=== PATIENT | female | born 1945 | race Caucasian/White ===

== ENCOUNTER 2022-08-12 04:33 | Emergency (ER) | payer MEDICARE, SELFPAY ==
--- NOTE | 2022-08-12 | ECG_ITS ---
Test Reason : CHEST PAIN Blood Pressure : / mmHG Vent. Rate : 080 BPM Atrial Rate : 080 BPM P-R Int : 176 ms QRS Dur : 080 ms QT Int : 364 ms P-R-T Axes : 077 060 058 degrees QTc Int : 419 ms Normal sinus rhythm Normal ECG When compared with ECG of 12-AUG-2022 04:50, previous study had limb lead reversal Referred By: Hernandez Tinsley Electronically Signed By:JONEL MCCARTY MD
--- NOTE | ~2022-08-12 | CT_ITS ---
EXAMINATION: CT ANGIOGRAM OF THE CHEST WITH AND WITHOUT CONTRAST (CT PULMONARY ANGIOGRAM FOR PE) CLINICAL INFORMATION: Reason for Exam cp and elev d-dimer COMPARISON: Chest radiograph 08/12/2022 TECHNIQUE: Prior to contrast administration, noncontrast localization images were obtained. Subsequently, multidetector volumetric imaging was performed from the thoracic inlet to below the diaphragms following the administration of 80 mL Omnipaque 350 intravenous contrast. No contrast reaction reported Sagittal, coronal, and MIP oblique sagittal reformatted images were obtained on the CT workstation, uploaded to PACS, and reviewed. This CT examination was performed using dose optimization techniques as appropriate, variously including the following: *Automated exposure control *Adjustment of mA and/or kV according to patient size (this includes techniques or standardized protocols for targeted exams where dose is matched to indication/reason for exam; i.e. extremities or head) *Use of iterative reconstruction technique Total exam dose-length product 195 mGy-cm FINDINGS: QUALITY OF STUDY/CONTRAST BOLUS: Satisfactory. PULMONARY ARTERIES: No central or segmental pulmonary emboli. THORACIC AORTA: No aneurysm or dissection. LUNG: Lungs do appear to be markedly hyperaerated but are grossly clear. No suspicious nodule or mass. PLEURA: No pleural effusion or pneumothorax. MEDIASTINUM: Normal heart size. No pericardial effusion. No hilar or mediastinal lymphadenopathy. No evidence of septal bowing or right heart strain. CHEST WALL/AXILLA: No axillary or internal mammary lymphadenopathy. OSSEOUS STRUCTURES: Kyphosis and advanced degenerative change throughout the thoracic spine. UPPER ABDOMEN: Hepatic cysts left lobe at 24 mm. Hepatic steatosis. No reflux of contrast into the hepatic veins to suggest elevated right heart pressures. CT/CT angio chest PE protocol IMPRESSION: 1. Hyperaeration. No active disease. No evidence for acute PE VTE: negative
--- NOTE | ~2022-08-12 | XR_ITS ---
EXAMINATION: XR CHEST CLINICAL INFORMATION: Chest pain COMPARISON: None TECHNIQUE: Frontal view of the chest was obtained. FINDINGS: Cardiac leads overlie the chest. The lungs are well expanded. There is no focal consolidation, edema, or effusion. No pneumothorax. The cardiomediastinal silhouette is within normal limits of size with a calcified aorta. No acute osseous abnormality. XR/XR chest 1V IMPRESSION: No acute pulmonary disease.
--- NOTE | 2022-08-12 04:43 | ECG_ITS ---
Test Reason : CHEST PAIN Blood Pressure : / mmHG Vent. Rate : 079 BPM Atrial Rate : 079 BPM P-R Int : 152 ms QRS Dur : 074 ms QT Int : 368 ms P-R-T Axes : 000 142 139 degrees QTc Int : 421 ms Normal sinus rhythm Left posterior fascicular block Abnormal ECG No previous ECGs available Possible limb lead reversal, suggest repeat study Referred By: Hernandez Tinsley Electronically Signed By:JONEL MCCARTY MD
[2022-08-12 04:52] VITALS: BP 160/90; PULSE 80; RESP 16; TEMP 36.9; O2SAT 99; BMI 25.4
--- OUTSIDE RECORDS SUMMARY | 2022-08-12 05:14 | XMS_ITS | Continuity of Care Document ---
:1945 Author Organization [facility] Address [address] [place] [address]- Care Team Providers Name Role Phone Jas Núñez MD Primary Care Physician Encounter [facility] Date(s): 12/27/20 - 01/26/21 [facility] [address] [place] [address]- Allergies, Adverse Reactions, Alerts Substance Reaction Severity Status ibuprofen anxious Active morphine stomach pain severe Active Motrin gi upset Active Latex rash Active Cold and Allergy DM get anxious Active PROzac1 Active 1lack of theraputic effect Medications albuterol CFC free 90 mcg/inh inhalation aerosol 2, puffs, Inhalation, Every 4 hours, PRN, # 8.5 Gm, Refills 0, Tot. Refills 0, Maintenance, 04/29/1916:28:23 EDT, Aerosol, Print Requisition Start Date: 04/29/19 Status: OrderedclonazePAM 0.5 mg oral tablet 1 tablet = 0.5 mg, By Mouth, Daily, PRN anxiety, # 10 tablet, 0 Refills, Maintenance, 11/13/20 15:21:00 EST, Tablet, [id number], 153, cm, 11/13/20 14:46:00 EST, Height, 60.8, kg, 10/03/20 10:13:00 EST, Dry Weight Start Date: 11/13/20 Stop Date: 02/11/21 Status: OrderedclonazePAM 1 mg oral tablet 0 Refills, Maintenance, 11/13/20 14:53:00 EST, Partial fill upon patient request if the prescriptionis for a schedule II opioid drug. Start Date: 11/13/20 Status: Orderedescitalopram 20 mg oral tablet 1 tablet = 20 mg, By Mouth, Daily, # 90 tablet, 2 Refills, Maintenance, 10/18/20 10:22:00 EST, [id number], 153, cm, 10/03/20 10:13:00 EST, Height, 60.8, kg, 10/03/20 10:13:00 EST, Dry Weight Start Date: 10/18/20 Stop Date: 07/15/21 Status: Orderedpravastatin 40 mg oral tablet 0 Refills, Maintenance, 12/09/20 15:14:00 EST, Partial fill upon patient request if the prescriptionis for a schedule II opioid drug. Start Date: 12/09/20 Status: Orderedramelteon 8 mg oral tablet 1 tablet = 8 mg, By Mouth, Daily at bedtime, # 30 tablet, 1 Refills, Maintenance, 12/30/20 13:04:00 EDT, [id number], Partial fill upon patient request if the prescription is for a schedule II opioid drug., 153, cm, 12/09/20 15:08:00 EST, He... Start Date: 12/30/20 Status: OrderedSymbicort 160mcg/4.5mcg Inhaler 2, puffs, Inhalation, 2 times a day, Refills 0, Maintenance, 01/28/20 13:08:00 EDT Start Date: 01/28/20 Status: Ordered Problem List Condition Effective Dates Status Health Status Informant COPD - Chronic obstructive pulmonary Active disease(Confirmed) Diverticulosis(Confirmed) Active Hyperlipidemia(Confirmed) Active Insomnia(Confirmed) Active Major depressive disorder(Confirmed) Active Lung cancer(Confirmed) Active Anxiety and depression(Confirmed) Active Pain In Left Arm(Confirmed) Active PMB (postmenopausal Active bleeding)(Confirmed) Social History Social History Type Response Smoking Status Former smoker, quit more ekaterina n 30 days ago; Other: stopped smoking about 15 years; used to smoke one pack of cigarettes a day; Started at age: 15; entered on: 04/11/20 Sex
--- OUTSIDE RECORDS SUMMARY | 2022-08-12 05:14 | XMS_ITS | Continuity of Care Document ---
:1945 Author Organization [facility] Address [address] [place] [address]- Care Team Providers Name Role Phone Wilton GONZALEZ, Jas Primary Care Physician Encounter [facility] NBR [id number] Date(s): 04/15/21 - 05/15/21 [facility] [address] [place] [address]- Attending Physician: Christiano Schaffer Admitting Physician: Christiano Schaffer Referring Physician: Christiano Schaffer Allergies, Adverse Reactions, Alerts Substance Reaction Severity [...] Aerosol, Print Requisition Start Date: 04/29/19 Status: Orderedbudesonide 3 mg oral delayed release capsule See Instructions, 3 capsules by mouth daily for 6 weeks then 2 capsules by mouth daily for 4 weeks then 1 capsule by mouth daily for 4 weeks, # 210 tablet, 0 Refills, Acute 06/04/21 14:54:00 EDT, 02/19/21 9:17:00 EDT, [id number], Partial... Start Date: 02/19/21 Stop Date: 06/04/21 Status: OrderedclonazePAM 0.5 mg oral tablet 0.5 tablet = 0.25 mg, By Mouth, Daily, PRN anxiety attacks, To use only for Panic Attacks, # 15 tablet, 0 Refills, Maintenance, 05/15/21 12:24:00 EDT, Tablet, [id number], Partial fill upon patient request if the prescription is for a schedu... Start Date: 05/15/21 Stop Date: 06/14/21 Status: Orderedduloxetine 20 mg oral enteric coated capsule 1 capsule = 20 mg, By Mouth, Daily, # 30 capsule, 3 Refills, Maintenance, 04/15/21 13:46:00 EDT, Capsule, [facility], Partial fill upon patient request if the prescription is for a schedule II opioid drug., 153, cm, 04/15/21 13:19:00 EDT, H... Start Date: 04/15/21 Stop Date: 08/13/21 Status: Orderedgabapentin 100 mg oral capsule 200 mg, 2, capsule, By Mouth, Daily at bedtime, # 180 capsule, Refills 1, Tot. Refills 1, Maintenance, 04/15/21 13:47:00 EDT, Route to Pharmacy Electronically, [id number], Partial fill upon patient request if the prescription is for a sched... Start Date: 04/15/21 Stop Date: 10/12/21 Status: Orderedpravastatin 40 mg oral tablet 0 Refills, Maintenance, 12/09/20 15:14:00 EST, Partial fill upon patient request if the prescriptionis for a schedule II opioid drug. Start Date: 12/09/20 Status: Orderedpravastatin 40 mg oral tablet 1 tablet = 40 mg, By Mouth, Every other day, # 45 tablet, 3 Refills, Maintenance, 05/05/21 15:52:00 EDT, Tablet, [facility], 153, cm, 04/15/21 13:19:00 EDT, Height, 60.1, kg, 03/18/21 16:02:00 EDT, Dry Weight Start Date: 05/05/21 Stop Date: 04/30/22 Status: OrderedSymbicort 160mcg/4.5mcg Inhaler 2, puffs, Inhalation, 2 times a day, Refills 0, Maintenance, 01/28/20 13:08:00 EDT Start Date: 01/28/20 Status: Ordered Problem List Condition Effective Dates Status Health Status Informant COPD - Chronic obstructive pulmonary Active disease(Confirmed) Diverticulosis(Confirmed) Active Generalized anxiety Active disorder(Confirmed) Hyperlipidemia(Confirmed) Active Insomnia(Confirmed) Active Major depressive disorder(Confirmed) Active Lung cancer(Confirmed) Active Anxiety and depression(Confirmed) Active Pain In Left Arm(Confirmed) Active Panic attacks(Confirmed) Active PMB (postmenopausal Active bleeding)(Confirmed) Social History Social History Type Response Smoking Status Former smoker, quit more ekaterina n 30 days ago; Started at age: 15; Other: stopped smoking about 15 years; used to smoke one pack of cigarettes a day; entered on: 04/11/20 Sex
--- OUTSIDE RECORDS SUMMARY | 2022-08-12 05:14 | XMS_ITS | Continuity of Care Document ---
:1945 Author Organization [facility] Address [address] [place] [address]- Care Team Providers Name Role Phone Jas Núñez MD Primary Care Physician Encounter [facility] Date(s): 07/25/21 - 08/24/21 [facility] [place] [address] [place], [place] [address] Allergies, Adverse Reactions, Alerts Substance Reaction Severity [...] 04/29/19 Status: OrderedclonazePAM 0.5 mg oral tablet 0.5 tablet = 0.25 mg, By Mouth, Daily, PRN anxiety attacks, To use only for Panic Attacks, # 15 tablet, 0 Refills, Maintenance, 06/23/21 15:36:00 EDT, Tablet, [facility], Partial fill upon patient request if the prescription is for a schedu... Start Date: 06/23/21 Stop Date: 07/23/21 Status: Orderedduloxetine 20 mg oral enteric coated capsule 1 capsule = 20 mg, By Mouth, Daily, # 30 capsule, 3 Refills, Maintenance, 08/19/21 10:09:00 EST, Capsule, [facility], [facility], Partial fill upon patient request if the prescription is for a schedule II opioid drug., 153, cm, 05/19/21 7:40:00 EDT, He... Start Date: 08/19/21 Stop Date: 12/17/21 Status: Orderedgabapentin 300 mg oral capsule 300 mg, 1, capsule, By Mouth, Daily at bedtime, # 90 capsule, Refills 1, Tot. Refills 1, Maintenance, 06/16/21 16:15:00 EDT, Route to Pharmacy Electronically, [id number], Partial fill upon patient request if the prescription is for a schedu... Start Date: 06/16/21 Stop Date: 12/13/21 Status: Orderedpravastatin 40 mg oral tablet 0 Refills, Maintenance, 12/09/20 15:14:00 EST, Partial fill upon patient request if the prescriptionis for a schedule II opioid drug. Start Date: 12/09/20 Status: Orderedpravastatin 40 mg oral tablet 1 tablet = 40 mg, By Mouth, Every other day, # 45 tablet, 3 Refills, Maintenance, 05/05/21 15:52:00 EDT, Tablet, [id number], 153, cm, 04/15/21 13:19:00 EDT, [...] smoker, quit more ekaterina n 30 days ago entered on: 05/19/21 Sex
--- OUTSIDE RECORDS SUMMARY | 2022-08-12 05:14 | XMS_ITS | Continuity of Care Document ---
:1945 Author Organization [facility] Address [address] [place] [address]- Care Team Providers Name Role Phone Jas Núñez MD Primary Care Physician Encounter [facility] NBR [id number] Date(s): 04/11/20 - 04/18/20 [facility] [address] [place] [address]- 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 Major depressive disorder (Discharge Diagnosis) - 04/11/20 Hyperlipidemia (Discharge Diagnosis) - 04/11/20 Lymphocytic colitis (Discharge Diagnosis) - 04/11/20 Lung cancer (Discharge Diagnosis) - 04/11/20 Osteopenia (Discharge Diagnosis) - 04/11/20 Left knee pain (Discharge Diagnosis) - 04/11/20 Attending Physician: Jas Núñez MD Allergies, Adverse Reactions, Alerts Substance Reaction Severity [...] Aerosol, Print Requisition Start Date: 04/29/19 Status: OrderedEscitalopram = 10 mg, By Mouth, Daily, 0 Refills, Maintenance, 06/11/18 13:39:25 EDT Start Date: 06/11/18 Status: OrderedKlonopin 1 mg oral tablet 0.5 tablet = 0.5 mg, By Mouth, Daily at bedtime, 0 Refills, Maintenance, 12/18/12 13:32:02 Start Date: 12/18/12 Status: OrderedPravastatin = 40 mg, By Mouth, Daily, every other day, 0 Refills, Maintenance, 01/22/19 18:11:37 EDT Start Date: 01/22/19 Status: OrderedSymbicort 160mcg/4.5mcg Inhaler 2, puffs, Inhalation, 2 times a day, Refills 0, Maintenance, 01/28/20 13:08:00 EDT Start Date: 01/28/20 Status: Ordered Problem List Condition Effective Dates Status Health Status Informant COPD - Chronic obstructive pulmonary Active disease(Confirmed) Diverticulosis(Confirmed) Active Hyperlipidemia(Confirmed) Active Major depressive disorder(Confirmed) Active Lung cancer(Confirmed) Active Anxiety and depression(Confirmed) Active Pain In Left Arm(Confirmed) Active PMB (postmenopausal Active bleeding)(Confirmed) Diagnosis Diagnosis Type Effective Dates Health Clinical Infor mant Status Service COPD with emphysema Discharge 04/11/20 Diagnosis Major depressive Discharge 04/11/20 disorder Diagnosis Hyperlipidemia Discharge 04/11/20 Diagnosis Lymphocytic colitis Discharge 04/11/20 Diagnosis Lung cancer Discharge 04/11/20 Diagnosis Osteopenia Discharge 04/11/20 Diagnosis Left knee pain Discharge 04/11/20 Diagnosis Vital Signs Most recent to oldest [Reference Range]: 1 Height 153 cm (04/11/20 9:54 AM) Weight 56.9 kg (04/11/20 9:54 AM) Oxygen Saturation [94-100 %] 96 % (04/11/20 9:54 AM) Pulse Rate [55-90 bpm] 77 bpm (04/11/20 9:54 AM) Body Mass Index [18.5-24.99] 24.31 (04/11/20 9:54 AM) Blood Pressure [90-138/55-84 mm Hg] 110/70 mm Hg (04/11/20 9:54 AM) Liters per Minute 0 L/min (04/11/20 9:54 AM) Mode of Delivery (Oxygen) Room air (04/11/20 9:54 AM) Blood pressure sites Arm, right (04/11/20 9:54 AM) Weight Obtained Via Standing scale (04/11/20 9:54 AM) Social History Social History Type Response Smoking Status Former smoker, quit more ekaterina n 30 days ago; Other: stopped smoking about 15 years; used to smoke one pack of cigarettes a day; Started at age: 15; entered on: 04/11/20 Sex
--- OUTSIDE RECORDS SUMMARY | 2022-08-12 05:14 | XMS_ITS | Continuity of Care Document ---
:1945 Author Organization [facility] Address [address] [place] [address]- Care Team Providers Name Role Phone Jas Núñez MD Primary Care Physician Encounter [facility] Date(s): 05/20/21 - 06/19/21 [facility] [address] [place] [address]- [place] Allergies, Adverse Reactions, Alerts Substance Reaction Severity [...] oral delayed release capsule See Instructions, 3 tabletsdaily for 6 weeks then 2 tablets daily for 4 weeks, then 1 tablet daily for 4 weeks, # 210 tablet, 0 Refills, Acute 08/04/21 13:00:00 EDT, 05/21/21 8:17:00 EDT, [facility], Partial fill upon patient request if the... Start Date: 05/21/21 Stop Date: 08/04/21 Status: OrderedclonazePAM 0.5 mg oral tablet 0.5 tablet = 0.25 mg, By Mouth, Daily, PRN anxiety attacks, To use only for Panic Attacks, # 15 tablet, 0 Refills, Maintenance, 05/15/21 12:24:00 EDT, Tablet, [facility], Partial fill upon patient request if the prescription is for a schedu... Start Date: 05/15/21 Stop Date: 06/14/21 Status: Orderedduloxetine 20 mg oral enteric coated capsule 1 capsule = 20 mg, By Mouth, Daily, # 30 capsule, 3 Refills, Maintenance, 04/15/21 13:46:00 EDT, Capsule, [facility], Partial fill upon patient request if the prescription is for a schedule II opioid drug., 153, cm, 04/15/21 13:19:00 EDT, H... Start Date: 04/15/21 Stop Date: 08/13/21 Status: Orderedgabapentin 300 mg oral capsule 300 mg, 1, capsule, By Mouth, Daily at bedtime, # 90 capsule, Refills 1, Tot. Refills 1, Maintenance, 06/16/21 16:15:00 EDT, Route to Pharmacy Electronically, [facility], Partial fill upon patient request [...] 3 Refills, Maintenance, 05/05/21 15:52:00 EDT, Tablet, [facility], 153, cm, 04/15/21 13:19:00 EDT, [...]
--- OUTSIDE RECORDS SUMMARY | 2022-08-12 05:14 | XMS_ITS | Continuity of Care Document ---
:1945 Author Organization [facility] Address [address] [place] [address]- Care Team Providers Name Role Phone Jas Núñez MD Primary Care Physician Encounter [facility] Date(s): 05/06/20 - 06/05/20 [facility] [address] [place] [address]- Allergies, Adverse Reactions, Alerts Substance Reaction Severity [...] Print Requisition Start Date: 04/29/19 Status: OrderedclonazePAM 1 mg oral tablet 1 tablet = 1 mg, By Mouth, Daily, PRN Anxiety, # 30 tablet, 1 Refills, Maintenance, 05/06/20 12:47:00 EDT, Tablet, [facility], 153, cm, 04/25/20 10:42:00 EDT, Height, 58.6, kg, 01/28/20 12:59:00 EDT, Dry Weight Start Date: 05/06/20 Status: OrderedEscitalopram = 10 mg, By Mouth, Daily, 0 Refills, Maintenance, 06/11/18 13:39:25 EDT Start Date: 06/11/18 Status: Orderedescitalopram 20 mg oral tablet 1 tablet = 20 mg, By Mouth, Daily, # 90 tablet, 1 Refills, Maintenance, 05/06/20 12:50:00 EDT, [facility], 153, cm, 04/25/20 10:42:00 EDT, Height, 58.6, kg, 01/28/20 12:59:00 EDT, Dry Weight Start Date: 05/06/20 Stop Date: 11/02/20 Status: OrderedKlonopin 1 mg oral tablet 0.5 [...] ekaterina n 30 days ago entered on: 04/25/20 Sex
--- OUTSIDE RECORDS SUMMARY | 2022-08-12 05:14 | XMS_ITS | Continuity of Care Document ---
:1945 Author Organization [facility] Address [address] [place] [address]- Care Team Providers Name Role Phone Jas Núñez MD Primary Care Physician Encounter [facility] Date(s): 06/24/20 - 07/24/20 [facility] [address] [place] [address]- Allergies, Adverse Reactions, Alerts Substance Reaction Severity [...] 1 Refills, Maintenance, 05/06/20 12:47:00 EDT, Tablet, [facility], 153, cm, 04/25/20 10:42:00 EDT, Height, 58.6, kg, 01/28/20 12:59:00 EDT, Dry Weight Start Date: 05/06/20 Status: OrderedEscitalopram = 10 mg, By Mouth, Daily, 0 Refills, Maintenance, 06/11/18 13:39:25 EDT Start Date: 06/11/18 Status: Orderedescitalopram 20 mg oral tablet 1 tablet = 20 mg, By Mouth, Daily, # 90 tablet, 1 Refills, Maintenance, 05/06/20 12:50:00 EDT, [facility], 153, cm, 04/25/20 10:42:00 EDT, [...] 01/22/19 18:11:37 EDT Start Date: 01/22/19 Status: Orderedpravastatin 40 mg oral tablet 1 tablet = 40 mg, By Mouth, Every other day, # 45 tablet, 2 Refills, Maintenance, 06/24/20 12:41:00 EDT, Tablet, [facility], 153, cm, 04/25/20 10:42:00 EDT, Height, 58.6, kg, 01/28/20 12:59:00 EDT, Dry Weight Start Date: 06/24/20 Stop Date: 03/21/21 Status: OrderedSymbicort 160mcg/4.5mcg Inhaler 2, puffs, Inhalation, [...]
--- OUTSIDE RECORDS SUMMARY | 2022-08-12 05:14 | XMS_ITS | Continuity of Care Document ---
:1945 Author Organization [facility] Address [address] [place] [address]- Care Team Providers Name Role Phone Jas Núñez MD Primary Care Physician Encounter [facility] NBR [id number] Date(s): 09/19/20 - 09/26/20 [facility] [address] [place] [id number]- Encounter Diagnosis Anxiety and depression (Discharge Diagnosis) - 09/19/20 Insomnia (Discharge Diagnosis) - 09/19/20 Attending Physician: Jas Núñez MD Allergies, Adverse [...] mg, By Mouth, Daily, PRN anxiety, # 30 tablet, 0 Refills, Maintenance, 08/08/20 17:49:00 EST, Tablet, [facility], 153, cm, 07/30/20 10:38:00 EDT, Height, 58.6, kg, 01/28/20 12:59:00 EDT, Dry Weight Start Date: 08/08/20 Status: Orderedescitalopram 20 mg oral tablet 1 tablet = 20 mg, By Mouth, Daily, # 90 tablet, 2 Refills, Maintenance, 07/30/20 11:16:00 EDT, [facility], 153, cm, 07/30/20 10:38:00 EDT, Height, 58.6, kg, 01/28/20 12:59:00 EDT, Dry Weight Start Date: 07/30/20 Stop Date: 04/26/21 Status: OrderedKlonopin 1 mg oral tablet 0.5 [...] 2 Refills, Maintenance, 06/24/20 12:41:00 EDT, Tablet, [facility], 153, cm, 04/25/20 10:42:00 EDT, Height, 58.6, kg, 01/28/20 12:59:00 EDT, Dry Weight Start Date: 06/24/20 Stop Date: 03/21/21 Status: OrderedSymbicort 160mcg/4.5mcg Inhaler 2, puffs, Inhalation, 2 times a day, Refills 0, Maintenance, 01/28/20 13:08:00 EDT Start Date: 01/28/20 Status: OrderedtraZODone 50 mg oral tablet 50 mg, 1, tablet, By Mouth, Daily at bedtime, PRN, # 30 tablet, Refills 3, Tot. Refills 3, Maintenance, Sleep, 09/11/20 13:45:00 EST, Route to Pharmacy Electronically, [facility], Partial fill upon patient request if the prescription is for... Start Date: 09/11/20 Stop Date: 01/09/21 Status: Ordered Problem List Condition Effective Dates Status Health Status Informant COPD - Chronic obstructive pulmonary Active disease(Confirmed) Diverticulosis(Confirmed) Active Hyperlipidemia(Confirmed) Active Major depressive disorder(Confirmed) Active Lung cancer(Confirmed) Active Anxiety and depression(Confirmed) Active Pain In Left Arm(Confirmed) Active PMB (postmenopausal Active bleeding)(Confirmed) Diagnosis Diagnosis Type Effective Dates Health Clinical Infor mant Status Service Anxiety and Discharge 09/19/20 depression Diagnosis Insomnia Discharge 09/19/20 Diagnosis Social History Social History Type Response Smoking Status Former smoker, quit more ekaternia n 30 days ago entered on: 04/25/20 Sex
--- OUTSIDE RECORDS SUMMARY | 2022-08-12 05:14 | XMS_ITS | Continuity of Care Document ---
:1945 Author Organization [facility] Address [address] [place] [address]- Care Team Providers Name Role Phone Jas Núñez MD Primary Care Physician Encounter [facility] Date(s): 07/28/21 - 08/27/21 [facility] [place] [address] [place], [place] [address] Allergies, Adverse Reactions, Alerts Substance Reaction [...] 0 Refills, Maintenance, 06/23/21 15:36:00 EDT, Tablet, [facility], Partial fill upon patient request if the prescription is for a schedu... Start Date: 06/23/21 Stop Date: 07/23/21 Status: Orderedduloxetine 20 mg oral enteric coated capsule 1 capsule = 20 mg, By Mouth, Daily, # 30 capsule, 3 Refills, Maintenance, 08/19/21 10:09:00 EST, [facility]apsule, [facility], Partial fill upon patient request if the prescription is for a schedule II opioid drug., 153, cm, 05/19/21 7:40:00 EDT, He... Start Date: 08/19/21 Stop Date: 12/17/21 Status: Orderedgabapentin 300 mg oral capsule 300 mg, 1, capsule, By Mouth, Daily at bedtime, # 90 capsule, Refills 1, Tot. Refills 1, Maintenance, 06/16/21 16:15:00 EDT, Route to Pharmacy Electronically, [facility], Partial fill upon patient [...] 3 Refills, Maintenance, 05/05/21 15:52:00 EDT, Tablet, [facility], 153, cm, 04/15/21 13:19:00 [...] n 30 days ago entered on: 05/19/21 Sex"
--- OUTSIDE RECORDS SUMMARY | 2022-08-12 05:14 | XMS_ITS | Continuity of Care Document ---
:1945 Author Organization [facility] Address [address] [place] [address]- Care Team Providers Name Role Phone Jas Núñez MD Primary Care Physician Encounter [facility] Date(s): 10/01/20 - 10/31/20 [facility] [address] [place] [address]- Allergies, Adverse Reactions, Alerts Substance Reaction Severity [...] Aerosol, Print Requisition Start Date: 04/29/19 Status: Orderedescitalopram 20 mg oral tablet 1 tablet = 20 mg, By Mouth, Daily, # 90 tablet, 2 Refills, Maintenance, 10/18/20 10:22:00 EST, [facility], 153, cm, 10/03/20 10:13:00 EST, Height, 60.8, kg, 10/03/20 10:13:00 EST, Dry Weight Start Date: 10/18/20 Stop Date: 07/15/21 Status: Orderedramelteon 8 mg oral tablet 1 tablet = 8 mg, By Mouth, Daily at bedtime, # 30 tablet, 1 Refills, Maintenance, 10/18/20 9:57:00 EST, [facility], Partial fill upon patient request if the prescription is for a schedule IIopioid drug., 153, cm, 12/31/20 10:13:00 EST, Hei... Start Date: 10/18/20 Status: OrderedSymbicort 160mcg/4.5mcg Inhaler 2, puffs, Inhalation, [...]
--- OUTSIDE RECORDS SUMMARY | 2022-08-12 05:14 | XMS_ITS | Continuity of Care Document ---
:1945 Author Organization [facility] Address [address] [place] [address]- Care Team Providers Name Role Phone Jas Núñez MD Primary Care Physician Encounter [facility] Date(s): 02/18/21 - 03/20/21 [facility] [address], [place] [address] Allergies, Adverse Reactions, Alerts Substance [...] Acute 06/04/21 14:54:00 EDT, 02/19/21 9:17:00 EDT, [facility], Partial... Start Date: 02/19/21 Stop Date: 06/04/21 Status: OrderedclonazePAM 0.5 mg oral tablet 1 tablet = 0.5 mg, By Mouth, Daily, PRN anxiety, # 10 tablet, 0 Refills, Maintenance, 11/13/20 15:21:00 EST, Tablet, [facility], 153, cm, 11/13/20 14:46:00 EST, Height, 60.8, kg, 10/03/20 10:13:00 EST, Dry Weight Start Date: 11/13/20 Stop Date: 02/11/21 Status: OrderedclonazePAM 0.5 mg oral tablet 1 tablet = 0.5 mg, By Mouth, Daily, PRN anxiety attacks, To use only for Panic Attacks, # 10 tablet,0 Refills, Maintenance, 03/11/21 16:18:00 EDT, Tablet, [facility], Partial fill upon patient request if the prescription is for a schedule... Start Date: 03/11/21 Stop Date: 04/01/21 Status: Orderedescitalopram 20 mg oral tablet 1 tablet = 20 mg, By Mouth, Daily, # 90 tablet, 2 Refills, Maintenance, 10/18/20 10:22:00 EST, [facility], 153, cm, 10/03/20 10:13:00 EST, Height, 60.8, kg, 10/03/20 10:13:00 EST, Dry Weight Start Date: 10/18/20 Stop Date: 07/15/21 Status: Orderedgabapentin 100 mg oral capsule 100 mg, 1, capsule, By Mouth, 3 times a day, # 90 capsule, Refills 0, Tot. Refills 0, Maintenance, 03/11/21 7:35:00 EDT, Route to Pharmacy Electronically, [facility], Partial fill upon patient request if the prescription is for a schedule I... Start Date: 03/11/21 Stop Date: 04/10/21 Status: Orderedpravastatin 40 mg oral tablet 0 Refills, Maintenance, 12/09/20 15:14:00 EST, Partial fill upon patient request if the prescriptionis for a schedule II opioid drug. Start Date: 12/09/20 Status: Orderedramelteon 8 mg oral tablet 1 tablet = 8 mg, By Mouth, Daily at bedtime, # 30 tablet, 1 Refills, Maintenance, 12/30/20 13:04:00 EDT, [facility], Partial fill upon patient request [...]
--- OUTSIDE RECORDS SUMMARY | 2022-08-12 05:14 | XMS_ITS | Continuity of Care Document ---
:1945 Author Organization [facility] Address [address] [place] [address]- Care Team Providers Name Role Phone Jas Núñez MD Primary Care Physician Encounter [facility] Date(s): 02/24/21 - 03/03/21 [facility] [address] [place], [place] [address] Attending Physician: Noy Mireles NP Referring Physician: Jas Núñez MD Allergies, Adverse Reactions, [...] Acute 06/04/21 14:54:00 EDT, 02/19/21 9:17:00 EDT, [facility], Partial... Start Date: 02/19/21 Stop Date: 06/04/21 Status: OrderedclonazePAM 0.5 mg oral tablet 1 tablet = 0.5 mg, By Mouth, Daily, PRN anxiety, # 10 tablet, 0 Refills, Maintenance, 11/13/20 15:21:00 EST, Tablet, [facility]386, 153, cm, 11/13/20 14:46:00 EST, Height, 60.8, kg, 10/03/20 10:13:00 EST, Dry Weight Start Date: 11/13/20 Stop Date: 02/11/21 Status: OrderedclonazePAM 0.5 mg oral tablet 1 tablet = 0.5 mg, By Mouth, Daily, # 8 tablet, 0 Refills, Maintenance, 02/24/21 10:14:00 EDT, Tablet, [facility] 2386, Partial fill upon patient request if the prescription is for a schedule II opioid drug., 152, cm, 02/24/21 9:53:00 EDT, [facility]... Start Date: 02/24/21 Stop Date: 03/04/21 Status: Orderedescitalopram 20 mg oral tablet 1 tablet = 20 mg, By Mouth, Daily, # 90 tablet, 2 Refills, Maintenance, 10/18/20 10:22:00 EST, [facility] 2386, 153, cm, 10/03/20 10:13:00 EST, Height, 60.8, kg, 10/03/20 10:13:00 EST, Dry Weight Start Date: 10/18/20 Stop Date: 07/15/21 Status: Orderedgabapentin 100 mg oral capsule See Instructions, 1 capsule By Mouth daily at bedtime x1 week; may then increase to 1 capsule twice daily x1 week; then may increase to 1 capsule by mouth 3 times a day x2 weeks, # 42 capsule, Refills 0, Tot. Refills 0, Maintenance, 02/19/21 17:28:00... Start Date: 02/19/21 Status: Orderedpravastatin 40 mg oral tablet 0 Refills, Maintenance, 12/09/20 15:14:00 EST, Partial fill upon patient request if the prescriptionis for a schedule II opioid drug. Start Date: 12/09/20 Status: Orderedramelteon 8 mg oral tablet 1 tablet = 8 mg, By Mouth, Daily at bedtime, # 30 tablet, 1 Refills, Maintenance, 12/30/20 13:04:00 EDT, [facility], Partial fill upon [...] Panic attacks(Confirmed) Active PMB (postmenopausal Active bleeding)(Confirmed) Vital Signs Most recent to oldest [Reference Range]: 1 Height 152 cm (02/24/21 9:53 AM) Social History Social History Type Response Smoking Status Former smoker, quit more ekaterina n 30 days ago; Started at age: 15; Other: stopped smoking about 15 years; used to smoke one pack of cigarettes a day; entered on: 04/11/20 Sex
--- OUTSIDE RECORDS SUMMARY | 2022-08-12 05:14 | XMS_ITS | Continuity of Care Document ---
:1945 Author Organization [facility] Address [address] [place] [address]- Care Team Providers Name Role Phone Wilton GONZALEZ, Jas Primary Care Phys[id number] Date(s): 03/26/21 - 04/25/21 [facility] [address] [place] [address]- Allergies, Adverse Reactions, Alerts Substance Reaction Severity [...] Acute 06/04/21 14:54:00 EDT, 02/19/21 9:17:00 EDT, [facility], Partial... Start Date: 02/19/21 Stop Date: 06/04/21 Status: OrderedclonazePAM 0.5 mg oral tablet 0.5 tablet = 0.25 mg, By Mouth, Daily, PRN anxiety attacks, To use only for Panic Attacks, # 15 tablet, 0 Refills, Maintenance, 04/15/21 13:52:00 EDT, Tablet, [facility], Partial fill upon patient request if the prescription is for a schedu... Start Date: 04/15/21 Stop Date: 05/15/21 Status: Orderedduloxetine 20 mg oral enteric coated capsule 1 capsule = 20 mg, By Mouth, Daily, # 30 capsule, 3 Refills, Maintenance, 04/15/21 13:46:00 EDT, Capsule, [facility], Partial fill upon patient request if the prescription is for a schedule II opioid drug., 153, cm, 04/15/21 13:19:00 EDT, H... Start Date: 04/15/21 Stop Date: 08/13/21 Status: Orderedgabapentin 100 mg oral capsule 200 mg, 2, capsule, By Mouth, Daily at bedtime, # 180 capsule, Refills 1, Tot. Refills 1, Maintenance, 04/15/21 13:47:00 EDT, Route to Pharmacy Electronically, [facility], Partial fill upon patient request if the prescription is for a sched... Start Date: 04/15/21 Stop Date: 10/12/21 Status: Orderedpravastatin 40 mg oral tablet 0 Refills, Maintenance, 12/09/20 15:14:00 EST, Partial fill upon patient request if the prescriptionis for a schedule II opioid drug. Start Date: 12/09/20 Status: OrderedSymbicort 160mcg/4.5mcg Inhaler 2, puffs, Inhalation, [...]
--- OUTSIDE RECORDS SUMMARY | 2022-08-12 05:15 | XMS_ITS | Continuity of Care Document ---
:1945 Author Organization [facility] Address [address] [place] [address]- Care Team Providers Name Role Phone Wilton GONZALEZ, Jas [id number] Date(s): 08/26/20 - 09/25/20 [facility] [address] [place] [address]- Allergies, Adverse Reactions, Alerts Substance Reaction Severity [...]
--- OUTSIDE RECORDS SUMMARY | 2022-08-12 05:15 | XMS_ITS | Continuity of Care Document ---
:1945 Author Organization [facility] Address [address] [place] [address]- Care Team Providers Name Role Phone Jas Núñez MD Primary Care Physician Encounter [facility] Date(s): 05/15/21 - 06/14/21 [facility] [address] [place] [address]- Allergies, Adverse Reactions, Alerts Substance Reaction Severity [...] Acute 08/04/21 13:00:00 EDT, 05/21/21 8:17:00 EDT, [facility], Partial fill upon patient request if the... Start Date: 05/21/21 Stop Date: 08/04/21 Status: OrderedclonazePAM 0.5 mg oral tablet 0.5 tablet = 0.25 mg, By Mouth, Daily, PRN anxiety attacks, To use only for Panic Attacks, # 15 tablet, 0 Refills, Maintenance, 05/15/21 12:24:00 EDT, Tablet, [facility], Partial fill upon patient request if the prescription is for a schedu... Start Date: 05/15/21 Stop Date: 06/14/21 Status: Orderedduloxetine 20 mg oral enteric coated capsule 1 capsule = 20 mg, By Mouth, Daily, # 30 capsule, 3 Refills, Maintenance, 04/15/21 13:46:00 EDT, Capsule, [facility]386, Partial fill upon patient request if the prescription is for a schedule II opioid drug., 153, cm, 04/15/21 13:19:00 EDT, H... Start Date: 04/15/21 Stop Date: 08/13/21 Status: Orderedgabapentin 100 mg oral capsule 200 mg, 2, capsule, By Mouth, Daily at bedtime, # 180 capsule, Refills 1, Tot. Refills 1, Maintenance, 04/15/21 13:47:00 EDT, Route to Pharmacy Electronically, [facility], Partial fill upon patient [...] 3 Refills, Maintenance, 05/05/21 15:52:00 EDT, Tablet, [facility], 153, cm, 04/15/21 13:19:00 [...]
--- OUTSIDE RECORDS SUMMARY | 2022-08-12 05:15 | XMS_ITS | Continuity of Care Document ---
:1945 Author Organization [facility] Address [address] [place] [address]- Care Team Providers Name Role Phone Wilton GONZALEZ, Jas Primary Care [id number] Date(s): 04/08/21 - 05/08/21 [facility] [address] [place] [address]- Allergies, Adverse Reactions, Alerts Substance Reaction Severity [...] Acute 06/04/21 14:54:00 EDT, 02/19/21 9:17:00 EDT, [facility], Partial... Start Date: 02/19/21 Stop Date: 06/04/21 Status: OrderedclonazePAM 0.5 mg oral tablet 0.5 tablet = 0.25 mg, By Mouth, Daily, PRN anxiety attacks, To use only for Panic Attacks, # 15 tablet, 0 Refills, Maintenance, 04/15/21 13:52:00 EDT, Tablet, [facility], Partial fill upon patient request if the prescription is for a schedu... Start Date: 04/15/21 Stop Date: 05/15/21 Status: Orderedduloxetine 20 mg oral enteric coated capsule 1 capsule = 20 mg, By Mouth, Daily, # 30 capsule, 3 Refills, Maintenance, 04/15/21 13:46:00 EDT, Capsule, [facility], Partial fill upon patient request if the prescription is for a schedule II opioid drug., 153, cm, 04/15/21 13:19:00 EDT, H... Start Date: 04/15/21 Stop Date: 08/13/21 Status: Orderedgabapentin 100 mg oral capsule 200 mg, 2, capsule, By Mouth, Daily at bedtime, # 180 capsule, Refills 1, Tot. Refills 1, Maintenance, 04/15/21 13:47:00 EDT, Route to Pharmacy Electronically, [facility], Partial fill upon [...] 3 Refills, Maintenance, 05/05/21 15:52:00 EDT, Tablet, [facility], 153, cm, 04/15/21 13:19:00 [...]
--- OUTSIDE RECORDS SUMMARY | 2022-08-12 05:15 | XMS_ITS | Continuity of Care Document ---
:1945 Author Organization [facility] Address [address] [place] [address]- Care Team Providers Name Role Phone Jas Núñez MD Primary Care Physician Encounter [facility] Date(s): 12/09/20 - 12/16/20 [facility] [address] [place] [address]- Encounter Diagnosis Lower back pain (Discharge Diagnosis) - 12/09/20 Left knee pain (Discharge Diagnosis) - 12/09/20 Pain of left thumb (Discharge Diagnosis) - 12/09/20 Ganglion cyst (Discharge Diagnosis) - 12/09/20 Attending Physician: Not on Staff, Attending MD Allergies, Adverse Reactions, Alerts Substance Reaction [...] 0 Refills, Maintenance, 11/13/20 15:21:00 EST, Tablet, [facility]386, 153, cm, 11/13/20 14:46:00 [...] tablet, 2 Refills, Maintenance, 10/18/20 10:22:00 EST, [facility], 153, cm, 10/03/20 10:13:00 [...] tablet, 1 Refills, Maintenance, 10/18/20 9:57:00 EST, [facility], Partial fill upon patient request if the prescription is for a schedule IIopioid drug., 153, cm, 10/03/20 10:13:00 EST, Hei... Start Date: 10/18/20 Status: [...] bleeding)(Confirmed) Diagnosis Diagnosis Type Effective Dates Health Status Clinical In formant Service Lower back pain Discharge 12/09/20 Diagnosis Pain of left Discharge 12/09/20 thumb Diagnosis Left knee pain Discharge 12/09/20 Diagnosis Ganglion cyst Discharge 3/8/21 Diagnosis Vital Signs Most recent to oldest [Reference Range]: 1 Height 153 cm (12/09/20 3:08 PM) Weight 61.1 kg (12/09/20 3:08 PM) Oxygen Saturation [94-100 %] 98 % (12/09/20 3:08 PM) Pulse Rate [55-90 bpm] 72 bpm (12/09/20 3:08 PM) Body Mass Index [18.5-24.99] 26.1 *H* (12/09/20 3:08 PM) Blood Pressure [90-138/55-84 mm Hg] 122/66 mm Hg (12/09/20 3:08 PM) Respiratory Rate [16-30 br/min] 17 br/min (12/09/20 3:08 PM) Temperature [96.8-100.4 DegF] 97.8 DegF (12/09/20 3:08 PM) Liters per Minute 0 L/min (12/09/20 3:08 PM) Mode of Delivery (Oxygen) Room air (12/09/20 3:08 PM) Blood pressure sites Arm, left (12/09/20 3:08 PM) Temperature Route Temporal (12/09/20 3:08 PM) Social History Social History Type Response Smoking Status Former smoker, quit more ekaterina n 30 days ago; Started at age: 15; Other: stopped smoking about 15 years; used to smoke one pack of cigarettes a day; entered on: 04/11/20 Sex
--- OUTSIDE RECORDS SUMMARY | 2022-08-12 05:15 | XMS_ITS | Continuity of Care Document ---
:1945 Author Organization [facility] Address [address] [place] [address]- Care Team Providers Name Role Phone Jas Núñez MD Primary Care Physician Encounter [facility] Date(s): 12/26/20 - 01/25/[address] [address]- Attending Physician: Christiano Schaffer Admitting Physician: AdmtrChristiano Referring Physician: Admtr, Ar8 Allergies, Adverse Reactions, Alerts Substance Reaction Severity [...] 0 Refills, Maintenance, 11/13/20 15:21:00 EST, Tablet, [facility], 153, cm, 11/13/20 14:46:00 [...] tablet, 2 Refills, Maintenance, 10/18/20 10:22:00 EST, [facility], 153, cm, 10/03/20 10:13:00 EST, [...] tablet, 1 Refills, Maintenance, 12/30/20 13:04:00 EDT, [facility], Partial fill upon patient [...]
--- OUTSIDE RECORDS SUMMARY | 2022-08-12 05:15 | XMS_ITS | Continuity of Care Document ---
:1945 Author Organization [facility] Address [address] [place] [address]- Care Team Providers Name Role Phone Jas Núñez MD Primary Care Physician Encounter [facility] Date(s): 06/20/21 - 07/20/21 [facility] [address] [place] [address]- [place] Allergies, Adverse Reactions, Alerts Substance Reaction [...] Acute 08/04/21 13:00:00 EDT, 05/21/21 8:17:00 EDT, [facility], Partial fill upon patient request if the... Start Date: 05/21/21 Stop Date: 08/04/21 Status: OrderedclonazePAM 0.5 mg oral tablet 0.5 tablet = 0.25 mg, By Mouth, Daily, PRN anxiety attacks, To use only for Panic Attacks, # 15 tablet, 0 Refills, Maintenance, 06/23/21 15:36:00 EDT, Tablet, [facility], Partial fill upon patient request if the prescription is for a schedu... Start Date: 06/23/21 Stop Date: 07/23/21 Status: Orderedduloxetine 20 mg oral enteric coated capsule 1 capsule = 20 mg, By Mouth, Daily, # 30 capsule, 3 Refills, Maintenance, 04/15/21 13:46:00 EDT, Capsule, [facility]386, Partial fill upon patient request if the prescription is for a schedule II opioid drug., 153, cm, 04/15/21 13:19:00 EDT, H... Start Date: 04/15/21 Stop Date: 08/13/21 Status: Orderedgabapentin 300 mg oral capsule 300 mg, 1, capsule, By Mouth, Daily at bedtime, # 90 capsule, Refills 1, Tot. Refills 1, Maintenance, 06/16/21 16:15:00 EDT, Route to Pharmacy Electronically, [facility], Partial fill upon [...] 3 Refills, Maintenance, 05/05/21 15:52:00 EDT, Tablet, [facility], 153, cm, 04/15/21 [...]
--- OUTSIDE RECORDS SUMMARY | 2022-08-12 05:15 | XMS_ITS | Continuity of Care Document ---
:1945 Author Organization [facility] Address [address] [place] [address]- Care Team Providers Name Role Phone Jas Núñez MD Primary Care Physician Encounter [facility] Date(s): 06/16/21 - 07/16/21 [facility] [address] [place] [address]- [place] Allergies, Adverse Reactions, Alerts Substance Reaction [...] Acute 08/04/21 13:00:00 EDT, 05/21/21 8:17:00 EDT, [facility], Partial fill upon patient request if the... Start Date: 05/21/21 Stop Date: 08/04/21 Status: OrderedclonazePAM 0.5 mg oral tablet 0.5 tablet = 0.25 mg, By Mouth, Daily, PRN anxiety attacks, To use only for Panic Attacks, # 15 tablet, 0 Refills, Maintenance, 06/23/21 15:36:00 EDT, Tablet, [facility], Partial fill upon patient request if the prescription is for a schedu... Start Date: 06/23/21 Stop Date: 07/23/21 Status: Orderedduloxetine 20 mg oral enteric coated capsule 1 capsule = 20 mg, By Mouth, Daily, # 30 capsule, 3 Refills, Maintenance, 04/15/21 13:46:00 EDT, Capsule, [facility], Partial fill upon patient request if the prescription is for a schedule II opioid drug., 153, cm, 04/15/21 13:19:00 EDT, H... Start Date: 04/15/21 Stop Date: 08/13/21 Status: Orderedgabapentin 300 mg oral capsule 300 mg, 1, capsule, By Mouth, Daily at bedtime, # 90 capsule, Refills 1, Tot. Refills 1, Maintenance, 06/16/21 16:15:00 EDT, Route to Pharmacy Electronically, [facility], Partial fill upon [...] 3 Refills, Maintenance, 05/05/21 15:52:00 EDT, Tablet, [facility], 153, cm, 04/15/21 [...]
--- OUTSIDE RECORDS SUMMARY | 2022-08-12 05:15 | XMS_ITS | Continuity of Care Document ---
:1945 Author Organization [facility] Address [address] [place] [address]- Care Team Providers Name Role Phone Jas Núñez MD Primary Care Physician [id number] Date(s): 06/27/21 - 09/28/21 [facility] [place] [address] [place], [place] [address] Attending Physician: Gerber GONZALEZ, Zacarias Referring Physician: Jas Núñez MD Allergies, Adverse Reactions, Alerts Substance Reaction Severity Status ibuprofen anxious Active PROzac1 Active morphine stomach pain severe Active Motrin gi upset Active Latex rash Active Cold and Allergy DM get anxious Active 1lack of theraputic effect Medications albuterol [...] 0 Refills, Maintenance, 06/23/21 15:36:00 EDT, Tablet, [facility] 2386, Partial fill upon patient request if the prescription is for a schedu... Start Date: 06/23/21 Stop Date: 07/23/21 Status: Orderedduloxetine 20 mg oral enteric coated capsule 1 capsule = 20 mg, By Mouth, Daily, # 30 capsule, 3 Refills, Maintenance, 08/19/21 10:09:00 EST, Capsule, [facility]386, Partial fill upon patient request if the prescription is for a schedule II opioid drug., 153, cm, 05/19/21 7:40:00 EDT, He... Start Date: 08/19/21 Stop Date: 12/17/21 Status: Orderedgabapentin 300 mg oral capsule 300 mg, 1, capsule, By Mouth, Daily at bedtime, # 90 capsule, Refills 1, Tot. Refills 1, Maintenance, 06/16/21 16:15:00 EDT, Route to Pharmacy Electronically, [facility]386, Partial fill upon patient [...] 3 Refills, Maintenance, 05/05/21 15:52:00 EDT, Tablet, [facility], 153, cm, 04/15/21 13:19:00 [...]
--- OUTSIDE RECORDS SUMMARY | 2022-08-12 05:15 | XMS_ITS | Continuity of Care Document ---
:1945 Author Organization [facility] Address [address] [place] [address]- Care Team Providers Name Role Phone Jas Núñez MD Primary Care Physician Encounter [facility] Date(s): 10/01/20 - 10/31/20 [facility] [address] [place] [address]- Allergies, Adverse Reactions, Alerts Substance Reaction Severity [...] tablet, 2 Refills, Maintenance, 10/18/20 10:22:00 EST, [facility], 153, cm, 10/03/20 10:13:00 EST, Height, 60.8, kg, 10/03/20 10:13:00 EST, Dry Weight Start Date: 10/18/20 Stop Date: 07/15/21 Status: Orderedramelteon 8 mg oral tablet 1 tablet = 8 mg, By Mouth, Daily at bedtime, # 30 tablet, 1 Refills, Maintenance, 10/18/20 9:57:00 EST, [facility], Partial fill upon patient request [...]
--- OUTSIDE RECORDS SUMMARY | 2022-08-12 05:15 | XMS_ITS | Continuity of Care Document ---
:1945 Author Organization [facility] Address [address] [place] [id number]- Care Team Providers Name Role Phone Jsa Núñez MD Primary Care Physician Encounter [facility] Date(s): 05/16/21 - 06/15/21 [facility] [address] [place] [address]- [place] Allergies, Adverse Reactions, Alerts Substance Reaction [...] Acute 08/04/21 13:00:00 EDT, 05/21/21 8:17:00 EDT, [facility]386, Partial fill upon patient request if the... Start Date: 05/21/21 Stop Date: 08/04/21 Status: OrderedclonazePAM 0.5 mg oral tablet 0.5 tablet = 0.25 mg, By Mouth, Daily, PRN anxiety attacks, To use only for Panic Attacks, # 15 tablet, 0 Refills, Maintenance, 05/15/21 12:24:00 EDT, Tablet, [facility], Partial fill upon patient request if the prescription is for a schedu... Start Date: 05/15/21 Stop Date: 06/14/21 Status: Orderedduloxetine 20 mg oral enteric coated capsule 1 capsule = 20 mg, By Mouth, Daily, # 30 capsule, 3 Refills, Maintenance, 04/15/21 13:46:00 EDT, Capsule, [facility] 2386, Partial fill upon patient request if the prescription is for a schedule II opioid drug., 153, cm, 04/15/21 13:19:00 EDT, H... Start Date: 04/15/21 Stop Date: 08/13/21 Status: Orderedgabapentin 100 mg oral capsule 200 mg, 2, capsule, By Mouth, Daily at bedtime, # 180 capsule, Refills 1, Tot. Refills 1, Maintenance, 04/15/21 13:47:00 EDT, Route to Pharmacy Electronically, [facility]386, Partial fill upon patient [...] 3 Refills, Maintenance, 05/05/21 15:52:00 EDT, Tablet, [facility], 153, cm, 04/15/21 13:19:00 [...]
--- OUTSIDE RECORDS SUMMARY | 2022-08-12 05:15 | XMS_ITS | Continuity of Care Document ---
:1945 Author Organization [facility] [place] [facility] Address [address] [place] [address]- Care Team Providers Name Role Phone Jas Núñez MD Primary Care Physician Encounter [facility] Date(s): 05/02/20 - 06/01/20 [facility] [address] [place] [address]- [facility] Attending Physician: AdmChristiano solares Admitting Physician: AdmtrChristiano Referring Physician: Admtr, Ar8 [...] 1 Refills, Maintenance, 05/06/20 12:47:00 EDT, Tablet, [facility], 153, cm, 04/25/20 10:42:00 EDT, Height, 58.6, kg, 01/28/20 12:59:00 EDT, Dry Weight Start Date: 05/06/20 Status: OrderedEscitalopram = 10 mg, By Mouth, Daily, 0 Refills, Maintenance, 06/11/18 13:39:25 EDT Start Date: 06/11/18 Status: Orderedescitalopram 20 mg oral tablet 1 tablet = 20 mg, By Mouth, Daily, # 90 tablet, 1 Refills, Maintenance, 05/06/20 12:50:00 EDT, [facility], 153, cm, 04/25/20 10:42:00 [...]
--- OUTSIDE RECORDS SUMMARY | 2022-08-12 05:15 | XMS_ITS | Continuity of Care Document ---
:1945 Author Organization [facility] Address [address] [place] [address]- Care Team Providers Name Role Phone Jas Núñez MD Primary Care Physician Encounter [facility] N[facility] [id number] Date(s): 09/11/20 - 09/18/20 [facility] [address] [place] [address]- Encounter Diagnosis Anxiety and depression (Discharge Diagnosis) - 09/11/20 Insomnia (Discharge Diagnosis) - 09/11/20 Attending Physician: Ofelia eSrrano NP Referring Physician: Jas Núñez MD Allergies, [...] 0 Refills, Maintenance, 08/08/20 17:49:00 EST, Tablet, [facility], 153, cm, 07/30/20 10:38:00 EDT, Height, 58.6, kg, 01/28/20 12:59:00 EDT, Dry Weight Start Date: 08/08/20 Status: Orderedescitalopram 20 mg oral tablet 1 tablet = 20 mg, By Mouth, Daily, # 90 tablet, 2 Refills, Maintenance, 07/30/20 11:16:00 EDT, [facility], 153, cm, 07/30/20 10:38:00 [...] 2 Refills, Maintenance, 06/24/20 12:41:00 EDT, Tablet, [facility], 153, cm, 04/25/20 10:42:00 [...] 09/11/20 13:45:00 EST, Route to Pharmacy Electronically, [facility], Partial fill upon patient [...] Infor mant Status Service Anxiety and Discharge 09/11/20 depression Diagnosis Insomnia Discharge 09/11/20 Diagnosis Vital Signs Most recent to oldest [Reference Range]: 1 Height 153 cm (09/11/20 12:59 PM) Weight 58.9 kg (09/11/20 12:59 PM) Oxygen Saturation [94-100 %] 98 % (09/11/20 12:59 PM) Pulse Rate [55-90 bpm] 70 bpm (09/11/20 12:59 PM) Body Mass Index [18.5-24.99] 25.16 *H* (09/11/20 12:59 PM) Blood Pressure [90-138/55-84 mm Hg] 116/70 mm Hg (09/11/20 12:59 PM) Respiratory Rate [16-30 br/min] 16 br/min (09/11/20 12:59 PM) Temperature [96.8-100.4 DegF] 98.5 DegF (09/11/20 12:59 PM) Mode of Delivery (Oxygen) Room air (09/11/20 12:59 PM) Blood pressure sites Arm, left (09/11/20 12:59 PM) Temperature Route Temporal (09/11/20 12:59 PM) Weight Obtained Via Standing scale (09/11/20 12:59 PM) Social History Social History Type Response Smoking Status Former smoker, quit more ekaterina n 30 days ago entered on: 04/25/20 Sex
--- OUTSIDE RECORDS SUMMARY | 2022-08-12 05:15 | XMS_ITS | Continuity of Care Document ---
:1945 Author Organization [facility] Address [address] [place] [address]- Care Team Providers Name Role Phone Jas Núñez MD Primary Care Physician Encounter [facility] Date(s): 04/15/20 - 05/15/[address] [facility] [address] [place] [address]- Allergies, Adverse Reactions, Alerts Substance Reaction Severity [...] 1 Refills, Maintenance, 05/06/20 12:47:00 EDT, Tablet, [facility], 153, cm, 04/25/20 10:42:00 EDT, Height, 58.6, kg, 01/28/20 12:59:00 EDT, Dry Weight Start Date: 05/06/20 Status: OrderedEscitalopram = 10 mg, By Mouth, Daily, 0 Refills, Maintenance, 06/11/18 13:39:25 EDT Start Date: 06/11/18 Status: Orderedescitalopram 20 mg oral tablet 1 tablet = 20 mg, By Mouth, Daily, # 90 tablet, 1 Refills, Maintenance, 05/06/20 12:50:00 EDT, [facility], 153, cm, 04/25/20 [...]
--- OUTSIDE RECORDS SUMMARY | 2022-08-12 05:15 | XMS_ITS | Continuity of Care Document ---
:1945 Author Organization [facility] Address [address] [place] [address]- Care Team Providers Name Role Phone Jas Núñez MD Primary Care Physician Encounter [facility] NBR [id number] Date(s): 04/25/20 - 05/25/20 [facility] [address] [place] [address]- [facility] Attending Physician: Admtr, Christiano Admitting Physician: AdmtrChristiano Referring Physician: Admtr, Ar8 [...] 1 Refills, Maintenance, 05/06/20 12:47:00 EDT, Tablet, [facility], 153, cm, 04/25/20 10:42:00 EDT, Height, 58.6, kg, 01/28/20 12:59:00 EDT, Dry Weight Start Date: 05/06/20 Status: OrderedEscitalopram = 10 mg, By Mouth, Daily, 0 Refills, Maintenance, 06/11/18 13:39:25 EDT Start Date: 06/11/18 Status: Orderedescitalopram 20 mg oral tablet 1 tablet = 20 mg, By Mouth, Daily, # 90 tablet, 1 Refills, Maintenance, 05/06/20 12:50:00 EDT, [facility], 153, cm, 04/25/20 10:42:00 [...]
--- OUTSIDE RECORDS SUMMARY | 2022-08-12 05:15 | XMS_ITS | Continuity of Care Document ---
:1945 Author Organization [facility] Address [address] [place] [address]- Care Team Providers Name Role Phone Jas Núñez MD Primary Care Physician Encounter [facility] Date(s): 01/10/21 - 02/09/21 [facility] [place] [address] [place], [place] [address] Allergies, Adverse Reactions, Alerts Substance [...] 0 Refills, Maintenance, 11/13/20 15:21:00 EST, Tablet, [facility], 153, cm, 11/13/20 14:46:00 EST, Height, 60.8, kg, 10/03/20 10:13:00 EST, Dry Weight Start Date: 11/13/20 Stop Date: 02/11/21 Status: OrderedclonazePAM 1 mg oral tablet 0 Refills, Maintenance, 11/13/20 14:53:00 EST, Partial fill upon patient request if the prescriptionis for a schedule II opioid drug. Start Date: 11/13/20 Status: OrderedclonazePAM 1 mg oral tablet 1 tablet = 1 mg, By Mouth, 3 times a day, # 4 tablet, 0 Refills, Maintenance, 02/09/21 9:34:00 EDT, Tablet, [facility], Partial fill upon patient request if the prescription is for a schedule II opioid drug., 153, cm, 02/09/21 9:09:00 EDT,... Start Date: 02/09/21 Status: Orderedescitalopram 20 mg oral tablet 1 tablet = 20 mg, By Mouth, Daily, # 90 tablet, 2 Refills, Maintenance, 10/18/20 10:22:00 EST, [facility], 153, cm, 10/03/20 [...] tablet, 1 Refills, Maintenance, 12/30/20 13:04:00 EDT, [facility], Partial fill upon [...]
--- OUTSIDE RECORDS SUMMARY | 2022-08-12 05:15 | XMS_ITS | Continuity of Care Document ---
:1945 Author Organization [facility] Address [address] [place] [address]- Care Team Providers Name Role Phone Jas Núñez MD Primary Care Physician Encounter [facility] Date(s): 01/06/21 - 02/05/21 [facility] [address] [place] [address]- Allergies, Adverse Reactions, Alerts Substance Reaction Severity [...] 0 Refills, Maintenance, 11/13/20 15:21:00 EST, Tablet, [facility], 153, cm, 11/13/20 [...] tablet, 2 Refills, Maintenance, 10/18/20 10:22:00 EST, [facility], 153, cm, 10/03/20 [...] tablet, 1 Refills, Maintenance, 12/30/20 13:04:00 EDT, [facility], Partial fill upon [...]
--- OUTSIDE RECORDS SUMMARY | 2022-08-12 05:15 | XMS_ITS | Continuity of Care Document ---
:1945 Author Organization [facility] [employer] [employer] [facility] Address [address] [place] [address]- Care Team Providers Name Role Phone Jas Núñez MD Primary Care Physician Encounter [facility] Date(s): 02/17/21 - 03/19/21 [facility] [address] [place], [place] [address] Allergies, Adverse Reactions, Alerts Substance Reaction Severity [...] Acute 06/04/21 14:54:00 EDT, 02/19/21 9:17:00 EDT, [facility], Partial... Start Date: 02/19/21 Stop Date: 06/04/21 Status: OrderedclonazePAM 0.5 mg oral tablet 1 tablet = 0.5 mg, By Mouth, Daily, PRN anxiety, # 10 tablet, 0 Refills, Maintenance, 11/13/20 15:21:00 EST, Tablet, [facility], 153, cm, 11/13/20 14:46:00 EST, Height, 60.8, kg, 10/03/20 10:13:00 EST, Dry Weight Start Date: 11/13/20 Stop Date: 02/11/21 Status: OrderedclonazePAM 0.5 mg oral tablet 1 tablet = 0.5 mg, By Mouth, Daily, PRN anxiety attacks, To use only for Panic Attacks, # 10 tablet,0 Refills, Maintenance, 03/11/21 16:18:00 EDT, Tablet, [facility], Partial fill upon patient request if the prescription is for a schedule... Start Date: 03/11/21 Stop Date: 04/01/21 Status: Orderedescitalopram 20 mg oral tablet 1 tablet = 20 mg, By Mouth, Daily, # 90 tablet, 2 Refills, Maintenance, 10/18/20 10:22:00 EST, [facility], 153, cm, 10/03/20 10:13:00 EST, Height, 60.8, kg, 10/03/20 10:13:00 EST, Dry Weight Start Date: 10/18/20 Stop Date: 07/15/21 Status: Orderedgabapentin 100 mg oral capsule 100 mg, 1, capsule, By Mouth, 3 times a day, # 90 capsule, Refills 0, Tot. Refills 0, Maintenance, 03/11/21 7:35:00 EDT, Route to Pharmacy Electronically, [facility], Partial fill upon [...] tablet, 1 Refills, Maintenance, 12/30/20 13:04:00 EDT, [facility], Partial fill upon [...]
--- OUTSIDE RECORDS SUMMARY | 2022-08-12 05:15 | XMS_ITS | Continuity of Care Document ---
:1945 Author Organization [facility] Address [address] [place] [address]- Care Team Providers Name Role Phone Wilton GONZALEZ, Jas Primary Care Physician Encounter [facility] Date(s): 12/05/20 - 01/04/21 [facility] [address] [place] [address]- Allergies, Adverse Reactions, Alerts Substance Reaction Severity [...] 0 Refills, Maintenance, 11/13/20 15:21:00 EST, Tablet, [facility], 153, cm, 11/13/20 [...] tablet, 2 Refills, Maintenance, 10/18/20 10:22:00 EST, [facility], 153, cm, 10/03/20 10:13:00 [...] tablet, 1 Refills, Maintenance, 12/30/20 13:04:00 EDT, [facility], Partial fill upon [...]
--- OUTSIDE RECORDS SUMMARY | 2022-08-12 05:15 | XMS_ITS | Continuity of Care Document ---
:1945 Author Organization [facility] Address [address] [place] [address]- Care Team Providers Name Role Phone Jas Núñez MD Primary Care Physician Encounter [facility] Date(s): 01/14/21 - 02/13/21 [facility] [place] [address] [place], [place] [address] Allergies, Adverse Reactions, Alerts Substance [...] 0 Refills, Maintenance, 11/13/20 15:21:00 EST, Tablet, [facility], 153, cm, 11/13/20 14:46:00 [...] 0 Refills, Maintenance, 02/09/21 9:34:00 EDT, Tablet, [facility], Partial fill upon patient request if the prescription is for a schedule II opioid drug., 153, cm, 02/09/21 9:09:00 EDT,... Start Date: 02/09/21 Status: Orderedescitalopram 20 mg oral tablet 1 tablet = 20 mg, By Mouth, Daily, # 90 tablet, 2 Refills, Maintenance, 10/18/20 10:22:00 EST, [facility], 153, cm, 10/03/20 10:13:00 [...] tablet, 1 Refills, Maintenance, 12/30/20 13:04:00 EDT, [facility], Partial fill upon patient [...]
--- OUTSIDE RECORDS SUMMARY | 2022-08-12 05:15 | XMS_ITS | Continuity of Care Document ---
:1945 Author Organization [facility] Address [address] [place] [address]- Care Team Providers Name Role Phone Jas Núñez MD Primary Care Physician [facility] [id number] Date(s): 12/13/20 - 02/19/[address] [address]- Encounter Diagnosis Low back pain (Final) - Discharge Disposition: A-D/C Home Attending Physician: Jas Núñez MD Admitting Physician: Jas Núñez MD Referring Physician: Jas Núñez MD Allergies, Adverse [...] Acute 06/04/21 14:54:00 EDT, 02/19/21 9:17:00 EDT, [facility], Partial... Start Date: 02/19/21 Stop Date: 06/04/21 Status: OrderedclonazePAM 0.5 mg oral tablet 1 tablet = 0.5 mg, By Mouth, Daily, PRN anxiety, # 10 tablet, 0 Refills, Maintenance, 11/13/20 15:21:00 EST, Tablet, [facility], 153, cm, 11/13/20 14:46:00 EST, Height, [...] 0 Refills, Maintenance, 02/09/21 9:34:00 EDT, Tablet, [facility]386, Partial fill upon patient request if the prescription is for a schedule II opioid drug., 153, cm, 02/09/21 9:09:00 EDT,... Start Date: 02/09/21 Status: Orderedescitalopram 20 mg oral tablet 1 tablet = 20 mg, By Mouth, Daily, # 90 tablet, 2 Refills, Maintenance, 10/18/20 10:22:00 EST, [facility]386, 153, cm, 10/03/20 10:13:00 EST, Height, [...] tablet, 1 Refills, Maintenance, 12/30/20 13:04:00 EDT, [facility], Partial fill upon patient request if the prescription is for a schedule II opioid drug., 153, cm, 12/09/20 15:08:00 [place] GOLD. Start Date: 12/30/20 Status: OrderedSymbicort 160mcg/4.5mcg Inhaler [...]
--- OUTSIDE RECORDS SUMMARY | 2022-08-12 05:15 | XMS_ITS | Continuity of Care Document ---
:1945 Author Organization [facility] Address [address] [place] [address]- Care Team Providers Name Role Phone Jas Núñez MD Primary Care Physician Encounter [facility] Date(s): 02/19/21 - 02/26/21 [facility] [address] [place], [place] [address] Encounter Diagnosis Major depressive disorder (Discharge Diagnosis) - 02/19/21 Generalized anxiety disorder (Discharge Diagnosis) - 02/19/21 Panic attacks (Discharge Diagnosis) - 02/19/21 Insomnia (Discharge Diagnosis) - 02/19/21 Attending Physician: Chi FISCHER, Noy Allergies, Adverse Reactions, Alerts Substance Reaction Severity [...] Acute 06/04/21 14:54:00 EDT, 02/19/21 9:17:00 EDT, [facility], Partial... Start Date: 02/19/21 Stop Date: 06/04/21 Status: OrderedclonazePAM 0.5 mg oral tablet 1 tablet = 0.5 mg, By Mouth, Daily, PRN anxiety, # 10 tablet, 0 Refills, Maintenance, 11/13/20 15:21:00 EST, Tablet, [facility], 153, cm, 11/13/20 14:46:00 EST, Height, 60.8, kg, 10/03/20 10:13:00 EST, Dry Weight Start Date: 11/13/20 Stop Date: 02/11/21 Status: OrderedclonazePAM 0.5 mg oral tablet 1 tablet = 0.5 mg, By Mouth, Daily, # 8 tablet, 0 Refills, Maintenance, 02/24/21 10:14:00 EDT, Tablet, [facility], Partial fill upon patient request if the prescription is for a schedule II opioid drug., 152, cm, 02/24/21 9:53:00 EDT, [place]... Start Date: 02/24/21 Stop Date: 03/04/21 Status: Orderedescitalopram 20 mg oral tablet 1 tablet = 20 mg, By Mouth, Daily, # 90 tablet, 2 Refills, Maintenance, 10/18/20 10:22:00 EST, [facility], 153, cm, 10/03/20 10:13:00 [...] tablet, 1 Refills, Maintenance, 12/30/20 13:04:00 EDT, [facility], Partial fill upon patient request if the prescription is for a schedule II opioid drug., 153, cm, 12/09/20 15:08:00 [place] GOLD... Start Date: 12/30/20 Status: OrderedSymbicort 160mcg/4.5mcg Inhaler [...] Panic attacks(Confirmed) Active PMB (postmenopausal Active bleeding)(Confirmed) Diagnosis Diagnosis Type Effective Dates Health Clinical Infor mant Status Service Major depressive Discharge 02/19/21 disorder Diagnosis Generalized Discharge 02/19/21 anxiety disorder Diagnosis Panic attacks Discharge 02/19/21 Diagnosis Insomnia Discharge 02/19/21 Diagnosis Vital Signs Most recent to oldest [Reference Range]: 1 Height 152 cm (02/19/21 10:37 AM) Weight 59.2 kg (02/19/21 10:37 AM) Oxygen Saturation [94-100 %] 98 % (02/19/21 10:37 AM) Pulse Rate [55-90 bpm] 85 bpm (02/19/21 10:37 AM) Body Mass Index [18.5-24.99] 25.62 *H* (02/19/21 10:37 AM) Blood Pressure [90-138/55-84 mm Hg] 124/72 mm Hg (02/19/21 10:37 AM) Respiratory Rate [16-30 br/min] 17 br/min (02/19/21 10:37 AM) Temperature [96.8-100.4 DegF] 97.7 DegF (02/19/21 10:37 AM) Liters per Minute 0 L/min (02/19/21 10:37 AM) Mode of Delivery (Oxygen) Room air (02/19/21 10:37 AM) Blood pressure sites Arm, left (02/19/21 10:37 AM) Temperature Route Temporal (02/19/21 10:37 AM) Weight Obtained Via Standing scale (02/19/21 10:37 AM) Social History Social History Type Response Smoking Status Former smoker, quit more ekaterina n 30 days ago; Other: stopped smoking about 15 years; used to smoke one pack of cigarettes a day; Started at age: 15; entered on: 04/11/20 Sex
--- OUTSIDE RECORDS SUMMARY | 2022-08-12 05:15 | XMS_ITS | Continuity of Care Document ---
:1945 Author Organization [facility] Address [address] [place] [address]- Care Team Providers Name Role Phone Jas Núñez MD Primary Care Physician Encounter [facility] Date(s): 12/10/20 - 01/09/21 [facility] [address] [place] [address]- Allergies, Adverse Reactions, Alerts Substance Reaction Severity [...] 0 Refills, Maintenance, 11/13/20 15:21:00 EST, Tablet, [facility], 153, cm, 11/13/20 14:46:00 [...] tablet, 2 Refills, Maintenance, 10/18/20 10:22:00 EST, [facility], 153, cm, 10/03/20 10:13:00 [...] tablet, 1 Refills, Maintenance, 12/30/20 13:04:00 EDT, [facility], Partial fill upon patient [...]
--- OUTSIDE RECORDS SUMMARY | 2022-08-12 05:15 | XMS_ITS | Continuity of Care Document ---
:[address] [facility] Address [address] [place] [address]- Care Team Providers Name Role Phone Jas Núñez MD Primary Care Physician Encounter [facility] NBR [id number] Date(s): 03/13/21 - 04/16/21 [facility] [address] [place] [address]- Attending Physician: Jas Núñez MD Allergies, Adverse [...] Acute 06/04/21 14:54:00 EDT, 02/19/21 9:17:00 EDT, [facility], Partial... Start Date: 02/19/21 Stop Date: 06/04/21 Status: OrderedclonazePAM 0.5 mg oral tablet 0.5 tablet = 0.25 mg, By Mouth, Daily, PRN anxiety attacks, To use only for Panic Attacks, # 15 tablet, 0 Refills, Maintenance, 04/15/21 13:52:00 EDT, Tablet, [facility], Partial fill upon patient request if the prescription is for a schedu... Start Date: 04/15/21 Stop Date: 05/15/21 Status: Orderedduloxetine 20 mg oral enteric coated capsule 1 capsule = 20 mg, By Mouth, Daily, # 30 capsule, 3 Refills, Maintenance, 04/15/21 13:46:00 EDT, Capsule, [facility], Partial [...] 04/15/21 13:47:00 EDT, Route to Pharmacy Electronically, [facility] [...] oldest [Reference Range]: 1 Height 152 cm (03/17/21 12:55 PM) Social History Social History Type Response Smoking Status Former smoker, quit more ekaterina n 30 days ago; Started at age: 15; Other: stopped smoking about 15 years; used to smoke one pack of cigarettes a day; entered on: 04/11/20 Sex
--- OUTSIDE RECORDS SUMMARY | 2022-08-12 05:15 | XMS_ITS | Continuity of Care Document ---
:1945 Author Organization [email or web address] Address [address] [place] [address]- Care Team Providers Name Role Phone Jas Núñez MD Primary Care Physician Encounter [facility] Date(s): 11/13/20 - 11/20/20 [email or web address] [address] [place] [address]- Encounter Diagnosis Anxiety and depression (Discharge Diagnosis) - 11/13/20 COPD - Chronic obstructive pulmonary disease (Discharge Diagnosis) - 11/13/20 Insomnia (Discharge Diagnosis) - 11/13/20 Lung cancer (Discharge Diagnosis) - 11/13/20 Well adult exam (Discharge Diagnosis) - 11/13/20 Attending Physician: Jas Núñez MD Allergies, Adverse [...] 0 Refills, Maintenance, 11/13/20 15:21:00 EST, Tablet, [facility], 153, cm, 11/13/20 14:46:00 [...] tablet, 2 Refills, Maintenance, 10/18/20 10:22:00 EST, [facility], 153, cm, 10/03/20 10:13:00 EST, Height, 60.8, kg, 10/03/20 10:13:00 EST, Dry Weight Start Date: 10/18/20 Stop Date: 07/15/21 Status: Orderedramelteon 8 mg oral tablet 1 tablet = 8 mg, By Mouth, Daily at bedtime, # 30 tablet, 1 Refills, Maintenance, 10/18/20 9:57:00 EST, [facility], Partial fill upon patient [...] Infor mant Status Service Anxiety and Discharge 11/13/20 depression Diagnosis COPD - Chronic Discharge 11/13/20 obstructive Diagnosis pulmonary disease Insomnia Discharge 11/13/20 Diagnosis Lung cancer Discharge 11/13/20 Diagnosis Well adult exam Discharge 11/13/20 Diagnosis Vital Signs Most recent to oldest [Reference Range]: 1 Height 153 cm (11/13/20 2:46 PM) Weight 60.0 kg (11/13/20 2:46 PM) Oxygen Saturation [94-100 %] 97 % (11/13/20 2:46 PM) Pulse Rate [55-90 bpm] 82 bpm (11/13/20 2:46 PM) Body Mass Index [18.5-24.99] 25.63 *H* (11/13/20 2:46 PM) Blood Pressure [90-138/55-84 mm Hg] 136/78 mm Hg (11/13/20 2:46 PM) Liters per Minute 0 L/min (11/13/20 2:46 PM) Mode of Delivery (Oxygen) Room air (11/13/20 2:46 PM) Blood pressure sites Arm, right (11/13/20 2:46 PM) Weight Obtained Via Standing scale (11/13/20 2:46 PM) Social History Social History Type Response Smoking Status Former smoker, quit more ekaterina n 30 days ago; Other: stopped smoking about 15 years; used to smoke one pack of cigarettes a day; Started at age: 15; entered on: 04/11/20 Sex
--- OUTSIDE RECORDS SUMMARY | 2022-08-12 05:15 | XMS_ITS | Continuity of Care Document ---
:1945 Author Organization [facility] Address [address] [place] [address]- Care Team Providers Name Role Phone Jas Núñez MD Primary Care Physician Encounter [facility] NBR [id number] Date(s): 07/30/20 - 08/06/20 [facility] [address] [place] [address]- Encounter Diagnosis Major depressive disorder (Discharge Diagnosis) - 07/30/20 Anxiety disorder (Discharge Diagnosis) - 07/30/20 Attending Physician: Jas Núñez MD Allergies, Adverse Reactions, Alerts Substance Reaction Severity Status [id number] Active ibuprofen anxious Active morphine stomach pain severe [...] 1 Refills, Maintenance, 05/06/20 12:47:00 EDT, Tablet, [id number], 153, cm, 04/25/20 10:42:00 EDT, Height, 58.6, kg, 01/28/20 12:59:00 EDT, Dry Weight Start Date: 05/06/20 Status: OrderedEscitalopram = 10 mg, By Mouth, Daily, 0 Refills, Maintenance, 06/11/18 13:39:25 EDT Start Date: 06/11/18 Status: Orderedescitalopram 20 mg oral tablet 1 tablet = 20 mg, By Mouth, Daily, # 90 tablet, 2 Refills, Maintenance, 07/30/20 11:16:00 EDT, [facility], 153, cm, 07/30/20 10:38:00 EDT, [...] 2 Refills, Maintenance, 06/24/20 12:41:00 EDT, Tablet, [facility], 153, cm, 04/25/20 10:42:00 EDT, [...] Diagnosis Type Effective Dates Health Clinical Infor [facility] Status Service Major depressive Discharge 07/30/20 disorder Diagnosis Anxiety disorder Discharge 07/30/20 Diagnosis Vital Signs Most recent to oldest [Reference Range]: 1 Height 153 cm (07/30/20 10:38 AM) Weight 57.7 kg (07/30/20 10:38 AM) Oxygen Saturation [94-100 %] 96 % (07/30/20 10:38 AM) Pulse Rate [55-90 bpm] 70 bpm (07/30/20 10:38 AM) Body Mass Index [18.5-24.99] 24.65 (07/30/20 10:38 AM) Blood Pressure [90-138/55-84 mm Hg] 110/70 mm Hg (07/30/20 10:38 AM) Liters per Minute 0 L/min (07/30/20 10:38 AM) Mode of Delivery (Oxygen) Room air (07/30/20 10:38 AM) Blood pressure sites Arm, left (07/30/20 10:38 AM) Weight Obtained Via Standing scale (07/30/20 10:38 AM) Social History Social History Type Response Smoking Status Former smoker, quit more ekaterina n 30 days ago entered on: 04/25/20 Sex
--- OUTSIDE RECORDS SUMMARY | 2022-08-12 05:15 | XMS_ITS | Continuity of Care Document ---
:1945 Author Organization [facility] Address [address] [place] [address]- Care Team Providers Name Role Phone Jas Núñez MD Primary Care Physician Encounter [facility] Date(s): 01/13/21 - 02/12/21 [facility] [address], [place] [address] Allergies, Adverse Reactions, Alerts Substance Reaction [...] 0 Refills, Maintenance, 11/13/20 15:21:00 EST, Tablet, [facility], 153, cm, 11/13/20 14:46:00 EST, [...] 0 Refills, Maintenance, 02/09/21 9:34:00 EDT, Tablet, [facility], Partial fill upon patient request if the prescription is for a schedule II opioid drug., 153, cm, 02/09/21 9:09:00 EDT,... Start Date: 02/09/21 Status: Orderedescitalopram 20 mg oral tablet 1 tablet = 20 mg, By Mouth, Daily, # 90 tablet, 2 Refills, Maintenance, 10/18/20 10:22:00 EST, [facility], 153, cm, 10/03/20 10:13:00 EST, [...] tablet, 1 Refills, Maintenance, 12/30/20 13:04:00 EDT, [facility], Partial fill upon patient request [...]
--- OUTSIDE RECORDS SUMMARY | 2022-08-12 05:15 | XMS_ITS | Continuity of Care Document ---
:1945 Author Organization [facility] Address [address] [place] [address]- Care Team Providers Name Role Phone Jas Núñez MD Primary Care Physician Encounter [facility] Date(s): 04/26/20 - 05/26/20 [facility] [address] [place] [address]- Allergies, Adverse Reactions, Alerts Substance Reaction Severity [...] 1 Refills, Maintenance, 05/06/20 12:47:00 EDT, Tablet, [facility], 153, cm, 04/25/20 10:42:00 EDT, Height, 58.6, kg, 01/28/20 12:59:00 EDT, Dry Weight Start Date: 05/06/20 Status: OrderedEscitalopram = 10 mg, By Mouth, Daily, 0 Refills, Maintenance, 06/11/18 13:39:25 EDT Start Date: 06/11/18 Status: Orderedescitalopram 20 mg oral tablet 1 tablet = 20 mg, By Mouth, Daily, # 90 tablet, 1 Refills, Maintenance, 05/06/20 12:50:00 EDT, [facility], 153, cm, 04/25/20 [...]
--- OUTSIDE RECORDS SUMMARY | 2022-08-12 05:15 | XMS_ITS | Continuity of Care Document ---
:1945 Author Organization [facility] Address [address] [place] [address]- Care Team Providers Name Role Phone Wilton GONZALEZ, Jas Primary Care Physician Encounter [facility] Date(s): 03/11/21 - 04/10/21 [facility] [address] [place] [address]- Allergies, Adverse Reactions, Alerts Substance Reaction Severity [...] Acute 06/04/21 14:54:00 EDT, 02/19/21 9:17:00 EDT, [facility], Partial... Start Date: 02/19/21 Stop Date: 06/04/21 Status: OrderedclonazePAM 0.5 mg oral tablet 1 tablet = 0.5 mg, By Mouth, Daily, PRN anxiety, # 10 tablet, 0 Refills, Maintenance, 11/13/20 15:21:00 EST, Tablet, [facility], 153, cm, 11/13/20 14:46:00 EST, Height, 60.8, kg, 10/03/20 10:13:00 EST, Dry Weight Start Date: 11/13/20 Stop Date: 02/11/21 Status: OrderedclonazePAM 0.5 mg oral tablet 1 tablet = 0.5 mg, By Mouth, Daily, PRN anxiety attacks, To use only for Panic Attacks, # 10 tablet,0 Refills, Maintenance, 03/11/21 16:18:00 EDT, Tablet, [facility], Partial fill upon patient request if the prescription is for a schedule... Start Date: 03/11/21 Stop Date: 04/01/21 Status: Orderedescitalopram 20 mg oral tablet 1 tablet = 20 mg, By Mouth, Daily, # 90 tablet, 2 Refills, Maintenance, 10/18/20 10:22:00 EST, [facility], 153, cm, 10/03/20 10:13:00 EST, Height, 60.8, kg, 10/03/20 10:13:00 EST, Dry Weight Start Date: 10/18/20 Stop Date: 07/15/21 Status: Orderedgabapentin 100 mg oral capsule 100 mg, 1, capsule, By Mouth, 3 times a day, # 90 capsule, Refills 0, Tot. Refills 0, Maintenance, 03/11/21 7:35:00 EDT, Route to Pharmacy Electronically, [facility], Partial fill upon patient [...] tablet, 1 Refills, Maintenance, 12/30/20 13:04:00 EDT, [facility], Partial fill upon patient [...]
--- OUTSIDE RECORDS SUMMARY | 2022-08-12 05:15 | XMS_ITS | Continuity of Care Document ---
:1945 Author Organization [facility] Address [address] [place] [address]- Care Team Providers Name Role Phone Jag Rosas MD Primary Care Physician Encounter [facility] Date(s): 05/05/22 - 06/04/22 [facility] [place] [address] [place], [place] [address] Allergies, Adverse Reactions, Alerts [...] Orderedbudesonide 3 mg oral delayed release capsule 1 capsule = 3 mg, By Mouth, 2 times a day, for 30 days, # 60 capsule, 2 Refills, Acute 07/26/22 11:37:00 EDT, 04/27/22 11:37:00 EDT, [facility], Partial fill upon patient request if the prescription is for a schedule II opioid drug., 152, c... Start Date: 04/27/22 Stop Date: 07/26/22 Status: OrderedclonazePAM 0.5 mg oral tablet 0.5 tablet = 0.25 mg, By Mouth, Daily, PRN anxiety attacks, To use only for Panic Attacks, # 15 tablet, 0 Refills, Maintenance, 06/23/21 15:36:00 EDT, Tablet, [facility], Partial fill upon patient request if the prescription is for a schedu... Start Date: 06/23/21 Stop Date: 07/23/21 Status: Orderedduloxetine 20 mg oral enteric coated capsule 1 capsule = 20 mg, By Mouth, Daily, # 30 capsule, 3 Refills, Maintenance, 08/19/21 10:09:00 EST, Capsule, [facility]386, Partial fill upon patient request if the prescription is for a schedule II opioid drug., 153, cm, 05/19/21 7:40:00 EDT, He... Start Date: 08/19/21 Stop Date: 12/17/21 Status: Orderedgabapentin 300 mg oral capsule 300 mg, 1, capsule, By Mouth, Daily at bedtime, # 90 capsule, Refills 1, Tot. Refills 1, Maintenance, 06/16/21 16:15:00 EDT, Route to Pharmacy Electronically, [facility], Partial fill upon patient [...] 3 Refills, Maintenance, 05/05/21 15:52:00 EDT, Tablet, [facility], 153, cm, 04/15/21 13:19:00 [...] 30 days ago entered on: 05/19/21 Sex Care Team PersonnelName: Ralph GONZALEZ, Jag Antoine Address: [address] [place] [address] [address] [place], [place] [address]
--- OUTSIDE RECORDS SUMMARY | 2022-08-12 05:15 | XMS_ITS | Continuity of Care Document ---
:1945 Author Organization [facility] Address [address] [place] [address]- Care Team Providers Name Role Phone Jas Núñez MD Primary Care Physician Encounter [facility] Date(s): 06/16/21 - 07/16/21 [facility] [address] [place] [address]- [place] Allergies, Adverse Reactions, Alerts Substance Reaction [...] Acute 08/04/21 13:00:00 EDT, 05/21/21 8:17:00 EDT, [facility], Partial fill upon patient request if the... Start Date: 05/21/21 Stop Date: 08/04/21 Status: OrderedclonazePAM 0.5 mg oral tablet 0.5 tablet = 0.25 mg, By Mouth, Daily, PRN anxiety attacks, To use only for Panic Attacks, # 15 tablet, 0 Refills, Maintenance, 06/23/21 15:36:00 EDT, Tablet, [facility]2, Partial fill upon patient request if the prescription is for a schedu... Start Date: 06/23/21 Stop Date: 07/23/21 Status: Orderedduloxetine 20 mg oral enteric coated capsule 1 capsule = 20 mg, By Mouth, Daily, # 30 capsule, 3 Refills, Maintenance, 04/15/21 13:46:00 EDT, Capsule, [facility]386, Partial fill upon patient request if the prescription is for a schedule II opioid drug., 153, cm, 04/15/21 13:19:00 EDT, H... Start Date: 04/15/21 Stop Date: 08/13/21 Status: Orderedgabapentin 300 mg oral capsule 300 mg, 1, capsule, By Mouth, Daily at bedtime, # 90 capsule, Refills 1, Tot. Refills 1, Maintenance, 06/16/21 16:15:00 EDT, Route to Pharmacy Electronically, [facility], Partial fill upon [...] 3 Refills, Maintenance, 05/05/21 15:52:00 EDT, Tablet, [facility], 153, cm, 04/15/21 [...]
--- OUTSIDE RECORDS SUMMARY | 2022-08-12 05:16 | XMS_ITS | Continuity of Care Document ---
:1945 Author Organization [facility] Address [address] [place] [address]- Care Team Providers Name Role Phone Jas Núñez MD Primary Care Physician Encounter [facility] Date(s): 02/18/21 - 03/20/21 [facility] [place] [address] [place], [place] [address] Allergies, Adverse Reactions, Alerts Substance Reaction [...] Acute 06/04/21 14:54:00 EDT, 02/19/21 9:17:00 EDT[facility], Partial... Start Date: 02/19/21 Stop Date: 06/04/21 Status: OrderedclonazePAM 0.5 mg oral tablet 1 tablet = 0.5 mg, By Mouth, Daily, PRN anxiety, # 10 tablet, 0 Refills, Maintenance, 11/13/20 15:21:00 EST, Tablet, [facility], 153, cm, 11/13/20 14:46:00 EST, Height, 60.8, kg, 10/03/20 10:13:00 EST, Dry Weight Start Date: 11/13/20 Stop Date: 02/11/21 Status: OrderedclonazePAM 0.5 mg oral tablet 1 tablet = 0.5 mg, By Mouth, Daily, PRN anxiety attacks, To use only for Panic Attacks, # 10 tablet,0 Refills, Maintenance, 03/11/21 16:18:00 EDT, Tablet, [facility] 2386, Partial fill upon patient request if the prescription is for a schedule... Start Date: 03/11/21 Stop Date: 04/01/21 Status: Orderedescitalopram 20 mg oral tablet 1 tablet = 20 mg, By Mouth, Daily, # 90 tablet, 2 Refills, Maintenance, 10/18/20 10:22:00 EST, [facility], 153, cm, 10/03/20 10:13:00 EST, Height, 60.8, kg, 10/03/20 10:13:00 EST, Dry Weight Start Date: 10/18/20 Stop Date: 07/15/21 Status: Orderedgabapentin 100 mg oral capsule 100 mg, 1, capsule, By Mouth, 3 times a day, # 90 capsule, Refills 0, Tot. Refills 0, Maintenance, 03/11/21 7:35:00 EDT, Route to Pharmacy Electronically, [facility], Partial fill upon patient [...] tablet, 1 Refills, Maintenance, 12/30/20 13:04:00 EDT, [facility], Partial fill upon patient [...]
--- OUTSIDE RECORDS SUMMARY | 2022-08-12 05:16 | XMS_ITS | Continuity of Care Document ---
:1945 Author Organization [facility] Address [address] [place] [address]- Care Team Providers Name Role Phone Jas Núñez MD Primary Care Physician Encounter [facility] Date(s): 06/13/21 - 07/13/21 [facility] [address] [place] [address]- [place] Allergies, Adverse Reactions, Alerts Substance Reaction [...] Acute 08/04/21 13:00:00 EDT, 05/21/21 8:17:00 EDT, [facility], Partial fill upon patient request if the... Start Date: 05/21/21 Stop Date: 08/04/21 Status: OrderedclonazePAM 0.5 mg oral tablet 0.5 tablet = 0.25 mg, By Mouth, Daily, PRN anxiety attacks, To use only for Panic Attacks, # 15 tablet, 0 Refills, Maintenance, 06/23/21 15:36:00 EDT, Tablet, [facility]386, Partial fill upon patient request if the prescription is for a schedu... Start Date: 06/23/21 Stop Date: 07/23/21 Status: Orderedduloxetine 20 mg oral enteric coated capsule 1 capsule = 20 mg, By Mouth, Daily, # 30 capsule, 3 Refills, Maintenance, 04/15/21 13:46:00 EDT, Capsule, [facility]386, Partial fill upon patient request if the prescription is for a schedule II opioid drug., 153, cm, 04/15/21 13:19:00 EDT, H... Start Date: 04/15/21 Stop Date: 08/13/21 Status: Orderedgabapentin 300 mg oral capsule 300 mg, 1, capsule, By Mouth, Daily at bedtime, # 90 capsule, Refills 1, Tot. Refills 1, Maintenance, 06/16/21 16:15:00 EDT, Route to Pharmacy Electronically, [facility]386, Partial fill upon [...] 3 Refills, Maintenance, 05/05/21 15:52:00 EDT, Tablet, [facility], 153, cm, 04/15/21 13:19:00 [...]
--- OUTSIDE RECORDS SUMMARY | 2022-08-12 05:16 | XMS_ITS | Continuity of Care Document ---
:1945 Author Organization [facility] Address [address] [place] [address]- Care Team Providers Name Role Phone Jas Núñez MD Primary Care Physician Encounter [facility] Date(s): 03/24/21 - 04/23/21 [facility] [address] [place] [address]- Allergies, Adverse Reactions, Alerts Substance Reaction Severity [...] Acute 06/04/21 14:54:00 EDT, 02/19/21 9:17:00 EDT, [facility], Partial... Start Date: 02/19/21 Stop Date: 06/04/21 Status: OrderedclonazePAM 0.5 mg oral tablet 0.5 tablet = 0.25 mg, By Mouth, Daily, PRN anxiety attacks, To use only for Panic Attacks, # 15 tablet, 0 Refills, Maintenance, 04/15/21 13:52:00 EDT, Tablet, [facility] 2386, Partial fill upon patient request if the prescription is for a schedu... Start Date: 04/15/21 Stop Date: 05/15/21 Status: Orderedduloxetine 20 mg oral enteric coated capsule 1 capsule = 20 mg, By Mouth, Daily, # 30 capsule, 3 Refills, Maintenance, 04/15/21 13:46:00 EDT, Capsule, [facility]386, Partial [...] 04/15/21 13:47:00 EDT, Route to Pharmacy Electronically, [facility], Partial [...]
--- OUTSIDE RECORDS SUMMARY | 2022-08-12 05:16 | XMS_ITS | Continuity of Care Document ---
:1945 Author Organization [facility] Address [address] [place] [address]- Care Team Providers Name Role Phone Jag Rosas MD Primary Care Physician [id number] Date(s): 01/28/20 - 01/28/[address] [address]- [facility] Discharge Disposition: A-D/C Home Attending Physician: Madhu Crenshaw MD Admitting Physician: Madhu Crenshaw MD Referring Physician: Not on Staff, Referring MD Allergies, Adverse Reactions, Alerts Substance Reaction [...] 12/18/12 13:32:02 Start Date: 12/18/12 Status: OrderedPravastatin By Mouth, Daily, 0 Refills, Maintenance, 01/22/19 18:11:37 EDT Start Date: 4/21/19 Status: OrderedSymbicort 160mcg/4.5mcg Inhaler 2, puffs, Inhalation, 2 times a day, Refills 0, Maintenance, 01/28/20 13:08:00 EDT Start Date: 01/28/20 Status: Ordered Problem List Condition Effective Dates Status Health Status Informant Diverticulosis(Confirmed) Active Hyperlipidemia(Confirmed) Active Lung cancer(Confirmed) Active Anxiety and depression(Confirmed) Active Pain In Left Arm(Confirmed) Active PMB (postmenopausal Active bleeding)(Confirmed) Vital Signs Most recent to oldest [Reference Range]: 1 2 Height 153 cm (01/28/20 12:38 PM) Weight 58.6 kg (01/28/20 12:38 PM) Oxygen Saturation [94-100 %] 100 % 100 % (01/28/20 2:00 PM) (01/28/20 12:38 PM) Pulse Rate [55-90 bpm] 80 bpm 82 bpm (01/28/20 2:00 PM) (01/28/20 12:38 PM) Blood Pressure [90-138/55-84 mm Hg] 126/77 mm Hg 121/ 70 mm Hg (01/28/20 2:00 PM) (01/28/20 12:38 PM) Respiratory Rate [16-30 br/min] 16 br/min 16 br/mi n (01/28/20 2:00 PM) (01/28/20 12:38 PM) Temperature [96.8-100.4 DegF] 97.9 DegF (01/28/20 12:38 PM) Mode of Delivery (Oxygen) Room air Room air (01/28/20 2:00 PM) (01/28/20 12:38 PM) Temperature Route Temporal (01/28/20 12:38 PM) Dry Weight 58.6 kg (01/28/20 12:38 PM) Dry Weight Obtained Via Standing scale (01/28/20 12:38 PM) Social History Social History Type Response Smoking Status Former smoker, quit more ekaterina n 30 days ago entered on: 04/29/19 Sex
--- OUTSIDE RECORDS SUMMARY | 2022-08-12 05:16 | XMS_ITS | Continuity of Care Document ---
:1945 Author Organization [facility] Address [address] [place] [address]- Care Team Providers Name Role Phone Jas Núñez MD Primary Care Physician Encounter [facility] Date(s): 12/31/20 - 01/07/21 [facility] [address] [place] [address]- Encounter Diagnosis Adverse effect of COVID-19 vaccine (Discharge Diagnosis) - 12/31/20 Colitis (Discharge Diagnosis) - 12/31/20 Attending Physician: Jas Núñez MD Allergies, Adverse [...] 0 Refills, Maintenance, 11/13/20 15:21:00 EST, Tablet, [facility]386, 153, cm, 11/13/20 14:46:00 [...] tablet, 2 Refills, Maintenance, 10/18/20 10:22:00 EST, [facility], 153, cm, 10/03/20 10:13:00 [...] tablet, 1 Refills, Maintenance, 12/30/20 13:04:00 EDT, [facility]386, Partial fill upon patient [...] Dates Health Status Clinical In formant Service Adverse effect Discharge 12/31/20 of COVID-19 Diagnosis vaccine Colitis Discharge 12/31/20 Diagnosis Vital Signs Most recent to oldest [Reference Range]: 1 Height 153 cm (12/31/20 10:45 AM) Social History Social History Type Response Smoking Status Former smoker, quit more ekaterina n 30 days ago; Started at age: 15; Other: stopped smoking about 15 years; used to smoke one pack of cigarettes a day; entered on: 04/11/20 Sex
--- OUTSIDE RECORDS SUMMARY | 2022-08-12 05:16 | XMS_ITS | Continuity of Care Document ---
:1945 Author Organization [facility] Address [address] [place] [address]- Care Team Providers Name Role Phone Wilton GONZALEZ, Jas Primary Care Physician Encounter [facility] Date(s): 03/13/21 - 04/12/21 [facility] [address] [place] [address]- Allergies, Adverse Reactions, Alerts Substance Reaction Severity [...] Acute 06/04/21 14:54:00 EDT, 02/19/21 9:17:00 [facility], Partial... Start Date: 02/19/21 Stop Date: 06/04/21 Status: OrderedclonazePAM 0.5 mg oral tablet 1 tablet = 0.5 mg, By Mouth, Daily, PRN anxiety, # 10 tablet, 0 Refills, Maintenance, 11/13/20 15:21:00 EST, Tablet, [facility], 153, cm, 11/13/20 14:46:00 EST, Height, 60.8, kg, 10/03/20 10:13:00 EST, Dry Weight Start Date: 11/13/20 Stop Date: 02/11/21 Status: OrderedclonazePAM 0.5 mg oral tablet 1 tablet = 0.5 mg, By Mouth, Daily, PRN anxiety attacks, To use only for Panic Attacks, # 10 tablet,0 Refills, Maintenance, 03/11/21 16:18:00 EDT, Tablet, [facility] 2386, Partial fill upon patient request if the prescription is for a schedule... Start Date: 03/11/21 Stop Date: 04/01/21 Status: Orderedescitalopram 20 mg oral tablet 1 tablet = 20 mg, By Mouth, Daily, # 90 tablet, 2 Refills, Maintenance, 10/18/20 10:22:00 EST, [facility]386, 153, cm, 10/03/20 10:13:00 EST, Height, 60.8, kg, 10/03/20 10:13:00 EST, Dry Weight Start Date: 10/18/20 Stop Date: 07/15/21 Status: Orderedgabapentin 100 mg oral capsule 100 mg, 1, capsule, By Mouth, 3 times a day, # 90 capsule, Refills 0, Tot. Refills 0, Maintenance, 03/11/21 7:35:00 EDT, Route to Pharmacy Electronically, [facility]386, Partial fill upon patient [...] tablet, 1 Refills, Maintenance, 12/30/20 13:04:00 EDT, [facility]386, Partial fill upon patient [...]
--- OUTSIDE RECORDS SUMMARY | 2022-08-12 05:16 | XMS_ITS | Continuity of Care Document ---
:1945 Author Organization [facility] Address [address] [place] [address]- Care Team Providers Name Role Phone Jas Núñez MD Primary Care Phys[id number] Date(s): 05/15/21 - 06/14/21 [facility] [address] [place] [address]- [place] Allergies, Adverse Reactions, Alerts Substance Reaction [...] Acute 08/04/21 13:00:00 EDT, 05/21/21 8:17:00 EDT, [facility]386, Partial fill upon patient request if the... Start Date: 05/21/21 Stop Date: 08/04/21 Status: OrderedclonazePAM 0.5 mg oral tablet 0.5 tablet = 0.25 mg, By Mouth, Daily, PRN anxiety attacks, To use only for Panic Attacks, # 15 tablet, 0 Refills, Maintenance, 05/15/21 12:24:00 EDT, Tablet, [facility], Partial fill upon patient request if the prescription is for a schedu... Start Date: 05/15/21 Stop Date: 06/14/21 Status: Orderedduloxetine 20 mg oral enteric coated capsule 1 capsule = 20 mg, By Mouth, Daily, # 30 capsule, 3 Refills, Maintenance, 04/15/21 13:46:00 EDT, Capsule, [facility]386, Partial fill upon patient request if the prescription is for a schedule II opioid drug., 153, cm, 04/15/21 13:19:00 EDT, H... Start Date: 04/15/21 Stop Date: 08/13/21 Status: Orderedgabapentin 100 mg oral capsule 200 mg, 2, capsule, By Mouth, Daily at bedtime, # 180 capsule, Refills 1, Tot. Refills 1, Maintenance, 04/15/21 13:47:00 EDT, Route to Pharmacy Electronically, [facility], Partial fill upon patient request [...] 3 Refills, Maintenance, 05/05/21 15:52:00 EDT, Tablet, [facility], 153, cm, 04/15/21 13:19:00 EDT, [...]
--- OUTSIDE RECORDS SUMMARY | 2022-08-12 05:16 | XMS_ITS | Continuity of Care Document ---
:1945 Author Organization [facility] Address [address] [place] [address]- Care Team Providers Name Role Phone Jas Núñez MD Primary Care Physician Encounter [facility] Date(s): 02/17/21 - 03/20/21 [facility] [address], [place] [address] Attending Physician: Jas Núñez MD Allergies, Adverse [...] Acute 06/04/21 14:54:00 EDT, 02/19/21 9:17:00 EDT, [facility], Partial... Start Date: 02/19/21 Stop Date: 06/04/21 Status: OrderedclonazePAM 0.5 mg oral tablet 1 tablet = 0.5 mg, By Mouth, Daily, PRN anxiety, # 10 tablet, 0 Refills, Maintenance, 11/13/20 15:21:00 EST, Tablet, [facility], 153, cm, 11/13/20 14:46:00 EST, Height, 60.8, kg, 10/03/20 10:13:00 EST, Dry Weight Start Date: 11/13/20 Stop Date: 02/11/21 Status: OrderedclonazePAM 0.5 mg oral tablet 1 tablet = 0.5 mg, By Mouth, Daily, PRN anxiety attacks, To use only for Panic Attacks, # 10 tablet,0 Refills, Maintenance, 03/11/21 16:18:00 EDT, Tablet, [facility], Partial fill upon patient request if the prescription is for a schedule... Start Date: 03/11/21 Stop Date: 04/01/21 Status: Orderedescitalopram 20 mg oral tablet 1 tablet = 20 mg, By Mouth, Daily, # 90 tablet, 2 Refills, Maintenance, 10/18/20 10:22:00 EST, [facility], 153, cm, 10/03/20 10:13:00 EST, Height, 60.8, kg, 10/03/20 10:13:00 EST, Dry Weight Start Date: 10/18/20 Stop Date: 07/15/21 Status: Orderedgabapentin 100 mg oral capsule 100 mg, 1, capsule, By Mouth, 3 times a day, # 90 capsule, Refills 0, Tot. Refills 0, Maintenance, 03/11/21 7:35:00 EDT, Route to Pharmacy Electronically, [facility], Partial fill upon [...] tablet, 1 Refills, Maintenance, 12/30/20 13:04:00 EDT, [facility], Partial fill upon [...]
--- OUTSIDE RECORDS SUMMARY | 2022-08-12 05:16 | XMS_ITS | Continuity of Care Document ---
:1945 Author Organization [facility] Address [address] [phone]- Care Team Providers Name Role Phone Jas Núñez MD Primary Care Physician Encounter [facility] Date(s): 05/16/21 - 06/15/21 [facility] [address] [place] [phone]- [place] Allergies, Adverse Reactions, Alerts Substance Reaction [...] Acute 08/04/21 13:00:00 EDT, 05/21/21 8:17:00 EDT, [facility], Partial fill upon patient request if the... Start Date: 05/21/21 Stop Date: 08/04/21 Status: OrderedclonazePAM 0.5 mg oral tablet 0.5 tablet = 0.25 mg, By Mouth, Daily, PRN anxiety attacks, To use only for Panic Attacks, # 15 tablet, 0 Refills, Maintenance, 05/15/21 12:24:00 EDT, Tablet, [facility], Partial fill upon patient request if the prescription is for a schedu... Start Date: 05/15/21 Stop Date: 06/14/21 Status: Orderedduloxetine 20 mg oral enteric coated capsule 1 capsule = 20 mg, By Mouth, Daily, # 30 capsule, 3 Refills, Maintenance, 04/15/21 13:46:00 EDT, Capsule, [facility], Partial fill upon patient request if the prescription is for a schedule II opioid drug., 153, cm, 04/15/21 13:19:00 EDT, H... Start Date: 04/15/21 Stop Date: 08/13/21 Status: Orderedgabapentin 100 mg oral capsule 200 mg, 2, capsule, By Mouth, Daily at bedtime, # 180 capsule, Refills 1, Tot. Refills 1, Maintenance, 04/15/21 13:47:00 EDT, Route to Pharmacy Electronically, [facility], Partial fill upon patient request [...] 3 Refills, Maintenance, 05/05/21 15:52:00 EDT, Tablet, [facility], 153, cm, 04/15/21 13:19:00 EDT, [...]
--- OUTSIDE RECORDS SUMMARY | 2022-08-12 05:16 | XMS_ITS | Continuity of Care Document ---
:1945 Author Organization [facility] Address [address] [place] [address]- Care Team Providers Name Role Phone Jas Núñez MD Primary Care Physician Encounter [facility] Date(s): 02/09/21 - 02/09/[address] [address]- Discharge Disposition: A-D/C Home Attending Physician: Madhu [...] 0 Refills, Maintenance, 11/13/20 15:21:00 EST, Tablet, [facility], 153, cm, 11/13/20 14:46:00 [...] 0 Refills, Maintenance, 02/09/21 9:34:00 EDT, Tablet, [facility], Partial fill upon patient request if the prescription is for a schedule II opioid drug., 153, cm, 02/09/21 9:09:00 EDT,... Start Date: 02/09/21 Status: Orderedescitalopram 20 mg oral tablet 1 tablet = 20 mg, By Mouth, Daily, # 90 tablet, 2 Refills, Maintenance, 10/18/20 10:22:00 EST, [facility], 153, cm, 10/03/20 10:13:00 [...] tablet, 1 Refills, Maintenance, 12/30/20 13:04:00 EDT, [facility], Partial fill upon patient [...] oldest [Reference Range]: 1 Height 153 cm (02/09/21 9:09 AM) Weight 61.5 kg (02/09/21 9:09 AM) Oxygen Saturation [94-100 %] 98 % (02/09/21 9:09 AM) Pulse Rate [55-90 bpm] 91 bpm *H* (02/09/21 9:09 AM) Blood Pressure [90-138/55-84 mm Hg] 153/68 mm Hg *H* (02/09/21 9:09 AM) Respiratory Rate [16-30 br/min] 16 br/min (02/09/21 9:09 AM) Temperature [96.8-100.4 DegF] 96.9 DegF (02/09/21 9:09 AM) Mode of Delivery (Oxygen) Room air (02/09/21 9:09 AM) Dry Weight 61.5 kg (02/09/21 9:09 AM) Weight Obtained Via Standing scale (02/09/21 9:09 AM) Social History Social History Type Response Smoking Status Former smoker, quit more ekaterina n 30 days ago; Other: stopped smoking about 15 years; used to smoke one pack of cigarettes a day; Started at age: 15; entered on: 04/11/20 Sex
--- OUTSIDE RECORDS SUMMARY | 2022-08-12 05:16 | XMS_ITS | Continuity of Care Document ---
:1945 Author Organization [facility] Address [address] [place] [address]- Care Team Providers Name Role Phone Jas Núñez MD Primary Care Physician Encounter [facility] Date(s): 01/09/21 - 01/09/[address] [address]- Discharge Disposition: A-D/C Home Attending Physician: Cody Chisholm DO Admitting Physician: Cody Chisholm DO Referring Physician: Not on Staff, Referring MD [...] 0 Refills, Maintenance, 11/13/20 15:21:00 EST, Tablet, [facility], 153, cm, 11/13/20 14:46:00 [...] tablet, 2 Refills, Maintenance, 10/18/20 10:22:00 EST, [facility], 153, cm, 10/03/20 10:13:00 [...] tablet, 1 Refills, Maintenance, 12/30/20 13:04:00 EDT, [facility], Partial fill upon patient [...] [Reference Range]: 1 2 Height 153 cm (01/09/21 12:41 PM) Weight 61.3 kg (01/09/21 12:41 PM) Oxygen Saturation [94-100 %] 100 % 99 % (01/09/21 4:20 PM) (01/09/21 12:41 PM) Pulse Rate [55-90 bpm] 82 bpm 88 bpm (01/09/21 4:20 PM) (01/09/21 12:41 PM) Blood Pressure [90-138/55-84 mm Hg] 136/62 mm Hg 133/ 64 mm Hg (01/09/21 4:20 PM) (01/09/21 12:41 PM) Respiratory Rate [16-30 br/min] 16 br/min 18 br/mi n (01/09/21 4:20 PM) (01/09/21 12:41 PM) Temperature [96.8-100.4 DegF] 97.8 DegF (01/09/21 12:41 PM) Mode of Delivery (Oxygen) Room air Room air (01/09/21 4:20 PM) (01/09/21 12:41 PM) Blood pressure sites Arm, right Arm, right (01/09/21 4:20 PM) (01/09/21 12:41 PM) Temperature Route Temporal (01/09/21 12:41 PM) Dry Weight 61.3 kg (01/09/21 12:41 PM) Social History Social History Type Response Smoking Status Former smoker, quit more ekaterina n 30 days ago; Other: stopped smoking about 15 years; used to smoke one pack of cigarettes a day; Started at age: 15; entered on: 04/11/20 Sex
--- OUTSIDE RECORDS SUMMARY | 2022-08-12 05:16 | XMS_ITS | Continuity of Care Document ---
:1945 Author Organization [facility] Address [address] [place] [address]- Care Team Providers Name Role Phone Jas Núñez MD Primary Care Physician Encounter [facility] Date(s): 07/28/21 - 08/27/21 [facility] [place] [address] [place], [place] [address] Allergies, Adverse Reactions, Alerts [...] 0 Refills, Maintenance, 06/23/21 15:36:00 EDT, Tablet, [facility], Partial fill upon patient request if the prescription is for a schedu... Start Date: 06/23/21 Stop Date: 07/23/21 Status: Orderedduloxetine 20 mg oral enteric coated capsule 1 capsule = 20 mg, By Mouth, Daily, # 30 capsule, 3 Refills, Maintenance, 08/19/21 10:09:00 EST, [facility]apsule, [facility], Partial fill upon patient request if the prescription is for a schedule II opioid drug., 153, cm, 05/19/21 7:40:00 EDT, He... Start Date: 08/19/21 Stop Date: 12/17/21 Status: Orderedgabapentin 300 mg oral capsule 300 mg, 1, capsule, By Mouth, Daily at bedtime, # 90 capsule, Refills 1, Tot. Refills 1, Maintenance, 06/16/21 16:15:00 EDT, Route to Pharmacy Electronically, [facility], Partial fill upon patient [...] 3 Refills, Maintenance, 05/05/21 15:52:00 EDT, Tablet, [facility], 153, cm, 04/15/21 13:19:00 [...]
--- OUTSIDE RECORDS SUMMARY | 2022-08-12 05:16 | XMS_ITS | Continuity of Care Document ---
:1945 Author Organization [facility] Address [address] [place] [address]- Care Team Providers Name Role Phone Jas Núñez MD Primary Care [id number] Date(s): 04/15/21 - 04/22/21 [facility] [address] [place], [place] [address] Encounter Diagnosis Major depression, recurrent, chronic (Discharge Diagnosis) - 04/15/21 Generalized anxiety disorder (Discharge Diagnosis) - 04/15/21 Hyperlipidemia (Discharge Diagnosis) - 04/15/21 Attending Physician: Jas Núñez MD Allergies, Adverse [...] Acute 06/04/21 14:54:00 EDT, 02/19/21 9:17:00 EDT, [id number], Partial... Start Date: 02/19/21 Stop Date: 06/04/21 Status: OrderedclonazePAM 0.5 mg oral tablet 0.5 tablet = 0.25 mg, By Mouth, Daily, PRN anxiety attacks, To use only for Panic Attacks, # 15 tablet, 0 Refills, Maintenance, 04/15/21 13:52:00 EDT, Tablet, [facility], Partial fill upon patient request if the prescription is for a schedu... Start Date: 04/15/21 Stop Date: 05/15/21 Status: Orderedduloxetine 20 mg oral enteric coated capsule 1 capsule = 20 mg, By Mouth, Daily, # 30 capsule, 3 Refills, Maintenance, 04/15/21 13:46:00 EDT, Capsule, [facility], Partial fill upon patient request if the prescription is for a schedule II opioid drug., 153, cm, 04/15/21 13:19:00 EDT, H... Start Date: 04/15/21 Stop Date: 08/13/21 Status: Orderedgabapentin 100 mg oral capsule 200 mg, 2, capsule, By Mouth, Daily at bedtime, # 180 capsule, Refills 1, Tot. Refills 1, Maintenance, 04/15/21 13:47:00 EDT, Route to Pharmacy Electronically, [facility], Partial fill upon [...] Diagnosis Type Effective Dates Health Clinical [facility] Status Service Major depression, Discharge 04/15/21 recurrent, chronic Diagnosis Generalized anxiety Discharge 04/15/21 disorder Diagnosis Hyperlipidemia Discharge 04/15/21 Diagnosis Vital Signs Most recent to oldest [Reference Range]: 1 Height 153 cm (04/15/21 1:19 PM) Weight 60.7 kg (04/15/21 1:19 PM) Oxygen Saturation [94-100 %] 97 % (04/15/21 1:19 PM) Pulse Rate [55-90 bpm] 86 bpm (04/15/21 1:19 PM) Body Mass Index [18.5-24.99] 25.93 *H* (04/15/21 1:19 PM) Blood Pressure [90-138/55-84 mm Hg] 122/68 mm Hg (04/15/21 1:19 PM) Liters per Minute 0 L/min (04/15/21 1:19 PM) Mode of Delivery (Oxygen) Room air (04/15/21 1:19 PM) Blood pressure sites Arm, left (04/15/21 1:19 PM) Weight Obtained Via Standing scale (04/15/21 1:19 PM) Social History Social History Type Response Smoking Status Former smoker, quit more ekaterina n 30 days ago; Started at age: 15; Other: stopped smoking about 15 years; used to smoke one pack of cigarettes a day; entered on: 04/11/20 Sex
--- OUTSIDE RECORDS SUMMARY | 2022-08-12 05:16 | XMS_ITS | Continuity of Care Document ---
:1945 Author Organization [facility] Address [address] [place] [address]- Care Team Providers Name Role Phone Wilton GONZALEZ, Jas Primary Care Physician [id number] Date(s): 03/17/21 - 04/16/21 [facility] [address] [place], [place] [address] Allergies, Adverse Reactions, Alerts Substance Reaction [...] Acute 06/04/21 14:54:00 EDT, 02/19/21 9:17:00 EDT, [facility], Partial... Start Date: 02/19/21 Stop Date: 06/04/21 Status: OrderedclonazePAM 0.5 mg oral tablet 0.5 tablet = 0.25 mg, By Mouth, Daily, PRN anxiety attacks, To use only for Panic Attacks, # 15 tablet, 0 Refills, Maintenance, 04/15/21 13:52:00 EDT, Tablet, [facility], Partial fill upon patient request if the prescription is for a schedu... Start Date: 04/15/21 Stop Date: 05/15/21 Status: Orderedduloxetine 20 mg oral enteric coated capsule 1 capsule = 20 mg, By Mouth, Daily, # 30 capsule, 3 Refills, Maintenance, 04/15/21 13:46:00 EDT, Capsule, [facility], Partial fill upon patient request if the prescription is for a schedule II opioid drug., 153, cm, 04/15/21 13:19:00 EDT, H... Start Date: 04/15/21 Stop Date: 08/13/21 Status: Orderedgabapentin 100 mg oral capsule 200 mg, 2, capsule, By Mouth, Daily at bedtime, # 180 capsule, Refills 1, Tot. Refills 1, Maintenance, 04/15/21 13:47:00 EDT, Route to Pharmacy Electronically, [facility], Partial fill upon patient [...]
--- OUTSIDE RECORDS SUMMARY | 2022-08-12 05:16 | XMS_ITS | Continuity of Care Document ---
:1945 Author Organization [facility] Address [address] [place] [address]- Care Team Providers Name Role Phone Jas Núñez MD Primary Care Physician Encounter [facility] Date(s): 10/03/20 - 10/03/[address] [address]- Discharge Disposition: A-D/C Home Attending Physician: Trav Graham MD Admitting Physician: Trav Graham MD Referring Physician: Not on Staff, Referring [...] 0 Refills, Maintenance, 08/08/20 17:49:00 EST, Tablet, [facility], 153, cm, 07/30/20 10:38:00 EDT, Height, 58.6, kg, 01/28/20 12:59:00 EDT, Dry Weight Start Date: 08/08/20 Status: Orderedescitalopram 20 mg oral tablet 1 tablet = 20 mg, By Mouth, Daily, # 90 tablet, 2 Refills, Maintenance, 07/30/20 11:16:00 EDT, [facility], 153, cm, 07/30/20 10:38:00 EDT, Height, 58.6, kg, 01/28/20 12:59:00 EDT, Dry Weight Start Date: 07/30/20 Stop Date: 04/26/21 Status: OrderedSymbicort 160mcg/4.5mcg Inhaler 2, puffs, Inhalation, 2 times a day, Refills 0, Maintenance, 01/28/20 13:08:00 EDT Start Date: 01/28/20 Status: OrderedtraZODone 50 mg oral tablet 50 mg, 1, tablet, By Mouth, Daily at bedtime, PRN, # 30 tablet, Refills 3, Tot. Refills 3, Maintenance, Sleep, 09/11/20 13:45:00 EST, Route to Pharmacy Electronically, [facility], Partial fill upon patient [...] oldest [Reference Range]: 1 Height 153 cm (10/03/20 10:13 AM) Weight 60.8 kg (10/03/20 10:13 AM) Oxygen Saturation [94-100 %] 98 % (10/03/20 10:13 AM) Pulse Rate [55-90 bpm] 85 bpm (10/03/20 10:13 AM) Blood Pressure [90-138/55-84 mm Hg] 100/65 mm Hg (10/03/20 10:13 AM) Respiratory Rate [16-30 br/min] 18 br/min (10/03/20 10:13 AM) Temperature [96.8-100.4 DegF] 97.0 DegF (10/03/20 10:13 AM) Mode of Delivery (Oxygen) Room air (10/03/20 10:13 AM) Blood pressure sites Arm, right (10/03/20 10:13 AM) Temperature Route Temporal (10/03/20 10:13 AM) Dry Weight 60.8 kg (10/03/20 10:13 AM) Weight Obtained Via Standing scale (10/03/20 10:13 AM) Social History Social History Type Response Smoking Status Former smoker, quit more ekaterina n 30 days ago entered on: 04/25/20 Sex
--- OUTSIDE RECORDS SUMMARY | 2022-08-12 05:16 | XMS_ITS | Continuity of Care Document ---
:1945 Author Organization [facility] Address [address] [place] [address]- Care Team Providers Name Role Phone Jas Núñez MD Primary Care Physician Encounter [facility] Date(s): 05/01/20 - 05/31/20 [facility] [address] [place] [address]- Allergies, Adverse Reactions, Alerts Substance Reaction Severity [...] 1 Refills, Maintenance, 05/06/20 12:47:00 EDT, Tablet, [facility], 153, cm, 04/25/20 10:42:00 EDT, Height, 58.6, kg, 01/28/20 12:59:00 EDT, Dry Weight Start Date: 05/06/20 Status: OrderedEscitalopram = 10 mg, By Mouth, Daily, 0 Refills, Maintenance, 06/11/18 13:39:25 EDT Start Date: 06/11/18 Status: Orderedescitalopram 20 mg oral tablet 1 tablet = 20 mg, By Mouth, Daily, # 90 tablet, 1 Refills, Maintenance, 05/06/20 12:50:00 EDT, [facility], 153, cm, 04/25/20 10:42:00 [...]
--- OUTSIDE RECORDS SUMMARY | 2022-08-12 05:16 | XMS_ITS | Continuity of Care Document ---
:1945 Author Organization [employer] Address [address] [place] [address]- Care Team Providers Name Role Phone Jas Núñez MD Primary Care Physician Encounter [facility] Date(s): 04/25/20 - 05/02/20 [facility] [address] [place] [address]- [facility] Encounter Diagnosis Anxiety and depression (Discharge Diagnosis) - 04/25/20 Attending Physician: Jas Núñez MD Allergies, Adverse [...] Infor mant Status Service Anxiety and Discharge 04/25/20 depression Diagnosis Vital Signs Most recent to oldest [Reference Range]: 1 Height 153 cm (04/25/20 10:42 AM) Weight 57.2 kg (04/25/20 10:42 AM) Oxygen Saturation [94-100 %] 96 % (04/25/20 10:42 AM) Pulse Rate [55-90 bpm] 79 bpm (04/25/20 10:42 AM) Body Mass Index [18.5-24.99] 24.44 (04/25/20 10:42 AM) Blood Pressure [90-138/55-84 mm Hg] 110/60 mm Hg (04/25/20 10:42 AM) Liters per Minute 0 L/min (04/25/20 10:42 AM) Mode of Delivery (Oxygen) Room air (04/25/20 10:42 AM) Blood pressure sites Arm, right (04/25/20 10:42 AM) Weight Obtained Via Standing scale (04/25/20 10:42 AM) Social History Social History Type Response Smoking Status Former smoker, quit more ekaterina n 30 days ago entered on: 04/25/20 Sex
--- OUTSIDE RECORDS SUMMARY | 2022-08-12 05:16 | XMS_ITS | Continuity of Care Document ---
:1945 Author Organization [facility] Address [address] [place] [address]- Care Team Providers Name Role Phone Jas Núñez MD Primary Care Physician Encounter [facility] Date(s): 07/21/21 - 08/20/21 [facility] [place] [address] [place], [place] [address] Allergies, Adverse Reactions, Alerts [...] 0 Refills, Maintenance, 06/23/21 15:36:00 EDT, Tablet, [facility], Partial fill upon patient request if the prescription is for a schedu... Start Date: 06/23/21 Stop Date: 07/23/21 Status: Orderedduloxetine 20 mg oral enteric coated capsule 1 capsule = 20 mg, By Mouth, Daily, # 30 capsule, 3 Refills, Maintenance, 08/19/21 10:09:00 EST, Capsule, [facility], Partial fill upon patient request if the prescription is for a schedule II opioid drug., 153, cm, 05/19/21 7:40:00 EDT, He... Start Date: 08/19/21 Stop Date: 12/17/21 Status: Orderedgabapentin 300 mg oral capsule 300 mg, 1, capsule, By Mouth, Daily at bedtime, # 90 capsule, Refills 1, Tot. Refills 1, Maintenance, 06/16/21 16:15:00 EDT, Route to Pharmacy Electronically, [facility], Partial fill upon [...] 3 Refills, Maintenance, 05/05/21 15:52:00 EDT, Tablet, [facility], 153, cm, 04/15/21 13:19:00 [...]
--- OUTSIDE RECORDS SUMMARY | 2022-08-12 05:16 | XMS_ITS | Continuity of Care Document ---
:1945 Author Organization [facility] Address [address] [place] [address]- Care Team Providers Name Role Phone Jas Núñez MD Primary Care Physician Encounter [facility] Date(s): 07/25/21 - 08/24/21 [facility] [place] [address] [place], [place] [address] Attending Physician: Sarbjit, Christiano Admitting Physician: Admtr, Christiano Referring Physician: Admtr, Ar8 Allergies, Adverse Reactions, [...] 0 Refills, Maintenance, 06/23/21 15:36:00 EDT, Tablet, [facility], Partial fill upon patient request if the prescription is for a schedu... Start Date: 06/23/21 Stop Date: 07/23/21 Status: Orderedduloxetine 20 mg oral enteric coated capsule 1 capsule = 20 mg, By Mouth, Daily, # 30 capsule, 3 Refills, Maintenance, 08/19/21 10:09:00 EST, Capsule, [facility], Partial fill upon patient request if the prescription is for a schedule II opioid drug., 153, cm, 05/19/21 7:40:00 EDT, He... Start Date: 08/19/21 Stop Date: 12/17/21 Status: Orderedgabapentin 300 mg oral capsule 300 mg, 1, capsule, By Mouth, Daily at bedtime, # 90 capsule, Refills 1, Tot. Refills 1, Maintenance, 06/16/21 16:15:00 EDT, Route to Pharmacy Electronically, [facility], Partial fill upon [...] 3 Refills, Maintenance, 05/05/21 15:52:00 EDT, Tablet, [facility], 153, cm, 04/15/21 [...]
--- OUTSIDE RECORDS SUMMARY | 2022-08-12 05:16 | XMS_ITS | Continuity of Care Document ---
:1945 Author Organization [facility] Address [address] [place] [address]- Care Team Providers Name Role Phone Jas Núñez MD Primary Care Physician Encounter [facility] Date(s): 07/30/20 - 11/07/20 [facility] [address] [place] [address]- Attending Physician: Jas Núñez MD Allergies, Adverse [...] tablet, 2 Refills, Maintenance, 10/18/20 10:22:00 EST, [facility], 153, cm, 10/03/20 10:13:00 EST, Height, 60.8, kg, 10/03/20 10:13:00 EST, Dry Weight Start Date: 10/18/20 Stop Date: 07/15/21 Status: Orderedramelteon 8 mg oral tablet 1 tablet = 8 mg, By Mouth, Daily at bedtime, # 30 tablet, 1 Refills, Maintenance, 10/18/20 9:57:00 EST, [facility], Partial fill upon patient request [...]
--- OUTSIDE RECORDS SUMMARY | 2022-08-12 05:16 | XMS_ITS | Continuity of Care Document ---
:1945 Author Organization [facility] Address [address] [place] [address]- Care Team Providers Name Role Phone Jas Núñez MD Primary Care Physician Encounter [facility] Date(s): 05/19/21 - 05/19/[address] [address]- Discharge Disposition: A-D/C Walkout Attending Physician: Christiano Mckeon MD Admitting Physician: Christiano Mckeon MD Referring Physician: Not on Staff, Referring [...] Acute 06/04/21 14:54:00 EDT, 02/19/21 9:17:00 EDT, [id number], Partial... Start Date: 02/19/21 Stop Date: 06/04/21 Status: OrderedclonazePAM 0.5 mg oral tablet 0.5 tablet = 0.25 mg, By Mouth, Daily, PRN anxiety attacks, To use only for Panic Attacks, # 15 tablet, 0 Refills, Maintenance, 05/15/21 12:24:00 EDT, Tablet, [facility], Partial fill upon patient request if the prescription is for a schedu... Start Date: 05/15/21 Stop Date: 06/14/21 Status: Orderedduloxetine 20 mg oral enteric coated capsule 1 capsule = 20 mg, By Mouth, Daily, # 30 capsule, 3 Refills, Maintenance, 04/15/21 13:46:00 EDT, Capsule, [facility], Partial fill upon patient request if the prescription is for a schedule II opioid drug., 153, cm, 04/15/21 13:19:00 EDT, H... Start Date: 04/15/21 Stop Date: 08/13/21 Status: Orderedgabapentin 100 mg oral capsule 200 mg, 2, capsule, By Mouth, Daily at bedtime, # 180 capsule, Refills 1, Tot. Refills 1, Maintenance, 04/15/21 13:47:00 EDT, Route to Pharmacy Electronically, [facility], Partial fill upon patient [...] 3 Refills, Maintenance, 05/05/21 15:52:00 EDT, Tablet, [facility], 153, cm, 04/15/21 13:19:00 [...]
--- OUTSIDE RECORDS SUMMARY | 2022-08-12 05:16 | XMS_ITS | Continuity of Care Document ---
:1945 Author Organization [facility] Address [address] [place] [address]- Care Team Providers Name Role Phone Jas Núñez MD Primary Care Physician Encounter [facility] Date(s): 03/18/21 - 03/19/[address] [address]- Discharge Disposition: A-D/C Home Attending Physician: William Kapoor MD Admitting Physician: William Kapoor MD Referring Physician: Not on Staff, Referring [...] Acute 06/04/21 14:54:00 EDT, 02/19/21 9:17:00 EDT, [id number], Partial... Start Date: 02/19/21 Stop Date: 06/04/21 Status: OrderedclonazePAM 0.5 mg oral tablet 1 tablet = 0.5 mg, By Mouth, Daily, PRN anxiety, # 10 tablet, 0 Refills, Maintenance, 11/13/20 15:21:00 EST, Tablet, [facility] [id number], 153, cm, 11/13/20 14:46:00 EST, Height, 60.8, kg, 10/03/20 10:13:00 EST, Dry Weight Start Date: 11/13/20 Stop Date: 02/11/21 Status: OrderedclonazePAM 0.5 mg oral tablet 1 tablet = 0.5 mg, By Mouth, Daily, PRN anxiety attacks, To use only for Panic Attacks, # 10 tablet,0 Refills, Maintenance, 03/11/21 16:18:00 EDT, Tablet, [facility] [id number], Partial fill upon patient request if the prescription is for a schedule... Start Date: 03/11/21 Stop Date: 04/01/21 Status: Orderedescitalopram 20 mg oral tablet 1 tablet = 20 mg, By Mouth, Daily, # 90 tablet, 2 Refills, Maintenance, 10/18/20 10:22:00 EST, [id number], 153, cm, 10/03/20 10:13:00 EST, Height, 60.8, kg, 10/03/20 10:13:00 EST, Dry Weight Start Date: 10/18/20 Stop Date: 07/15/21 Status: Orderedgabapentin 100 mg oral capsule 300 mg, Capsule, By Mouth, 03/18/21 21:18:00 EDT Start Date: 03/18/21 Stop Date: 03/18/21 Status: Completedgabapentin 100 mg oral capsule 100 mg, 1, capsule, By Mouth, 3 times a day, # 90 capsule, Refills 0, Tot. Refills 0, Maintenance, 03/11/21 7:35:00 EDT, Route to Pharmacy Electronically, [id number], Partial fill upon patient [...] tablet, 1 Refills, Maintenance, 12/30/20 13:04:00 EDT, [id number], Partial fill upon patient [...] bleeding)(Confirmed) Vital Signs Most recent to oldest 1 2 3 [Reference Range]: Height 153 cm 153 cm (03/18/21 7:43 PM) (03/18/21 4:02 PM) Weight 60.1 kg (03/18/21 4:02 PM) Oxygen Saturation [94-100 %] 18 % 96 % 98 % *L* (03/19/21 5:09 AM) (03/18/21 7:43 PM) (03/19/21 4:00 PM) Pulse Rate [55-90 bpm] 75 bpm 79 bpm 72 bpm (03/19/21 4:00 PM) (03/19/21 5:09 AM) (03/18/21 7:4 3 PM) Blood Pressure [90-138/55-84 131/73 mm Hg 127/68 mm Hg 143 /74 mm Hg mm Hg] (03/19/21 4:00 PM) (03/19/21 5:09 AM) *H* (03/18/21 7:43 PM ) Respiratory Rate [16-30 16 br/min 16 br/min 16 br/mi n br/min] (03/19/21 5:09 AM) (03/18/21 10:32 PM) (03/18/21 9: 32 PM) Temperature [96.8-100.4 DegF] 98.1 DegF 97.6 DegF (03/19/21 5:09 AM) (03/18/21 4:02 PM) Mode of Delivery (Oxygen) Room air Room air Room a ir (03/19/21 4:00 PM) (03/19/21 5:09 AM) (03/18/21 7:4 3 PM) Blood pressure sites Arm, left Arm, right Arm, right (03/19/21 4:00 PM) (03/19/21 5:09 AM) (03/18/21 7:4 3 PM) Temperature Route Temporal Oral (03/19/21 5:09 AM) (03/18/21 4:02 PM) Dry Weight 60.1 kg (03/18/21 4:02 PM) Weight Obtained Via Standing scale (03/18/21 4:02 PM) Social History Social History Type Response Smoking Status Former smoker, quit more ekaterina n 30 days ago; Other: stopped smoking about 15 years; used to smoke one pack of cigarettes a day; Started at age: 15; entered on: 04/11/20 Sex
--- OUTSIDE RECORDS SUMMARY | 2022-08-12 05:16 | XMS_ITS | Continuity of Care Document ---
:1945 Author Organization [facility] Address [address] [id number]- Care Team Providers Name Role Phone Jas Núñez MD Primary Care Physician Encounter [facility] Date(s): 05/15/21 - 06/14/21 [facility] [address] [place] [address]- [place] Allergies, Adverse Reactions, Alerts Substance Reaction [...] Acute 08/04/21 13:00:00 EDT, 05/21/21 8:17:00 EDT, [id number], Partial fill upon patient request if the... Start Date: 05/21/21 Stop Date: 08/04/21 Status: OrderedclonazePAM 0.5 mg oral tablet 0.5 tablet = 0.25 mg, By Mouth, Daily, PRN anxiety attacks, To use only for Panic Attacks, # 15 tablet, 0 Refills, Maintenance, 05/15/21 12:24:00 EDT, Tablet, [facility], Partial fill upon patient request if the prescription is for a schedu... Start Date: 05/15/21 Stop Date: 06/14/21 Status: Orderedduloxetine 20 mg oral enteric coated capsule 1 capsule = 20 mg, By Mouth, Daily, # 30 capsule, 3 Refills, Maintenance, 04/15/21 13:46:00 EDT, Capsule, [facility]386, Partial fill upon patient request if the prescription is for a schedule II opioid drug., 153, cm, 04/15/21 13:19:00 EDT, H... Start Date: 04/15/21 Stop Date: 08/13/21 Status: Orderedgabapentin 100 mg oral capsule 200 mg, 2, capsule, By Mouth, Daily at bedtime, # 180 capsule, Refills 1, Tot. Refills 1, Maintenance, 04/15/21 13:47:00 EDT, Route to Pharmacy Electronically, [facility] [id number], Partial fill upon [...] 3 Refills, Maintenance, 05/05/21 15:52:00 EDT, Tablet, [facility], 153, cm, 04/15/21 [...]
--- OUTSIDE RECORDS SUMMARY | 2022-08-12 05:16 | XMS_ITS | Continuity of Care Document ---
:1945 Author Organization [facility] Address [address] [place] [address]- Care Team Providers Name Role Phone Jag Rosas MD Primary Care Physician Encounter [facility] Date(s): 11/07/19 - 11/17/19 [facility] [place] [address] [place] [address]- [facility] Attending Physician: Christiano Schaffer Admitting Physician: Christiano [...] Print Requisition Start Date: 04/29/19 Status: Orderedbudesonide 9 mg oral tablet, extended release 1 tablet = 9 mg, By Mouth, Daily in AM, # 42 tablet, 0 Refills, Maintenance, 08/29/19 11:06:57 EST Start Date: 08/29/19 Stop Date: 10/10/19 Status: OrderedbusPIRone 5 mg oral tablet 5 mg, 1, tablet, By Mouth, 3 times a day, # 270 tablet, Refills 0, Maintenance, 01/22/19 18:10:05 EDT Start Date: 01/22/19 Status: OrderedEscitalopram = 10 mg, By Mouth, Daily, 0 Refills, Maintenance, 06/11/18 13:39:25 EDT Start Date: 06/11/18 Status: OrderedKlonopin 1 mg oral tablet 0.5 tablet = 0.5 mg, By Mouth, Daily at bedtime, 0 Refills, Maintenance, 12/18/12 13:32:02 Start Date: 12/18/12 Status: OrderedPravastatin By Mouth, Daily, 0 Refills, Maintenance, 01/22/19 18:11:37 EDT Start Date: 01/22/19 Status: Orderedvenlafaxine 37.5 mg oral tablet, extended release 1 tablet = 37.5 mg, By Mouth, Daily, # 30 tablet, 0 Refills, Maintenance, 06/11/18 14:31:09 EDT, ER Tablet Start Date: 06/11/18 Stop Date: 07/11/18 Status: Ordered Problem List Condition Effective Dates Status Health Status Informant Diverticulosis(Confirmed) Active Hyperlipidemia(Confirmed) Active Lung cancer(Confirmed) Active Anxiety and depression(Confirmed) Active Pain In Left Arm(Confirmed) Active PMB (postmenopausal Active bleeding)(Confirmed) Social History Social History Type Response Smoking Status Former smoker, quit more ekaterina n 30 days ago entered on: 04/29/19 Sex
--- OUTSIDE RECORDS SUMMARY | 2022-08-12 05:16 | XMS_ITS | Continuity of Care Document ---
:1945 Author Organization [facility] Address [address] [place] [address]- Care Team Providers Name Role Phone Jas Núñez MD Primary Care Physician Encounter [facility] Date(s): 04/12/20 - 05/12/20 [facility] [address] [place] [address]- Allergies, Adverse Reactions, Alerts Substance Reaction Severity Status ibuprofen anxious Active Latex rash Active Cold and Allergy DM get anxious Active PROzac1 Active morphine stomach pain severe Active Motrin gi upset Active 1lack of theraputic effect Medications albuterol CFC free 90 mcg/inh inhalation aerosol 2, puffs, Inhalation, Every 4 hours, PRN, # 8.5 Gm, Refills 0, Tot. Refills 0, Maintenance, 04/29/1916:28:23 EDT, Aerosol, Print Requisition Start Date: 04/29/19 Status: OrderedclonazePAM 1 mg oral tablet 1 tablet = 1 mg, By Mouth, Daily, PRN Anxiety, # 30 tablet, 1 Refills, Maintenance, 05/06/20 12:47:00 EDT, Tablet, [facility] [id number], 153, cm, 04/25/20 10:42:00 EDT, Height, 58.6, kg, 01/28/20 12:59:00 EDT, Dry Weight Start Date: 05/06/20 Status: OrderedEscitalopram = 10 mg, By Mouth, Daily, 0 Refills, Maintenance, 06/11/18 13:39:25 EDT Start Date: 06/11/18 Status: Orderedescitalopram 20 mg oral tablet 1 tablet = 20 mg, By Mouth, Daily, # 90 tablet, 1 Refills, Maintenance, 05/06/20 12:50:00 EDT, [id number], 153, cm, 04/25/20 [...]
--- OUTSIDE RECORDS SUMMARY | 2022-08-12 05:16 | XMS_ITS | Continuity of Care Document ---
:1945 Author Organization [facility] Address [address] [place] [address]- Care Team Providers Name Role Phone Wilton GONZALEZ, Jas Primary Care Physician En[facility] [id number] Date(s): 03/21/21 - 04/20/21 [facility] [address] [place] [address]- Allergies, Adverse Reactions, Alerts Substance Reaction Severity [...] Acute 06/04/21 14:54:00 EDT, 02/19/21 9:17:00 EDT, [facility], Partial... Start Date: 02/19/21 Stop Date: 06/04/21 Status: OrderedclonazePAM 0.5 mg oral tablet 0.5 tablet = 0.25 mg, By Mouth, Daily, PRN anxiety attacks, To use only for Panic Attacks, # 15 tablet, 0 Refills, Maintenance, 04/15/21 13:52:00 EDT, Tablet, [facility] 2386, Partial fill upon patient request if the prescription is for a schedu... Start Date: 04/15/21 Stop Date: 05/15/21 Status: Orderedduloxetine 20 mg oral enteric coated capsule 1 capsule = 20 mg, By Mouth, Daily, # 30 capsule, 3 Refills, Maintenance, 04/15/21 13:46:00 EDT, Capsule, [facility] 2386, Partial fill upon patient request if the prescription is for a schedule II opioid drug., 153, cm, 04/15/21 13:19:00 EDT, H... Start Date: 04/15/21 Stop Date: 08/13/21 Status: Orderedgabapentin 100 mg oral capsule 200 mg, 2, capsule, By Mouth, Daily at bedtime, # 180 capsule, Refills 1, Tot. Refills 1, Maintenance, 04/15/21 13:47:00 EDT, Route to Pharmacy Electronically, [facility] [id number], Partial fill upon patient [...]
--- OUTSIDE RECORDS SUMMARY | 2022-08-12 05:16 | XMS_ITS | Continuity of Care Document ---
:1945 Author Organization [facility] Address [address] [place] [address]- Care Team Providers Name Role Phone Wilton GONZALEZ, Jas Primary Care Physician Encounter [facility] Date(s): 10/21/20 - 11/20/20 [facility] [address] [place] [address]- Allergies, Adverse Reactions, Alerts Substance Reaction Severity [...] 0 Refills, Maintenance, 11/13/20 15:21:00 EST, Tablet, [facility]386, 153, cm, 11/13/20 14:46:00 EST, [...] tablet, 2 Refills, Maintenance, 10/18/20 10:22:00 EST, [facility], 153, cm, 10/03/20 10:13:00 EST, Height, 60.8, kg, 10/03/20 10:13:00 EST, Dry Weight Start Date: 10/18/20 Stop Date: 07/15/21 Status: Orderedramelteon 8 mg oral tablet 1 tablet = 8 mg, By Mouth, Daily at bedtime, # 30 tablet, 1 Refills, Maintenance, 10/18/20 9:57:00 EST, [facility]386, Partial fill upon patient [...]
--- OUTSIDE RECORDS SUMMARY | 2022-08-12 05:16 | XMS_ITS | Continuity of Care Document ---
:1945 Author Organization [email or web address] Address [address] [place] [address]- Care Team Providers Name Role Phone Jas Núñez MD Primary Care Physician Encounter [facility] Date(s): 10/08/20 - 11/07/20 [email or web address] [address] [place] [address]- Attending Physician: Christiano Schaffer Admitting Physician: AdmChristiano solares Referring Physician: AdmtrChristiano Allergies, Adverse Reactions, Alerts Substance Reaction Severity [...] tablet, 2 Refills, Maintenance, 10/18/20 10:22:00 EST, [facility] 2386, 153, cm, 10/03/20 10:13:00 EST, Height, 60.8, kg, 10/03/20 10:13:00 EST, Dry Weight Start Date: 10/18/20 Stop Date: 07/15/21 Status: Orderedramelteon 8 mg oral tablet 1 tablet = 8 mg, By Mouth, Daily at bedtime, # 30 tablet, 1 Refills, Maintenance, 10/18/20 9:57:00 EST, [id number], Partial fill upon patient request if the prescription is for a schedule IIopioid drug., 153, cm, 10/03/20 10:13:00 Antoinette GOLD. Start Date: 10/18/20 Status: OrderedSymbicort 160mcg/4.5mcg Inhaler [...]
--- OUTSIDE RECORDS SUMMARY | 2022-08-12 05:16 | XMS_ITS | Continuity of Care Document ---
:1945 Author Organization [facility] Address [address] [place] [address]- Care Team Providers Name Role Phone Jas Núñez MD Primary Care Physician Encounter [facility] Date(s): 05/20/21 - 06/28/21 [facility] [place] [address] [place] [address]- Attending Physician: Zacarias Mayes MD Allergies, Adverse Reactions, Alerts Substance Reaction [...] Acute 08/04/21 13:00:00 EDT, 05/21/21 8:17:00 EDT, [id number], Partial fill upon patient request if the... Start Date: 05/21/21 Stop Date: 08/04/21 Status: OrderedclonazePAM 0.5 mg oral tablet 0.5 tablet = 0.25 mg, By Mouth, Daily, PRN anxiety attacks, To use only for Panic Attacks, # 15 tablet, 0 Refills, Maintenance, 06/23/21 15:36:00 EDT, Tablet, [facility], Partial fill upon patient request if the prescription is for a schedu... Start Date: 06/23/21 Stop Date: 07/23/21 Status: Orderedduloxetine 20 mg oral enteric coated capsule 1 capsule = 20 mg, By Mouth, Daily, # 30 capsule, 3 Refills, Maintenance, 04/15/21 13:46:00 EDT, Capsule, [facility] 2386, Partial fill upon patient request if the prescription is for a schedule II opioid drug., 153, cm, 04/15/21 13:19:00 EDT, H... Start Date: 04/15/21 Stop Date: 08/13/21 Status: Orderedgabapentin 300 mg oral capsule 300 mg, 1, capsule, By Mouth, Daily at bedtime, # 90 capsule, Refills 1, Tot. Refills 1, Maintenance, 06/16/21 16:15:00 EDT, Route to Pharmacy Electronically, [facility]386, Partial fill upon [...] 3 Refills, Maintenance, 05/05/21 15:52:00 EDT, Tablet, [facility], 153, cm, 04/15/21 13:19:00 [...]
--- OUTSIDE RECORDS SUMMARY | 2022-08-12 05:16 | XMS_ITS | Continuity of Care Document ---
:1945 Author Organization [facility] Address [address] [place] [address]- Care Team Providers Name Role Phone Jas Núñez MD Primary Care Physician Encounter [facility] NBR [id number] Date(s): 05/19/21 - 05/26/21 [facility] [address] [place] [address]- Encounter Diagnosis Diarrhea (Discharge Diagnosis) - 05/19/21 Attending Physician: Jas Núñez MD Allergies, Adverse [...] Acute 06/04/21 14:54:00 EDT, 02/19/21 9:17:00 EDT, [facility], Partial... Start Date: 02/19/21 Stop Date: 06/04/21 Status: Orderedbudesonide 3 mg oral delayed release capsule See Instructions, 3 tabletsdaily for 6 weeks then 2 tablets daily for 4 weeks, then 1 tablet daily for 4 weeks, # 210 tablet, 0 Refills, Acute 08/04/21 13:00:00 EDT, 05/21/21 8:17:00 EDT, [facility] 2386, Partial fill upon patient request if the... Start Date: 05/21/21 Stop Date: 08/04/21 Status: OrderedclonazePAM 0.5 mg oral tablet 0.5 tablet = 0.25 mg, By Mouth, Daily, PRN anxiety attacks, To use only for Panic Attacks, # 15 tablet, 0 Refills, Maintenance, 05/15/21 12:24:00 EDT, Tablet, [facility]386, Partial fill upon patient request if the prescription is for a schedu... Start Date: 05/15/21 Stop Date: 06/14/21 Status: Orderedduloxetine 20 mg oral enteric coated capsule 1 capsule = 20 mg, By Mouth, Daily, # 30 capsule, 3 Refills, Maintenance, 04/15/21 13:46:00 EDT, Capsule, [facility]386, Partial fill upon patient request if the prescription is for a schedule II opioid drug., 153, cm, 04/15/21 13:19:00 EDT, H... Start Date: 04/15/21 Stop Date: 08/13/21 Status: Orderedgabapentin 100 mg oral capsule 200 mg, 2, capsule, By Mouth, Daily at bedtime, # 180 capsule, Refills 1, Tot. Refills 1, Maintenance, 04/15/21 13:47:00 EDT, Route to Pharmacy Electronically, [facility] [...] Diagnosis Type Effective Dates Health Status Clinical Serv ice Informant Diarrhea Discharge 05/19/21 Diagnosis Vital Signs Most recent to oldest [Reference Range]: 1 Height 153 cm (05/19/21 7:40 AM) Weight 59.9 kg (05/19/21 7:40 AM) Oxygen Saturation [94-100 %] 97 % (05/19/21 7:40 AM) Pulse Rate [55-90 bpm] 71 bpm (05/19/21 7:40 AM) Body Mass Index [18.5-24.99] 25.59 *H* (05/19/21 7:40 AM) Blood Pressure [90-138/55-84 mm Hg] 110/70 mm Hg (05/19/21 7:40 AM) Liters per Minute 0 L/min (05/19/21 7:40 AM) Mode of Delivery (Oxygen) Room air (05/19/21 7:40 AM) Blood pressure sites Arm, right (05/19/21 7:40 AM) Weight Obtained Via Standing scale (05/19/21 7:40 AM) Social History Social History Type Response Smoking Status Former smoker, quit more ekaterina n 30 days ago entered on: 05/19/21 Sex
--- OUTSIDE RECORDS SUMMARY | 2022-08-12 05:16 | XMS_ITS | Continuity of Care Document ---
:1945 Author Organization [facility] Address [address] [place] [address]- Care Team Providers Name Role Phone Jas Núñez MD Primary Care Physician Encounter [facility] NBR [id number] Date(s): 02/17/21 - 04/03/21 [facility] [address] [place] [address]- Attending Physician: Jas Núñez MD Allergies, Adverse [...] Acute 06/04/21 14:54:00 EDT, 02/19/21 9:17:00 [facility]... Start Date: 02/19/21 Stop Date: 06/04/21 Status: OrderedclonazePAM 0.5 mg oral tablet 1 tablet = 0.5 mg, By Mouth, Daily, PRN anxiety, # 10 tablet, 0 Refills, Maintenance, 11/13/20 15:21:00 EST, Tablet, [facility] 2386, 153, cm, 11/13/20 14:46:00 EST, Height, 60.8, kg, 10/03/20 10:13:00 EST, Dry Weight Start Date: 11/13/20 Stop Date: 02/11/21 Status: OrderedclonazePAM 0.5 mg oral tablet 1 tablet = 0.5 mg, By Mouth, Daily, PRN anxiety attacks, To use only for Panic Attacks, # 10 tablet,0 Refills, Maintenance, 03/11/21 16:18:00 EDT, Tablet, [facility] 2386, Partial fill upon patient request if the prescription is for a schedule... Start Date: 03/11/21 Stop Date: 04/01/21 Status: Orderedescitalopram 20 mg oral tablet 1 tablet = 20 mg, By Mouth, Daily, # 90 tablet, 2 Refills, Maintenance, 10/18/20 10:22:00 EST, [facility]386, 153, cm, 10/03/20 10:13:00 EST, Height, 60.8, kg, 10/03/20 10:13:00 EST, Dry Weight Start Date: 10/18/20 Stop Date: 07/15/21 Status: Orderedgabapentin 100 mg oral capsule 100 mg, 1, capsule, By Mouth, 3 times a day, # 90 capsule, Refills 0, Tot. Refills 0, Maintenance, 03/11/21 7:35:00 EDT, Route to Pharmacy Electronically, [facility]386, Partial fill upon patient [...] 1 Refills, Maintenance, 12/30/20 13:04:00 EDT, [facility]386, Partial fill upon patient request if the prescription is for a schedule II opioid drug., 153, cm, 12/09/20 15:08:00 EST, [facility].. Start Date: 12/30/20 Status: OrderedSymbicort 160mcg/4.5mcg Inhaler [...]
--- OUTSIDE RECORDS SUMMARY | 2022-08-12 05:16 | XMS_ITS | Continuity of Care Document ---
:1945 Author Organization [facility] Address [address] [id number]- Care Team Providers Name Role Phone Jas Núñez MD Primary Care Physician Encounter [facility] Date(s): 05/16/21 - 06/15/21 [facility] [address] [place] [address]- [place] Allergies, Adverse Reactions, Alerts Substance Reaction [...] 0 Refills, Maintenance, 05/15/21 12:24:00 EDT, Tablet, [facility], Partial fill upon patient request [...] 04/15/21 13:47:00 EDT, Route to Pharmacy Electronically, [place] [...]
--- OUTSIDE RECORDS SUMMARY | 2022-08-12 05:17 | XMS_ITS | Continuity of Care Document ---
:1945 Author Organization [facility] Address [address] [id number]- Care Team Providers Name Role Phone Jas Núñez MD Primary Care Physician Encounter [facility] NBR [id number] Date(s): 05/19/21 - 06/18/21 [facility] [address] [place] [address]- Attending Physician: Christiano Schaffer Admitting Physician: AdmChristiano [...] Acute 08/04/21 13:00:00 EDT, 05/21/21 8:17:00 EDT, [id number], Partial fill upon patient request if the... Start Date: 05/21/21 Stop Date: 08/04/21 Status: OrderedclonazePAM 0.5 mg oral tablet 0.5 tablet = 0.25 mg, By Mouth, Daily, PRN anxiety attacks, To use only for Panic Attacks, # 15 tablet, 0 Refills, Maintenance, 05/15/21 12:24:00 EDT, Tablet, [facility] 2386, Partial fill upon patient request if the prescription is for a schedu... Start Date: 05/15/21 Stop Date: 06/14/21 Status: Orderedduloxetine 20 mg oral enteric coated capsule 1 capsule = 20 mg, By Mouth, Daily, # 30 capsule, 3 Refills, Maintenance, 04/15/21 13:46:00 EDT, Capsule, [facility]386, Partial fill upon patient request if the prescription is for a schedule II opioid drug., 153, cm, 04/15/21 13:19:00 EDT, H... Start Date: 04/15/21 Stop Date: 08/13/21 Status: Orderedgabapentin 300 mg oral capsule 300 mg, 1, capsule, By Mouth, Daily at bedtime, # 90 capsule, Refills 1, Tot. Refills 1, Maintenance, 06/16/21 16:15:00 EDT, Route to Pharmacy Electronically, [facility]386, Partial fill upon [...] 3 Refills, Maintenance, 05/05/21 15:52:00 EDT, Tablet, [facility], 153, cm, 04/15/21 [...]
--- OUTSIDE RECORDS SUMMARY | 2022-08-12 05:17 | XMS_ITS | Continuity of Care Document ---
:1945 Author Organization [facility] Address [address] [place] [address]- Care Team Providers Name Role Phone Jas Núñez MD Primary Care Physician Encounter [facility] Date(s): 10/08/20 - 10/15/20 [facility] [address] [place], [place] [address] Encounter Diagnosis Anxiety and depression (Discharge Diagnosis) - 10/08/20 Insomnia (Discharge Diagnosis) - 10/08/20 Attending Physician: Jas Núñez MD Allergies, Adverse [...] tablet, 2 Refills, Maintenance, 07/30/20 11:16:00 EDT, [facility], 153, cm, 07/30/20 10:38:00 EDT, Height, 58.6, kg, 01/28/20 12:59:00 EDT, Dry Weight Start Date: 07/30/20 Stop Date: 04/26/21 Status: OrderedSymbicort 160mcg/4.5mcg Inhaler 2, puffs, Inhalation, 2 times a day, Refills 0, Maintenance, 01/28/20 13:08:00 EDT Start Date: 01/28/20 Status: Orderedzolpidem 5 mg oral tablet 1 tablet = 5 mg, By Mouth, Daily at bedtime, PRN as needed for insomnia, for 28 days, # 28 tablet, 0Refills, Acute 11/05/20 9:46:00 EST, 10/08/20 9:46:00 EST, Tablet, [id number], Partial fill upon patient request if the prescription is for... Start Date: 10/08/20 Stop Date: 11/05/20 Status: Ordered Problem List Condition Effective Dates Status Health Status Informant COPD - Chronic obstructive pulmonary Active disease(Confirmed) Diverticulosis(Confirmed) Active Hyperlipidemia(Confirmed) Active Major depressive disorder(Confirmed) Active Lung cancer(Confirmed) Active Anxiety and depression(Confirmed) Active Pain In Left Arm(Confirmed) Active PMB (postmenopausal Active bleeding)(Confirmed) Diagnosis Diagnosis Type Effective Dates Health Clinical Infor mant Status Service Anxiety and Discharge 10/08/20 depression Diagnosis Insomnia Discharge 10/08/20 Diagnosis Social History Social History Type Response Smoking Status Former smoker, quit more ekaterina n 30 days ago entered on: 04/25/20 Sex
--- OUTSIDE RECORDS SUMMARY | 2022-08-12 05:17 | XMS_ITS | Continuity of Care Document ---
:1945 Author Organization [facility] Address [address] [place] [address]- Care Team Providers Name Role Phone Jas Núñez MD Primary Care Physician Encounter [facility] Date(s): 03/24/21 - 04/23/21 [facility] [address] [place] [address]- Allergies, Adverse Reactions, Alerts Substance Reaction Severity [...] Acute 06/04/21 14:54:00 EDT, 02/19/21 9:17:00 EDT, [facility], Partial... Start Date: 02/19/21 Stop Date: 06/04/21 Status: OrderedclonazePAM 0.5 mg oral tablet 0.5 tablet = 0.25 mg, By Mouth, Daily, PRN anxiety attacks, To use only for Panic Attacks, # 15 tablet, 0 Refills, Maintenance, 04/15/21 13:52:00 EDT, Tablet, [facility], Partial fill upon patient request if the prescription is for a schedu... Start Date: 04/15/21 Stop Date: 05/15/21 Status: Orderedduloxetine 20 mg oral enteric coated capsule 1 capsule = 20 mg, By Mouth, Daily, # 30 capsule, 3 Refills, Maintenance, 04/15/21 13:46:00 EDT, Capsule, [facility], Partial fill upon patient request if the prescription is for a schedule II opioid drug., 153, cm, 04/15/21 13:19:00 EDT, H... Start Date: 04/15/21 Stop Date: 08/13/21 Status: Orderedgabapentin 100 mg oral capsule 200 mg, 2, capsule, By Mouth, Daily at bedtime, # 180 capsule, Refills 1, Tot. Refills 1, Maintenance, 04/15/21 13:47:00 EDT, Route to Pharmacy Electronically, [facility], Partial fill upon [...]
--- OUTSIDE RECORDS SUMMARY | 2022-08-12 05:17 | XMS_ITS | Continuity of Care Document ---
:1945 Author Organization [facility] Address [address] [place] [address]- Care Team Providers Name Role Phone Jas Núñez MD Primary Care Physician Encounter [facility] Date(s): 06/10/21 - 07/10/21 [facility] [address] [place] [address]- [place] Allergies, Adverse Reactions, Alerts Substance Reaction [...] Acute 08/04/21 13:00:00 EDT, 05/21/21 8:17:00 EDT, [facility], Partial fill upon patient request if the... Start Date: 05/21/21 Stop Date: 08/04/21 Status: OrderedclonazePAM 0.5 mg oral tablet 0.5 tablet = 0.25 mg, By Mouth, Daily, PRN anxiety attacks, To use only for Panic Attacks, # 15 tablet, 0 Refills, Maintenance, 06/23/21 15:36:00 EDT, Tablet, [facility], Partial fill upon patient request if the prescription is for a schedu... Start Date: 06/23/21 Stop Date: 07/23/21 Status: Orderedduloxetine 20 mg oral enteric coated capsule 1 capsule = 20 mg, By Mouth, Daily, # 30 capsule, 3 Refills, Maintenance, 04/15/21 13:46:00 EDT, Capsule, [facility], Partial fill upon patient request if the prescription is for a schedule II opioid drug., 153, cm, 04/15/21 13:19:00 EDT, H... Start Date: 04/15/21 Stop Date: 08/13/21 Status: Orderedgabapentin 300 mg oral capsule 300 mg, 1, capsule, By Mouth, Daily at bedtime, # 90 capsule, Refills 1, Tot. Refills 1, Maintenance, 06/16/21 16:15:00 EDT, Route to Pharmacy Electronically, [facility], Partial fill upon patient [...] 3 Refills, Maintenance, 05/05/21 15:52:00 EDT, Tablet, [facility], 153, cm, 04/15/21 13:19:00 [...]
--- OUTSIDE RECORDS SUMMARY | 2022-08-12 05:17 | XMS_ITS | Continuity of Care Document ---
:1945 Author Organization [facility] Address [address] [place] [id number]- Care Team Providers Name Role Phone Jas Núñez MD Primary Care Physician Encounter [facility] Date(s): 05/05/21 - 06/04/21 [facility] [address] [place] [address]- [place] Allergies, Adverse Reactions, Alerts Substance Reaction [...] 08/04/21 13:00:00 EDT, 05/21/21 8:17:00 EDT, [facility], Partial fill upon patient request if the... Start Date: 05/21/21 Stop Date: 08/04/21 Status: OrderedclonazePAM 0.5 mg oral tablet 0.5 tablet = 0.25 mg, By Mouth, Daily, PRN anxiety attacks, To use only for Panic Attacks, # 15 tablet, 0 Refills, Maintenance, 05/15/21 12:24:00 EDT, Tablet, [facility], Partial fill upon patient request if the prescription is for a schedu... Start Date: 05/15/21 Stop Date: 06/14/21 Status: Orderedduloxetine 20 mg oral enteric coated capsule 1 capsule = 20 mg, By Mouth, Daily, # 30 capsule, 3 Refills, Maintenance, 04/15/21 13:46:00 EDT, Capsule, [facility], Partial fill upon patient request if the prescription is for a schedule II opioid drug., 153, cm, 04/15/21 13:19:00 EDT, H... Start Date: 04/15/21 Stop Date: 08/13/21 Status: Orderedgabapentin 100 mg oral capsule 200 mg, 2, capsule, By Mouth, Daily at bedtime, # 180 capsule, Refills 1, Tot. Refills 1, Maintenance, 04/15/21 13:47:00 EDT, Route to Pharmacy Electronically, [facility], Partial fill upon patient [...] Refills, Maintenance, 05/05/21 15:52:00 EDT, Tablet, [facility], 153, cm, 04/15/21 13:19:00 [...]
--- OUTSIDE RECORDS SUMMARY | 2022-08-12 05:17 | XMS_ITS | Continuity of Care Document ---
:1945 Author Organization [facility] Address [address] [place] [address]- Care Team Providers Name Role Phone Jas Núñez MD Primary Care Physician Encounter [facility] Date(s): 12/10/20 - 01/09/21 [facility] [address] [place] [address]- Allergies, Adverse Reactions, Alerts Substance Reaction Severity [...] 0 Refills, Maintenance, 11/13/20 15:21:00 EST, Tablet, [facility]386, 153, cm, 11/13/20 14:46:00 [...] tablet, 2 Refills, Maintenance, 10/18/20 10:22:00 EST, [facility], 153, cm, 10/03/20 10:13:00 [...] tablet, 1 Refills, Maintenance, 12/30/20 13:04:00 EDT, [facility]386, Partial fill upon patient [...]
--- OUTSIDE RECORDS SUMMARY | 2022-08-12 05:17 | XMS_ITS | Continuity of Care Document ---
:1945 Author Organization [facility] Address [address] [place] [address]- Care Team Providers Name Role Phone Jag Rosas MD Primary Care Physician Encounter [facility] Date(s): 10/20/19 - 10/27/[address] [address]- [facility] Attending Physician: Jag Rosas MD Allergies, Adverse Reactions, Alerts Substance Reaction [...]
--- OUTSIDE RECORDS SUMMARY | 2022-08-12 05:17 | XMS_ITS | Continuity of Care Document ---
:1945 Author Organization [facility] Address [address] [place] [address]- Care Team Providers Name Role Phone Jas Núñez MD Primary Care Physician Encounter [facility] Date(s): 01/06/21 - 02/05/21 [facility] [address] [place] [address]- Allergies, Adverse Reactions, Alerts Substance Reaction Severity [...] 0 Refills, Maintenance, 11/13/20 15:21:00 EST, Tablet, [facility]386, 153, cm, 11/13/20 14:46:00 EST, [...] tablet, 2 Refills, Maintenance, 10/18/20 10:22:00 EST, [facility], 153, cm, 10/03/20 10:13:00 EST, [...] tablet, 1 Refills, Maintenance, 12/30/20 13:04:00 EDT, [facility], Partial [...]
--- OUTSIDE RECORDS SUMMARY | 2022-08-12 05:17 | XMS_ITS | Continuity of Care Document ---
:1945 Author Organization [facility] Address [address] [place] [address]- Care Team Providers Name Role Phone Wilton GONZALEZ, Jas Primary Care Physician [id number] Date(s): 03/10/21 - 04/09/21 [facility] [address] [place] [address]- Allergies, Adverse Reactions, Alerts Substance Reaction Severity [...] Acute 06/04/21 14:54:00 EDT, 02/19/21 9:17:00 EDT, [facility], Partial... Start Date: 02/19/21 Stop Date: 06/04/21 Status: OrderedclonazePAM 0.5 mg oral tablet 1 tablet = 0.5 mg, By Mouth, Daily, PRN anxiety, # 10 tablet, 0 Refills, Maintenance, 11/13/20 15:21:00 EST, Tablet, [facility], 153, cm, 11/13/20 14:46:00 EST, Height, 60.8, kg, 10/03/20 10:13:00 EST, Dry Weight Start Date: 11/13/20 Stop Date: 02/11/21 Status: OrderedclonazePAM 0.5 mg oral tablet 1 tablet = 0.5 mg, By Mouth, Daily, PRN anxiety attacks, To use only for Panic Attacks, # 10 tablet,0 Refills, Maintenance, 03/11/21 16:18:00 EDT, Tablet, [facility] 2386, Partial fill upon patient request if the prescription is for a schedule... Start Date: 03/11/21 Stop Date: 04/01/21 Status: Orderedescitalopram 20 mg oral tablet 1 tablet = 20 mg, By Mouth, Daily, # 90 tablet, 2 Refills, Maintenance, 10/18/20 10:22:00 EST, [facility], 153, cm, 10/03/20 10:13:00 EST, Height, 60.8, kg, 10/03/20 10:13:00 EST, Dry Weight Start Date: 10/18/20 Stop Date: 07/15/21 Status: Orderedgabapentin 100 mg oral capsule 100 mg, 1, capsule, By Mouth, 3 times a day, # 90 capsule, Refills 0, Tot. Refills 0, Maintenance, 03/11/21 7:35:00 EDT, Route to Pharmacy Electronically, [facility]386, Partial fill upon [...] tablet, 1 Refills, Maintenance, 12/30/20 13:04:00 EDT, [facility]386, Partial fill upon [...]
--- OUTSIDE RECORDS SUMMARY | 2022-08-12 05:17 | XMS_ITS | Continuity of Care Document ---
:1945 Author Organization [facility] Address [address] [place] [address]- Care Team Providers Name Role Phone Jas Núñez MD Primary Care Physician Encounter [facility] Date(s): 01/07/21 - 02/06/21 [facility] [address] [place] [address]- Allergies, Adverse Reactions, Alerts Substance Reaction Severity [...] 0 Refills, Maintenance, 11/13/20 15:21:00 EST, Tablet, [facility]386, 153, cm, 11/13/20 14:46:00 [...] tablet, 2 Refills, Maintenance, 10/18/20 10:22:00 EST, [facility], 153, cm, 10/03/20 10:13:00 [...] tablet, 1 Refills, Maintenance, 12/30/20 13:04:00 EDT, [facility], Partial fill upon patient [...]
--- OUTSIDE RECORDS SUMMARY | 2022-08-12 05:17 | XMS_ITS | Continuity of Care Document ---
:1945 Author Organization [facility] Address [address] [place] [address]- Care Team Providers Name Role Phone Jag Rosas MD Primary Care Physician Encounter [facility] Date(s): 12/29/21 - 12/29/[address] [address]- Discharge Disposition: A-D/C Home Attending Physician: Julian Ibarra MD Admitting Physician: Julian Ibarra MD Referring Physician: Not on Staff, Referring [...] 0 Refills, Maintenance, 06/23/21 15:36:00 EDT, Tablet, [facility], Partial fill upon patient request if the prescription is for a schedu... Start Date: 06/23/21 Stop Date: 07/23/21 Status: Orderedduloxetine 20 mg oral enteric coated capsule 1 capsule = 20 mg, By Mouth, Daily, # 30 capsule, 3 Refills, Maintenance, 08/19/21 10:09:00 EST, Capsule, [facility]386, [...] 06/16/21 16:15:00 EDT, [facility] to Pharmacy Electronically, [facility] [...] 3 Refills, Maintenance, 05/05/21 15:52:00 EDT, Tablet, [facility], 153, cm, 04/15/21 [...] Panic attacks(Confirmed) Active PMB (postmenopausal Active bleeding)(Confirmed) Results Radiology Reports Exam Date Time Procedure Performing Provider Status 12/29/21 2:00 PM Chest 2 Views Frontal and Lat Forand , Jag; Auth (Verified) Notes:(Chest 2 Views Frontal and Lat) Reason For Exam: Shortness of Breath, Fever;Other:RESULT: Chest 2 Views Frontal and Lat Chest 2 Views Frontal and Lat Hx of Present Illness: pt states I need a nebulizer treatment . SOB starting wednesday, saw PCP was told everything is fine . SOB worsening today.; Reason: Other:; Shortness of Breath, Fever; Clinical Question(s): Pneumonia COMPARISON: 04/29/2019. FINDINGS: LINES AND TUBES: None. LUNGS AND PLEURA: Clear lungs. Normal pulmonary vascularity. No pleural effusion. No pneumothorax. HEART, MEDIASTINUM AND HANS: Heart is normal in size. The aortic arch is partially calcified. BONES AND SOFT TISSUES: No acute abnormality. IMPRESSION: No acute abnormality. WSN: [id number] Ordering Physician: Julian Ibarra Dictated By: Harry Martinez MD Dictated Date/Time: 12/29/21 2:05 pm Reviewed By: Harry Martinez MD Signed By: Harry Martinez MD Signed Date/Time: 12/29/21 2:05 pm Transcribed By: VICTORIA Transcribed Date/Time: 12/29/21 2:03 pm Vital Signs Most recent to oldest [Reference Range]: 1 2 Height 152 cm (12/29/21 11:51 AM) Weight 60.2 kg (12/29/21 11:51 AM) Oxygen Saturation [94-100 %] 99 % 98 % (12/29/21 2:30 PM) (12/29/21 11:51 AM) Pulse Rate [55-90 bpm] 72 bpm 73 bpm (12/29/21 2:30 PM) (12/29/21 11:51 AM) Blood Pressure [90-138/55-84 mm Hg] 140/73 mm Hg *H* (12/29/21 2:30 PM) Systolic Blood Pressure [90-138 mm Hg] 131 mm Hg (12/29/21 11:51 AM) Respiratory Rate [16-30 br/min] 18 br/min 20 br/mi n (12/29/21 2:30 PM) (12/29/21 11:51 AM) Temperature [96.8-100.4 DegF] 98.2 DegF 97.2 DegF (12/29/21 2:30 PM) (12/29/21 11:51 AM) Mode of Delivery (Oxygen) Room air Room air (12/29/21 2:30 PM) (12/29/21 11:51 AM) Temperature Route Oral Temporal (12/29/21 2:30 PM) (12/29/21 11:51 AM) Dry Weight 60.2 kg (12/29/21 11:51 AM) Social History Social History Type Response Smoking Status Former smoker, quit more ekaterina n 30 days ago entered on: 05/19/21 Sex
--- OUTSIDE RECORDS SUMMARY | 2022-08-12 05:17 | XMS_ITS | Continuity of Care Document ---
:1945 Author Organization [facility] Address [address] [place] [address]- Care Team Providers Name Role Phone Jas Núñez MD Primary Care Physician Encounter [facility] Date(s): 01/07/21 - 01/14/21 [facility] [address] [place] [address]- Encounter Diagnosis Lymphocytic colitis (Discharge Diagnosis) - 01/07/21 Attending Physician: Jas Núñez MD Allergies, Adverse [...] 0 Refills, Maintenance, 11/13/20 15:21:00 EST, Tablet, [facility], 153, cm, 11/13/20 14:46:00 [...] tablet, 2 Refills, Maintenance, 10/18/20 10:22:00 EST, [facility]386, 153, cm, 10/03/20 10:13:00 [...] tablet, 1 Refills, Maintenance, 12/30/20 13:04:00 EDT, [facility]386, Partial fill upon patient [...] Dates Health Clinical Infor mant Status Service Lymphocytic Discharge 01/07/21 colitis Diagnosis Vital Signs Most recent to oldest [Reference Range]: 1 Height 153 cm (01/07/21 10:54 AM) Weight 59.2 kg (01/07/21 10:54 AM) Oxygen Saturation [94-100 %] 97 % (01/07/21 10:54 AM) Pulse Rate [55-90 bpm] 85 bpm (01/07/21 10:54 AM) Body Mass Index [18.5-24.99] 25.29 *H* (01/07/21 10:54 AM) Blood Pressure [90-138/55-84 mm Hg] 120/66 mm Hg (01/07/21 10:54 AM) Blood pressure sites Arm, left (01/07/21 10:54 AM) Weight Obtained Via Standing scale (01/07/21 10:54 AM) Social History Social History Type Response Smoking Status Former smoker, quit more ekaterina n 30 days ago; Started at age: 15; Other: stopped smoking about 15 years; used to smoke one pack of cigarettes a day; entered on: 04/11/20 Sex
--- OUTSIDE RECORDS SUMMARY | 2022-08-12 05:17 | XMS_ITS | Continuity of Care Document ---
:1945 Author Organization [facility] Address [address] [place] [address]- Care Team Providers Name Role Phone Jas Núñez MD Primary Care Physician Encounter [facility] Date(s): 02/24/21 - 03/26/21 [facility] [address] [place], [place] [address] Allergies, Adverse Reactions, Alerts Substance Reaction Severity [...] Acute 06/04/21 14:54:00 EDT, 02/19/21 9:17:00 [facility]... Start Date: 02/19/21 Stop Date: 06/04/21 Status: OrderedclonazePAM 0.5 mg oral tablet 1 tablet = 0.5 mg, By Mouth, Daily, PRN anxiety, # 10 tablet, 0 Refills, Maintenance, 11/13/20 15:21:00 EST, Tablet, [facility], 153, cm, 11/13/20 14:46:00 EST, Height, 60.8, kg, 10/03/20 10:13:00 EST, Dry Weight Start Date: 11/13/20 Stop Date: 02/11/21 Status: OrderedclonazePAM 0.5 mg oral tablet 1 tablet = 0.5 mg, By Mouth, Daily, PRN anxiety attacks, To use only for Panic Attacks, # 10 tablet,0 Refills, Maintenance, 03/11/21 16:18:00 EDT, Tablet, [facility] 2386, Partial fill upon patient request if the prescription is for a schedule... Start Date: 03/11/21 Stop Date: 04/01/21 Status: Orderedescitalopram 20 mg oral tablet 1 tablet = 20 mg, By Mouth, Daily, # 90 tablet, 2 Refills, Maintenance, 10/18/20 10:22:00 EST, [facility], 153, cm, 10/03/20 10:13:00 EST, Height, 60.8, kg, 10/03/20 10:13:00 EST, Dry Weight Start Date: 10/18/20 Stop Date: 07/15/21 Status: Orderedgabapentin 100 mg oral capsule 100 mg, 1, capsule, By Mouth, 3 times a day, # 90 capsule, Refills 0, Tot. Refills 0, Maintenance, 03/11/21 7:35:00 EDT, Route to Pharmacy Electronically, [facility]386, Partial fill upon patient [...] tablet, 1 Refills, Maintenance, 12/30/20 13:04:00 EDT, [facility], Partial fill upon patient [...]
--- OUTSIDE RECORDS SUMMARY | 2022-08-12 05:17 | XMS_ITS | Continuity of Care Document ---
:1945 Author Organization [facility] Address [address] [place] [address]- Care Team Providers Name Role Phone aJs Núñez MD Primary Care Physician [id number] Date(s): 05/15/21 - 06/14/21 [facility] [address] [place] [address]- [place] Allergies, Adverse Reactions, Alerts Substance Reaction [...] Acute 08/04/21 13:00:00 EDT, 05/21/21 8:17:00 EDT, [facility]386, Partial fill upon patient request if the... Start Date: 05/21/21 Stop Date: 08/04/21 Status: OrderedclonazePAM 0.5 mg oral tablet 0.5 tablet = 0.25 mg, By Mouth, Daily, PRN anxiety attacks, To use only for Panic Attacks, # 15 tablet, 0 Refills, Maintenance, 05/15/21 12:24:00 EDT, Tablet, [facility], Partial fill upon patient request if the prescription is for a schedu... Start Date: 05/15/21 Stop Date: 06/14/21 Status: Orderedduloxetine 20 mg oral enteric coated capsule 1 capsule = 20 mg, By Mouth, Daily, # 30 capsule, 3 Refills, Maintenance, 04/15/21 13:46:00 EDT, Capsule, [facility] 2386, Partial fill upon patient request if the prescription is for a schedule II opioid drug., 153, cm, 04/15/21 13:19:00 EDT, H... Start Date: 04/15/21 Stop Date: 08/13/21 Status: Orderedgabapentin 100 mg oral capsule 200 mg, 2, capsule, By Mouth, Daily at bedtime, # 180 capsule, Refills 1, Tot. Refills 1, Maintenance, 04/15/21 13:47:00 EDT, Route to Pharmacy Electronically, [facility]386, Partial fill upon [...] 3 Refills, Maintenance, 05/05/21 15:52:00 EDT, Tablet, [facility], 153, cm, 04/15/21 [...]
--- OUTSIDE RECORDS SUMMARY | 2022-08-12 05:17 | XMS_ITS | Continuity of Care Document ---
:1945 Author Organization [facility] Address [address] [place] [address]- Care Team Providers Name Role Phone Jas Núñez MD Primary Care Physician [id number] Date(s): 04/15/20 - 06/01/20 [facility] [address] [place] [address]- [facility] Attending Physician: Lucila GONZALEZ, John Silver Referring Physician: Jas Núñez MD Allergies, Adverse [...] 1 Refills, Maintenance, 05/06/20 12:47:00 EDT, Tablet, [facility], 153, cm, 04/25/20 10:42:00 EDT, Height, 58.6, kg, 01/28/20 12:59:00 EDT, Dry Weight Start Date: 05/06/20 Status: OrderedEscitalopram = 10 mg, By Mouth, Daily, 0 Refills, Maintenance, 06/11/18 13:39:25 EDT Start Date: 06/11/18 Status: Orderedescitalopram 20 mg oral tablet 1 tablet = 20 mg, By Mouth, Daily, # 90 tablet, 1 Refills, Maintenance, 05/06/20 12:50:00 EDT, [facility], 153, cm, 04/25/20 10:42:00 [...]
--- OUTSIDE RECORDS SUMMARY | 2022-08-12 05:17 | XMS_ITS | Continuity of Care Document ---
:[address] [facility] [employer] [facility] Address [address] [place] [address]- Care Team Providers Name Role Phone Wilton GONZALEZ, Jas Primary Care [id number] Date(s): 03/04/21 - 04/03/21 [facility] [employer] Adult [facility] [address] [place] [address]- Allergies, Adverse Reactions, Alerts Substance Reaction Severity [...] Acute 06/04/21 14:54:00 EDT, 02/19/21 9:17:00 EDT, [facility]... Start Date: 02/19/21 Stop Date: 06/04/21 Status: OrderedclonazePAM 0.5 mg oral tablet 1 tablet = 0.5 mg, By Mouth, Daily, PRN anxiety, # 10 tablet, 0 Refills, Maintenance, 11/13/20 15:21:00 EST, [facility]t, [facility], 153, cm, 11/13/20 14:46:00 EST, Height, 60.8, kg, 10/03/20 10:13:00 EST, Dry Weight Start Date: 11/13/20 Stop Date: 02/11/21 Status: OrderedclonazePAM 0.5 mg oral tablet 1 tablet = 0.5 mg, By Mouth, Daily, PRN anxiety attacks, To use only for Panic Attacks, # 10 tablet,0 Refills, Maintenance, 03/11/21 16:18:00 EDT, Tablet, [facility], Partial fill upon patient request if the prescription is for a schedule... Start Date: 03/11/21 Stop Date: 04/01/21 Status: Orderedescitalopram 20 mg oral tablet 1 tablet = 20 mg, By Mouth, Daily, # 90 tablet, 2 Refills, Maintenance, 10/18/20 10:22:00 EST, [facility], 153, cm, 10/03/20 10:13:00 EST, Height, 60.8, kg, 10/03/20 10:13:00 EST, Dry Weight Start Date: 10/18/20 Stop Date: 07/15/21 Status: Orderedgabapentin 100 mg oral capsule 100 mg, 1, capsule, By Mouth, 3 times a day, # 90 capsule, Refills 0, Tot. Refills 0, Maintenance, 03/11/21 7:35:00 EDT, Route to Pharmacy Electronically, [facility], Partial fill [...]
--- OUTSIDE RECORDS SUMMARY | 2022-08-12 05:17 | XMS_ITS | Continuity of Care Document ---
:1945 Author Organization [facility] [employer] Adult [facility] Address [address] [place] [id number]- Care Team Providers Name Role Phone Jas Núñez MD Primary Care Physician Encounter [facility] Date(s): 04/25/21 - 05/25/21 [facility] [employer] Adult [facility] [address] [place] [address]- [place] Allergies, Adverse Reactions, Alerts Substance Reaction [...] Acute 06/04/21 14:54:00 EDT, 02/19/21 9:17:00 [facility]... Start Date: 02/19/21 Stop Date: 06/04/21 Status: Orderedbudesonide 3 mg oral delayed release capsule See Instructions, 3 tabletsdaily for 6 weeks then 2 tablets daily for 4 weeks, then 1 tablet daily for 4 weeks, # 210 tablet, 0 Refills, Acute 08/04/21 13:00:00 EDT, 05/21/21 8:17:00 EDT, [facility], Partial fill upon patient request if the... Start Date: 05/21/21 Stop Date: 08/04/21 Status: OrderedclonazePAM 0.5 mg oral tablet 0.5 tablet = 0.25 mg, By Mouth, Daily, PRN anxiety attacks, To use only for Panic Attacks, # 15 tablet, 0 Refills, Maintenance, 05/15/21 12:24:00 EDT, Tablet, [facility], Partial fill upon patient request if the prescription is for a schedu... Start Date: 05/15/21 Stop Date: 06/14/21 Status: Orderedduloxetine 20 mg oral enteric coated capsule 1 capsule = 20 mg, By Mouth, Daily, # 30 capsule, 3 Refills, Maintenance, 04/15/21 13:46:00 EDT, Capsule, [facility], Partial fill upon patient request if the prescription is for a schedule II opioid drug., 153, cm, 04/15/21 13:19:00 EDT, H... Start Date: 04/15/21 Stop Date: 08/13/21 Status: Orderedgabapentin 100 mg oral capsule 200 mg, 2, capsule, By Mouth, Daily at bedtime, # 180 capsule, Refills 1, Tot. Refills 1, Maintenance, 04/15/21 13:47:00 EDT, Route to Pharmacy Electronically, [facility], Partial fill upon [...] 3 Refills, Maintenance, 05/05/21 15:52:00 EDT, Tablet, [facility], 153, cm, 04/15/21 [...]
--- OUTSIDE RECORDS SUMMARY | 2022-08-12 05:17 | XMS_ITS | Continuity of Care Document ---
:1945 Author Organization [facility] [employer] [facility] Address [address] [place] [address]- Care Team Providers Name Role Phone Jas Núñez MD Primary Care Physician Encounter [facility] Date(s): 10/01/20 - 10/31/20 [facility] [address] [place] [address]- Allergies, Adverse Reactions, Alerts Substance Reaction Severity [...] tablet, 2 Refills, Maintenance, 10/18/20 10:22:00 EST, [facility], 153, cm, 10/03/20 10:13:00 EST, Height, 60.8, kg, 10/03/20 10:13:00 EST, Dry Weight Start Date: 10/18/20 Stop Date: 07/15/21 Status: Orderedramelteon 8 mg oral tablet 1 tablet = 8 mg, By Mouth, Daily at bedtime, # 30 tablet, 1 Refills, Maintenance, 10/18/20 9:57:00 EST, [facility], Partial fill upon patient request [...]
--- OUTSIDE RECORDS SUMMARY | 2022-08-12 05:17 | XMS_ITS | Continuity of Care Document ---
:[address] [facility] [employer] Adult [facility] Address [address] [place] [address]- Care Team Providers Name Role Phone Jas Núñez MD Primary Care Physician Encounter [facility] Date(s): 12/12/20 - 01/11/21 [facility] [employer] [facility] [address] [place] [address]- Allergies, Adverse Reactions, Alerts Substance Reaction Severity Status ibuprofen anxious Active Motrin gi upset Active Latex rash Active Cold and Allergy DM get anxious Active PROzac1 Active morphine stomach pain severe Active 1lack of theraputic effect Medications albuterol CFC free 90 mcg/inh inhalation aerosol 2, puffs, Inhalation, Every 4 hours, PRN, # 8.5 Gm, Refills 0, Tot. Refills 0, Maintenance, 04/29/1916:28:23 EDT, Aerosol, [employer] Start Date: 04/29/19 Status: OrderedclonazePAM 0.5 mg oral tablet 1 tablet = 0.5 mg, By Mouth, Daily, PRN anxiety, # 10 tablet, 0 Refills, Maintenance, 11/13/20 15:21:00 EST, Tablet, [facility], 153, cm, 11/13/20 [...] tablet, 2 Refills, Maintenance, 10/18/20 10:22:00 EST, [facility], 153, cm, 10/03/20 [...] tablet, 1 Refills, Maintenance, 12/30/20 13:04:00 EDT, [facility], Partial fill [...]
--- OUTSIDE RECORDS SUMMARY | 2022-08-12 05:17 | XMS_ITS | Continuity of Care Document ---
:1945 Author Organization [facility] Address [address] [place] [address]- Care Team Providers Name Role Phone Jas Núñez MD Primary Care Physician Encounter [facility] Date(s): 02/10/21 - 02/10/[address] [address] Discharge Disposition: A-D/C Home Attending Physician: Zacarias Mayes MD Admitting Physician: Zacarias Mayes MD Referring Physician: Zacarias Mayes MD Allergies, Adverse Reactions, Alerts Substance Reaction Severity Status ibuprofen anxious Active Latex rash Active PROzac1 Active morphine stomach pain severe Active Motrin gi upset Active Cold and Allergy DM get anxious [...] 0 Refills, Maintenance, 11/13/20 15:21:00 EST, Tablet, [facility]386, 153, cm, 11/13/20 14:46:00 [...] 0 Refills, Maintenance, 02/09/21 9:34:00 EDT, Tablet, [facility], Partial fill upon patient request if the prescription is for a schedule II opioid drug., 153, cm, 02/09/21 9:09:00 EDT,... Start Date: 02/09/21 Status: Orderedescitalopram 20 mg oral tablet 1 tablet = 20 mg, By Mouth, Daily, # 90 tablet, 2 Refills, Maintenance, 10/18/20 10:22:00 EST, [facility], 153, cm, 10/03/20 10:13:00 [...] tablet, 1 Refills, Maintenance, 12/30/20 13:04:00 EDT, [facility]386, Partial fill upon patient [...] oldest 1 2 3 [Reference Range]: Height 152 cm (02/10/21 2:37 PM) Oxygen Saturation [94-100 %] 97 % 96 % 97 % (02/10/21 3:35 PM) (02/10/21 3:30 PM) (02/10/21 3:2 5 PM) Pulse Rate [55-90 bpm] 70 bpm 72 bpm (02/10/21 3:00 PM) (02/10/21 2:37 PM) Blood Pressure [90-138/55-84 mm 127/58 mm Hg 119/74 mm Hg 121/64 mm Hg Hg] (02/10/21 3:35 PM) (02/10/21 3:30 PM) (02/10/21 3:2 6 PM) Respiratory Rate [16-30 br/min] 16 br/min 15 br/min 15 br/min (02/10/21 3:35 PM) *L* *L* (02/10/21 3:30 PM) (02/10/21 3:25 PM) Temperature [96.8-100.4 DegF] 98.6 DegF (02/10/21 2:37 PM) Mode of Delivery (Oxygen) Room air Room air (02/10/21 3:00 PM) (02/10/21 2:37 PM) Blood pressure sites Arm, right Arm, right (02/10/21 3:00 PM) (02/10/21 2:37 PM) Temperature Route Temporal (02/10/21 2:37 PM) Dry Weight 60 kg (02/10/21 2:37 PM) Social History Social History Type Response Smoking Status Former smoker, quit more ekaterina n 30 days ago; Started at age: 15; Other: stopped smoking about 15 years; used to smoke one pack of cigarettes a day; entered on: 04/11/20 Sex
--- OUTSIDE RECORDS SUMMARY | 2022-08-12 05:17 | XMS_ITS | Continuity of Care Document ---
:1945 Author Organization [facility] [employer] Adult [facility] Address [address] [place] [address]- Care Team Providers Name Role Phone Wilton GONZALEZ, Jas Primary Care Phys[id number] Date(s): 03/11/21 - 04/10/21 [facility] [employer] [facility] [address] [place] [address]- Allergies, Adverse Reactions, Alerts Substance Reaction Severity [...] Acute 06/04/21 14:54:00 EDT, 02/19/21 9:17:00 EDT, [facility], [facility]... Start Date: 02/19/21 Stop Date: 06/04/21 Status: OrderedclonazePAM 0.5 mg oral tablet 1 tablet = 0.5 mg, By Mouth, Daily, PRN anxiety, # 10 tablet, 0 Refills, Maintenance, 11/13/20 15:21:00 EST, Tablet, [facility], 153, cm, 11/13/20 14:46:00 EST, Height, 60.8, kg, 10/03/20 10:13:00 EST, Dry Weight Start Date: 11/13/20 Stop Date: 02/11/21 Status: OrderedclonazePAM 0.5 mg oral tablet 1 tablet = 0.5 mg, By Mouth, Daily, PRN anxiety attacks, To use only for Panic Attacks, # 10 tablet,0 Refills, Maintenance, 03/11/21 16:18:00 EDT, Tablet, [facility] 2386, Partial fill upon patient request if the prescription is for a schedule... Start Date: 03/11/21 Stop Date: 04/01/21 Status: Orderedescitalopram 20 mg oral tablet 1 tablet = 20 mg, By Mouth, Daily, # 90 tablet, 2 Refills, Maintenance, 10/18/20 10:22:00 EST, [facility] 2386, 153, cm, 10/03/20 10:13:00 EST, Height, 60.8, kg, 10/03/20 10:13:00 EST, Dry Weight Start Date: 10/18/20 Stop Date: 07/15/21 Status: Orderedgabapentin 100 mg oral capsule 100 mg, 1, capsule, By Mouth, 3 times a day, # 90 capsule, Refills 0, Tot. Refills 0, Maintenance, 03/11/21 7:35:00 EDT, Route to Pharmacy Electronically, [facility]386, Partial fill upon [...] tablet, 1 Refills, Maintenance, 12/30/20 13:04:00 EDT, [facility]386, Partial fill upon [...]
--- OUTSIDE RECORDS SUMMARY | 2022-08-12 05:17 | XMS_ITS | Continuity of Care Document ---
:1945 Author Organization [facility] [employer] Adult [facility] Address [address] [place] [address]- Care Team Providers Name Role Phone Jas Núñez MD Primary Care Physician Encounter [facility] Date(s): 01/07/21 - 02/06/21 [facility] [employer] [facility] [address] [place] [address]- Allergies, Adverse Reactions, Alerts Substance Reaction Severity [...] 0 Refills, Maintenance, 11/13/20 15:21:00 EST, Tablet, [facility]386, 153, cm, 11/13/20 14:46:00 [...] tablet, 2 Refills, Maintenance, 10/18/20 10:22:00 EST, [facility], 153, cm, 10/03/20 10:13:00 [...] tablet, 1 Refills, Maintenance, 12/30/20 13:04:00 EDT, [facility]386, Partial fill upon patient [...]
--- OUTSIDE RECORDS SUMMARY | 2022-08-12 05:17 | XMS_ITS | Continuity of Care Document ---
:1945 Author Organization [facility] [employer] [facility] Address [address] [place] [address]- Care Team Providers Name Role Phone Wilton GONZALEZ, Jas Primary Care Physician Encounter [facility] Date(s): 12/11/20 - 01/10/21 [facility] [employer] [facility] [address] [place] [address]- Allergies, Adverse Reactions, Alerts Substance Reaction Severity [...] 0 Refills, Maintenance, 11/13/20 15:21:00 EST, Tablet, [facility]386, 153, cm, 11/13/20 [...] tablet, 2 Refills, Maintenance, 10/18/20 10:22:00 EST, [facility], 153, cm, 10/03/20 [...] tablet, 1 Refills, Maintenance, 12/30/20 13:04:00 EDT, [facility]386, Partial fill upon [...]
--- OUTSIDE RECORDS SUMMARY | 2022-08-12 05:17 | XMS_ITS | Continuity of Care Document ---
:1945 Author Organization [facility] [facility] Address [address] [place] [address]- Care Team Providers Name Role Phone Jas Núñez MD Primary Care Physician Encounter [facility] Date(s): 06/10/21 - 07/10/21 [facility] [address] [place] [address]- [place] Allergies, Adverse Reactions, Alerts Substance Reaction [...] 08/04/21 13:00:00 EDT, 05/21/21 8:17:00 EDT, [facility], Partial fill upon patient request if the... Start Date: 05/21/21 Stop Date: 08/04/21 Status: OrderedclonazePAM 0.5 mg oral tablet 0.5 tablet = 0.25 mg, By Mouth, Daily, PRN anxiety attacks, To use only for Panic Attacks, # 15 tablet, 0 Refills, Maintenance, 06/23/21 15:36:00 EDT, Tablet, [facility] 238[facility], Partial fill upon patient request if the prescription is for a schedu... Start Date: 06/23/21 Stop Date: 07/23/21 Status: Orderedduloxetine 20 mg oral enteric coated capsule 1 capsule = 20 mg, By Mouth, Daily, # 30 capsule, 3 Refills, Maintenance, 04/15/21 13:46:00 EDT, Capsule, [facility] 2386, Partial fill upon patient request if the prescription is for a schedule II opioid drug., 153, cm, 04/15/21 13:19:00 EDT, H... Start Date: 04/15/21 Stop Date: 08/13/21 Status: Orderedgabapentin 300 mg oral capsule 300 mg, 1, capsule, By Mouth, Daily at bedtime, # 90 capsule, Refills 1, Tot. Refills 1, Maintenance, 06/16/21 16:15:00 EDT, Route to Pharmacy Electronically, [facility], Partial fill upon patient [...] Refills, Maintenance, 05/05/21 15:52:00 EDT, Tablet, [facility]386, 153, cm, 04/15/21 13:19:00 [...]
--- OUTSIDE RECORDS SUMMARY | 2022-08-12 05:17 | XMS_ITS | Continuity of Care Document ---
:1945 Author Organization [facility] [employer] [facility] Address [address] [place] [address]- Care Team Providers Name Role Phone Wilton GONZALEZ, Jas Primary Care Physician Encounter [facility] Date(s): 12/02/20 - 01/01/21 [facility] [facility] [address] [place] [address]- Allergies, Adverse Reactions, Alerts Substance Reaction Severity [...] 0 Refills, Maintenance, 11/13/20 15:21:00 EST, Tablet, [facility] 2386, 153, cm, 11/13/20 [...] tablet, 2 Refills, Maintenance, 10/18/20 10:22:00 EST, [facility] 2386, 153, cm, 10/03/20 [...] tablet, 1 Refills, Maintenance, 12/30/20 13:04:00 EDT, [facility] 2386, Partial fill upon [...]
[2022-08-12 05:19] LABS: MANUAL DIFF FLAG NO
[2022-08-12 05:20] LABS: Basophils Absolute Auto 0.1 X10*3/uL (0.0-0.2); Basophils Percent Auto 0.9 % (0-2); Eosinophils Absolute Auto 0.1 X10*3/uL (0.0-0.4); Eosinophils Percent Auto 1.6 % (0-4); Hematocrit 42.6 % (37.0-47.0); Hemoglobin 14.1 g/dl (12.0-16.0); Imm Gran Abs Auto 0.03 X10*3/uL (0.00-0.03); Imm Gran Pct Auto 0.4 % (0.0-0.4); Lymphocytes Percent Auto 28.4 % (20-40); Mean Corpuscular HGB Conc 33.1 g/dl (31.0-35.0); Mean Corpuscular Hemoglobin 31.3 pg (27.0-33.0); Mean Corpuscular Volume 94.5 fL (80.0-98.0); Mean Platelet Volume 9.7 fL (9.4-12.3); Monocytes Absolute Auto 0.8 X10*3/uL (0.1-1.2); Monocytes Percent Auto 10.7 % (2-11); Neutrophils Absolute Auto 4.1 x10*3/uL (2.0-8.3); Platelet Count 228 X10*3/uL (160-400); Red Blood Count 4.51 X10*6/uL (4.20-5.50); Red Cell Distribution Width 12.6 % (11.0-16.0)
[2022-08-12 05:31] VITALS: BP 160/72; PULSE 80; RESP 12; TEMP 36.6
[2022-08-12 05:32] LABS: COVID-19 Test Negative (Negative)
--- NOTE | 2022-08-12 05:39 | ED_ITS ---
HPI - Chest Pain General Chief Complaint: Chest Pain Stated Complaint: CP Time Seen by Provider: 08/12/22 04:41 Source: patient and EMS Mode of arrival: EMS Limitations: no limitations History of Present Illness HPI narrative: 77-year-old female came in by ambulance for evaluation of chest pain. Patient was sleeping woke up from sleep with chest pain patient is unable to describe the pain, pain was in the anterior chest area with no radiation, no other associated symptoms, pain was resolved shortly after start by the time patient presented to the emergency department pain was completely resolved, patient has been having chills in the ED feels cold last time patient had this symptoms when she had diverticulitis, patient decline abdominal pain, nausea or vomiting. No fever chills, patient been eating with normal good appetite ( ate pizza last night ). Patient is not from this area she is here visiting a friend. Related Data Allergies Allergy/AdvReac Type Severity Reaction Status Date / Time Unable to Assess Allergy Verified 08/12/22 04:42 Review of Systems Review of Systems: All other systems are reviewed and are negative Constitutional: Reports as per HPI and Reports no additional constitutional complaints Eyes: Reports as per HPI and Reports no additional eye complaints Reports system reviewed and no additional complaints, except as documented Cardiovascular: Reports as per HPI and Reports no additional cardiovascular complaints Respiratory: Reports as per HPI and Reports no additional respiratory complaints Gastrointestinal: Reports as per HPI and Reports no additional gastrointestinal complaints Genitourinary: Reports no additional female genitourinary complaints Musculoskeletal: Reports no additional musculoskeletal complaints Skin/Breast: Reports system reviewed and no additional complaints, except as docu Psychiatric: Reports no additional psychiatric complaints Endocrine: Reports no additional endocrine complaints Hematologic/Lymphatic: Reports no additional hematologic/lymphatic complaints Allergic/Immunologic: Reports no additional allergic/immunologic complaints Reports system reviewed and no additional complaints, except as documented and Reports Abnormal speech present [facility] Social History Social History Advance Directives: No Advance Directives Information Provided: No Physical Exam Vital Signs: Vital Signs: Last Vital Signs Temp 97.8 F 08/12/22 05:31 Pulse 80 08/12/22 05:31 Resp 12 08/12/22 05:31 BP 160/72 H 08/12/22 05:31 Pulse Ox 99 08/12/22 04:52 O2 Del Method 08/12/22 05:31 BMI result Body Mass Index 25.4 vital signs have been reviewed as appeared to be correct. Blood pressure normal. Heart rate normal. Respiration rate normal. Temperature normal. Oxygen saturation normal. Appearance: Alert. Oriented X3. No acute distress. Head: Normal external exam. Normocephalic. Atraumatic. No Allen signs noted. No raccoon eyes noted Eyes: PERRLA. EOMI. Conjunctiva and sclera normal. Eyelids normal. ENT: TM's Normal. Pharynx normal. Uvula midline. Moist mucous membranes. No trismus noted. No drooling noted. No muffled voice noted. Neck: Normal inspection. Neck supple. FROM. No adenopathy. Thyroid Normal. No meningeal signs. No neck mass noted. CVS: Normal heart rate and rhythm. Heart sound normal. No murmurs noted. Pulses normal throughout. Respiratory: No respiratory distress. Painless inspiration. Breath sounds normal. No wheezes/rales/rhonchi noted. Chest nontender. No accessory muscle usage noted or decreased air movement noted. Abdomen: Soft and nontender. Bowel sounds normal in all 4 quadrants. No distention noted. No organomegaly noted. No visible injury noted. Back: No CVA tenderness. Full range of motion noted. Skin: Skin warm and dry. Normal skin color. Normal skin turgor. No rashes/lesions/lacerations noted. Extremities: No lower extremity edema. Extremities exhibit normal range of motion. Extremities nontender. Neuro: Oriented X 3. Cranial nerve exam: II-XII are grossly intact No motor deficit. No sensory deficit. Reflexes normal. Course Course Course Narrative: 77-year-old female came in with chest pain, patient has atypical presentation for ACS specially pain was resolved shortly after she woke up, unremarkable EKG 1st troponin is negative will repeat troponin in 3 hours and will check D-dimer since patient had a recent travel, patient had chills in the emergency department last time she had similar chills she had diverticulitis patient today complained of no abdominal pain or nausea or vomiting, found to have no fever, but patient was transported by ambulance with no sufficient clothes temperature is 40 degree outside, patient has no wbc's, no fever, stable vital signs, will check UA. Case was signed out to Dr. Calabrese. MDM - Chest Pain Medical Records Data Attestation: I reviewed the patient's medical records. Lab Data Attestation: I reviewed the patient's lab results. Result diagrams: 08/12/22 05:15 08/12/22 05:15 Labs: Lab Results 08/12/22 08/12/22 08/12/22 Range/Units 05:04 05:04 05:15 WBC 7.0 (4.8-10.8) X10*3/uL RBC 4.51 (4.20-5.50) X10*6/uL Hgb 14.1 (12.0-16.0) g/dl Hct 42.6 (37.0-47.0) % MCV 94.5 (80.0-98.0) fL MCH 31.3 (27.0-33.0) pg MCHC 33.1 (31.0-35.0) g/dl RDW 12.6 (11.0-16.0) % Plt Count 228 (160-400) X10*3/uL MPV 9.7 (9.4-12.3) fL Immature Gran % (Auto) 0.4 (0.0-0.4) % Neut % (Auto) 58.0 (45-73) % Lymph % (Auto) 28.4 (20-40) % [place] % (Auto) 10.7 (2-11) % Eos % (Auto) 1.6 (0-4) % Baso % (Auto) 0.9 (0-2) % Lymph # (Auto) 2.0 (1.2-4.9) X10*3/uL [place] # (Auto) 0.8 (0.1-1.2) X10*3/uL Eos # (Auto) 0.1 (0.0-0.4) X10*3/uL Baso # (Auto) 0.1 (0.0-0.2) X10*3/uL Abs Immat Gran (auto) 0.03 (0.00-0.03) X10*3/uL Absolute Neuts (auto) 4.1 (2.0-8.3) x10*3/uL Absolute Nucleated RBC 0.000 (0.0-0.012) X10*3/uL Nucleated RBC % (auto) 0.0 (0.0-0.2) /100WBC Sodium (135-145) mmol/L Potassium (3.3-5.1) mmol/L Chloride (96-108) mmol/L Carbon Dioxide (22-29) mmol/L Anion Gap (12-20) BUN (9-16) mg/dL Creatinine (0.5-1.4) mg/dL Estim Creat Clear Calc Estimated GFR Random Glucose (60-115) mg/dL Calcium (8.4-10.2) mg/dL Total Bilirubin (0.0-1.0) mg/dL Direct Bilirubin (0.0-0.5) mg/dL AST (5-31) U/L ALT (0-31) U/L Alkaline Phosphatase (39-117) U/L Troponin I High Sens < 3.5 (<3.5-17.0) ng/L Total Protein (6.5-8.0) g/dL Albumin (3.5-5.0) g/dL Lipase (8-78) U/L COVID-19 ([facility]ELIMA) Negative (Negative) COVID-19 Clin Com See Note 08/12/22 Range/Units 05:15 WBC (4.8-10.8) X10*3/uL RBC (4.20-5.50) X10*6/uL Hgb (12.0-16.0) g/dl Hct (37.0-47.0) % MCV (80.0-98.0) fL MCH (27.0-33.0) pg MCHC (31.0-35.0) g/dl RDW (11.0-16.0) % Plt Count (160-400) X10*3/uL MPV (9.4-12.3) fL Immature Gran % (Auto) (0.0-0.4) % Neut % (Auto) (45-73) % Lymph % (Auto) (20-40) % [place] % (Auto) (2-11) % Eos % (Auto) (0-4) % Baso % (Auto) (0-2) % Lymph # (Auto) (1.2-4.9) X10*3/uL [place] # (Auto) (0.1-1.2) X10*3/uL Eos # (Auto) (0.0-0.4) X10*3/uL Baso # (Auto) (0.0-0.2) X10*3/uL Abs Immat Gran (auto) (0.00-0.03) X10*3/uL Absolute Neuts (auto) (2.0-8.3) x10*3/uL Absolute Nucleated RBC (0.0-0.012) X10*3/uL Nucleated RBC % (auto) (0.0-0.2) /100WBC Sodium 141 (135-145) mmol/L Potassium 5.0 (3.3-5.1) mmol/L Chloride 102 (96-108) mmol/L Carbon Dioxide 28 (22-29) mmol/L Anion Gap 16 (12-20) BUN 21 H (9-16) mg/dL Creatinine 0.85 (0.5-1.4) mg/dL Estim Creat Clear Calc 45.7 Estimated GFR > 60 Random Glucose 98 (60-115) mg/dL Calcium 9.8 (8.4-10.2) mg/dL Total Bilirubin 0.6 (0.0-1.0) mg/dL Direct Bilirubin 0.2 (0.0-0.5) mg/dL AST 25 (5-31) U/L ALT 28 (0-31) U/L Alkaline Phosphatase 63 (39-117) U/L Troponin I High Sens (<3.5-17.0) ng/L Total Protein 6.6 (6.5-8.0) g/dL Albumin 4.2 (3.5-5.0) g/dL Lipase 13 (8-78) U/L COVID-19 ([facility]ELIMA) (Negative) COVID-19 Clin Com Imaging Data Chest x-ray: Attestation: I personally reviewed and interpreted this imaging study as f ollows: Radiologist's impression: no acute pulmonary disease ECG Data ECG #1: Attestation: I personally reviewed and interpreted this ECG as follows: Interpretation: normal sinus rhythm at 80 beats per minutes, normal intervals, normal axis deviation, no ST -T change Discharge Plan Discharge Clinical Impression: Atypical chest pain Patient Disposition: Still a Patient
[2022-08-12 05:43] LABS: Troponin-I High Sensitivity < 3.5 ng/L (<3.5-17.0)
[2022-08-12 05:46] LABS: Lipase 13 U/L (8-78)
[2022-08-12 05:47] LABS: Alanine Aminotransferase 28 U/L (0-31); Albumin Level 4.2 g/dL (3.5-5.0); Alkaline Phosphatase 63 U/L (39-117); Anion Gap 16 (12-20); Aspartate Amino Transferase 25 U/L (5-31); Bilirubin Direct 0.2 mg/dL (0.0-0.5); Bilirubin Total 0.6 mg/dL (0.0-1.0); Blood Urea Nitrogen 21 mg/dL (9-16); Calcium 9.8 mg/dL (8.4-10.2); Carbon Dioxide 28 mmol/L (22-29); Chloride 102 mmol/L (96-108); Creatinine Clr Calc Pharmacy 45.7; Estimated Glomerular Filt Rate > 60; Glucose Random 98 mg/dL (60-115); Sodium 141 mmol/L (135-145); Total Protein 6.6 g/dL (6.5-8.0)
--- NOTE | 2022-08-12 06:31 | PC.NURSE ---
Patient's friend Neno arrived to the ED and elaborated that patient was at his house having a dinner democrat and they ate spicy pizza. She does have a history of REFLUX. He told us that a week ago one of their friends from a [place]. Patient has some anxiety in her history.
[2022-08-12 07:32] VITALS: BP 128/66; PULSE 97; RESP 17; TEMP 37.1
[2022-08-12 08:44] LABS: Appearance Urine Clear; Color Urine Yellow; Glucose Urine UA Negative (Negative); Leukocyte Esterase Urine Negative (Negative); Nitrite Urine Negative (Negative); PH 6.5 (5.0-9.0); Specific Gravity - Urine 1.015 (1.005-1.025); Urine Blood Negative (Negative); Urine Ketones Trace mg/dL (Negative); Urine Protein Negative (Neg-Trace)
[2022-08-12 08:46] LABS: D Dimer High Sensitivity 336 NG/ML
--- NOTE | 2022-08-12 08:54 | ED_ITS ---
HPI - Chest Pain General Chief Complaint: Chest Pain Stated Complaint: CP Time Seen by Provider: 08/12/22 04:41 Source: patient and EMS Mode of arrival: EMS Limitations: no limitations Related Data Allergies Allergy/AdvReac Type Severity Reaction Status Date / Time Unable to Assess Allergy Verified 08/12/22 04:42 [facility] Social History Social History Advance Directives: No Advance Directives Information Provided: No Physical Exam Vital Signs: Vital Signs: Last Vital Signs Temp 98.7 F 08/12/22 09:46 Pulse 84 08/12/22 09:46 Resp 14 08/12/22 09:46 BP 119/68 08/12/22 09:46 Pulse Ox 97 08/12/22 09:46 O2 Del Method 08/12/22 09:46 BMI result Body Mass Index 25.4 Course Course Course Narrative: 08:54. Taken on sign-out pending results of D-dimer, 2nd troponin, urinalysis. Urinalysis is normal. Second troponin is pending D-dimer is mildly elevated in the 300s. Creatinine is normal, will do CT angiography of the chest to rule out pulmonary embolism as cause of patient's discomfort. Re-evaluation shows patient is comfortable without symptoms at this time. I explained results so far and she understands and agrees to the CT scan. 11:06. Workup is reassuring in that she has had [address] Her CT scan of the chest shows no evidence of thromboembolic disease or other acute pathology Medications Administered Discontinued Medications Generic Name Dose Route Start Last Admin Trade Name Freq PRN Reason Stop Dose Admin Iohexol 100 ml 08/12/22 09:53 08/12/22 09:53 Iohexol 350 Mg/Ml 100 Ml Infus..Btl IV 08/12/22 09:54 65 ml ONCE ONE Administration MDM - Chest Pain Lab Data Result diagrams: 08/12/22 05:15 08/12/22 05:15 Labs: Lab Results 08/12/22 08/12/22 08/12/22 Range/Units 05:04 05:04 05:15 WBC 7.0 (4.8-10.8) X10*3/uL RBC 4.51 (4.20-5.50) X10*6/uL Hgb 14.1 (12.0-16.0) g/dl Hct 42.6 (37.0-47.0) % MCV 94.5 (80.0-98.0) fL MCH 31.3 (27.0-33.0) pg MCHC 33.1 (31.0-35.0) g/dl RDW 12.6 (11.0-16.0) % Plt Count 228 (160-400) X10*3/uL MPV 9.7 (9.4-12.3) fL Immature Gran % (Auto) 0.4 (0.0-0.4) % Neut % (Auto) 58.0 (45-73) % Lymph % (Auto) 28.4 (20-40) % [place] % (Auto) 10.7 (2-11) % Eos % (Auto) 1.6 (0-4) % Baso % (Auto) 0.9 (0-2) % Lymph # (Auto) 2.0 (1.2-4.9) X10*3/uL [place] # (Auto) 0.8 (0.1-1.2) X10*3/uL Eos # (Auto) 0.1 (0.0-0.4) X10*3/uL Baso # (Auto) 0.1 (0.0-0.2) X10*3/uL Abs Immat Gran (auto) 0.03 (0.00-0.03) X10*3/uL Absolute Neuts (auto) 4.1 (2.0-8.3) x10*3/uL Absolute Nucleated RBC 0.000 (0.0-0.012) X10*3/uL Nucleated RBC % (auto) 0.0 (0.0-0.2) /100WBC D-Dimer High Sensitivty NG/ML Sodium (135-145) mmol/L Potassium (3.3-5.1) mmol/L Chloride (96-108) mmol/L Carbon Dioxide (22-29) mmol/L Anion Gap (12-20) BUN (9-16) mg/dL Creatinine (0.5-1.4) mg/dL Estim Creat Clear Calc Estimated GFR Random Glucose (60-115) mg/dL Calcium (8.4-10.2) mg/dL Total Bilirubin (0.0-1.0) mg/dL Direct Bilirubin (0.0-0.5) mg/dL AST (5-31) U/L ALT (0-31) U/L Alkaline Phosphatase (39-117) U/L Troponin I High Sens < 3.5 (<3.5-17.0) ng/L Total Protein (6.5-8.0) g/dL Albumin (3.5-5.0) g/dL Lipase (8-78) U/L Urine Color Urine Appearance Urine pH (5.0-9.0) Ur Specific [address] (1.005-1.025) Urine Protein (Neg-Trace) mg/dL Urine Glucose (UA) (Negative) mg/dL Urine Ketones (Negative) mg/dL Urine Blood (Negative) Urine Nitrite (Negative) Ur Leukocyte Esterase (Negative) COVID-19 (NEELIMA) Negative (Negative) COVID-19 Clin Com See Note 08/12/22 08/12/22 08/12/22 Range/Units 05:15 08:27 08:27 WBC (4.8-10.8) X10*3/uL RBC (4.20-5.50) X10*6/uL Hgb (12.0-16.0) g/dl Hct (37.0-47.0) % MCV (80.0-98.0) fL MCH (27.0-33.0) pg MCHC (31.0-35.0) g/dl RDW (11.0-16.0) % Plt Count (160-400) X10*3/uL MPV (9.4-12.3) fL Immature Gran % (Auto) (0.0-0.4) % Neut % (Auto) (45-73) % Lymph % (Auto) (20-40) % [place] % (Auto) (2-11) % Eos % (Auto) (0-4) % Baso % (Auto) (0-2) % Lymph # (Auto) (1.2-4.9) X10*3/uL [place] # (Auto) (0.1-1.2) X10*3/uL Eos # (Auto) (0.0-0.4) X10*3/uL Baso # (Auto) (0.0-0.2) X10*3/uL Abs Immat Gran (auto) (0.00-0.03) X10*3/uL Absolute Neuts (auto) (2.0-8.3) x10*3/uL Absolute Nucleated RBC (0.0-0.012) X10*3/uL Nucleated RBC % (auto) (0.0-0.2) /100WBC D-Dimer High Sensitivty 336 NG/ML Sodium 141 (135-145) mmol/L Potassium 5.0 (3.3-5.1) mmol/L Chloride 102 (96-108) mmol/L Carbon Dioxide 28 (22-29) mmol/L Anion Gap 16 (12-20) BUN 21 H (9-16) mg/dL Creatinine 0.85 (0.5-1.4) mg/dL Estim Creat Clear Calc 45.7 Estimated GFR > 60 Random Glucose 98 (60-115) mg/dL Calcium 9.8 (8.4-10.2) mg/dL Total Bilirubin 0.6 (0.0-1.0) mg/dL Direct Bilirubin 0.2 (0.0-0.5) mg/dL AST 25 (5-31) U/L ALT 28 (0-31) U/L Alkaline Phosphatase 63 (39-117) U/L Troponin I High Sens < 3.5 (<3.5-17.0) ng/L Total Protein 6.6 (6.5-8.0) g/dL Albumin 4.2 (3.5-5.0) g/dL Lipase 13 (8-78) U/L Urine Color Urine Appearance Urine pH (5.0-9.0) Ur Specific [address] (1.005-1.025) Urine Protein (Neg-Trace) mg/dL Urine Glucose (UA) (Negative) mg/dL Urine Ketones (Negative) mg/dL Urine Blood (Negative) Urine Nitrite (Negative) Ur Leukocyte Esterase (Negative) COVID-19 (NEELIMA) (Negative) COVID-19 Clin Com 08/12/22 Range/Units 08:36 WBC (4.8-10.8) X10*3/uL RBC (4.20-5.50) X10*6/uL Hgb (12.0-16.0) g/dl Hct (37.0-47.0) % MCV (80.0-98.0) fL MCH (27.0-33.0) pg MCHC (31.0-35.0) g/dl RDW (11.0-16.0) % Plt Count (160-400) X10*3/uL MPV (9.4-12.3) fL Immature Gran % (Auto) (0.0-0.4) % Neut % (Auto) (45-73) % Lymph % (Auto) (20-40) % [place] % (Auto) (2-11) % Eos % (Auto) (0-4) % Baso % (Auto) (0-2) % Lymph # (Auto) (1.2-4.9) X10*3/uL [place] # (Auto) (0.1-1.2) X10*3/uL Eos # (Auto) (0.0-0.4) X10*3/uL Baso # (Auto) (0.0-0.2) X10*3/uL Abs Immat Gran (auto) (0.00-0.03) X10*3/uL Absolute Neuts (auto) (2.0-8.3) x10*3/uL Absolute Nucleated RBC (0.0-0.012) X10*3/uL Nucleated RBC % (auto) (0.0-0.2) /100WBC D-Dimer High Sensitivty NG/ML Sodium (135-145) mmol/L Potassium (3.3-5.1) mmol/L Chloride (96-108) mmol/L Carbon Dioxide (22-29) mmol/L Anion Gap (12-20) BUN (9-16) mg/dL Creatinine (0.5-1.4) mg/dL Estim Creat Clear Calc Estimated GFR Random Glucose (60-115) mg/dL Calcium (8.4-10.2) mg/dL Total Bilirubin (0.0-1.0) mg/dL Direct Bilirubin (0.0-0.5) mg/dL AST (5-31) U/L ALT (0-31) U/L Alkaline Phosphatase (39-117) U/L Troponin I High Sens (<3.5-17.0) ng/L Total Protein (6.5-8.0) g/dL Albumin (3.5-5.0) g/dL Lipase (8-78) U/L Urine Color Yellow Urine Appearance Clear Urine pH 6.5 (5.0-9.0) Ur Specific [address] 1.015 (1.005-1.025) Urine Protein Negative (Neg-Trace) mg/dL Urine Glucose (UA) Negative (Negative) mg/dL Urine Ketones Trace (Negative) mg/dL Urine Blood Negative (Negative) Urine Nitrite Negative (Negative) Ur Leukocyte Esterase Negative (Negative) COVID-19 (NEELIMA) (Negative) COVID-19 Clin Com Discharge Plan Discharge Clinical Impression: Atypical chest pain Patient Disposition: Home, Self-Care Instructions: Chest Pain (ED) Additional Instructions: Your workup. The emergency department included EKG and blood work with cardiac enzymes. It also included CT scan of your chest. All results were normal. Please return if worse in any way
[2022-08-12 08:59] LABS: Troponin-I High Sensitivity < 3.5 ng/L (<3.5-17.0)
[2022-08-12 09:46] VITALS: BP 119/68; PULSE 84; RESP 14; TEMP 37.1; O2SAT 97
[2022-08-12] MEDS: iohexoL 350 MG/ML 100 ML INFUS..BTL IV (09:53)
[2022-08-12 11:35] VITALS: BP 133/68; PULSE 76; RESP 17; O2SAT 98
--- NOTE | 2022-08-12 11:35 | PC.NURSE ---
pt has been sr on monityor, no pain and nad all day, skin wpd, alert, speech clear,
== END 2022-08-12 11:36 | disposition home or self-care (01) ==
PROVIDERS: Emergency Medicine; Emergency Provider Emergency Medicine
DX: R07.89 Other chest pain (principal); Z20.822 Contact with and (suspected) exposure to COVID-19; Z79.899 Other long term (current) drug therapy
CPT/HCPCS: 36415; 71045; 71275; 80048; 80076; 81003; 83690; 84484; 85025; 85379; 87635; 93005; 99284; Q9967

== ENCOUNTER 2022-11-06 05:40 | Outpatient (REF) | payer MEDICARE, SELFPAY ==
--- NOTE | ~2022-11-06 | XR_ITS ---
EXAMINATION: XR SHOULDER, LEFT CLINICAL INFORMATION: Pain left shoulder. COMPARISON: None TECHNIQUE: Three views of the left shoulder. FINDINGS: The glenohumeral and AC joint space is maintained normal. No visible acute fracture or dislocation seen. There is mild hypertrophic changes at the AC joint. The soft tissues are normal. XR/XR shoulder LT min 2V IMPRESSION: Mild hypertrophic changes left AC joint. No visible acute fracture, dislocation or subluxation seen.
== END 2022-11-06 05:41 | disposition home or self-care (01) ==
LOC: HO.HOSX 05:40
PROVIDERS: Visit Provider Physician Assistant
DX: M25.512 Pain in left shoulder (principal); M25.511 Pain in right shoulder; M75.82 Other shoulder lesions, left shoulder; M75.81 Other shoulder lesions, right shoulder
CPT/HCPCS: 73030; 99202

== ENCOUNTER 2023-01-21 11:04 | Outpatient (REF) | payer MEDICARE, SELFPAY ==
--- NOTE | ~2023-01-21 | MR_ITS ---
EXAMINATION: MR SHOULDER WITHOUT CONTRAST, LEFT CLINICAL INFORMATION: Bilateral shoulder pain, decreased range of motion. COMPARISON: X-ray of the left shoulder November 2022 TECHNIQUE: MRI of the left shoulder was performed on a high-field 1.5 Haily MRI scanner. FINDINGS: ROTATOR CUFF: Supraspinatus and Infraspinatus: There is a large insertional tear involving the entire supraspinatus and most if not all of the infraspinatus tendon. There may be some posterior fibers still intact. Torn tendons are retracted back to level of the glenoid resulting in a tendon gap measuring up to 4.1 cm transverse and 3.5 cm AP. There is additional fluid present within the retracted infraspinatus tendon indicative of additional intrasubstance partial tearing. There is moderate atrophy and grade 2-3 fatty infiltration of both muscles. Teres Minor: Intact. Subscapularis: Mild heterogeneity compatible with tendinosis. No definite tear. Muscle normal. BICEPS TENDON: The tendon is absent proximally indicative of a complete tear. I suspect the distally retracted tendon is identified distal to the bicipital groove at approximately the level of the pectoralis major humeral insertion. CORACOACROMIAL ARCH: There is moderate hypertrophic osteoarthritis of the acromioclavicular joint. The joint is slightly widened with a joint effusion. I suspect at least partial capsular tearing resulting in some joint laxity. BURSA: Subacromial Subdeltoid Bursa: increased fluid communicating with the glenohumeral joint through the rotator cuff defect. LABRUM/CAPSULE: Normal. GLENOHUMERAL JOINT: There is focal cartilage heterogeneity and subchondral cystic change along the posterior rim of the glenoid. There is nonuniform up to high-grade cartilage loss noted along the posterosuperior medial aspect of the humeral head over an area measuring approximately 20 x 10 mm. Overall [id number] glenohumeral arthrosis. Small marginal osteophytes. There is a mild joint effusion and synovitis. MR/MR shoulder LT wo con IMPRESSION: 1. Large full-thickness insertional tear involving the entire supraspinatus and most if not all of the infraspinatus tendon. Additional intrasubstance partial tearing of the retracted infraspinatus tendon. Moderate atrophy and fatty infiltration of both muscles. 2. Tendinosis of the subscapularis. 3. Complete tear of the proximal biceps tendon with distal retraction. 4. 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 5. [id number] glenohumeral arthrosis.
== END 2023-01-21 11:05 | disposition home or self-care (01) ==
LOC: HO.MRI 11:04
PROVIDERS: PCP Internal Medicine; Visit Provider Physician Assistant
DX: S46.002D Unspecified injury of muscle(s) and tendon(s) of the rotator cuff of left shoulder, subsequent encounter (principal)
CPT/HCPCS: 73221

== ENCOUNTER → 2023-02-05 12:00 | Outpatient (BNVA) | payer MEDICARE, SELFPAY | PROVIDERS: PCP Internal Medicine; Visit Provider Orthopaedic Surgery | DX: M75.122 Complete rotator cuff tear or rupture of left shoulder, not specified as traumatic (principal); M12.812 Other specific arthropathies, not elsewhere classified, left shoulder; M62.462 Contracture of muscle, left lower leg; M62.461 Contracture of muscle, right lower leg | CPT/HCPCS: 99212 ==

== ENCOUNTER 2023-05-06 12:05 | Outpatient (AMB) | payer MEDICARE, SELFPAY ==
--- NOTE | 2023-05-06 12:08 | MHC.OFFVIS ---
Intake Vital Signs 05/06/23 12:11 Height 5 ft Weight 129 lb BMI 25.2 Intake Visit Reasons: OV- Sharp pain in the gluteal region Intake Note: Roxane is a 78 year old female who presents today for a follow up of her bilateral gluteal pain. Patient reports that her symptoms have not improved, she finds that her pain is worse in the morning and manages with heat application. Pain improves with movement. Allergies aspirin Allergy (Verified 05/06/23 12:11) palpations codeine Allergy (Verified 05/06/23 12:11) Palpitations ibuprofen Allergy (Verified 05/06/23 12:11) jitters morphine Allergy (Verified 05/06/23 12:11) Stomach Upset cold medications Allergy (Uncoded 05/06/23 12:11) Palpitations HPI OV- Sharp pain in the gluteal region HPI Details Roxane is a 77 year old woman who presents for a follow-up of her bilateral gluteal & LB pain She continues to have pain in her lower back & buttocks mostly in the morning when she stands after prolonged laying or with prolonged sitting. She says this also wakes her up at night. She has to use an ice pack in the mornings to relieve her pain, and has recently been using heat as well, both with limited relief. She says her pain improves when she is walking but returns when she sits at rest. She describes this pain as sharp and says it is limiting her ability to walk or engage in daily activities. She says she has been performing gentle stretches at home but this has not helped her. She says it is difficult to attend PT due to the distance, but she does have access to a chiropractor. She complains of new numbness in her left leg, which began only recently. [facility] Medical History Colitis Diverticulosis Social History Patient Tobacco Use Status: Never used Tobacco Current occupational status: unemployed Current occupation: ambidextrous Review of Systems Const All systems reviewed & are unremarkable except as noted in HPI and below Physical Exam Vital Signs: BMI result Body Mass Index 25.2 Const General: no acute distress and alert Orientation/consciousness: patient oriented x3 Neuro General: patient oriented x3 Extrem Other: nl gait no hip pain with ROM nl exam Psych Appearance: grossly normal Affect: normal affect Attitude: cooperative Assessment & Plan Assessment & Plan (1) Gluteal pain: Code(s): M79.18 - Myalgia, other site Plan: This is a 78 year old woman with lumbar spine & biateral gluteal pain. She continues to have sharp pain in the gluteal region only after prolonged sitting or laying, which she manages with ice & heat. She denies any pain with ambulation or other activities. This has not improved with gentle at-home stretching exercises. I suspect this may be spinal stenosis. I recommend formal PT and a referral to Pain Management. She finds it difficult to travel for PT, and would prefer to see a chiropractor. She will speak with her chiropractor and continue with exercises as tolerated. She can follow up prn, if her symptoms persist or worsen we can consider a referral to our colleagues in Pain Management for assessment. (2) Lumbosacral stenosis: Code(s): M48.07 - Spinal stenosis, lumbosacral region Plan Scribed for Alex Russ MD by David Figueredo, medical illustrator, on 05/06/23 at 12:45 PM, EST. Coding Level of Care Code Est Pt Level 3 (21617) Diagnoses Gluteal pain M79.18 Lumbosacral stenosis M48.07
[2023-05-06 12:11] VITALS: BMI 25.2
== END 2023-05-06 12:58 | disposition home or self-care (01) ==
PROVIDERS: PCP Internal Medicine; Visit Provider Orthopaedic Surgery
DX: M79.18 Myalgia, other site (principal); M48.07 Spinal stenosis, lumbosacral region
CPT/HCPCS: 99213

== ENCOUNTER → 2023-05-06 12:05 | Outpatient (BNVA) | payer MEDICARE, SELFPAY | PROVIDERS: PCP Internal Medicine; Visit Provider Orthopaedic Surgery | DX: M79.18 Myalgia, other site (principal); M48.07 Spinal stenosis, lumbosacral region | CPT/HCPCS: 99212 ==

== ENCOUNTER 2025-06-29 09:08 | Outpatient (AMB) | payer MEDICARE, SELFPAY ==
--- OUTSIDE RECORDS SUMMARY | 2025-04-04 06:39 | XMS_ITS ---
Author Organization Ralph Meehan Address [address] [place] [address] Care Team Providers Care Consulting Senior Practice Director Name Role Phone Jag Rosas Primary Care Provider [phone] REASON FOR VISIT referral Encounters Encounter Location Date Provider Diagnosis Ralph Meehan [address] [address] 04/04/20 Jag Rosas PLAN OF TREATMENT Next Appt Details Provider Name:Jag pollock, 08/23/2025 11:15:00 AM, [address] [place], [address],
--- OUTSIDE RECORDS SUMMARY | 2025-05-04 09:15 | XMS_ITS ---
Author Organization BIANCA Baum Address [address] [place] [address] Care Team Providers Care Importer Or Exporter Name Role Phone Jag Rosas Primary Care Provider REASON FOR VISIT (IN OFFICE) , Follow Up (MRI results) Encounters Encounter Location Date Provider Diagnosis Ralph Meehan [address] [place] [address] 05/04/20 Jag Rosas PLAN OF TREATMENT Next Appt Details Provider Name:Jag pollock, 08/23/2025 11:15:00 AM, [address] [place], [address],
--- OUTSIDE RECORDS SUMMARY | 2025-05-22 07:00 | XMS_ITS ---
Author Organization Ralph Meehan Address [address] [place] [address] Care Team Providers Care Planner Name Role Phone Jag Rosas Primary Care Provider [phone] ALLERGIES Allergen (clinical drug ingredient) Drug/Non Drug [...] Encounter Location Date Provider Diagnosis [facility] Meehan, [address] [address] 05/22/2025 Jag Rosas Recurrent major depressive disorder, [...] system. There are likely to be multiple ui ux developer inaccuracies despite chart review. PLAN OF TREATMENT [...] system. There are likely to be multiple ui ux developer inaccuracies despite chart review. Pending Test Test Name Order Date Urinalysis, Complete-[id number] 05/22/2025 Vitamin D, 51-[id number] 05/22/2025 LP+Non-HDL Cholesterol-[id number] 05/22/2025 TSH+Free [id number] 05/22/2025 Hepatic Function Panel [id number] 2024 Comp. Metabolic Panel [id number] 2024 CBC with Diff, Platelet, [id number] 05/04 Next Appt Details Follow Up: 3 Months, Reason: Medicare AWV Provider Name:Jag pollock, 08/23/2025 11:15:00 AM, [address] [place] [address], [phone], Progress Notes * Examination Category Sub-Category Detail Notes Category Not es General Examination GENERAL APPEARANCE: in no ac [place] distress, well developed, well nourished HEAD: normocephalic, [...]
--- OUTSIDE RECORDS SUMMARY | 2025-06-08 08:45 | XMS_ITS ---
Author Organization [facility] Address [address] [place] [address] Care Team Providers Care Desulphurizer Operator Name Role Phone Jag Rosas Primary Care Provider ALLERGIES Allergen (clinical drug ingredient) Drug/Non Drug Allergy documented on EMR Reaction Allergy Type Onset Date Status fluoxetine Fluoxetine Unknown Drug Allergy Activ e morphine Morphine Sulfate Unknown Drug Allergy Active Motrin Unknown Drug Allergy Active REASON FOR REFERRAL Reason Please read the serge ent to neurosurgery at [facility] and forward the MRI results Notes faxed, [...] AM EDT > all paperwork sent to [facility] , Azul Washington 06/14/2025 11:49:57 AM EDT > all paperwork resent to their office for scheduling , Azul Washington 06/20/2025 10:42:00 AM EDT > Stephanie @ [facility] patient schedule for 06/29 @ 9am Dr. Powell Clinical Notes Dr. Beltran, [phone], , [address] [place] [address], [address], [place] Referral Priority Routine Referral Appointment Date 06/29/2025 [...] stenosis at L4-L5 level (M48.061) Active confirmed [id number] Problem Sciatica, right side (M54.31) Active confirmed [id number] VITAL SIGNS Blood pressure systolic 106 mm Hg 06/08/20 25 Blood pressure diastolic 64 mm Hg 025 Heart Rate 80 /min 06/08/2025 Height 60 in 06/08/2025 Weight 130.4 lbs 06/08/2025 BMI 25.46 kg/m2 06/08/2025 Encounters Encounter Location Date Provider Diagnosis [facility] [address] [place] [address] 06/08/2025 Jag Rosas Spinal stenosis at L4-L5 level M48.061 and Sciatica, right side M54.31 ASSESSMENTS Encounter Date Diagnosis Assessment Notes Treatment Notes Treatment Clinical Notes Section Notes 06/08/2025 Spinal stenosis at L4-L5 level (ICD-10 - M48.061) 06/08/2025 Sciatica, right side (ICD-10 - M54.31) 06/08/2025 Other This chart has been transcribed by a computerized dictation system. There are likely to be multiple respiratory care assistant inaccuracies despite chart review. PLAN OF TREATMENT Medication Medication Name Sig Start Date Stop Date Notes Lidoderm 5 % 2patch remove after 12 hours Externally Once a day for 30 days 06/08/2025 Treatment Notes Assessment Notes Other This chart has been transcribed by a computerized dictation system. There are likely to be multiple respiratory care assistant inaccuracies despite chart review. Referrals Referral Date Details 06/29/2025 06/29/2025, Please r ead the patient to neurosurgery at [facility] and forward the MRI results Notes faxed, patient aware she will need to obtain CD images as well Next Appt Details Follow Up: as scheduled, Monica son: Provider Name:Jag pollock, 08/23/2025 11:15:00 AM, [address] [place] [address], [phone], Progress Notes * Examination Category Sub-Category Detail [...] trying surgery. She wants to go to [facility]. Our office will arrange an appointment for her to be evaluated by neurosurgery at [facility]. She needs a refill on Lidoderm patch [...] read t he patient to neurosurgery at [facility] and forward the MRI results Notes faxed, patient aware she will need to obtain CD images as well
--- OUTSIDE RECORDS SUMMARY | 2025-06-08 10:21 | XMS_ITS ---
Author Organization [facility] Address [address] [place] [address] Care Team Providers Care Health Care Law Specialist Name Role Phone Jag Rosas Primary Care Provider REASON FOR VISIT Message Encounters Encounter Location Date Provider Diagnosis [facility] [address] [address] 06/08/20 Jag Rosas PLAN OF TREATMENT Next Appt Details Provider Name:Jag pollock, 08/23/2025 11:15:00 AM, [address] [place], [address],
--- NOTE | 2025-06-29 09:12 | A.SPINEOV_ITS ---
Vital Signs 06/29/25 09:15 Height 5 ft Weight 128 lb BMI 25.0 Intake Visit Reasons: spinal stenosis Intake Note: Ms. Ruiz is here today c/o low back pain. MRI done at [place]. Electrical Timing Device Calibrator Required: No Allergies aspirin Allergy (Verified 06/29/25 09:17) palpations codeine Allergy (Verified 06/29/25 09:17) Palpitations ibuprofen Allergy (Verified 06/29/25 09:17) jitters morphine Allergy (Verified 06/29/25 09:17) Stomach Upset cold medications Allergy (Uncoded 05/06/23 12:11) Palpitations Assessment & Plan Assessment & Plan (1) Lumbar stenosis with neurogenic claudication: Code(s): M48.062 - Spinal stenosis, lumbar region with neurogenic claudication Category: Medical Plan Dear colleague Thank you for referring Roxane Ruiz to the office today with a chief complaint of back pain. HPI: This 80-year-old female who is complaining of bilateral buttock pain with sitting and standing. The pain also wakes her up at night if she does not take her arthritic medication or lidocaine patch. The pain can radiate down the left leg to the lateral part of the thigh and outside of the lower leg. She is not sure when the symptoms started but they are progressive and interfering with the daily activities. She tried physical therapy and chiropractic therapy without success. PMH: Colitis, hypercholesterolemia, COPD, anxiety, lung cancer in 2016 with partial lung resection, early stage Alzheimer Medications: Loperamide, pravastatin, gabapentin duloxetine Allergies: Aspirin, codeine, ibuprofen, morphine Social history: Lives alone. Nonsmoker Physical Exam: Pleasant female. She is awake alert and oriented. Cranial nerves are intact. Straight leg raise is negative bilaterally. Motor and sensory exam are intact. No pathological reflexes. Radiological Studies: MRI done at [place] on 04/22/2025 surgery grade 1 L4-5 spondylolisthesis with severe central stenosis at this level. A dynamic standing x-ray of the lumbar spine obtained today shows the grade 1 L4-5 spondylolisthesis without instability. Impression/Plan: This patient is suffering from neurogenic claudication due to severe L4-5 spinal stenosis. I reviewed the imaging in detail with the patient and I offered her an L4-5 decompression. She is scheduled for 08/09/2025. Thank you for allowing me to participate in your patients care. total time spent was 50 minutes in counseling ,coordination of plan, personal review of imaging, surgical decision making and subsequent plan Aldo Powell MD, PhD Spine Fellowship Trained Neurosurgeon Director, [facility] Orders: Orders XR lumbar spine 4V min Today M48.062 - Spinal stenosis, lumbar region with neurogenic claudication Coding Level of Care Code New Pt Level 4 (06624) Diagnoses Lumbar stenosis with neurogenic claudication M48.062
[2025-06-29 09:15] VITALS: BMI 25.0
--- OUTSIDE RECORDS SUMMARY | 2025-06-29 09:51 | XMS_ITS | Encounter Summary ---
Author Organization [facility] Address [address] [place] [address] Care Team Providers Care Sound Recording Technician Name Role Phone Unavailable Primary Care Provider Unavailabl e Encounter Details Date Type Department Care Team ([facility] st Contact Info) Description 08/21/2020 Telephone CALL CENTER [facility] [address] [place] [phone] Dominga Deal MD Social History Tobacco Use Types Packs/Day Years Used Date Smoking Tobacco: Never Assessed Comments Unknown Sex and Gender Information Value Date Recorded Sex Assigned at Not on file Legal Sex Female 1:51 PM EDT Gender Identity Not on file Sexual Orientation Not on file documented as of this encounter Plan of Treatment Not on file documented as of this encounter Visit Diagnoses Not on filedocumented in this encounter
--- OUTSIDE RECORDS SUMMARY | 2025-06-29 09:51 | XMS_ITS | Clinical Summary ---
Author Organization [facility] Address [address] [place] [address] Care Team Providers Care Spreader Operator Name Role Phone Jag Rosas Primary Care Provider [phone] Allergies Active Allergy Reactions Criticality Noted Date Comments Aspirin Hyperactivity 04/17/2024 Brompheniramine-Phen ylprop-Dm Anxiety 04/17/2024 Fluoxetine Unknown 04/17/2024 lack of theraputic effect Ibuprofen Anxiety,Indigestion, Unk nown 04/17/2024 Morphine Gastritis 04/17/2024 Medications clonazePAM (KlonoPIN) 0.5 mg tablet SMARTSI Tablet(s) By Mouth Daily 03/26/[address] (FRANCINEKA) 40 mg capsule,delayed release(DR/EC) capsule 07/19/2023 Active gabapentin (NEURONTIN) 300 mg capsule SMARTSI Capsule(s) By Mouth Daily 03/25/2024 Active pravastatin (PRAVACHOL) 40 mg tablet SMARTSI Tablet(s) By Mouth Daily 02/15/2024 Active budesonide-formo teroL (Symbicort) 160-4.5 mcg inhaler every 12 (twelve) hours. Active Active Problems Problem Noted Date Diagnosed Date Chronic obstructive pulmonary disease 04/17/2024 Diverticulosis 04/17/2024 Hyperlipidemia 04/17/2024 Insomnia 04/17/2024 Lung cancer 04/17/2024 Major depressive disorder 04/17/2024 Pain in left arm 04/17/2024 Panic attacks 04/17/2024 Vaginal discharge 04/17/2024 Assessment & Plan (04/17/2024 2:32 PM EDT): 79-year-old female with recurrent vaginal discharge. We discussed possible etiologies. Previous records unavailable. Cervical vaginal specimens were obtained. Patient will be treated based upon these results. We discussed possible need for further evaluation including Pap smear as well as ultrasound to evaluate her endometrial stripe. 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 Resolved Problems Problem Noted Date Diagnosed Date Resolved Date PMB (postmenopausal bleeding) 04/17/2024 04/17/2024 Disease due to severe acute respiratory syndrome coronavirus 2 (SARS-CoV-2) 09/27/202304/03 Overview (04/17/2024): Problem added by Discern Expert Family History Medical History Relation Name Comments Other Father Family History of diabetes mellitus Other Mother Family History of Alzheimer's disease Breast cancer Neg Hx Cervical cancer Neg Hx Colon cancer Neg Hx Osteoporosis Neg Hx Ovarian cancer Neg Hx Uterine cancer Neg Hx Relation Name Status Comments Father Mother Social History Tobacco Use Types Packs/Day Years Used Date Smoking Tobacco: Former Cigarettes Passive Smoke Exposure: Past Smokeless Tobacco: Never Tobacco Cessation:Counseling Given: Not Answered Comments:: Alcohol Use Standard Drinks/Week Comments Not Currently 0 (1 standard drink = 0.6 oz pur e alcohol) socially Comments Unknown Sex and Gender Information Value Date Recorded Sex Assigned at Female 04/17/2024 1:41 PM EDT Legal Sex Female 12:12 AM EDT Gender Identity Not on file Sexual Orientation Not on file Last Filed Vital Signs Vital Sign Reading Time Taken Comments Blood Pressure 102/64 04/17/2024 2:02 PM EDT Pulse 70 04/17/2024 2:02 PM EDT Temperature - - Respiratory Rate 16 04/17/2024 2:02 PM EDT Oxygen Saturation - - Inhaled Oxygen Concentration - - Weight 57.5 kg (126 lb 12.8 oz) 04/17/2024 2:02 PM EDT Height 160 cm (5' 3 ) 04/17/2024 2:02 PM EDT Body Mass Index 22.46 04/17/2024 2:02 PM EDT Plan of Treatment Health Maintenance Due Date Last Done Comments COVID-19 Vaccine (#1) 1950 Pneumococcal Vaccine: 50+ Ye ars (1 of 2 - PCV) 1963 Zoster Vaccines (1 of 2) 1963 DTaP,Tdap,and Td Vaccines (1 - Tdap) 1966 Osteoporosis Screening 1994 RSV Vaccine (60+ years old a nd patients) (1 - 1-dose 75+ series) 2019 Alcohol/Substance Use Screening 10/04/2024 Depression Screening and Follow-Up 10/04/2024 Health Care Proxy Review 10/04/2024 Social Drivers of Health Ketty ual Screening 10/04/2024 Influenza Vaccine (#1) 2025 Hepatitis B Vaccines Aged Out No long er eligible based on patient's age to complete this topic Insurance [facility] Advance Directives Documents on File Type Date Recorded Patient Cold Patcher Expl anation Advance Directive 12/24/2014 12:00 AM miles wetzel Dec Making (Adv.Dir) Advance Directive 12/21/2014 12:00 AM Adva nce Care Directives Care Teams Spreader Operator Relationship Specialty Start Date End Date Jag Rosas PCP - General Internal Medicine 04/04/24
--- OUTSIDE RECORDS SUMMARY | 2025-06-29 09:51 | XMS_ITS | Continuity of Care Document ---
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; Pseudophakia of both eyes 09/02/2020 Office Visit OPTOMETRY UNSPECIFIED Provider, Unknown 08/21/2020 Telephone CALL CENTER [facility] [address] [place] [phone] Dominga Deal MD Medications No known medications Active Problems No known active problems Social History Smoking Status as of 06/29/2025 Tobacco Use Types Packs/Day Years Used Date Smoking Tobacco: Never Assessed Intimate Partner Violence Answer Date R ecorded Fear of Current or Ex-Partner Not on file Emotionally Abused Not on file 05/27/2023 Physically Abused Not on file 05/27/2023 Sexually Abused Not on file 05/27/2023 Feel Safe at Home Not on file 05/27/2023 Sex and Gender Information Value Date Recorded Sex Assigned at Not on file Legal Sex Female 1:51 PM EDT Gender Identity Not on file Sexual Orientation Not on file Plan of Treatment Not on file Visit Diagnoses Diagnosis Start Date Acquired involutional ptosis of eyelid, bilateral 09/12/2020 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
--- OUTSIDE RECORDS SUMMARY | 2025-06-29 09:51 | XMS_ITS | Patient Health Record ---
Author Organization Ralph Meehan Address [address] [place] [address] Care Team Providers Care Facility Maintenance Worker Name Role Phone Jag Rosas Primary Care Provider [phone] ALLERGIES Allergen (clinical drug ingredient) Drug/Non Drug Allergy documented on EMR Reaction Allergy Type Onset Date Status fluoxetine Fluoxetine Unknown Drug Allergy Activ e morphine Morphine Sulfate Unknown Drug Allergy Active Motrin Unknown Drug Allergy Active RESULTS Component Value Reference Range Notes Hepatic Function Panel ([id number] Reviewed date:01/17/2025 08:41:40 AM Interpretation: Performing Lab:[facility], [address] [facility], Phone - [phone], Director - Nat Notes/Report: Albumin 4.2 3.8-4.8 g/dL Bilirubin, Total 0.5 0.0-1.2 mg/dL Bilirubin, Direct 0.19 0.00-0.40 mg/dL Alkaline Phosphatase 68 44-121 IU/L AST (SGOT) 25 0-40 IU/L ALT (SGPT) 14 0-32 IU/L Lipid Panel-[id number] Reviewed date:01/17/2025 08:41:40 AM Interpretation: Performing Lab:[facility], [address] [place], [place], Phone - [phone], Director - Nat Notes/Report: Cholesterol, Total 210 100-199 mg/dL Triglycerides 76 0-149 mg/dL HDL Cholesterol 95 >39 mg/dL VLDL Cholesterol Ke 13 5-40 mg/dL LDL Chol Calc ([facility]) 102 0-99 mg/dL LDL Calc Comment: SURGICAL PATHOLOGY Reviewed date:10/19/2024 07:50:23 PM Interpretation: Performing Lab:Testing performed or reported by [facility], a Service of [facility], [address] [place] [address] Nathan Ferris MD, Certified Shorthand Reporter CLIA# [id number] Notes/Report: Patient Name: NABOR CORTÉS Lab Patient : [id number] (Age: 79) Collection Date: 10/13/2024 Accession Date: 10/13/2024 Sign Out Date: 10/19/2024 Tissue Source: 1:SCALP Final Diagnosis: Skin, scalp, excision: - Irritated and inflamed seborrheic keratosis overlying lentigo. Note: Multiple additional tissue levels were examined. Primary Pathologist:Benjamin Chow M.D. electronically signed out by: Benjamin Chow M.D. / JED Clinical History: Lesion Increasing in size, bleeding Gross Description: Labeled scalp . Received in formalin is a 1.5 x 0.6 x 0.3 cm soft bingham skin ellipse. The skin surface displays a centrally located 0.5 x 0.4 x 0.1 cm blanched raised undulating lesion. The specimen is inked, serially sectioned and entirely submitted. 1-2 pieces tips 2 and 3-2 pieces central. (EG)* As of December 11, 2023, the specimen processing and staining is performed at [facility], [address] [place] [address] (CLIA#[id number]). Its performance characteristics [facility]. Joe Rizvi M.D. Certified Shorthand Reporter of Surgical Pathology, Ronaldo Valderrama M.D. Certified Shorthand Reporter Cytopathology Phone #: [phone], On-Call Pathologist: [id number] REASON FOR REFERRAL Reason 30 minute procedure appointment for excision biopsy of skin lesion forehead Diagnosis 1 Skin lesion (L98.9) Referral Organization Jag Rosas Md Referring Provider First Name Jag Referring Provider Last Name Ralph Referring Provider Speciality Internal M edicine Referred Provider Specialty Other Medica l Care General Notes Azul Washington 12/2023 11:32:01 AM EST > LMAM for patient regarding potential fiancial responsibility and if she wanted to schedule. , Azul [place] 09/05/2024 01:01:51 PM EST > pt aware and appt scheduled. Referral Priority Routine Reason PT treatments at [facility] Diagnosis 1 Bilateral sacroiliit is (M46.1) Referral Organization Jag Rosas Md Referring Provider First Name Jag Referring Provider Last Name Ralph Referring Provider Speciality Internal edicine Referred Provider Specialty Physical The rapist General Notes MatthiasbrayanShantanu 08/2025 12:54:30 PM EDT > Faxed to [place] Referral Priority Routine Reason Consultation - APPT REQUEST & SUPPORTING DOCS PLEASE PROVIDE PROVIDER NPI SO WE MAY SUBMIT FOR THE INSURANCE REFERRAL Diagnosis 1 Diarrhea, unspecifie d type (R19.7) Referral Organization Jag Rosas [facility] Referring Provider First Name Jag Referring Provider Last Name Ralph Referring Provider Speciality Internal edicine Referred Provider Specialty Gastroentero logy General Notes Azul [place] 03/2025 03:19:29 PM EDT > pt scheduled for 04/09 @ 11:[address] Salguero, need NPI for OON referral , Azul [place] 04/10/2025 03:40:29 PM EDT > can you please process the insurance referral for the 04/09 date of service. Thanks! , Bhavna Rodriguez 04/19/2025 09:10:51 AM EDT > Whats the NPI number for Salguero?, Azul Washington 04/19/2025 09:12:50 AM EDT > Theres a paper in your folder with all the information. , Bhavna Rodriguez 04/19/2025 01:38:23 PM EDT > Done Clinical Notes [facility], , Referral Priority Urgent Referral Appointment Date 04/09/2025 Reason Please read the serge ent to neurosurgery at [facility] and forward the MRI results Notes faxed, patient aware she will need to obtain CD images as well Diagnosis 1 Spinal stenosis at L 4-L5 level (M48.061) Referral Organization Jag Rosas Md Referring Provider First Name Jag Referring Provider Last Name Ralph Referring Provider Speciality Internal edicine Referred Provider Specialty Neurosurgery General Notes Azul Washington 06/2025 10:04:01 AM EDT > all paperwork sent to [facility] , Azul Washington 06/14/2025 11:49:57 AM EDT > all paperwork resent to their office for scheduling , Azul Washington 06/20/2025 10:42:00 AM EDT > Stephanie @ [facility] patient schedule for 06/29 @ 9am Dr. Powell Clinical Notes Dr. Beltran, , , [address] [place] [address], [address], [place] Referral Priority Routine Referral Appointment Date 06/29/2025 MEDICATIONS Medication SIG (Take, Route, Frequency, Duration) Notes Start Date End Date Status Gabapentin 300 MG 1 capsule Orally Onc e a day for 90 Days Active Budesonide 3 MG 1 capsule Orally Twi ce a day Active Lidoderm 5 % 2patch remove after 12 hours Externally Once a day for 30 days 06/08/2025 Active Pravastatin Sodium 40 MG 1 tablet Orally Once a day Active clonazePAM 0.5 MG Take 1 tablet by gene th once daily for 30 05/25/2025 Active DULoxetine HCl 60 MG 1 capsule Orally On ce a day for 30 days Active DULoxetine HCl 30 MG 1 capsule Orally On ce a day 01/16/2025 Active ProAir HFA 108 (90 Base) MCG/ACT 2 puffs as needed Inhalation every 4 hrs Active Pantoprazole Sodium 40 MG 1 tablet Orall y Once a day Active Symbicort 160-4.5 MCG/ACT 2 puffs Inhala tion Twice a day Active PROBLEMS Problem Type ICD Code Onset Dates Problem Status W/U Status Risk SNOMED Code Notes Problem Anxiety (F41.9) Active confirmed 188030 02 Problem COPD exacerbation (J44.1) Active confirmed 766834783 Problem Neck pain (M54.2) Active confirmed 8168 0005 Problem Alzheimer's disease with late onset (G30.1) Active confirmed 98648948 Problem Generalized anxiety disorder (F41.1) Active confirmed 62205679 Problem Sciatica, right side (M54.31) Active confirmed 56565886046009142 Problem Mixed hyperlipidemia (E78.2) Active confirmed 806025763 Problem Gastroesophageal reflux disease without esophagitis (K21.9) Active confirmed 506978521 Problem Chronic obstructive pulmonary disease, unspecified COPD type (J44.9) Active confirmed 08857430 Problem History of lung cancer (Z85.118) Active confirmed 197482489 Problem Bilateral sacroiliitis (M46.1) Active confirmed 2085544328 Problem Depression, unspecified depression type (F32.9) Active confirmed 94112788 Problem Spinal stenosis at L4-L5 level (M48.061) Active confirmed 79527707 Problem Recurrent major depressive disorder, in full remission (F33.42) Active confirmed 85519795 Problem Left sciatic nerve pain (M54.32) Active confirmed 45756554 VITAL SIGNS Heart Rate 80 /min 06/08/2025 Blood pressure diastolic 64 mm Hg 06/08/2025 Height 60 in 06/08/2025 Blood pressure systolic 106 mm Hg 06/08/2025 Weight 130.4 lbs 06/08/2025 BMI 25.46 kg/m2 06/08/2025 Encounters Encounter Location Date Provider Diagnosis [address] [address] 08/29/2024 Jag Rosas Recurrent major depressive disorder, in full remission F33.42 ; Chronic obstructive pulmonary disease, unspecified COPD type J44.9 ; Mixed hyperlipidemia E78.2 ; Gastroesophageal reflux disease without esophagitis K21.9 ; Generalized anxiety disorder F41.1 ; History of lung cancer Z85.118 ; Alzheimer's disease with late onset G30.1 and Skin lesion L98.[address] [address] 09/21/2024 Jag Rosas Recurrent major depressive disorder, in full remission F33.42 ; Chronic obstructive pulmonary disease, unspecified COPD type J44.9 ; Mixed hyperlipidemia E78.2 ; Gastroesophageal reflux disease without esophagitis K21.9 ; Generalized anxiety disorder F41.1 ; History of lung cancer Z85.118 and Alzheimer's disease with late onset G30.[address] [address] 10/13/2024 Jag Rosas Inflamed seborrheic keratosis L82.[address] [address] 10/13/2024 Jag Rosas Recurrent major depressive disorder, in full remission F33.[address] [address] 10/18/2024 Jag Rosas Recurrent major depressive disorder, in full remission F33.[address] [address] 12/28/2024 Jag Suhbrianna Bilateral sacroiliit is M46.1 and Muscle spasm M62.[address] [address] 01/12/2025 Jag Vikashbrianna Bilateral sacroiliit is M46.[address] [address] 01/16/2025 Jag Rosas Recurrent major depressive disorder, in full remission F33.[address] [address] 01/16/2025 Jag Vikashbrianna [facility], [address] [address] 02/15/2025 Jag Rosas Recurrent major depressive disorder, in full remission F33.42 ; Chronic obstructive pulmonary disease, unspecified COPD type J44.9 ; Mixed hyperlipidemia E78.2 ; Gastroesophageal reflux disease without esophagitis K21.9 ; Generalized anxiety disorder F41.1 ; History of lung cancer Z85.118 and Alzheimer's disease with late onset G30.1 [facility], [address] [address] 02/28/2025 Jag Rosas Chronic obstructive pulmonary disease, unspecified COPD type J44.[address] [address] 03/27/2025 Jag Rosas Left sciatic nerve p ain M54.32 and Neck pain M54.[address] [address] 04/04/2025 [facility] [address] [address] 05/04/2025 Jag Vikashbrianna [address] [address] 05/22/2025 Jag Rosas Recurrent major depressive disorder, in full remission F33.42 ; Chronic obstructive pulmonary disease, unspecified COPD type J44.9 ; Mixed hyperlipidemia E78.2 ; Gastroesophageal reflux disease without esophagitis K21.9 ; Generalized anxiety disorder F41.1 ; History of lung cancer Z85.118 ; Alzheimer's disease with late onset G30.1 and Laboratory tests ordered as part of a complete physical exam (CPE) Z00.[address] [place] [address] 06/08/2025 Jag Rosas Spinal stenosis at L 4-L5 level M48.061 and Sciatica, right side M54.[address] [address] 06/08/2025 Jag Rosas ASSESSMENTS Encounter Date Diagnosis Assessment Notes Treatment Notes Treatment Clinical Notes Section Notes 10/13/2024 Inflamed seborrheic keratosis (ICD-10 - L82.0) 06/08/2025 Spinal stenosis at L4-L5 level (ICD-10 - M48.061) 06/08/2025 Sciatica, right side (ICD-10 - M54.31) 05/22/2025 Recurrent major depressive disorder, in full remission (ICD-10 - F33.42) 05/22/2025 Chronic obstructive pulmonary disease, unspecified COPD type (ICD-10 - J44.9) 03/27/2025 Left sciatic nerve pain (ICD-10 - M54.32) Advised patient to continue with home exercises from PT. Use of warm compresses and OTC Tylenol. Explained to patient that we will order an MRI. 03/27/2025 Neck pain (ICD-10 - M54.2) Advised patient to use passive range of motion, warm compresses and OTC tylenol. 02/28/2025 Chronic obstructive pulmonary disease, unspecified COPD type (ICD-10 - J44.9) 02/15/2025 Recurrent major depressive disorder, in full remission (ICD-10 - F33.42) 02/15/2025 Chronic obstructive pulmonary disease, unspecified COPD type (ICD-10 - J44.9) 01/16/2025 Recurrent major depressive disorder, in full remission (ICD-10 - F33.42) 01/12/2025 Bilateral sacroiliitis (ICD-10 - M46.1) 12/28/2024 Bilateral sacroiliitis (ICD-10 - M46.1) 12/28/2024 Muscle spasm (ICD-10 - M62.838) 10/18/2024 Recurrent major depressive disorder, in full remission (ICD-10 - F33.42) 10/13/2024 Recurrent major depressive disorder, in full remission (ICD-10 - F33.42) 09/21/2024 Recurrent major depressive disorder, in full remission (ICD-10 - F33.42) 09/21/2024 Chronic obstructive pulmonary disease, unspecified COPD type (ICD-10 - J44.9) 08/29/2024 Recurrent major depressive disorder, in full remission (ICD-10 - F33.42) 08/29/2024 Chronic obstructive pulmonary disease, unspecified COPD type (ICD-10 - J44.9) 05/22/2025 Mixed hyperlipidemia (ICD-10 - E78.2) 02/15/2025 Mixed hyperlipidemia (ICD-10 - E78.2) 09/21/2024 Mixed hyperlipidemia (ICD-10 - E78.2) 08/29/2024 Mixed hyperlipidemia (ICD-10 - E78.2) 05/22/2025 Gastroesophageal reflux disease without esophagitis (ICD-10 - K21.9) 08/29/2024 Gastroesophageal reflux disease without esophagitis (ICD-10 - K21.9) 02/15/2025 Gastroesophageal reflux disease without esophagitis (ICD-10 - K21.9) 09/21/2024 Gastroesophageal reflux disease without esophagitis (ICD-10 - K21.9) 02/15/2025 Generalized anxiety disorder (ICD-10 - F41.1) 05/22/2025 Generalized anxiety disorder (ICD-10 - F41.1) 08/29/2024 Generalized anxiety disorder (ICD-10 - F41.1) 09/21/2024 Generalized anxiety disorder (ICD-10 - F41.1) 05/22/2025 History of lung cancer (ICD-10 - Z85.118) 02/15/2025 History of lung cancer (ICD-10 - Z85.118) 09/21/2024 History of lung cancer (ICD-10 - Z85.118) 08/29/2024 History of lung cancer (ICD-10 - Z85.118) 09/21/2024 Alzheimer's disease with late onset (ICD-10 - G30.1) 08/29/2024 Alzheimer's disease with late onset (ICD-10 - G30.1) 02/15/2025 Alzheimer's disease with late onset (ICD-10 - G30.1) 05/22/2025 Alzheimer's disease with late onset (ICD-10 - G30.1) 08/29/2024 Skin lesion (ICD-10 - L98.9) 05/22/2025 Laboratory tests ordered as part of a complete physical exam (CPE) (ICD-10 - Z00.00) 08/29/2024 Other This chart has been transcribed by a computerized dictation system. There are likely to be multiple oracle software engineer inaccuracies despite chart review. 02/15/2025 Other This chart has been transcribed by a computerized dictation system. There are likely to be multiple oracle software engineer inaccuracies despite chart review. 05/22/2025 Other This chart has been transcribed by a computerized dictation system. There are likely to be multiple oracle software engineer inaccuracies despite chart review. 03/27/2025 Other This chart has been transcribed by a computerized dictation system. There are likely to be multiple oracle software engineer inaccuracies despite chart review. 09/21/2024 Other This chart has been transcribed by a computerized dictation system. There are likely to be multiple oracle software engineer inaccuracies despite chart review. This chart has been transcribed by a computerized dictation system. There are likely to be multiple oracle software engineer inaccuracies despite chart review. 12/28/2024 Other This chart has been transcribed by a computerized dictation system. There are likely to be multiple oracle software engineer inaccuracies despite chart review. 06/08/2025 Other This chart has been transcribed by a computerized dictation system. There are likely to be multiple oracle software engineer inaccuracies despite chart review. PLAN OF TREATMENT Pending Test Test Name Order Date MRI : Lumbosacral Spines 03/27/2025 X ray : Shoulder, left 07/17/2022 Echocardiogram 02/15/2019 X ray : Rib series, right 02/05/2022 Chest X-ray PA and lateral 02/05/2022 Chest X-ray PA and lateral 07/26/2012 Ultrasound : Abdomen, upper 02/05/2022 Bone Density 05/16/2018 X ray : Humerus, left 07/17/2022 *EKG 10/26/2012 *EKG 10/20/2019 *SPIROMETRY 07/26/2012 *SPIROMETRY 02/15/2019 Polysomnogram 02/15/2019 LIPID PANEL 02/19/2020 HEPATIC FUNCTION PANEL 02/19/2020 THYROID PANEL 05/11/2018 LYME AB 02/15/2019 LYME AB 10/20/2019 COMPLETE URINALYSIS 05/11/2018 CT Chest W/ Contrast 05/01/2019 HEPATIC FUNCTION PANEL 08/30/2023 HEPATIC FUNCTION PANEL 07/21/2021 HEPATIC FUNCTION PANEL 02/03/2023 HEPATIC FUNCTION PANEL 07/28/2023 HEPATIC FUNCTION PANEL 02/05/2022 LIPID PANEL 02/05/2022 LIPID PANEL 07/28/2023 LIPID PANEL 02/03/2023 LIPID PANEL 07/21/2021 LIPID PANEL 08/30/2023 Urinalysis, Complete-[id number] 05/22/2025 Vitamin D, 90-Nzwbeem-223166 05/22/2025 LP+Non-HDL Cholesterol-928015 05/22/2025 TSH+Free [id number] 05/22/2025 Hepatic Function Panel [id number] 2024 Comp. Metabolic Panel [id number] 2024 CBC with Diff, Platelet, [id number] 05/04 Next Appt Details Provider Name:Jag Antoine Bonifacio pollock, 08/23/2025 11:15:00 AM, [address] [place] [address], [phone], Insurance Providers Payer Name Payer Address Payer Phone Subscriber Number Group Number Insured Name Patient Relationship to Insured Coverage Start Date Coverage End Date [facility] [address] [place] [address] [id number] Nabor Cortés Self - patient is the insured [facility] [address] [place] [address] [id number] Nabor Cortés Self - patient is the insured MEDICAL (GENERAL) HISTORY Medical History History ICD Code Anxiety F41.9 Depression, unspecified depression type F32.9 Chronic obstructive pulmonary disease, u nspecified COPD type J44.9 Mixed hyperlipidemia E78.2 History of lung cancer Z85.118 Gastroesophageal reflux disease without esophagitis K21.9 COPD exacerbation J44.1 Generalized anxiety disorder F41.1 Recurrent major depressive disorder, in full remission F33.42 Alzheimer's disease with late onset G30. 1 Bilateral sacroiliitis M46.1 Surgical History Surgery Date(Month/Year) Ca lung resection bilateral cataract surgery Hospitalization History Reason Date(Month/Year) For above procedure
== END 2025-06-29 10:17 | disposition home or self-care (01) ==
LOC: HO.HNS 09:08
PROVIDERS: PCP Internal Medicine; Referring Provider Internal Medicine; Visit Provider Neurological Surgery
DX: M48.062 Spinal stenosis, lumbar region with neurogenic claudication (principal)
CPT/HCPCS: 99204

== ENCOUNTER 2025-06-29 09:08 | Outpatient (REF) | payer MEDICARE, SELFPAY ==
--- NOTE | ~2025-06-29 | XR_ITS ---
CLINICAL HISTORY: M48.062 - Spinal stenosis, lumbar region with neurogenic claudication --- Additional Notes or Special Instructions: AP lateral flexion extension Exam: AP, lateral, flexion lateral, and extension lateral views of the lumbar spine. Comparison: None provided. Findings: AP view demonstrates mild convex right thoracolumbar curvature with [id number] convex left mid lumbar curvature. Neutral lateral view demonstrates 7 mm of anterolisthesis of L4 on L5. 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 On extension, this reduces on extension by 2 mm. The alignment is unchanged on flexion. Moderate to severe multilevel degenerative disc disease and degenerative facet disease throughout the visualized lumbar spine with disc space narrowing, osteophyte formation, and discogenic sclerosis. No acute fracture. Impression: 1. Overall bony alignment as above. Mild motion at L4-5 with extension. Potential bilateral L5 spondylolysis. MRI could further evaluate if not previously performed. 2. No acute fracture. This document has been electronically signed by: Jonny Martins MD on 06/30/2025 11:44:13
== END 2025-06-29 09:09 | disposition home or self-care (01) ==
LOC: HO.HOSX 09:08
PROVIDERS: PCP Internal Medicine; Referring Provider Internal Medicine; Visit Provider Neurological Surgery
DX: M48.062 Spinal stenosis, lumbar region with neurogenic claudication (principal)
CPT/HCPCS: 72110; 99202

== ENCOUNTER → 2025-06-29 09:27 | Outpatient (BNV) | payer MEDICARE, SELFPAY | PROVIDERS: PCP Internal Medicine; Referring Provider Internal Medicine; Visit Provider Radiology Diagnostic Radiology | DX: M48.062 Spinal stenosis, lumbar region with neurogenic claudication (principal) | CPT/HCPCS: 72110 ==

== ENCOUNTER 2025-07-25 14:49 | Outpatient (AMB) | payer MEDICARE, SELFPAY ==
--- OUTSIDE RECORDS SUMMARY | 2025-01-16 09:59 | XMS_ITS ---
Author Organization [facility] Address [address] [place] [address] Care Team Providers Care Roust[employer] Pusher Name Role Phone Jag Rosas Primary Care Provider [phone] REASON FOR VISIT Message MEDICATIONS Medication SIG (Take, Route, Fr equency, Duration) Notes Start Date End Date Status DULoxetine HCl 30 MG 1 capsule Orally On ce a day for 90 Days 01/16/2025 Active Encounters Encounter Location Date Provider Diagnosis [facility] [address] [address] 01/17/20 Jag Rosas PLAN OF TREATMENT Medication Medication Name Sig Start Date Stop Date Notes DULoxetine HCl 30 MG 1 capsule Orally On ce a day for 90 Days 01/16/2025 Next Appt Details Provider Name:Scarlett Moses i, 08/23/2025 11:15:00 AM, [address] [place] [address], [phone],
--- OUTSIDE RECORDS SUMMARY | 2025-02-15 07:00 | XMS_ITS ---
Author Organization [facility] Address [address] [place] [address] Care Team Providers Care Commercial Real Estate Underwriter Name Role Phone Jag Rosas Primary Care Provider ALLERGIES Allergen (clinical drug ingredient) Drug/Non Drug Allergy documented on EMR Reaction Allergy Type Onset Date Status fluoxetine Fluoxetine Unknown Drug Allergy Activ e Morphine Sulfate Unknown Drug Allergy Active Motrin Unknown Drug Allergy Active REASON FOR VISIT (IN OFFICE), Follow Up MEDICATIONS Medication SIG (Take, Route, Frequency, Duration) Notes Start Date End Date Status DULoxetine HCl 30 MG 1 capsule Orally On ce a day for 90 Days 01/16/2025 Active DULoxetine HCl 60 MG 1 capsule Orally On ce a day for 30 days Active Pravastatin Sodium 40 MG Take 1 tablet b y mouth once daily for 90 Active Gabapentin 300 MG 1 capsule Orally Onc e a day for 90 Days Active clonazePAM 0.5 MG 1 tablet Orally Once a day for 90 Days Active Pantoprazole Sodium 40 MG 1 tablet Orall y Once a day Active ProAir HFA 108 (90 Base) MCG/ACT 2 puffs as needed Inhalation every 4 hrs Active Pravastatin Sodium 40 MG 1 tablet Orally Once a day Active clonazePAM 0.5 MG Take 1 tablet by gene th once daily for 30 days for 30 01/02/2025 Active Gabapentin 300 MG Take 1 capsule by mo [facility] once daily for 90 Active Symbicort 160-4.5 MCG/ACT 2 puffs Inhala tion Twice a day Active Budesonide 3 MG 1 capsule Orally Twi ce a day Active VITAL SIGNS Blood pressure systolic 102 mm Hg 02/16/20 25 Blood pressure diastolic 60 mm Hg 025 Heart Rate 64 /min 02/15/2025 Height 60 in 02/15/2025 Weight 130 lbs 02/15/2025 BMI 25.39 kg/m2 02/15/2025 Encounters Encounter Location Date Provider Diagnosis [facility] [address] [place] [address] 02/15/2025 Jag Rosas Recurrent major depressive disorder, in full remission F33.42 ; Chronic obstructive pulmonary disease, unspecified COPD type J44.9 ; Mixed hyperlipidemia E78.2 ; Gastroesophageal reflux disease without esophagitis K21.9 ; Generalized anxiety disorder F41.1 ; History of lung cancer Z85.118 and Alzheimer's disease with late onset G30.1 ASSESSMENTS Encounter Date Diagnosis Assessment Notes Treatment Notes Treatment Clinical Notes Section Notes 02/15/2025 Recurrent major depressive disorder, in full remission (ICD-10 - F33.42) 02/15/2025 Chronic obstructive pulmonary disease, unspecified COPD type (ICD-10 - J44.9) 02/15/2025 Mixed hyperlipidemia (ICD-10 - E78.2) 02/15/2025 Gastroesophageal reflux disease without esophagitis (ICD-10 - K21.9) 02/15/2025 Generalized anxiety disorder (ICD-10 - F41.1) 02/15/2025 History of lung cancer (ICD-10 - Z85.118) 02/15/2025 Alzheimer's disease with late onset (ICD-10 - G30.1) 02/15/2025 Other This chart has been transcribed by a computerized dictation system. There are likely to be multiple entry level machine operator inaccuracies despite chart review. PLAN OF TREATMENT Medication Medication Name Sig Start Date Stop Date Notes DULoxetine HCl 60 MG 1 capsule Orally On ce a day for 30 days Gabapentin 300 MG 1 capsule Orally Onc e a day for 90 Days clonazePAM 0.5 MG 1 tablet Orally Once a day for 90 Days Pantoprazole Sodium 40 MG 1 tablet Orally Once a day ProAir HFA 108 (90 Base) MCG/ACT 2 puffs as needed Inhalation every 4 hrs Pravastatin Sodium 40 MG 1 tablet Orally Once a day Symbicort 160-4.5 MCG/ACT 2 puffs Inhala tion Twice a day Treatment Notes Assessment Notes Other This chart has been transcribed by a computerized dictation system. There are likely to be multiple entry level machine operator inaccuracies despite chart review. Next Appt Details Follow Up: 3 Months, Reason: Follow-up Provider Name:Scarlett Moses i, 08/23/2025 11:15:00 AM, [address] [place] [address], [phone], Progress Notes * Examination Category Sub-Category Detail Notes Category Not es General Examination GENERAL APPEARANCE: in no ac [place] distress, well developed, well nourished HEAD: normocephalic, atrau matic EYES: pupils equal, round, reactive to light and accommodation EARS: Impacted cerumen rig ht ear THROAT: clear, no erythema, uvula midline, no exudate NECK/THYROID: neck supple, no thyr omegaly, trachea midline, no carotid bruit HEART: no murmurs, regular rate and rhythm, S1, S2 normal LUNGS: clear to auscultatio n bilaterally ABDOMEN: soft, nontender, non distended, no organomegaly , bowel sounds present NEUROLOGIC: alert and oriented x 3, nonfocal SKIN: two 0.75 x 0.75 cm a reas of ecchymosis over left tempal EXTREMITIES: no clubbing, cyanosi s, or edema PERIPHERAL PULSES: normal, 2+ throughou t MUSCULOSKELETAL: normal, full range o f motion LYMPH NODES: no cervical, axillar y, supraclavicular or inguinal adenopathy PSYCH: cognitive function i ntact, mood/affect full range ORAL CAVITY: mucosa moist, no les ions, palate normal, tongue in midline, well papillated History and Physical Notes * HPI (History of Present Illness) Category Sub-Category Detail Notes Category Not es Symptom(s) 79-year-old fem paolo patient with history of anxiety, depression, hyperlipidemia, COPD, and history of lung cancer, is here for a follow-up. Patient has attended physical therapy and her back pain has improved. She continues to take gabapentin for the pain with good effect. I reviewed her labs with her which are within acceptable range. She tells me that she gets short of breath on occasional and does not take Symbicort daily. I talked to her about how Symbicort is a maintenance inhaler that will help prevent this. Patient tells me that her voice is deep and she has mucus in her throat. I let her know this was allergies and offered to prescribe something but she declined. Patient has two 0.75 x 0.75 cm areas of ecchymosis over left tempal after being bit by flies and is concerned about a head bleed with the experimental infusion she is receiving for dementia. I reassured her that these will go away with time. She denies chest pain or palpitations.
--- OUTSIDE RECORDS SUMMARY | 2025-02-28 09:04 | XMS_ITS ---
Author Organization Bonifaciomaris Meehan Address [address] [place] [address] Care Team Providers Care Wet Roller Name Role Phone BonifacioJag pollock Primary Care Provider [phone] REASON FOR VISIT Refills MEDICATIONS Medication SIG (Take, Route, Frequency, Duration) Notes Start Date End Date Status Symbicort 160-4.5 MCG/ACT 2 puffs Inhala tion Twice a day for 90 Days Active Encounters Encounter Location Date Provider Diagnosis Ralph Meehan [address] [address] 02/28/2025 Jag Rosas Chronic obstructive pulmonary disease, unspecified COPD type J44.9 ASSESSMENTS Encounter Date Diagnosis Assessment Notes Treatment Notes Treatment Clinical Notes Section Notes 02/28/2025 Chronic obstructive pulmonary disease, unspecified COPD type (ICD-10 - J44.9) PLAN OF TREATMENT Medication Medication Name Sig Start Date Stop Date Notes Symbicort 160-4.5 MCG/ACT 2 puffs Inhala tion Twice a day for 90 Days Next Appt Details Provider Name:Scarlett Moses i, 08/23/2025 11:15:00 AM, [address] [place] [address], [phone],
--- OUTSIDE RECORDS SUMMARY | 2025-03-27 10:15 | XMS_ITS ---
Author Organization Ralph Meehan Address [address] [place] [address] Care Team Providers Care Mainframe Analyst Name Role Phone Jag Rosas Primary Care Provider ALLERGIES Allergen (clinical drug ingredient) Drug/Non Drug Allergy documented on EMR Reaction Allergy Type Onset Date Status fluoxetine Fluoxetine Unknown Drug Allergy Activ e Morphine Sulfate Unknown Drug Allergy Active Motrin Unknown Drug Allergy Active REASON FOR VISIT (IN OFFICE), Sick Visit continued low back and buttocks pain MEDICATIONS Medication SIG (Take, Route, Frequency, Duration) Notes Start Date End Date Status Budesonide 3 MG 1 capsule Orally Twi ce a day Active DULoxetine HCl 30 MG 1 capsule Orally On ce a day for 90 Days 01/16/2025 Active Gabapentin 300 MG Take 1 capsule by mo [facility] once daily for 90 Active Symbicort 160-4.5 MCG/ACT 2 puffs Inhala tion Twice a day for 90 Days Active clonazePAM 0.5 MG Take 1 tablet by gene once daily for 30 02/15/2025 Active DULoxetine HCl 60 MG 1 capsule Orally On ce a day for 30 days Active ProAir HFA 108 (90 Base) MCG/ACT 2 puffs as needed Inhalation every 4 hrs Active Pravastatin Sodium 40 MG 1 tablet Orally Once a day Active Pantoprazole Sodium 40 MG 1 tablet Orall y Once a day Active PROBLEMS Problem Type ICD Code Onset Dates Problem Status W/U Status Risk SNOMED Code Notes Problem Left sciatic nerve pain (M54.32) Active confirmed 29094290 Problem Neck pain (M54.2) Active confirmed 25898398 VITAL SIGNS Blood pressure systolic 102 mm Hg 03/27/20 25 Blood pressure diastolic 50 mm Hg 025 Heart Rate 70 /min 03/27/2025 Height 60 in 03/27/2025 Weight 128.8 lbs 03/27/2025 BMI 25.15 kg/m2 03/27/2025 Encounters Encounter Location Date Provider Diagnosis [facility] [address] [place] [address] 03/27/2025 Jag Rosas Left sciatic nerve pain M54.32 and Neck pain M54.2 ASSESSMENTS Encounter Date Diagnosis Assessment Notes Treatment Notes Treatment Clinical Notes Section Notes 03/27/2025 Left sciatic nerve pain (ICD-10 - M54.32) Advised patient to continue with home exercises from PT. Use of warm compresses and OTC Tylenol. Explained to patient that we will order an MRI. 03/27/2025 Neck pain (ICD-10 - M54.2) Advised patient to use passive range of motion, warm compresses and OTC tylenol. 03/27/2025 Other This chart has been transcribed by a computerized dictation system. There are likely to be multiple clerical manager inaccuracies despite chart review. PLAN OF TREATMENT Treatment Notes Assessment Notes Left sciatic nerve pain Advised patient to continue with home exercises from PT. Use of warm compresses and OTC Tylenol. Explained to patient that we will order an MRI. Neck pain Advised patient to u se passive range of motion, warm compresses and OTC tylenol. Other This chart has been transcribed by a computerized dictation system. There are likely to be multiple clerical manager inaccuracies despite chart review. Pending Test Test Name Order Date MRI : Lumbosacral Spines 03/27/2025 Next Appt Details Follow Up: as scheduled, Monica son: Provider Name:Scarlett Moses i, 08/23/2025 11:15:00 AM, [address] [place] [address], [phone], Progress Notes * Examination Category Sub-Category Detail Notes Category Not es General Examination GENERAL APPEARANCE: in no ac mal distress, well developed, well nourished HEAD: normocephalic, atrau matic EYES: pupils equal, round, reactive to light and accommodation THROAT: clear, no erythema, uvula midline, no exudate NECK/THYROID: neck supple, no thyr omegaly, trachea midline, no carotid bruit HEART: no murmurs, regular rate and rhythm, S1, S2 normal LUNGS: clear to auscultatio n bilaterally ABDOMEN: soft, nontender, non distended, no organomegaly , bowel sounds present NEUROLOGIC: Lower extremity DTRs 2+ bilateral, SLR negative bilateral, gait normal SKIN: no suspicious lesion s, warm and dry EXTREMITIES: no clubbing, cyanosi s, or edema PERIPHERAL PULSES: normal, 2+ throughou t MUSCULOSKELETAL: Palpation of the lum bosacral spine no point tenderness, paravertebral spasm not present. Cervical spine normal, full range of motion. LYMPH NODES: no cervical, axillar y, supraclavicular or inguinal adenopathy PSYCH: cognitive function i ntact, mood/affect full range ORAL CAVITY: mucosa moist, no les ions, palate normal, tongue in midline, well papillated History and Physical Notes * HPI (History of Present Illness) Category Sub-Category Detail Notes Category Not es Symptom(s) 80-year-old fem paolo patient with history of anxiety, depression, hyperlipidemia, COPD, and history of lung cancer is here with complaints of continued lower back and buttocks pain that occasionally radiates down her left leg. She has attended 6 sessions of PT without improvement. Her PT advised her to come see her MD to see what other options there are. She tells me that she is taking her Gabapentin and using Biofreeze with some improvement. She also tells me that the pain seems to get better once she is up and moving around for the day but not always. I suggested the use of muscle relaxers which she is not interested in trying. I also suggested the use of NSAIDs and she tells me she can not take them. I explained to her that she should continue doing her exercises from PT and we will order an MRI. She is agreeable to this plan. She also tells me that she is having neck pain on the right side of her neck from a bump . On exam there is no lump/mass palpated and she has full ROM of her neck. I suggested the use of warm compresses and OTC Tylenol. She denies chest pain, palpitations and shortness of breath.
--- OUTSIDE RECORDS SUMMARY | 2025-04-04 06:39 | XMS_ITS ---
Author Organization Ralph Meehan Address [address] [place] [address] Care Team Providers Care Veterans' Counselor Name Role Phone Jag Rosas Primary Care Provider REASON FOR VISIT referral Encounters Encounter Location Date Provider Diagnosis Ralph Meehan [address] [address] 04/04/20 Jag Rosas PLAN OF TREATMENT Next Appt Details Provider Name:Scarlett Moses i, 08/23/2025 11:15:00 AM, [address] [place], [address],
--- OUTSIDE RECORDS SUMMARY | 2025-05-04 09:15 | XMS_ITS ---
Author Organization Ralph Meehan Address [address] [facility] [place] [address] Care Team Providers Care Learning And Development Officer Name Role Phone Jag Rosas Primary Care Provider REASON FOR VISIT (IN OFFICE) , Follow Up (MRI results) Encounters Encounter Location Date Provider Diagnosis Ralph Meehan [address] [facility] [place] [address] 05/04/20 Jag Rosas PLAN OF TREATMENT Next Appt Details Provider Name:Scarlett Moses i, 08/23/2025 11:15:00 AM, [address] [place], [address],
--- OUTSIDE RECORDS SUMMARY | 2025-05-22 07:00 | XMS_ITS ---
Author Organization Ralph Meehan Address [address] [place] [address] Care Team Providers Care Director Of Billing Name Role Phone Jag Rosas Primary Care [...] 05/22/2025 Encounters Encounter Location Date Provider Diagnosis Ralph Meehan[address] [address] 05/22/2025 Jag Rosas Recurrent major depressive disorder, [...] system. There are likely to be multiple pharmacy clerk inaccuracies despite chart review. PLAN OF TREATMENT [...] system. There are likely to be multiple pharmacy clerk inaccuracies despite chart review. Pending Test Test Name Order Date Urinalysis, Complete-[id number] 05/22/2025 Vitamin D, 48-[id number] 05/22/2025 LP+Non-HDL Cholesterol-[id number] 05/22/2025 TSH+Free [id number] 05/22/2025 Hepatic Function Panel [id number] 2024 Comp. Metabolic Panel [id number] 2024 CBC with Diff, Platelet, [id number] 05/04 Next Appt Details Follow Up: 3 Months, Reason: Medicare AWV Provider Name:Scarlett Moses i, 08/23/2025 11:15:00 AM, [address] [place] [address], [phone], Progress Notes * Examination Category Sub-Category Detail [...]
--- OUTSIDE RECORDS SUMMARY | 2025-06-08 08:45 | XMS_ITS ---
Author Organization Ralph Meehan Address [address] [place] [address] Care Team Providers Care Chucking Lathe Operator Name Role Phone Jag Rosas Primary Care Provider ALLERGIES Allergen (clinical drug ingredient) Drug/Non Drug Allergy documented on EMR Reaction Allergy Type Onset Date Status fluoxetine Fluoxetine Unknown Drug Allergy Activ e Morphine Sulfate Unknown Drug Allergy Active Motrin Unknown Drug Allergy Active REASON FOR REFERRAL Reason Please read the serge ent to neurosurgery at [facility] and forward the MRI results Notes faxed, patient aware she will need to obtain CD images as well Diagnosis 1 Spinal stenosis at L 4-L5 level (M48.061) Referral Organization Jag Rosas Md Referring Provider First Name Jag Referring Provider Last Name Ralph Referring Provider Speciality Internal M edicine Referred Provider Specialty Neurosurgery General Notes Azul Washington 06/2025 10:04:01 AM EDT > all paperwork sent to [facility] , Azul Washington 06/14/2025 11:49:57 AM EDT > all paperwork resent to their office for scheduling , Azul Washington 06/20/2025 10:42:00 AM EDT > Stephanie @ [facility] patient schedule for 06/29 @ 9am Dr. Powell Clinical Notes Dr. Beltran, , , [address] [place] [address], [address], [place] Referral Priority Routine Referral Appointment Date 06/29/2025 REASON FOR VISIT (IN OFFICE), Sick Visit MEDICATIONS Medication SIG (Take, Route, Frequency, Duration) Notes Start Date End Date Status Lidoderm 5 % 2patch remove after 12 hours Externally Once a day for 30 days 06/08/2025 Active clonazePAM 0.5 MG Take 1 tablet by gene th once daily for 30 05/25/2025 Active DULoxetine HCl 60 MG 1 capsule Orally On ce a day for 30 days Active DULoxetine HCl 30 MG 1 capsule Orally On ce a day 01/16/2025 Active Symbicort 160-4.5 MCG/ACT 2 puffs Inhala tion Twice a day Active Gabapentin 300 MG 1 capsule Orally Onc e a day for 90 Days Active Budesonide 3 MG 1 capsule Orally Twi ce a day Active Pravastatin Sodium 40 MG 1 tablet Orally Once a day Active ProAir HFA 108 (90 Base) MCG/ACT 2 puffs as needed Inhalation every 4 hrs Active Pantoprazole Sodium 40 MG 1 tablet Orall y Once a day Active PROBLEMS Problem Type ICD Code Onset Dates Problem Status W/U Status Risk SNOMED Code Notes Problem Spinal stenosis at L4-L5 level (M48.061) Active confirmed 94879171 Problem Sciatica, right side (M54.31) Active confirmed [id number] VITAL SIGNS Blood pressure systolic 106 mm Hg 06/08/20 25 Blood pressure diastolic 64 mm Hg 025 Heart Rate 80 /min 06/08/2025 Height 60 in 06/08/2025 Weight 130.4 lbs 06/08/2025 BMI 25.46 kg/m2 06/08/2025 Encounters Encounter Location Date Provider Diagnosis [facility] [address] [place] [address] 06/08/2025 Jag Rosas Spinal stenosis at L4-L5 level M48.061 and Sciatica, right side M54.31 ASSESSMENTS Encounter Date Diagnosis Assessment Notes Treatment Notes Treatment Clinical Notes Section Notes 06/08/2025 Spinal stenosis at L4-L5 level (ICD-10 - M48.061) 06/08/2025 Sciatica, right side (ICD-10 - M54.31) 06/08/2025 Other This chart has been transcribed by a computerized dictation system. There are likely to be multiple transaction manager inaccuracies despite chart review. PLAN OF TREATMENT Medication Medication Name Sig Start Date Stop Date Notes Lidoderm 5 % 2patch remove after 12 hours Externally Once a day for 30 days 06/08/2025 Treatment Notes Assessment Notes Other This chart has been transcribed by a computerized dictation system. There are likely to be multiple transaction manager inaccuracies despite chart review. Referrals Referral Date Details 06/29/2025 06/29/2025, Please r ead the patient to neurosurgery at [facility] and forward the MRI results Notes faxed, patient aware she will need to obtain CD images as well Next Appt Details Follow Up: as scheduled, Monica son: Provider Name:Scarlett Mosse i, 08/23/2025 11:15:00 AM, [address] [place] [address], [phone], Progress Notes * Examination Category Sub-Category Detail [...] bosacral spine no point tenderness, paravertebral spasm present LYMPH NODES: no cervical, axillar y, supraclavicular [...] lung cancer is here for follow up. Today she complains of return of the low back pain radiating to bilateral lower extremities. I reviewed her MRI results with her that showed degenerative changes and severe spinal stenosis of L4-L5. I discussed available treatment options. Patient is interested in trying surgery. She wants to go to [facility]. Our office will arrange an appointment for her to be evaluated by neurosurgery at [facility]. She needs a refill on Lidoderm patch which she finds it to be very effective. She tells me that she has to apply one patch on either side of the spine. Her other chronic conditions are under reasonable control on current medications. Consultation Request Notes Referral Date Referring Provider Referred Provider Not es 06/08/2025 Jag Rosas , Please read t he patient to neurosurgery at [facility] and forward the MRI results Notes faxed, patient aware she will need to obtain CD images as well
--- OUTSIDE RECORDS SUMMARY | 2025-06-08 10:21 | XMS_ITS ---
Author Organization [facility] Address [address] [place] [address] Care Team Providers Care Clarifying Plant Operator Name Role Phone Jag Rosas Primary Care Provider [phone] REASON FOR VISIT Message Encounters Encounter Location Date Provider Diagnosis [facility] [address] [place] [address] 06/08/20 Jag Rosas PLAN OF TREATMENT Next Appt Details Provider Name:Scarlett Moses i, 08/23/2025 11:15:00 AM, [address] [place], [address],
--- OUTSIDE RECORDS SUMMARY | 2025-07-09 10:52 | XMS_ITS ---
Author Organization [facility] Address [address] [place] [address] Care Team Providers Care Displayer Merchandise Name Role Phone Jag Rosas Primary Care Provider REASON FOR VISIT Wants call back Encounters Encounter Location Date Provider Diagnosis [facility] [address] [place] [address] 07/09/20 Jag Rosas PLAN OF TREATMENT Next Appt Details Provider Name:Scarlett Moses i, 08/23/2025 11:15:00 AM, [address] [place], [address],
--- NOTE | 2025-07-25 14:52 | A.SPINEOV_ITS ---
Intake Visit Reasons: F/u from visit 06/29, discuss sx Intake Note: Ms. Ruiz is here today to Discuss Surgery. Instructor Dramatic Arts Required: No Allergies aspirin Allergy (Verified 06/29/25 09:17) palpations codeine Allergy (Verified 06/29/25 09:17) Palpitations fluoxetine Allergy (Verified 07/25/25 11:41) Unknown ibuprofen Allergy (Verified 06/29/25 09:17) jitters morphine Allergy (Verified 06/29/25 09:17) Stomach Upset cold medications Allergy (Uncoded 05/06/23 12:11) Palpitations Assessment & Plan Assessment & Plan (1) Lumbar stenosis with neurogenic claudication: Code(s): M48.062 - Spinal stenosis, lumbar region with neurogenic claudication Category: Medical Plan 07/25/2025, I saw for preoperative visit Roxane Ruiz. She is accompanied by her daughter, who has a additional questions about the scheduled L4-5 decompression in August. I reviewed the images with the daughter and showed the significance of the stenosis. This is a mechanical issue and physical therapy or injections will not be beneficial to treat this patient's symptoms. We also discussed the indication for surgery. This patient is 80-year-old and explained to the daughter that this is actually not an abnormal age for this lumbar stenosis patients. The indication for surgery is to improve her bilateral buttocks/ leg pain and only the patient can tell us if her symptoms are severe enough to undergo a procedure. I quoted 75-80% success rate. We briefly discussed possible complications including but not limited to a CSF leak or neurological injury. Both complications are rare. I also described my surgical expertise. I have been doing this for more than 20 years and perform appro ximately 5 to 7 of these type of procedures a week. Finally, we discussed the expected postoperative recovery. The end result was that the patient wants to proceed.I spent 15 minutes in his consult. Aldo Powell MD, PhD Spine Fellowship Trained Neurosurgeon Director, [facility] Coding Level of Care Code Est Pt Level 2 (72319) Diagnoses Lumbar stenosis with neurogenic claudication M48.062
--- OUTSIDE RECORDS SUMMARY | 2025-07-25 21:02 | XMS_ITS | Continuity of Care Document ---
Author Organization [facility] Address [address] [place] [address] Care Team Providers Care Switch House Operator Name Role Phone Unavailable Primary Care Provider Unavailabl e Encounters Date Type Department Care Team Description 09/12/2020 Travel 09/12/2020 3:45 PM EST Consult (Initial) [facility] Ophthalmology [address] [place] [phone] Dominga Deal MD Acquired involutional ptosis of eyelid, bilateral; Peripheral visual field defect of both eyes; Pseudophakia of both eyes 09/02/2020 Office Visit OPTOMETRY UNSPECIFIED Provider, Unknown 08/21/2020 Telephone CALL CENTER [facility] [address] [place] [phone] Dominga Deal MD Medications No known medications Active Problems No known active problems Social History Smoking Status as of 07/25/2025 Tobacco Use Types Packs/Day Years Used Date [...]
--- OUTSIDE RECORDS SUMMARY | 2025-07-25 21:03 | XMS_ITS | Patient Health Record ---
Author Organization [facility] Address [address] [place] [address] Care Team Providers Care Machine Sneller Name Role Phone Jag Rosas Primary Care Provider ALLERGIES Allergen (clinical drug ingredient) Drug/Non Drug Allergy documented on EMR Reaction Allergy Type Onset Date Status fluoxetine Fluoxetine Unknown Drug Allergy Activ e Morphine Sulfate Unknown Drug Allergy Active Motrin Unknown Drug Allergy Active RESULTS Component Value Reference Range Notes Hepatic Function Panel ([id number] Reviewed date:01/17/2025 08:41:40 AM Interpretation: Performing Lab:[facility], [address] [facility], Phone - [phone], Director - Nat Notes/Report: Albumin 4.2 3.8-4.8 g/dL Bilirubin, Total 0.5 0.0-1.2 mg/dL Bilirubin, Direct 0.19 0.00-0.40 mg/dL Alkaline Phosphatase 68 44-121 IU/L AST (SGOT) 25 0-40 IU/L ALT (SGPT) 14 0-32 IU/L Lipid Panel-[id number] Reviewed date:01/17/2025 08:41:40 AM Interpretation: Performing Lab:[facility], [address] [facility], [place], Phone - [phone], Director - Nat Notes/Report: Cholesterol, Total 210 100-199 mg/dL Triglycerides 76 0-149 mg/dL HDL Cholesterol 95 >39 mg/dL VLDL Cholesterol Ke 13 5-40 mg/dL LDL Chol Calc ([facility]) 102 0-99 mg/dL LDL Calc Comment: SURGICAL PATHOLOGY Reviewed date:10/19/2024 07:50:23 PM Interpretation: Performing Lab:Testing performed or reported by [facility], a Service of [facility], [address] [place] [address] Nathan Ferris MD, [employer] CLIA# [id number] Notes/Report: Patient Name: NABOR CORTÉS Lab Patient [...] specimen processing and staining is performed at [facility], [address] [place] [address] (CLIA#[id number]). Its performance characteristics determined by [facility]. oJe Rizvi M.D. [employer] of Surgical Pathology, Ronaldo Valderrama M.D. [employer] Cytopathology Phone #: [phone], On-Call Pathologist: [id number] REASON FOR REFERRAL Reason 30 minute procedure [...] Referral Priority Routine Reason PT treatments at [facility] Diagnosis 1 Bilateral sacroiliit is (M46.1) Referral Organization aJg Rosas [facility] Referring Provider First Name Jag Referring Provider Last Name Ralph Referring Provider Speciality Internal edicine Referred Provider Specialty Physical The rapist General Notes MatthiasJj schmidtmaranda 08/2025 12:54:30 PM EDT > Faxed to [place] Referral Priority Routine Reason Consultation - APPT [...] 01:38:23 PM EDT > Done Clinical Notes [facility], , Referral Priority Urgent Referral Appointment Date 04/09/2025 Reason Please read the serge ent to neurosurgery at [facility] and forward the MRI results Notes faxed, [...] AM EDT > all paperwork sent to [facility] , Azul Washington 06/14/2025 11:49:57 AM EDT > all paperwork resent to their office for scheduling , Azul Washington 06/20/2025 10:42:00 AM EDT > Stephanie @ [facility] patient schedule for 06/29 @ 9am Dr. Powell Clinical Notes Dr. Beltran, , , [address] [place] [address], [facility], [place] Referral Priority Routine Referral Appointment Date 06/29/2025 MEDICATIONS Medication SIG (Take, Route, Frequency, Duration) Notes Start Date End Date Status DULoxetine HCl 30 MG Take 1 capsule by m outh once daily for 90 Active Gabapentin 300 [...] Code Notes Problem Anxiety (F41.9) Active confirmed 788039 02 Problem COPD exacerbation (J44.1) Active confirmed 563035450 Problem Neck pain (M54.2) Active confirmed 8168 0005 Problem Alzheimer's disease with late onset (G30.1) Active confirmed 34961408 Problem Generalized anxiety disorder (F41.1) Active confirmed 52625980 Problem Sciatica, right side (M54.31) Active confirmed [id number] Problem Mixed hyperlipidemia (E78.2) Active confirmed 764381933 Problem Gastroesophageal reflux disease without esophagitis (K21.9) Active confirmed 866746532 Problem Chronic obstructive pulmonary disease, unspecified COPD type (J44.9) Active confirmed 55570134 Problem History of lung cancer (Z85.118) Active confirmed 681141369 Problem Bilateral sacroiliitis (M46.1) Active confirmed 6953219023 Problem Depression, unspecified depression type (F32.9) Active confirmed 78318850 Problem Spinal stenosis at L4-L5 level (M48.061) Active confirmed 95340489 Problem Recurrent major depressive disorder, in full remission (F33.42) Active confirmed 24349465 Problem Left sciatic nerve pain (M54.32) Active confirmed 86516101 VITAL SIGNS Heart Rate 80 /min 06/08/2025 Blood pressure diastolic 64 mm Hg 06/08/2025 Height 60 in 06/08/2025 Blood pressure systolic 106 mm Hg 06/08/2025 Weight 130.4 lbs 06/08/2025 BMI 25.46 kg/m2 06/08/2025 Encounters Encounter Location Date Provider Diagnosis [address] [address] 08/29/2024 Jag Rosas Recurrent major depressive disorder, in full remission F33.42 ; Chronic obstructive pulmonary disease, unspecified COPD type J44.9 ; Mixed hyperlipidemia E78.2 ; Gastroesophageal reflux disease without esophagitis K21.9 ; Generalized anxiety disorder F41.1 ; History of lung cancer Z85.118 ; Alzheimer's disease with late onset G30.1 and Skin lesion L98.[address] [address] 09/21/2024 Jag Rosas Recurrent major depressive disorder, in full remission F33.42 ; Chronic obstructive pulmonary disease, unspecified COPD type J44.9 ; Mixed hyperlipidemia E78.2 ; Gastroesophageal reflux disease without esophagitis K21.9 ; Generalized anxiety disorder F41.1 ; History of lung cancer Z85.118 and Alzheimer's disease with late onset G30.[address] [address] 10/13/2024 Jag Rosas Inflamed seborrheic keratosis L82.[address] [address] 10/13/2024 Jag Rosas Recurrent major depressive disorder, in full remission F33.[address] [address] 10/18/2024 Jag Rosas Recurrent major depressive disorder, in full remission F33.[address] [address] 12/28/2024 Jag Rosas Bilateral sacroiliit is M46.1 and Muscle spasm M62.[address] [address] 01/12/2025 Jag Ralph Bilateral sacroiliit is M46.[address] [address] 01/16/2025 Jag Vikashbrianna Recurrent major depressive disorder, in full remission F33.[address] [address] 01/16/2025 Jag Vikashbrianna [address] [address] 02/15/2025 Jag Vikashbrianna Recurrent major depressive disorder, in full remission F33.42 ; Chronic obstructive pulmonary disease, unspecified COPD type J44.9 ; Mixed hyperlipidemia E78.2 ; Gastroesophageal reflux disease without esophagitis K21.9 ; Generalized anxiety disorder F41.1 ; History of lung cancer Z85.118 and Alzheimer's disease with late onset G30.[address] [address] 02/28/2025 Jag Vikashbrianna Chronic obstructive pulmonary disease, unspecified COPD type J44.[address] [address] 03/27/2025 Jag Vikashbrianna Left sciatic nerve p ain M54.32 and Neck pain M54.[address] [address] 04/04/[address] [address] 05/04/2025 Jag Vik[address]brianna [address] [address] 05/22/2025 Jag Vikashbrianna Recurrent major depressive disorder, in full remission F33.42 ; Chronic obstructive pulmonary disease, unspecified COPD type J44.9 ; Mixed hyperlipidemia E78.2 ; Gastroesophageal reflux disease without esophagitis K21.9 ; Generalized anxiety disorder F41.1 ; History of lung cancer Z85.118 ; Alzheimer's disease with late onset G30.1 and Laboratory tests ordered as part of a complete physical exam (CPE) Z00.[address] [address] 06/08/2025 Jag Vikashbrianna Spinal stenosis at L 4-L5 level M48.061 and Sciatica, right side M54.31 [facility], [address] [address] 06/08/2025 Jag Rosas [address] [address] 07/09/2025 Jag Rosas ASSESSMENTS Encounter Date Diagnosis Assessment Notes Treatment Notes Treatment Clinical Notes Section Notes 10/13/2024 Inflamed seborrheic keratosis (ICD-10 - L82.0) 09/21/2024 Chronic obstructive pulmonary disease, unspecified COPD type (ICD-10 - J44.9) 09/21/2024 Recurrent major depressive disorder, in full remission (ICD-10 - F33.42) 02/28/2025 Chronic obstructive pulmonary disease, unspecified COPD type (ICD-10 - J44.9) 03/27/2025 Neck pain (ICD-10 - M54.2) Advised patient to use passive range of motion, warm compresses and OTC tylenol. 03/27/2025 Left sciatic nerve pain (ICD-10 - M54.32) Advised patient to continue with home exercises from PT. Use of warm compresses and OTC Tylenol. Explained to patient that we will order an MRI. 06/08/2025 Sciatica, right side (ICD-10 - M54.31) 06/08/2025 Spinal stenosis at L4-L5 level (ICD-10 - M48.061) 08/29/2024 Recurrent major depressive disorder, in full remission (ICD-10 - F33.42) 08/29/2024 Chronic obstructive pulmonary disease, unspecified COPD type (ICD-10 - J44.9) 10/13/2024 Recurrent major depressive disorder, in full remission (ICD-10 - F33.42) 10/18/2024 Recurrent major depressive disorder, in full remission (ICD-10 - F33.42) 02/15/2025 Recurrent major depressive disorder, in full remission (ICD-10 - F33.42) 02/15/2025 Chronic obstructive pulmonary disease, unspecified COPD type (ICD-10 - J44.9) 12/28/2024 Bilateral sacroiliitis (ICD-10 - M46.1) 12/28/2024 Muscle spasm (ICD-10 - M62.838) 01/16/2025 Recurrent major depressive disorder, in full remission (ICD-10 - F33.42) 01/12/2025 Bilateral sacroiliitis (ICD-10 - M46.1) 05/22/2025 Recurrent major depressive disorder, in full remission (ICD-10 - F33.42) 05/22/2025 Chronic obstructive pulmonary disease, unspecified COPD type (ICD-10 - J44.9) 08/29/2024 Mixed hyperlipidemia (ICD-10 - E78.2) 05/22/2025 Mixed hyperlipidemia (ICD-10 - E78.2) 02/15/2025 Mixed hyperlipidemia (ICD-10 - E78.2) 09/21/2024 Mixed hyperlipidemia (ICD-10 - E78.2) 05/22/2025 Gastroesophageal [...] system. There are likely to be multiple adjustment examiner inaccuracies despite chart review. 02/15/2025 Other This chart has been transcribed by a computerized dictation system. There are likely to be multiple adjustment examiner inaccuracies despite chart review. 05/22/2025 Other This chart has been transcribed by a computerized dictation system. There are likely to be multiple adjustment examiner inaccuracies despite chart review. 03/27/2025 Other This chart has been transcribed by a computerized dictation system. There are likely to be multiple adjustment examiner inaccuracies despite chart review. 09/21/2024 Other This chart has been transcribed by a computerized dictation system. There are likely to be multiple adjustment examiner inaccuracies despite chart review. This chart has been transcribed by a computerized dictation system. There are likely to be multiple adjustment examiner inaccuracies despite chart review. 12/28/2024 Other This chart has been transcribed by a computerized dictation system. There are likely to be multiple adjustment examiner inaccuracies despite chart review. 06/08/2025 Other This chart has been transcribed by a computerized dictation system. There are likely to be multiple adjustment examiner inaccuracies despite chart review. PLAN OF TREATMENT [...] left 07/17/2022 *EKG 10/26/2012 *EKG 10/20/2019 *SPIROMETRY 02/15/2019 *SPIROMETRY 07/26/2012 Polysomnogram 02/15/2019 LIPID PANEL 02/19/2020 HEPATIC FUNCTION PANEL 02/19/2020 THYROID PANEL 05/11/2018 LYME AB 02/15/2019 LYME AB 10/20/2019 COMPLETE URINALYSIS 05/11/2018 CT Chest W/ Contrast 05/01/2019 HEPATIC FUNCTION PANEL 07/21/2021 HEPATIC FUNCTION PANEL 08/30/2023 HEPATIC FUNCTION PANEL 02/05/2022 HEPATIC FUNCTION PANEL 07/28/2023 HEPATIC FUNCTION PANEL 02/03/2023 LIPID PANEL 02/03/2023 LIPID PANEL 07/28/2023 LIPID PANEL 02/05/2022 LIPID PANEL 08/30/2023 LIPID PANEL 07/21/2021 Urinalysis, Complete-[id number] 05/22/2025 Vitamin D, 73-Pfficqr-[id number] 05/22/2025 LP+Non-HDL Cholesterol-504850 05/22/2025 TSH+Free [id number] 05/22/2025 Hepatic Function Panel [id number] 2024 Comp. Metabolic Panel [id number] 2024 CBC with Diff, Platelet, [id number] 05/04 Next Appt Details Provider Name:Scarlett Perezrafat sargent, 08/23/2025 11:15:00 AM, [address] [place], [address], Insurance Providers Payer Name Payer Address Payer Phone Subscriber Number Group Number Insured Name Patient Relationship to Insured Coverage Start Date Coverage End Date [facility] [id number] [place] [phone] [id number] Nabor Cortés Self - patient is the insured [facility] [address] [place] [address] [phone] [id number] Nabor Cortés Self - patient is the [...]
--- OUTSIDE RECORDS SUMMARY | 2025-07-25 21:03 | XMS_ITS | Encounter Summary ---
Author Organization [facility] Address [address] [place] [address] Care Team Providers Care Kiln Puller Name Role Phone Unavailable Primary Care Provider Unavailabl e Encounter Details Date Type Department Care Team ([facility] st Contact Info) Description 08/21/2020 Telephone CALL CENTER [facility] [address] [place] [phone] Dominga Deal MD Social History Tobacco Use [...]
--- OUTSIDE RECORDS SUMMARY | 2025-07-25 21:04 | XMS_ITS | Clinical Summary ---
Author Organization [facility] Address [address] [place] [address] Care Team Providers Care Wax Pattern Repairer Name Role Phone Jag Rosas Primary Care Provider [phone] Allergies Active Allergy Reactions Criticality Noted Date [...] patient's age to complete this topic Insurance [facility] Advance Directives Documents on File Type Date Recorded Patient Park Keeper Expl anation Advance Directive 12/24/2014 12:00 AM miles wetzel Dec Making (Adv.Dir) Advance Directive 12/21/2014 12:00 AM Adva nce Care Directives Care Teams Wax Pattern Repairer Relationship Specialty Start Date End Date Jag Rosas PCP - General Internal Medicine 04/04/24
--- OUTSIDE RECORDS SUMMARY | 2025-07-25 21:05 | XMS_ITS | Data Portability ---
Author Organization [facility], Conergy Address [address] [place] [address] [place] [address] Care Team Providers Care Construction Manager Name Role Phone BEATRIZ RESENDIZ Referring Provider Unavailable BEATRIZ RESENDIZ Referring Provider BEATRIZ RESENDIZ Primary Care Provider Assessment Encounter [...] brain MRI April 05, 2018, per dictation [facility] neuroradiology, Dr. Mague Crawford: Minimal scattered [...] 4 genetic testing and talked with the [facility] patient's assistance program garry Not available 04/12/2024 [...] brain MRI April 05, 2018, per dictation [facility] neuroradiology, Dr. Mague Crawford: Minimal scattered [...] 2024 We discussed the data, first from [employer], which I am going to discount, given [...] the technologists at the infusion center at [facility] was inadequate. She has since switched to [place] for infusions #3-4 and she is satisfied [...] 2024 We discussed the data, first from [employer], which I am going to discount, given [...] trip to and from infusion center in [place]. >>>>>>>>>>>>Februa ry 2024 We discussed the finding [...] the technologists at the infusion center at [facility] was inadequate. She has since switched to [place] for infusions #3-4 and she is satisfied [...] 2024 We discussed the data, first from [employer], which I am going to discount, given [...] to and from the infusion center in [place]. Follow-up after 13 th infusion, Or sooner [...] trip to and from infusion center in [place]. >>>>>>>>>>>>Februa ry 2024 We discussed the finding [...] the technologists at the infusion center at [facility] was inadequate. She has since switched to [place] for infusions #3-4 and she is satisfied [...] 2024 We discussed the data, first from [employer], which I am going to discount, given [...] to and from the infusion center in [place]. May 08, 2026: daughter not present for encounter. Follow-up With daughter at her earliest convenience for daughter, who lives in [place] as well as earliest convenience of patient [...] By Organization Details Last Modified Time 04/12/2024 [id number] chronic illness posing threat to bodily function including driving, drug therapy requiring intensive monitoring for toxicity mrossen Not available 04/12/2024 09:38:45 08/28/2024 35665 chronic illness posing threat to bodily function including driving, drug therapy requiring intensive monitoring for toxicity mrossen Not available 08/28/2024 12:14:56 11/28/2024 29524 chronic illness posing threat to bodily function including driving, drug therapy requiring intensive monitoring for toxicity mrossen Not available 11/28/2024 17:09:51 01/23/2025 27504 chronic illness posing threat to bodily function including driving, drug therapy requiring intensive monitoring for toxicity mrossen Not available 01/23/2025 10:39:47 05/08/2025 74279 chronic illness posing threat to bodily function [...] PET/CT Imagin g Access ion Number : [id number] Paulina mendez Name: Roxane Ruiz Record Number : [id number] Date of : 1944 Date of Exam: 2023 Referr ing Physic jeff: Tony Schneider [facility] [address] [facility] [address] [place] [address] Exam: PT Neurac eq Brain Imagin g CPT 51690 Room Descri ption: Pettis Siem[employer] o Pt4 EXAMIN ATION: PET Neurac [...] Electr onical ly Signed By: Ulysses sierra [facility] ([facility]) [address], [place], [address], 04/19/2024 14:32:27 03/31/20 24 03/30/2024 PET-C T, limit ed No observ ation record ed. [email or web address] Pet [facility] [address], [place], [address], 04/03/2024 10:31:03 11/03/19 25 11/03/2024 MRI, brain + brain stem, w/wo contr ast [facility] Access ion Number : [id number] Patien t Name: Roxane Ruiz Record Number : [id number] Date of : 1944 Date of Exam: 2024 Referr ing Physic jeff: Tony Schneider [facility] Neurol [facility]gy [address] [facility] [address] [place] [address] Exam: MR Brain (C-/C+ ) CPT 18657 Room Descri ption: [facility] Verio 3.0T MR Brain (C-/C+ ) CPT 23068 INDICA TION / CLINIC AL QUESTI ON: [...] Padilla V, Braashlyn hatt P, Chou A, Kishore oates P, John hidalgo N, Bathwendy G. 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 Radiog raphic s. 2022;43 (9):e2 31507. https: //doi. org/10 .1148/ rg.230 009 Electr onical ly Signed By: Barbara Keenan MD [email or web address] [facility] [address] [facility] [address], [place], [address], 11/06/2024 15:47:51 11/03/19 25 11/03/2024 MRI, brain , w/o contr ast No observ ation record ed. [email or web address] [facility] [address] [facility] [address], [place], [address], 11/06/2024 15:50:39 11/28/19 25 11/25/2024 MRI, brain + brain stem, w/wo contr ast [facility] Access ion Number : [id number] Paulina mendez Name: Roxane Ruiz Record Number : [id number] Date of : 1944 Date of Exam: 2024 Referr ing Physic jeff: Tony Schneider [facility] Neurol [facility]gy [address] [facility] [address] [place] [address] Exam: MR Brain (C-/C+ ) CPT 92406 Room Descri ption: [facility] Verio 3.0T HISTOR Y: Alzhei laura's diseas [...] . The flow voids throug h the [place] are mainta ined, and there [...] Electr onical ly Signed By: Jigar sierra [facility] [address] [place], [address], 11/29/2024 14:39:13 11/28/19 25 11/25/2024 MRI, brain , w/o contr ast No observ ation record ed. [email or web address] [facility] [address] [place], [address], 11/28/2024 15:07:14 12/29/19 25 12/27/2024 MRI, brain + brain stem, w/wo contr ast [facility] Access ion Number : [id number] Patien t Name: Roxane Ruiz Record Number : [id number] Date of : 1944 Date of Exam: 2024 Referr ing Physic jeff: Tony Schneider [facility] Neurol ogy [address] [facility] [address] [place] [address] Exam: MR Brain (C-/C+ ) CPT 12528 Room Descri ption: [facility] 3.0T MRI of the brain withou t [...] Electr onical ly Signed By: Mor sierra [facility] ([facility] [address] [place], [address], 12/28/2024 11:22:14 12/29/19 25 12/27/2024 MRI, brain , w/o contr ast No observ ation record ed. mariela [facility] [address] [place], [address], 12/28/2024 11:22:27 01/23/20 25 01/18/2025 MR: addit ional view (C+) [facility] Access ion Number : [id number] Patien t Name: Roxane Ruiz Record Number : [id number] Date of : 1944 Date of Exam: 2024 Referr ing Physic jeff: Tony Schneider [facility] [address] [facility] [address] [place] [address] Exam: MR Additi onal View (C+) Room Descri ption: [facility] Ver 3.0T MR Additi onal View (C+) [...] 27, 2024 brain MRI. Please remove all spray machine operator al artifa cts. Please call neuror adiolo [...] 27, 2024 brain MRI. Please remove all spray machine operator al artifa cts. Please call neuror adiolo [...] IR hyperi ntensi ty in the mid ben ARIA-H : Two puncta te foci of [...] onical ly Signed By: Mague post MD [facility] ([facility] [address], [place], [address], 01/24/2025 07:47:10 01/23/20 25 01/18/2025 MRI, brain + brain stem, w/wo contr ast No observ ation record ed. [facility] ([facility]) [address] [place], [address], 01/22/2025 15:44:29 04/30/20 25 04/25/2025 MRI, brain + brain stem, w/wo contr ast [facility] Access ion Number : [id number] Paulina mendez Name: Roxane Ruiz Record Number : [id number] Date of : 1944 Date of Exam: 2024 Referr ing Physic jeff: Tony Schneider [facility] roman Neurol ogy [address] [facility] [address] [place] [address] Exam: MR Brain (C-/C+ ) CPT 68672 Room Descri ption: [facility] 3.0T MR Brain (C-/C+ ) CPT 21997 INDICA TION / CLINIC AL QUESTI ON: [...] Therap y. Radiog raphic s. 2022;43 (9):e2 78152. https: //doi. org/10 .1148/ rg.230 009 Electr onical ly Signed By: Mague sierra [facility] ([facility]) [address] [place], [address], 05/02/2025 11:01:02 Result Notes Documentation Provider Name and Address Organization Details Recorded Time Mri, Brain + Brain Stem, W/wo Contrast : [facility] [place] Accession Number: [id number] Patient Name: Roxane Ruiz Date of : 1945 Date of Exam: 11-03-2024 Referring Physician: Beatriz Schneider [facility] [address] [place] [address] - [address] [place] [address] Exam: MR Brain (C-/C+) CPT 64627 Room Description: [facility] 3.0T MR Brain (C-/C+) CPT 06187 INDICATION / CLINICAL QUESTION: G30.1 - Alzheimer's [...] Disease Treated with Anti-Amyloid-? Therapy. Radiographics. 2022 Sep;43(9):p050015. https://doi.org/[email or web address]/rg. 451022 Electronically Signed By: Leila Guzman [facility] 11/06/2024 15:47:51 Mri, Brain + Brain Stem, W/wo Contrast : [facility] Accession Number: [id number] Patient Name: Roxane Ruiz Date of : 1945 Date of Exam: 11-25-2024 Referring Physician: Beatriz Schneider [facility] [address] [place] [address] - [address] [place] [address] Exam: MR Brain (C-/C+) CPT 65300 Room Description: [facility] 3.0T HISTORY: Alzheimer's disease. Lecanemab. TECHNIQUE: Multiplanar [...] is unremarkable. The flow voids through the [place] are maintained, and there is [...] ischemic change. Electronically Signed By: Jigar Estes [facility] 11/29/2024 14:39:13 Mri, Brain + Brain Stem, W/wo Contrast : [facility] Accession Number: [id number] Patient Name: Roxane Ruiz Date of : 1945 Date of Exam: 12-27-2024 Referring Physician: Beatriz Schneider [facility] [address] [place] [address] - [address] [place] [address] Exam: MR Brain (C-/C+) CPT 91820 Room Description: [facility] 3.0T MRI of the brain without and [...] above, stable. Electronically Signed By: Mor Estes [facility] 12/28/2024 11:22:14 Mri, Brain + Brain Stem, W/wo Contrast : [facility] Accession Number: [id number] Patient Name: Roxane Ruiz Date of : 1945 Date of Exam: 04-25-2025 Referring Physician: Beatriz Schneider [facility] [address] [place] [address] - [address] [place] [address] Exam: MR Brain (C-/C+) CPT 68524 Room Description: [facility] 3.0T MR Brain (C-/C+) CPT 61588 INDICATION / CLINICAL QUESTION: - Alzheimer's disease [...] Alzheimer Disease Treated with Anti-Amyloid-? Therapy. Radiographics. 2022;43(9):l289160. [email or web address]://[email or web address]. 048666 Electronically Signed By: Mague berrios [facility] [employer] [facility] 05/02/2025 11:01:02 Procedures Surgical History Date Name Laterality Status Provider Name and Address Organization Details Recorded Time 05/08/2025 DATA REVIEW completed Beatriz Schneider MD [address] [place] [address] [place], [address], [facility] [employer] [facility] 05/08/2025 16:14:18 01/23/2025 DATA REVIEW completed Beatriz Schneider MD [address] [place] [address] [place], [address], [facility] Neurology [facility] 01/23/2025 11:05:38 11/28/2024 DATA REVIEW completed Beatriz Schneider MD [address] [place] [address], [phone], [facility] Neurology [facility] 11/28/2024 19:04:59 Imaging Results None recorded. Procedure Notes None recorded. Medical Equipment None Reported. Allergies Allergen ID Allergen Name Allergen Category Reaction Reaction Severity Criticality Documentation Date Start Date Code Code System Note Provider Name and Address Organization Details Recorded Time 3896 morphine medicatio n Not available Not available Not available 01/10/2024 7052 RxNorm [facility] 15:06:35 Medications Name Sig Start [...] Time Tobacco Smoking Status [facility] 01/10/2024 15:10:03 What Is Your Level Of Caffeine Consumption? Moderate Information not available 01/10/2024 What Is The Highest Grade Or Level Of School You Have Completed Or The Highest Degree You Have Received? [id number] Information not available 01/10/2024 Which Of Your [...] available 2023 15:08:56 Medical History Condition Response Head Trauma/Injury N Lung Disease N Depression Y COPD or emphysema N Spine Problems N Obstructive Sleep Apnea N Alcoholism N Autoimmune disease N Arthritis N Developmental Problems N Cancer N Stroke N Heartburn, acid reflux, GERD N Vitamin D Deficiency N Liver Disease N Headaches N Fibromyalgia N Kidney Disease N Claustrophobia N Hospitalizations N High Blood Pressure or Hypertension N Thyroid Problems N Brain Tumors N Encephalitis N Vitamin B12 deficiency N PTSD N Heart Attack (SD) N Diabetes N Bleeding Disorder N Tuberculosis N Cerebral Palsy N Neck Problems N Back Problems N Asthma N Epilepsy/Seizures N Bipolar Disorder N Sleep Disorder N Hepatitis N Aneurysm N Heart Disease N Osteoporosis N High Cholesterol or Hyperlipidemia N Gynecological HistoryNo gynecological history recorded. 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 806143343 D51.0 Abnormal t hyroid hormone 928338419 R94.6 Vitamin D deficiency 347 63656 E55.9 Syphilis 35542200 A53.9 [id number] BRIANNA OLIVERA PA-C [facility] [address] [place] [address] [place] [address] 01/25/2024 13:43:54 01/27/2024 08:07:49 Alzheimer's disease 81150604 G30.1 Mild neuro cognitive disorder 936923513 G31.84 [id number] Beatriz Schneider MD [facility] [address] [place] [address] [place] [address] 03/06/2024 10:28:24 03/06/2024 12:21:14 Alzheimer's disease 31608215 G30.1 Mild neuro cognitive disorder 418986304 G31.84 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 215325358 D51.0 Abnormal t hyroid hormone 466631774 R94.6 Vitamin D deficiency 347 27963 E55.9 Syphilis 17548293 A53.9 [id number] Beatriz Schneider MD [facility] [address] [place] [address] [place] [address] 04/12/2024 08:46:39 04/12/2024 09:46:02 Alzheimer's disease 85315193 G30.1 Mild neuro cognitive disorder 394911480 G31.84 [id number] Beatriz Schneider MD [facility] [address] [place] [address] [place] [address] 08/28/2024 11:41:02 08/28/2024 16:40:55 Alzheimer's disease 64828578 G30.1 Mild neuro cognitive disorder 987003637 G31.84 [id number] Beatriz Schneider MD [facility] [address] [place] [address] [place] [address] 11/28/2024 16:30:47 11/29/2024 08:32:17 Alzheimer's disease 67244645 G30.1 Mild neuro cognitive disorder 343961960 G31.84 [id number] Beatriz Schneider MD [facility] [address] [place] [address] [place] [address] 01/23/2025 10:25:36 01/23/2025 12:22:53 Alzheimer's disease 69686236 G30.1 Mild neuro cognitive disorder 172686239 G31.84 [id number] Beatriz Schneider MD [facility] [address] [place] [address] [place] [address] 05/08/2025 15:07:09 05/09/2025 17:34:22 Alzheimer's disease 14922843 G30.1 Mild neuro cognitive disorder 034016773 G31.84 Health Concerns Section Related Observation LastModified by Organization Detai ls LastModified Time None Recorded Concern Status LastModified by Organization Details LastModified Time None Recorded Advance Directives Directive None Recorded Payers Insurance Date Sequence Insurance Name Policy Number Policy Dalton Covered Member ID Dalton Member ID Guarantor Name 01/23/2025 1 [employer] Roxane Ruiz [id number] Roxane Ruiz 05/05/2025 1 [employer] - SENIOR PLAN (MEDICARE REPLACEMENT PPO) Roxane Ruiz [id number] Roxane Ruiz Notes Date Note Type Note [...] that it is worsening. Beatriz Schneider MD [address] [place] [address] [place], [address], [facility] Neurology [facility] 04/12/2024 09:38:58 08/28/2024 text/html Neurology follow-up of [...] that it is worsening. Beatriz Schneider MD [address] [place] [address], [phone], [facility] Neu[facility] 08/28/2024 12:41:08 11/28/2024 text/html Neurology follow-up of problems with memory with concerns about Alzheimer's disease.Past history includes hypercholesterolemi a. Family history includes her mother and 12 siblings all dying with Alzheimer's disease.She is accompanied by her daughter, Aleena Altamirano, and by Bonilla Clallam, a friend. >>>>>>>>>>>>Februar 2024Since August 28, 2024 [...] that it is worsening. Beatriz Schneider MD [address] [place] [address] [place], [address], [facility] Neurology [facility] 11/28/2024 19:06:05 01/23/2025 text/html Neurology follow-up of [...] notes that she has to drive to [place] as she can no longer go to the [place] location. This is inconvenient for her. Still, [...] that it is worsening. Beatriz Schneider MD [address] [place] [address], [phone], [facility] Neurology [facility] 01/23/2025 11:09:59 05/08/2025 text/html Neurology follow-up of problems with memory with concerns about Alzheimer's disease.Past history includes hypercholesterolemi a. Family history includes her mother and 12 siblings all dying with Alzheimer's disease.She is accompanied by her daughter, Aleena Altamirano via telemedicine; not present: Bonilla Nixon, a friend. >>>>>>>>>>>>May 08, 2025Since Roaxne Ruiz, January 23, 2025 Neurology follow-up encounter, she has continued with low lecanemab infusions. She knows of no complications. Her insurance has arranged for her to have a regional owner operator truck driver to the infusions but sometimes she [...] her daughter was going to come from [place] where she lives to stay overnight but [...] notes that she has to drive to [place] as she can no longer go to the [place] location. This is inconvenient for her. Still, [...] that it is worsening. Beatriz Schneider MD [address] [place] [address] [place], [address], [facility] Neurology [facility] 05/08/2025 16:36:40 OBGyn Episode No OBEpisode recorded.
== END 2025-07-25 15:24 | disposition home or self-care (01) ==
LOC: HO.HNS 14:50
PROVIDERS: PCP Internal Medicine; Visit Provider Neurological Surgery
DX: M48.062 Spinal stenosis, lumbar region with neurogenic claudication (principal)
CPT/HCPCS: 99212

== ENCOUNTER → 2025-07-25 14:49 | Outpatient (BNVA) | payer MEDICARE, SELFPAY | PROVIDERS: PCP Internal Medicine; Visit Provider Neurological Surgery | DX: M48.062 Spinal stenosis, lumbar region with neurogenic claudication (principal) | CPT/HCPCS: 99212 ==

== ENCOUNTER → 2025-07-26 13:22 | Outpatient (BNV) | payer OTHER, SELFPAY | PROVIDERS: PCP Internal Medicine; Visit Provider Internal Medicine Cardiovascular Disease | DX: Z01.810 Encounter for preprocedural cardiovascular examination (principal) | CPT/HCPCS: 93010 ==

== ENCOUNTER 2025-08-09 09:04 | Day surgery (SDC) | payer OTHER, SELFPAY ==
--- OUTSIDE RECORDS SUMMARY | 2025-04-04 06:39 | XMS_ITS ---
Author Organization Ralph Meehan Address [address] [place] [address] Care Team Providers Care Guest Services Attendant Name Role Phone Jag Rosas Primary Care Provider [phone] REASON FOR VISIT referral Encounters Encounter Location Date Provider Diagnosis Ralph Meehan [address] [address] 04/04/20 Jag Rosas PLAN OF TREATMENT Next Appt Details Provider Name:Jag pollock, 08/23/2025 11:15:00 AM, [address] [place], [address],
--- OUTSIDE RECORDS SUMMARY | 2025-05-04 09:15 | XMS_ITS ---
Author Organization BIANCA Baum Address [address] [facility] [place] [address] Care Team Providers Care Chip Unloader Name Role Phone Jag Rosas Primary Care Provider REASON FOR VISIT (IN OFFICE) , Follow Up (MRI results) Encounters Encounter Location Date Provider Diagnosis Ralph Meehan [address] [place] [address] 05/04/20 Jag Rosas PLAN OF TREATMENT Next Appt Details Provider Name:Jag pollock, 08/23/2025 11:15:00 AM, [address] [place], [address],
--- OUTSIDE RECORDS SUMMARY | 2025-05-22 07:00 | XMS_ITS ---
Author Organization Ralph Meehan Address [address] [place] [address] Care Team Providers Care Sales Support Technician Name Role Phone Jag Rosas Primary Care Provider ALLERGIES Allergen (clinical drug ingredient) Drug/Non Drug Allergy documented on EMR Reaction Allergy Type Onset Date Status fluoxetine Fluoxetine Unknown Drug Allergy Activ e morphine Morphine Sulfate Unknown Drug Allergy Active Motrin Unknown Drug Allergy Active REASON FOR VISIT (IN OFFICE), Follow Up MEDICATIONS Medication SIG (Take, Route, Frequency, Duration) Notes Start Date End Date Status Pravastatin Sodium 40 MG Take 1 tablet b y mouth once daily for 90 Active DULoxetine HCl 30 MG 1 capsule Orally On ce a day 01/16/2025 Active DULoxetine HCl 60 MG 1 capsule Orally On ce a day for 30 days Active clonazePAM 0.5 MG Take 1 tablet by gene th once daily for 30 04/13/2025 Active Gabapentin 300 MG 1 capsule Orally Onc e a day for 90 Days Active ProAir HFA 108 (90 Base) MCG/ACT 2 puffs as needed Inhalation every 4 hrs Active Pantoprazole Sodium 40 MG 1 tablet Orall y Once a day Active Pravastatin Sodium 40 MG 1 tablet Orally Once a day Active clonazePAM 0.5 MG 1 tablet Orally Once a day for 90 Days Active Gabapentin 300 MG Take 1 capsule by mo uth once daily for 90 Active Symbicort 160-4.5 MCG/ACT 2 puffs Inhala tion Twice a day Active Budesonide 3 MG 1 capsule Orally Twi ce a day Active VITAL SIGNS Blood pressure systolic 100 mm Hg 05/22/20 25 Blood pressure diastolic 60 mm Hg 025 Heart Rate 72 /min 05/22/2025 Height 60 in 05/22/2025 Weight 128 lbs 05/22/2025 BMI 25.00 kg/m2 05/22/2025 Encounters Encounter Location Date Provider Diagnosis [facility]ee[facility], [address] [address] 05/22/2025 Jag Rosas Recurrent major depressive disorder, in full remission F33.42 ; Chronic obstructive pulmonary disease, unspecified COPD type J44.9 ; Mixed hyperlipidemia E78.2 ; Gastroesophageal reflux disease without esophagitis K21.9 ; Generalized anxiety disorder F41.1 ; History of lung cancer Z85.118 ; Alzheimer's disease with late onset G30.1 and Laboratory tests ordered as part of a complete physical exam (CPE) Z00.00 ASSESSMENTS Encounter Date Diagnosis Assessment Notes Treatment Notes Treatment Clinical Notes Section Notes 05/22/2025 Recurrent major depressive disorder, in full remission (ICD-10 - F33.42) 05/22/2025 Chronic obstructive pulmonary disease, unspecified COPD type (ICD-10 - J44.9) 05/22/2025 Mixed hyperlipidemia (ICD-10 - E78.2) 05/22/2025 Gastroesophageal reflux disease without esophagitis (ICD-10 - K21.9) 05/22/2025 Generalized anxiety disorder (ICD-10 - F41.1) 05/22/2025 History of lung cancer (ICD-10 - Z85.118) 05/22/2025 Alzheimer's disease with late onset (ICD-10 - G30.1) 05/22/2025 Laboratory tests ordered as part of a complete physical exam (CPE) (ICD-10 - Z00.00) 05/22/2025 Other This chart has been transcribed by a computerized dictation system. There are likely to be multiple burr grinder inaccuracies despite chart review. PLAN OF TREATMENT Medication Medication Name Sig Start Date Stop Date Notes DULoxetine HCl 30 MG 1 capsule Orally Once a day DULoxetine HCl 60 MG 1 capsule Orally On ce a day for 30 days Gabapentin 300 MG 1 capsule Orally Onc e a day for 90 Days ProAir HFA 108 (90 Base) MCG/ACT 2 puffs as needed Inhalation every 4 hrs Pantoprazole Sodium 40 MG 1 tablet Orally Once a day Pravastatin Sodium 40 MG 1 tablet Orally Once a day clonazePAM 0.5 MG 1 tablet Orally Once a day for 90 Days Symbicort 160-4.5 MCG/ACT 2 puffs Inhala tion Twice a day Treatment Notes Assessment Notes Other This chart has been transcribed by a computerized dictation system. There are likely to be multiple burr grinder inaccuracies despite chart review. Pending Test Test Name Order Date Urinalysis, Complete-[id number] 05/22/2025 Vitamin D, 68-Myouumx-[id number] 05/22/2025 LP+Non-HDL Cholesterol-[id number] 05/22/2025 TSH+Free [id number] 05/22/2025 Hepatic Function Panel [id number] 2024 Comp. Metabolic Panel [id number] 2024 CBC with Diff, Platelet, [id number] 05/04 Next Appt Details Follow Up: 3 Months, Reason: Medicare AWV Provider Name:Jag pollock, 08/23/2025 11:15:00 AM, [address] [place] [address], [phone], Progress Notes * Examination Category Sub-Category Detail Notes Category Not es General Examination GENERAL APPEARANCE: in no ac [place] distress, well developed, well nourished HEAD: normocephalic, atrau matic EYES: pupils equal, round, reactive to light and accommodation EARS: normal, tympanic mem brane intact, clear THROAT: clear, no erythema, uvula midline, no exudate NECK/THYROID: neck supple, no thyr omegaly, trachea midline, no carotid bruit HEART: no murmurs, regular rate and rhythm, S1, S2 normal LUNGS: clear to auscultatio n bilaterally ABDOMEN: soft, nontender, non distended, no organomegaly , bowel sounds present NEUROLOGIC: alert and oriented x 3, nonfocal SKIN: normal, no suspiciou s lesions, warm and dry, ecchymosis present on left posterior hand from recent IV placement EXTREMITIES: no clubbing, cyanosi s, or edema [...] patient with history of anxiety, depression, hyperlipidemia, COPD and history of lung cancer is here for follow up. I reviewed her MRI results with her that showed degenerative changes and severe spinal stenosis of L4-L5. She tells me that she is no longer having the pain in her lower back/buttocks. She continues to take Gabapentin without side effect. She tells me that she had a colonoscopy and they removed 9 polyps that were benign. Her anxiety and depression are well controlled on current medications. Her other chronic conditions are well controlled. She denies chest pain, palpitations and shortness of breath. I have ordered appropriate labs for prior to her annual wellness visit.
--- OUTSIDE RECORDS SUMMARY | 2025-06-08 08:45 | XMS_ITS ---
Author Organization [facility] Address [address] [place] [address] Care Team Providers Care Furnace Repairer Helper Name Role Phone Jag Rosas Primary Care Provider ALLERGIES Allergen (clinical drug ingredient) Drug/Non Drug Allergy documented on EMR Reaction Allergy Type Onset Date Status fluoxetine Fluoxetine Unknown Drug Allergy Activ e morphine Morphine Sulfate Unknown Drug Allergy Active Motrin Unknown Drug Allergy Active REASON FOR REFERRAL Reason Please read the serge ent to neurosurgery at [facility] and forward the MRI results Notes [...] AM EDT > all paperwork sent to [facility] , Azul Washington 06/14/2025 11:49:57 AM EDT > all paperwork resent to their office for scheduling , Azul Washington 06/20/2025 10:42:00 AM EDT > [place] [facility] for 06/29 @ 9am Dr. Powell Clinical Notes Dr. Beltran, , , [address] [place] [address], [address], [place] Referral Priority Routine Referral Appointment Date 06/29/2025 [...] stenosis at L4-L5 level (M48.061) Active confirmed [id number] Problem Sciatica, right side (M54.31) Active confirmed [id number] VITAL SIGNS Blood pressure systolic 106 mm Hg 06/08/20 25 Blood pressure diastolic 64 mm Hg 025 Heart Rate 80 /min 06/08/2025 Height 60 in 06/08/2025 Weight 130.4 lbs 06/08/2025 BMI 25.46 kg/m2 06/08/2025 Encounters Encounter Location Date Provider Diagnosis [facility] [address] [place] [address] 06/08/2025 Jag Rosas Spinal stenosis at L4-L5 level M48.061 and Sciatica, right side M54.31 ASSESSMENTS Encounter Date Diagnosis Assessment Notes Treatment Notes Treatment Clinical Notes Section Notes 06/08/2025 Spinal stenosis at L4-L5 level (ICD-10 - M48.061) 06/08/2025 Sciatica, right side (ICD-10 - M54.31) 06/08/2025 Other This chart has been transcribed by a computerized dictation system. There are likely to be multiple medical education specialist inaccuracies despite chart review. PLAN OF TREATMENT Medication Medication Name Sig Start Date Stop Date Notes Lidoderm 5 % 2patch remove after 12 hours Externally Once a day for 30 days 06/08/2025 Treatment Notes Assessment Notes Other This chart has been transcribed by a computerized dictation system. There are likely to be multiple medical education specialist inaccuracies despite chart review. Referrals Referral Date Details 06/29/2025 06/29/2025, Please r ead the patient to neurosurgery at [facility] and forward the MRI results Notes faxed, patient aware she will need to obtain CD images as well Next Appt Details Follow Up: as scheduled, Monica son: Provider Name:Jag pollock, 08/23/2025 11:15:00 AM, [address] [place] [address], [phone], Progress Notes * Examination Category Sub-Category Detail [...] trying surgery. She wants to go to [facility]. Our office will arrange an appointment for her to be evaluated by neurosurgery at [facility]. She needs a refill on Lidoderm [...] read t he patient to neurosurgery at [facility] and forward the MRI results Notes faxed, patient aware she will need to obtain CD images as well
--- OUTSIDE RECORDS SUMMARY | 2025-06-08 10:21 | XMS_ITS ---
Author Organization [facility] Address [address] [place] [address] Care Team Providers Care Servicenow Administrator Developer Name Role Phone Jag Rosas Primary Care Provider [phone] REASON FOR VISIT Message Encounters Encounter Location Date Provider Diagnosis [facility] [address] [address] 06/08/20 Jag Rosas PLAN OF TREATMENT Next Appt Details Provider Name:Jag pollock, 08/23/2025 11:15:00 AM, [address] [place], [phone],
--- OUTSIDE RECORDS SUMMARY | 2025-07-03 15:28 | XMS_ITS | Patient Health Record ---
Author Organization [facility] Address [address] [place] [address] Care Team Providers Care Lamp Mechanic Name Role Phone Jag Rosas Primary Care Provider ALLERGIES Allergen (clinical drug ingredient) Drug/Non Drug Allergy documented on EMR Reaction Allergy Type Onset Date Status fluoxetine Fluoxetine Unknown Drug Allergy Activ e morphine Morphine Sulfate Unknown Drug Allergy Active Motrin Unknown Drug Allergy Active RESULTS Component Value Reference Range Notes Hepatic Function Panel ([id number] Reviewed date:01/17/2025 08:41:40 AM Interpretation: Performing Lab:[facility], [address] [facility], Phone - [phone], Director - Nat Notes/Report: Albumin 4.2 3.8-4.8 g/dL Bilirubin, Total 0.5 0.0-1.2 mg/dL Bilirubin, Direct 0.19 0.00-0.40 mg/dL Alkaline Phosphatase 68 44-121 IU/L AST (SGOT) 25 0-40 IU/L ALT (SGPT) 14 0-32 IU/L Lipid Panel-[id number] Reviewed date:01/17/2025 08:41:40 AM Interpretation: Performing Lab:[facility], [address] [place], [place], Phone - [phone], Director - Nat Notes/Report: Cholesterol, Total 210 100-199 mg/dL Triglycerides 76 0-149 mg/dL HDL Cholesterol 95 >39 mg/dL VLDL Cholesterol Ke 13 5-40 mg/dL LDL Chol Calc ([facility]) 102 0-99 mg/dL LDL Calc Comment: SURGICAL PATHOLOGY Reviewed date:10/19/2024 07:50:23 PM Interpretation: Performing Lab:Testing performed or reported by [facility], a Service of [facility], [address] [place] [address] Nathan Ferris MD, Upper Stitcher CLIA# [id number] Notes/Report: Patient Name: NABOR CORTÉS Lab Patient [...] specimen processing and staining is performed at [facility], [address] [place] [address] (CLIA#[id number]). [facility]. Joe Rizvi M.D. Upper Stitcher of Surgical Pathology, Ronaldo Valderrama M.D. Upper Stitcher Cytopathology Phone #: [phone], On-Call Pathologist: [id number] REASON FOR REFERRAL Reason 30 minute procedure [...] Referral Priority Routine Reason PT treatments at [facility] Diagnosis 1 Bilateral sacroiliit is (M46.1) Referral Organization Jag Rosas Md Referring Provider First Name Jag Referring Provider Last Name Ralph Referring Provider Speciality Internal edicine Referred Provider Specialty Physical The rapist General Notes MatthiasbrayanShantanu 08/2025 12:54:30 PM EDT > Faxed to [facility] Referral Priority Routine Reason Consultation - APPT [...] 01:38:23 PM EDT > Done Clinical Notes [facility], , Referral Priority Urgent Referral Appointment Date 04/09/2025 Reason Please read the serge ent to neurosurgery at [facility] and forward the MRI results Notes faxed, [...] AM EDT > all paperwork sent to [facility] , Azul Washington 06/14/2025 11:49:57 AM EDT > all paperwork resent to their office for scheduling , Azul Washington 06/20/2025 10:42:00 AM EDT > Stephanie @ [facility] [place] schedule for 06/29 @ 9am Dr. Powell Clinical Notes Dr. Beltran, , , [address] [place] [address], [address], [place] Referral Priority Routine Referral Appointment Date 06/29/2025 [...] Code Notes Problem Anxiety (F41.9) Active confirmed 808002 02 Problem COPD exacerbation (J44.1) Active confirmed 541354593 Problem Neck pain (M54.2) Active confirmed 8168 0005 Problem Alzheimer's disease with late onset (G30.1) Active confirmed 35080331 Problem Generalized anxiety disorder (F41.1) Active confirmed 52758194 Problem Sciatica, right side (M54.31) Active confirmed 49202363971204709 Problem Mixed hyperlipidemia (E78.2) Active confirmed 892322732 Problem Gastroesophageal reflux disease without esophagitis (K21.9) Active confirmed 587160385 Problem Chronic obstructive pulmonary disease, unspecified COPD type (J44.9) Active confirmed 07289502 Problem History of lung cancer (Z85.118) Active confirmed 892391995 Problem Bilateral sacroiliitis (M46.1) Active confirmed 9044267297 Problem Depression, unspecified depression type (F32.9) Active confirmed 02295282 Problem Spinal stenosis at L4-L5 level (M48.061) Active confirmed 39194965 Problem Recurrent major depressive disorder, in full remission (F33.42) Active confirmed 21298784 Problem Left sciatic nerve pain (M54.32) Active confirmed 42818559 VITAL SIGNS Heart Rate 80 /min 06/08/2025 Blood pressure diastolic 64 mm Hg 06/08/2025 Height 60 in 06/08/2025 Blood pressure systolic 106 mm Hg 06/08/2025 Weight 130.4 lbs 06/08/2025 BMI 25.46 kg/m2 06/08/2025 Encounters Encounter Location Date Provider Diagnosis [address] [address] 08/29/2024 Jag Rosas Recurrent major depressive disorder, in full remission F33.42 ; Chronic obstructive pulmonary disease, unspecified COPD type J44.9 ; Mixed hyperlipidemia E78.2 ; Gastroesophageal reflux disease without esophagitis K21.9 ; Generalized anxiety disorder F41.1 ; History of lung cancer Z85.118 ; Alzheimer's disease with late onset G30.1 and Skin lesion L98.[address] [address] 09/21/2024 Jag Rosas Recurrent major depressive disorder, in full remission F33.42 ; Chronic obstructive pulmonary disease, unspecified COPD type J44.9 ; Mixed hyperlipidemia E78.2 ; Gastroesophageal reflux disease without esophagitis K21.9 ; Generalized anxiety disorder F41.1 ; History of lung cancer Z85.118 and Alzheimer's disease with late onset G30.[address] [address] 10/13/2024 Jag Rosas Inflamed seborrheic keratosis L82.[address] [address] 10/13/2024 Jag Rosas Recurrent major depressive disorder, in full remission F33.[address] [address] 10/18/2024 Jag Rosas Recurrent major depressive disorder, in full remission F33.[address] [address] 12/28/2024 Jag Suhbrianna Bilateral sacroiliit is M46.1 and Muscle spasm M62.[address] [address] 01/12/2025 Jag Vikashbrianna Bilateral sacroiliit is M46.[address] [address] 01/16/2025 Jag Rosas Recurrent major depressive disorder, in full remission F33.[address] [address] 01/16/2025 Jag Vikashbrianna [facility], [address] [address] 02/15/2025 Jag Rosas Recurrent major depressive disorder, in full remission F33.42 ; Chronic obstructive pulmonary disease, unspecified COPD type J44.9 ; Mixed hyperlipidemia E78.2 ; Gastroesophageal reflux disease without esophagitis K21.9 ; Generalized anxiety disorder F41.1 ; History of lung cancer Z85.118 and Alzheimer's disease with late onset G30.1 [facility], [address] [address] 02/28/2025 Jag Rosas Chronic obstructive pulmonary disease, unspecified COPD type J44.[address] [address] 03/27/2025 Jag Rosas Left sciatic nerve p ain M54.32 and Neck pain M54.[address] [address] 04/04/2025 [facility] [address] [address] 05/04/2025 Jag Vikashbrianna [address] [address] 05/22/2025 Jag Rosas Recurrent major depressive disorder, in full remission F33.42 ; Chronic obstructive pulmonary disease, unspecified COPD type J44.9 ; Mixed hyperlipidemia E78.2 ; Gastroesophageal reflux disease without esophagitis K21.9 ; Generalized anxiety disorder F41.1 ; History of lung cancer Z85.118 ; Alzheimer's disease with late onset G30.1 and Laboratory tests ordered as part of a complete physical exam (CPE) Z00.[address] [place] [address] 06/08/2025 Jag Rosas Spinal stenosis at L 4-L5 level M48.061 and Sciatica, right side M54.[address] [address] 06/08/2025 Jag Suhonealmaris ASSESSMENTS Encounter Date Diagnosis Assessment Notes Treatment Notes Treatment Clinical Notes Section Notes 10/13/2024 Inflamed seborrheic keratosis (ICD-10 - L82.0) 05/22/2025 Chronic obstructive pulmonary disease, unspecified COPD type (ICD-10 - J44.9) 05/22/2025 Recurrent major depressive disorder, in full remission (ICD-10 - F33.42) 03/27/2025 Neck pain (ICD-10 - M54.2) Advised patient to use passive range of motion, warm compresses and OTC tylenol. 03/27/2025 Left sciatic nerve pain (ICD-10 - M54.32) Advised patient to continue with home exercises from PT. Use of warm compresses and OTC Tylenol. Explained to patient that we will order an MRI. 02/15/2025 Chronic obstructive pulmonary disease, unspecified COPD type (ICD-10 - J44.9) 02/15/2025 Recurrent major depressive disorder, in full remission (ICD-10 - F33.42) 10/18/2024 Recurrent major depressive disorder, in full remission (ICD-10 - F33.42) 08/29/2024 Chronic obstructive pulmonary disease, unspecified COPD type (ICD-10 - J44.9) 08/29/2024 Recurrent major depressive disorder, in full remission (ICD-10 - F33.42) 09/21/2024 Recurrent major depressive disorder, in full remission (ICD-10 - F33.42) 09/21/2024 Chronic obstructive pulmonary disease, unspecified COPD type (ICD-10 - J44.9) 10/13/2024 Recurrent major depressive disorder, in full remission (ICD-10 - F33.42) 12/28/2024 Bilateral sacroiliitis (ICD-10 - M46.1) 12/28/2024 Muscle spasm (ICD-10 - M62.838) 01/12/2025 Bilateral sacroiliitis (ICD-10 - M46.1) 01/16/2025 Recurrent major depressive disorder, in full remission (ICD-10 - F33.42) 02/28/2025 Chronic obstructive pulmonary disease, unspecified COPD type (ICD-10 - J44.9) 06/08/2025 Sciatica, right side (ICD-10 - M54.31) 06/08/2025 Spinal stenosis at L4-L5 level (ICD-10 - M48.061) 09/21/2024 Mixed hyperlipidemia (ICD-10 - E78.2) 08/29/2024 Mixed hyperlipidemia (ICD-10 - E78.2) 02/15/2025 Mixed hyperlipidemia (ICD-10 - E78.2) 05/22/2025 Mixed hyperlipidemia (ICD-10 - E78.2) 09/21/2024 Gastroesophageal reflux disease without esophagitis (ICD-10 - K21.9) 05/22/2025 Gastroesophageal reflux disease without esophagitis (ICD-10 - K21.9) 02/15/2025 Gastroesophageal reflux disease without esophagitis (ICD-10 - K21.9) 08/29/2024 Gastroesophageal reflux disease without esophagitis (ICD-10 - K21.9) 05/22/2025 Generalized anxiety disorder (ICD-10 - F41.1) 02/15/2025 Generalized anxiety disorder (ICD-10 - F41.1) 09/21/2024 Generalized anxiety disorder (ICD-10 - F41.1) 08/29/2024 Generalized anxiety disorder (ICD-10 - F41.1) 09/21/2024 History of lung cancer (ICD-10 - Z85.118) 08/29/2024 History of lung cancer (ICD-10 - Z85.118) 02/15/2025 History of lung cancer (ICD-10 - Z85.118) 05/22/2025 History of lung cancer (ICD-10 - Z85.118) 08/29/2024 Alzheimer's disease with late onset (ICD-10 - G30.1) 09/21/2024 Alzheimer's disease with late onset (ICD-10 [...] system. There are likely to be multiple glass lathe operator inaccuracies despite chart review. 02/15/2025 Other This chart has been transcribed by a computerized dictation system. There are likely to be multiple glass lathe operator inaccuracies despite chart review. 05/22/2025 Other This chart has been transcribed by a computerized dictation system. There are likely to be multiple glass lathe operator inaccuracies despite chart review. 03/27/2025 Other This chart has been transcribed by a computerized dictation system. There are likely to be multiple glass lathe operator inaccuracies despite chart review. 09/21/2024 Other This chart has been transcribed by a computerized dictation system. There are likely to be multiple glass lathe operator inaccuracies despite chart review. This chart has been transcribed by a computerized dictation system. There are likely to be multiple glass lathe operator inaccuracies despite chart review. 12/28/2024 Other This chart has been transcribed by a computerized dictation system. There are likely to be multiple glass lathe operator inaccuracies despite chart review. 06/08/2025 Other This chart has been transcribed by a computerized dictation system. There are likely to be multiple glass lathe operator inaccuracies despite chart review. PLAN OF TREATMENT Pending Test Test Name Order Date MRI : Lumbosacral Spines 03/27/2025 X ray : Shoulder, left 07/17/2022 Echocardiogram 02/15/2019 X ray : Rib series, right 02/05/2022 Chest X-ray PA and lateral 02/05/2022 Chest X-ray PA and lateral 07/26/2012 Ultrasound : Abdomen, upper 02/05/2022 Bone Density 05/16/2018 X ray : Humerus, left 07/17/2022 *EKG 10/20/2019 *EKG 10/26/2012 *SPIROMETRY 07/26/2012 *SPIROMETRY 02/15/2019 Polysomnogram 02/15/2019 LIPID PANEL 02/19/2020 HEPATIC FUNCTION PANEL 02/19/2020 THYROID PANEL 05/11/2018 LYME AB 02/15/2019 LYME AB 10/20/2019 COMPLETE URINALYSIS 05/11/2018 CT Chest W/ Contrast 05/01/2019 HEPATIC FUNCTION PANEL 08/30/2023 HEPATIC FUNCTION PANEL 02/03/2023 HEPATIC FUNCTION PANEL 07/21/2021 HEPATIC FUNCTION PANEL 07/28/2023 HEPATIC FUNCTION PANEL 02/05/2022 LIPID PANEL 02/05/2022 LIPID PANEL 07/28/2023 LIPID PANEL 07/21/2021 LIPID PANEL 02/03/2023 LIPID PANEL 08/30/2023 Urinalysis, Complete-[id number] 05/22/2025 Vitamin D, 51-Lnrbjpy-[id number] 05/22/2025 LP+Non-HDL Cholesterol-876895 05/22/2025 TSH+Free [id number] 05/22/2025 Hepatic Function Panel [id number] 2024 Comp. Metabolic Panel [id number] 2024 CBC with Diff, Platelet, [id number] 05/04 Next Appt Details Provider Name:Jag Antoine Bonifacio pollock, 08/23/2025 11:15:00 AM, [address] [place] [address], [phone], Insurance Providers Payer Name Payer Address Payer Phone Subscriber Number Group Number Insured Name Patient Relationship to Insured Coverage Start Date Coverage End Date [facility] [address] [place] [address] [id number] Nabor Cortés Self - patient is the insured [facility] [address] [place] [address] [id number] Nabor Cortés Self - patient is the [...]
--- OUTSIDE RECORDS SUMMARY | 2025-07-03 15:28 | XMS_ITS | Encounter Summary ---
Author Organization [facility] Address [address] [place] [address] Care Team Providers Care Security Solutions Architect Name Role Phone Unavailable Primary Care Provider Unavailabl e Encounter Details Date Type Department Care Team ([facility] st Contact Info) Description 08/21/2020 Telephone CALL CENTER [facility] [address] [place] [phone] Dominga Deal MD Social History Tobacco Use [...]
--- OUTSIDE RECORDS SUMMARY | 2025-07-03 15:28 | XMS_ITS | Clinical Summary ---
Author Organization [facility] Address [address] [place] [address] Care Team Providers Care Reexaminer Name Role Phone Jag Rosas Primary Care Provider [phone] Allergies Active Allergy Reactions Criticality Noted Date [...] patient's age to complete this topic Insurance [facility] Advance Directives Documents on File Type Date Recorded Patient Intelligence Research Specialist Expl anation Advance Directive 12/24/2014 12:00 AM miles wetzel Dec Making (Adv.Dir) Advance Directive 12/21/2014 12:00 AM Adva nce Care Directives Care Teams Reexaminer Relationship Specialty Start Date End Date Jag Rosas PCP - General Internal Medicine 04/04/24
--- OUTSIDE RECORDS SUMMARY | 2025-07-03 15:28 | XMS_ITS | Continuity of Care Document ---
Author Organization [facility] Address [address] [place] [address] Care Team Providers Care Assistant Oceanographer Name Role Phone Unavailable Primary Care Provider Unavailabl e Encounters Date Type Department Care Team Description 09/12/2020 Travel 09/12/2020 3:45 PM EST Consult (Initial) [facility] Ophthalmology [address] [place] [phone] Dominga Deal MD Acquired involutional ptosis of eyelid, bilateral; Peripheral visual field defect of both eyes; Pseudophakia of both eyes 09/02/2020 Office Visit OPTOMETRY UNSPECIFIED Provider, Unknown 08/21/2020 Telephone CALL CENTER [facility] [address] [place] [phone] Dominga Deal MD Medications No known medications Active Problems No known active problems Social History Smoking Status as of 07/03/2025 Tobacco Use Types Packs/Day Years Used Date [...]
--- OUTSIDE RECORDS SUMMARY | 2025-07-03 15:29 | XMS_ITS | Data Portability ---
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 G. 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 Radiog raphic s. 2022;43 (9):e2 00660. https: //doi. org/[email or web address] .1148/ rg.230 009 Electr onical ly Signed By: Barbara Keenan MD [email or web address] [facility] ([facility]) [address], [place], [address], 11/06/2024 15:47:51 11/03/19 25 11/03/2024 MRI, brain , w/o contr ast No observ ation record ed. [email or web address] [facility] [address], [place], [address], 11/06/2024 15:50:39 11/28/19 25 11/25/2024 MRI, brain + brain stem, w/wo contr ast [facility] Access ion Number : [id number] Paulina mendez Name: Roxane Ruiz Record Number : [id number] Date of : 1944 Date of Exam: 2024 Referr ing Physic jeff: Tony Schneider [facility] Neurol ogy [address] [facility] [address] [place] [address] Exam: MR Brain (C-/C+ ) CPT 82701 Room Descri ption: [facility] Verio 3.0T HISTOR Y: Alzhei laura's diseas e. Lecane mab. TECHNI QUE: Multip lanar multis equenc e MRI of the brain (ARIA) was obtain ed before and after the admini strati on of 11 cc of Gabe MERCADO ZULEIMA: 025. FINDIN GS: ARIA-E : No eviden ce of parenc hymal edema or sulcal effusi on. Scatte red small FLAIR bright foci within the suprat entori al white matter on the prior examin ation are unchan ged. A puncta te FLAIR bright focus within the ventra l midlin e ben is also simila r. ARIA-H : (2) puncta te foci of suscep tibili ty artifa ct are presen t within the tempor al lobes, and these are unchan ged. No new focal abnorm al suscep tibili ty artifa ct or hemosi garrett staini ng. Modera te promin ence of the ventri cles and sulci, unchan ged. No new mass effect or extra- axial fluid collec tion, and the cervic omedul ele juncti on is unrema rkable . The flow voids throug h the [place] of [place] are mainta ined, and there is no restri cted diffus ion. The major dural venous sinuse s are patent , and there is no abnorm al intrac ranial enhanc ement. Bilate ral lens replac ements . The visual ized extra crania l soft tissue s are unrema rkable . Marrow signal is normal . IMPRES YESENIA: 1. No eviden ce of ARIA-E . 2. (2) puncta te foci of suscep tibili ty artifa ct within the tempor al lobes are unchan ged and compat ible with chroni c microh emorrh age. No new foci of suscep tibili ty artifa ct to indica te ARIA-H . 3. Scatte red FLAIR bright foci within the suprat entori al white matter are simila r and compat ible with chroni c microa ngiopa thic/s mall vessel ischem ic change . Electr onical ly Signed By: Jigar sierra [facility] ([facility]) [address] [place], [address], 11/29/2024 14:39:13 11/28/19 25 11/25/2024 MRI, brain , w/o contr ast No observ ation record ed. [email or web address] [facility] [address] [place], [address], 11/28/2024 15:07:14 12/29/19 25 12/27/2024 MRI, brain + brain stem, w/wo contr ast [facility] Access ion Number : [id number] Patien t Name: Roxane Ruiz Record Number : [id number] Date of : 1944 Date of Exam: 2024 Referr ing Physic jeff: Tony Schneider [facility] Neurol [facility]gy [address] [facility] [address] [place] [address] Exam: MR Brain (C-/C+ ) CPT 86959 Room Descri ption: [facility] 3.0T MRI of the brain withou t and with contra st. HISTOR Y: Bilate ral hearin g loss. Lung cancer . Alzhei laura's diseas e. COMPAR ZULEIMA: 025. FINDIN GS: This study is limite d by artifa cts over bilate ral fronta l lobes. The ventri cles, cister ns and sulci appear diffus ayde promin ent consis tent with genera lized age relate d atroph y. No hydroc ephalu s. Bilate ral fronta l lobes as well as the anteri or portio n of the corpus callos um are degrad ed by artifa cts and diffic ult to evalua te. Otherw ise there is no acute intrac ranial hemorr ciara, tumor or infarc t. No defini te abnorm al enhanc ement. Again demons trated the small foci of suscep tibili ty artifa cts in the tempor al lobes bilate rally, unchan ged. Multip le small areas of hyperi ntense T2/FLA IR signal s are seen in the perive ntricu lar and subcor tical white matter s bilate rally as well as centra l ben. The findin gs are nonspe cific and could repres ent chroni c small vessel ischem ic diseas e. Please correl ate clinic ally. Status post bilate ral lens extrac tions. There are normal flow-v oids within major intrac ranial vessel s. The parana jacobo sinuse s are clear. There is minima l mucosa l thicke bismark within bilate ral mastoi d air cells. IMPRES YESENIA: Limite d study due to artifa cts. The fronta l lobes includ ing the anteri or portio n of corpus callos um are degrad ed by artifa cts and diffic ult to evalua te. The rest of brain parenc hyma show no acute pathol ogy or abnorm al enhanc ement. Chroni c findin gs as descri bed above, stable . Electr onical ly Signed By: Mor sierra [facility] ([facility]) [address] [place], [address], 12/28/2024 11:22:14 12/29/19 25 12/27/2024 MRI, brain , w/o contr ast No observ ation record ed. 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 Please remove all laborer mine al artifa cts. 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 Please remove all laborer mine al artifa cts. Please call neuror adiolo gya??b efore patien t leaves a??to examin e images if artifa ct reappe a TECHNI QUE: MRI of the brain was perfor med with and withou t contra st utiliz ing sagitt al and axial T1, axial T2, 3-D sagitt al FLAIR, and axial DWI sequen jemal, axial SWI, and post-c ontras t 3D T1 VIBE with multip lanar reform ats. 10 mL Dotare m intrav enous contra st was admini stered . COMPAR ZULEIMA: Multip le priors , most recent 025 FINDIN GS: The post contra st imagin g is again degrad ed by fairly extens cameron artifa cts in the region of the fronta l lobes bilate rally, which may reflec t pulsat ion artifa ct from vascul ar struct ures. It is less pronou nced than on the most recent previo us exam. BRAIN and EXTRA- AXIAL SPACES : ARIA-E : No eviden ce of parenc hymal edema or sulcal effusi on. Scatte red FLAIR hyperi ntense foci in the suprat entori al white matter are again demons trated and simila r to the previo us exam, and is a puncta te focus of T2/FLA IR hyperi ntensi ty in the mid bne ARIA-H : Two puncta te foci of suscep tibili ty artifa ct are again demons trated , one in each of the tempor al lobes, and these are unchan ged. No new focal abnorm al suscep tibili ty artifa ct or superf icial hemosi garrett staini ng. Modera te promin ence of the ventri cles and sulci, unchan ged. No eviden ce of hydroc ephalu s. No eviden ce of acute or subacu te infarc tion. No extra- axial fluid collec tion or mass effect . The expect ed major vascul ar flow voids are mainta ined. No abnorm al enhanc ement. EXTRAC RANIAL SOFT TISSUE S: Bilate ral lens extrac tions. Parana jacobo sinuse s and mastoi ds are unrema rkable . BONES: Marrow signal is preser mago. IMPRES YESENIA: 1. No eviden ce of ARIA-E . 2. Two puncta te chroni c microh emorrh age is in the tempor al lobes are unchan ged and compat ible with chroni c microh emorrh age. No new foci of suscep tibili ty artifa ct to indica te ARIA-H . 3. Scatte red nonspe cific FLAIR hyperi ntensi ties in the white matter most likely reflec ting chroni c small vessel diseas e. 4. The post contra st imagin g is again degrad ed by promin ent artifa ct in the fronta l region , which could reflec t unusua lly promin ent pulsat ion artifa ct from vascul ar struct ures. This is less severe than on the most recent previo us exam. Electr onical ly Signed By: Mague post MD [facility] ([facility]) [address], [place], [address], 01/24/2025 07:47:10 01/23/20 25 01/18/2025 MRI, brain + brain stem, w/wo contr ast No observ ation record ed. [facility] ([facility]) [address] [place], [address], 01/22/2025 15:44:29 04/30/20 25 04/25/2025 MRI, brain + brain stem, w/wo contr ast [facility]- [facility] Access ion Number : [id number] Paulina mendez Name: Roxane Ruiz Record Number : [id number] Date of : 1944 Date of Exam: 2024 Referr ing Physic jeff: Tony Schneider [facility] roman Neurol ogy [address] [address] [place] [address] Exam: MR Brain (C-/C+ ) CPT 39411 Room Descri ption: [facility] 3.0T MR Brain (C-/C+ ) CPT 20734 INDICA TION / CLINIC AL QUESTI ON: - 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, Dontae ia in other diseas es classi fied elsewh ere, unspec ified severi ty, withou t behavi oral distur bance, psycho tic distur bance, mood distur bance, and anxiet y, , attn: Pilar e Colon: ARIA Lecane mab SWI Treatm ent C-/C+ Protoc ol, alzhei laura's diseas e - MRI to be schedu led leno rodriguez 04/19 - 04/25 - 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, Dontae ia in other diseas es classi fied elsewh ere, unspec ified severi ty, withou t behavi oral distur bance, psycho tic distur bance, mood distur bance, and anxiet y, , attn: Pilar e Colon: ARIA Lecane mab SWI Treatm ent C-/C+ Protoc ol, alzhei laura's diseas e - MRI to be schedu led leno rodriguez 04/19 - 04/25 Depart ment Protoc ol TECHNI QUE: MRI of the brain was perfor med with and withou t contra st utiliz ing sagitt al and axial T1, axial T2, 3-D sagitt al FLAIR with multip lanar reform ats, axial SWI, and axial DWI sequen jemal, and post-c ontras t 3D T1 VIBE with multip lanar reform ats. 6 mL Elucir em intrav enous contra st was admini stered . COMPAR ZULEIMA: Brain MRI 025 FINDIN GS: BRAIN and EXTRA- AXIAL SPACES : ARIA-E : No eviden ce of parenc hymal edema or sulcal effusi on. ARIA-H : No new foci of parenc hymal microh emorrh age or superf icial sidero sis. Two puncta te foci of chroni c microh emorrh age in the tempor al lobes, one on the right and one on the left, unchan ged. There is promin ence of the ventri cles and sulci compat ible with modera te genera lized volume loss. There are scatte red nonspe cific FLAIR hyperi ntensi ties in the white matter likely reflec ting chroni c small vessel diseas e The brains tem and cerebe llum are normal . There is no hemorr ciara, midlin e shift, or mass effect . There is no extra- axial collec tion. Flow voids are preser mago in the domina nt intrac ranial vessel s. There is no abnorm al enhanc ement. EXTRAC RANIAL SOFT TISSUE S: Sinuse s and mastoi ds are clear. There has been bilate ral lens extrac tion. BONES: Bone marrow signal is normal . IMPRES YESENIA: 1. No eviden ce of new ARIA-H , ARIA-E , or other acute intrac ranial abnorm ality. 2. No eviden ce of acute/ subacu te infarc tion, mass effect , or abnorm al enhanc ement. 3. Scatte red nonspe cific white matter signal change s which most likely reflec t chroni c small vessel diseas e. Amyloi d relate d imagin g abnorm alitie s (ARIA) gradin g system ARIA-E : Edema (corti tan/bailey bcorti tan FLAIR hyperi ntensi ty and swelli ng) or effusi on (FLAIR hyperi ntensi ty in sulci) Gradin g: Mild: FLAIR hyperi ntensi ty confin ed to sulcus and cortex /subco rtical white matter in one locati on Modera te: FLAIR hyperi ntensi ty 5-10 cm, or more than 1 site of involv ement each measur ing Severe : sites ARIA-H : Microh emorrh age or superf icial sidero sis Microh emorrh age gradin g: Mild: 4 or fewer new microh emorrh ages Modera te: 5-9 new microh emorrh ages Severe : 10 or more new microh emorrh ages Superf icial sidero sis gradin g: Mild: 1 focal area of superf icial sidero sis Modera te: 2 focal areas of superf icial sidero sis Severe : more than 2 focal areas of superf icial sidero sis Refere nce: Maty robertson A, Padilla V, Braashlyn hatvanessa P, Effie A, Kishore oates P, John hidalgo N, Bathwendy G. 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 Radiog raphic s. 2022;43 (9):e2 37318. https: //doi. org/10 .1148/ rg.230 009 Electr onical ly Signed By: Mague sierra [facility] ([facility]) [address] [place], [address], 05/02/2025 11:01:02 Result Notes Documentation Provider Name and Address Organization Details Recorded Time Mri, Brain + Brain Stem, W/wo Contrast : [facility] [place] Accession Number: [id number] Patient Name: Roxane Ruiz Date of : 1945 Date of Exam: 11-03-2024 Referring Physician: Beatriz Schneider [facility] [address] [place] [address] - [address] [place] [address] Exam: MR Brain (C-/C+) CPT 61307 Room Description: [facility] 3.0T MR Brain (C-/C+) CPT 86651 INDICATION / CLINICAL QUESTION: G30.1 - Alzheimer's disease with late onset attn: Alexia Colon: please schedule 11/15/24 - 11/24/24, KATIE Bajwa SWI Treatment C-/C+ Protocol TECHNIQUE: Multiplanar, multisequence MRI of the brain was performed with and without intravenous contrast. 10 mL Dotarem intravenous contrast was administered. COMPARISON: MRI brain 02/11/2024. FINDINGS: BRAIN and EXTRA-AXIAL SPACES: No evidence of parenchymal edema or sulcal effusion to suggest ARIA-E. There are small foci of susceptibility artifact consistent with microhemorrhage in the bilateral lateral temporal lobes (series 5 image 26 on the right and image 23 on the left. These are more conspicuous than on the prior study, due to higher sensitivity of the current SWI technique at 3T compared to the prior GRE sequence at 1.5 T. However, these are in retrospect subtly present on the prior examination. No new hemorrhage is seen. No evidence of superficial siderosis. There is no mass effect, midline shift, or effacement of the basal cisterns. On diffusion weighted imaging, there are no regions of restricted diffusion to indicate an acute or subacute infarct. Mild scattered foci of T2 prolongation are seen in the subcortical and deep white matter as well as the mid ben. The midline structures are unremarkable. Ventricles, cisterns, and sulci are moderately prominent, consistent with volume loss, without lobar predilection. There is no hydrocephalus. No abnormal extra-axial fluid collections are seen. Meningeal surfaces are normal. No abnormal intracranial enhancement is seen. Major intracranial flow voids are present. EXTRACRANIAL SOFT TISSUES: There have been lens replacements bilaterally. Paranasal sinuses and mastoids are unremarkable. BONES: Marrow signal is preserved. IMPRESSION: 1. No evidence of ARIA-E. 2. Punctate foci of microhemorrhage in bilateral temporal lobes. These are more conspicuous than on the prior study due to difference in technique, but are in retrospect unchanged. No new foci of microhemorrhage to suggest ARIA-H. 3. Moderate volume loss and mild small vessel disease of the white matter again noted. Amyloid related imaging abnormalities (ARIA) grading system ARIA-E: Edema (cortical/subcortical FLAIR hyperintensity and swelling) or effusion (FLAIR hyperintensity in sulci) Grading: Mild: FLAIR hyperintensity confined to sulcus and cortex/subcortical white matter in one location Moderate: FLAIR hyperintensity 5-10 cm, or more than 1 site of involvement each measuring Severe: sites ARIA-H: Microhemorrhage or superficial siderosis Microhemorrhage grading: Mild: 4 or fewer new microhemorrhages Moderate: 5-9 new microhemorrhages Severe: 10 or more new microhemorrhages Superficial siderosis grading: Mild: 1 focal area of superficial siderosis Moderate: 2 focal areas of superficial siderosis Severe: more than 2 focal areas of superficial siderosis Reference: Anuja Duong, Valerie Gutierrez, Evy P, Effie Duong, Yolanda P, Avis Irving. Amyloid-related Imaging Abnormalities in Alzheimer Disease Treated with Anti-Amyloid-? Therapy. Radiographics. 2022 Sep;43(9):[id number]. https://doi.[email or web address]/rg. [email or web address] Electronically Signed By: Leila Guzman [facility] 11/06/2024 15:47:51 Mri, Brain + Brain Stem, W/wo Contrast : [facility] Accession Number: [id number] Patient Name: Roxane Ruiz Date of : 1945 Date of Exam: 11-25-2024 Referring Physician: Beatriz Schneider [facility] [address] [place] [address] - [address] [place] [address] Exam: MR Brain (C-/C+) CPT 23877 Room Description: [facility] 3.0T HISTORY: Alzheimer's disease. Lecanemab. TECHNIQUE: Multiplanar multisequence MRI of the brain (ARIA) was obtained before and after the administration of 11 cc of Dotarem. COMPARISON: 11/03/2024. FINDINGS: ARIA-E: No evidence of parenchymal edema or sulcal effusion. Scattered small FLAIR bright foci within the supratentorial white matter on the prior examination are unchanged. A punctate FLAIR bright focus within the ventral midline ben is also similar. ARIA-H: (2) punctate foci of susceptibility artifact are present within the temporal lobes, and these are unchanged. No new focal abnormal susceptibility artifact or hemosiderin staining. Moderate prominence of the ventricles and sulci, unchanged. No new mass effect or extra-axial fluid collection, and the cervicomedullary junction is unremarkable. The flow voids through the [place] of [place] are maintained, and there is no restricted diffusion. The major dural venous sinuses are patent, and there is no abnormal intracranial enhancement. Bilateral lens replacements. The visualized extra cranial soft tissues are unremarkable. Marrow signal is normal. IMPRESSION: 1. No evidence of ARIA-E. 2. (2) punctate foci of susceptibility artifact within the temporal lobes are unchanged and compatible with chronic microhemorrhage. No new foci of susceptibility artifact to indicate ARIA-H. 3. Scattered FLAIR bright foci within the supratentorial white matter are similar and compatible with chronic microangiopathic/small vessel ischemic change. Electronically Signed By: Jigar Estes [facility] 11/29/2024 14:39:13 Mri, Brain + Brain Stem, W/wo Contrast : [facility] Accession Number: [id number] Patient Name: Roxane Ruiz Date of : 1945 Date of Exam: 12-27-2024 Referring Physician: Beatriz Schneider [facility] [address] [place] [address] - [address] [place] [address] Exam: MR Brain (C-/C+) CPT 37708 Room Description: [facility] 3.0T MRI of the brain without and with contrast. HISTORY: Bilateral hearing loss. Lung cancer. Alzheimer's disease. COMPARISON: 11/25/2024. FINDINGS: This study is limited by artifacts over bilateral frontal lobes. The ventricles, cisterns and sulci appear diffusely prominent consistent with generalized age related atrophy. No hydrocephalus. Bilateral frontal lobes as well as the anterior portion of the corpus callosum are degraded by artifacts and difficult to evaluate. Otherwise there is no acute intracranial hemorrhage, tumor or infarct. No definite abnormal enhancement. Again demonstrated the small foci of susceptibility artifacts in the temporal lobes bilaterally, unchanged. Multiple small areas of hyperintense T2/FLAIR signals are seen in the periventricular and subcortical white matters bilaterally as well as central ben. The findings are nonspecific and could represent chronic small vessel ischemic disease. Please correlate clinically. Status post bilateral lens extractions. There are normal flow-voids within major intracranial vessels. The paranasal sinuses are clear. There is minimal mucosal thickening within bilateral mastoid air cells. IMPRESSION: Limited study due to artifacts. The frontal lobes including the anterior portion of corpus callosum are degraded by artifacts and difficult to evaluate. The rest of brain parenchyma show no acute pathology or abnormal enhancement. Chronic findings as described above, stable. Electronically Signed By: [facility] 12/28/2024 11:22:14 Mri, Brain + Brain Stem, W/wo Contrast : [facility] Accession Number: [id number] Patient Name: Roxane Ruiz Date of : 1945 Date of Exam: 04-25-2025 Referring Physician: Beatriz Schneider [facility] [address] [place] [address] - [address] [place] [address] Exam: MR Brain (C-/C+) CPT 34422 Room Description: [facility] 3.0T MR Brain (C-/C+) CPT 35051 INDICATION / CLINICAL QUESTION: - Alzheimer's disease with late onset, Dementia in other diseases classified elsewhere, unspecified severity, without behavioral disturbance, psychotic disturbance, mood disturbance, and anxiety, , attn: Alexia Bautista: ARIA Lecanemab SWI Treatment C-/C+ Protocol, alzheimer's disease - MRI to be scheduled between 04/19 - 04/25 - Alzheimer's disease with late onset, Dementia in other diseases classified elsewhere, unspecified severity, without behavioral disturbance, psychotic disturbance, mood disturbance, and anxiety, , attn: Alexia Bautista: ARIA Lecanemab SWI Treatment C-/C+ Protocol, alzheimer's disease - MRI to be scheduled between 04/19 - 04/25 Department Protocol TECHNIQUE: MRI of the brain was performed with and without contrast utilizing sagittal and axial T1, axial T2, 3-D sagittal FLAIR with multiplanar reformats, axial SWI, and axial DWI sequences, and post-contrast 3D T1 VIBE with multiplanar reformats. 6 mL Elucirem intravenous contrast was administered. COMPARISON: Brain MRI 01/18/2025 FINDINGS: BRAIN and EXTRA-AXIAL SPACES: ARIA-E: No evidence of parenchymal edema or sulcal effusion. ARIA-H: No new foci of parenchymal microhemorrhage or superficial siderosis. Two punctate foci of chronic microhemorrhage in the temporal lobes, one on the right and one on the left, unchanged. There is prominence of the ventricles and sulci compatible with moderate generalized volume loss. There are scattered nonspecific FLAIR hyperintensities in the white matter likely reflecting chronic small vessel disease The brainstem and cerebellum are normal. There is no hemorrhage, midline shift, or mass effect. There is no extra-axial collection. Flow voids are preserved in the dominant intracranial vessels. There is no abnormal enhancement. EXTRACRANIAL SOFT TISSUES: Sinuses and mastoids are clear. There has been bilateral lens extraction. BONES: Bone marrow signal is normal. IMPRESSION: 1. No evidence of new ARIA-H, ARIA-E, or other acute intracranial abnormality. 2. No evidence of acute/subacute infarction, mass effect, or abnormal enhancement. 3. Scattered nonspecific white matter signal changes which most likely reflect chronic small vessel disease. Amyloid related imaging abnormalities (ARIA) grading system ARIA-E: Edema (cortical/subcortical FLAIR hyperintensity and swelling) or effusion (FLAIR hyperintensity in sulci) Grading: Mild: FLAIR hyperintensity confined to sulcus and cortex/subcortical white matter in one location Moderate: FLAIR hyperintensity 5-10 cm, or more than 1 site of involvement each measuring Severe: sites ARIA-H: Microhemorrhage or superficial siderosis Microhemorrhage grading: Mild: 4 or fewer new microhemorrhages Moderate: 5-9 new microhemorrhages Severe: 10 or more new microhemorrhages Superficial siderosis grading: Mild: 1 focal area of superficial siderosis Moderate: 2 focal areas of superficial siderosis Severe: more than 2 focal areas of superficial siderosis Reference: Anuja A, Valerie V, Evy P, Effie A, Yolanda P, Rafa Rodriguez, Avis G. Amyloid-related Imaging Abnormalities in Alzheimer Disease Treated with Anti-Amyloid-? Therapy. Radiographics. 2022;43(9):[id number]. [email or web address] Electronically Signed By: Mague berrios [facility]ly [facility] [employer] [facility] 05/02/2025 11:01:02 Procedures Surgical History Date Name Laterality Status Provider Name and Address Organization Details Recorded Time 05/08/2025 DATA REVIEW completed Beatriz Schneider MD [address] [place] [address] [place], [phone], [facility]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
--- NOTE | 2025-07-26 | ECG_ITS ---
Test Reason : preop Blood Pressure : */* mmHG Vent. Rate : 68 BPM Atrial Rate : 68 BPM P-R Int : 184 ms QRS Dur : 78 ms QT Int : 380 ms P-R-T Axes : 75 33 53 degrees QTcB Int : 404 ms Normal sinus rhythm Low voltage QRS Borderline ECG When compared with ECG of 12-Aug-2022 05:22, No significant change was found Referred By: Muna Gruber Electronically Signed By: AMARA FONG MD
[2025-07-26 12:28] VITALS: BP 137/70; PULSE 78; RESP 18; O2SAT 98; BMI 25.6
--- NOTE | 2025-07-26 12:49 | HO.ANESPROP2 ---
Documented by User: Muna Gruber NP 07/27/25 08:15 HPI - Anesthesia Eval Consult details Narrative: 80yo F for L4-5 Decompression, 08/09/25 No recent illness No CP. GONZALEZ with stairs senior living and at baseline, no SOB at rest or walking flat Lung CA s/p wedge resection 2012. Follows only with PCP now. COPD: stable. prn inhaler < 1 x weekly currently (more often in heat of summer) GERD: Denies symptoms, no rx Early stage Alzheimer's: monoclonal antibiodies IV q 2 weeks. Due 08/08/25. Discussed risk of increased post op delerium / exacerbation of symptoms Bilat hearing aids PMFSH Active Problems Active Problems: All Active Problems Lumbar stenosis with neurogenic claudication (Acute) Lumbosacral stenosis (Acute) Gluteal pain (Acute) Hamstring tightness of both lower extremities (Acute) Rotator cuff tear arthropathy of left shoulder (Acute) Right shoulder tendonitis (Acute) Tendonitis of both rotator cuffs (Acute) Past Medical History Medical History Wears hearing aid in both ears Back pain Arthritis Wheezing SOB (shortness of breath) Bilateral sacroiliitis Alzheimer disease GERD (gastroesophageal reflux disease) Lung cancer Mixed hyperlipidemia COPD (chronic obstructive pulmonary disease) Anxiety Depression Diverticulosis Colitis Family History Family history of problems with anesthesia: No Surgical History Surgical History H/O colonoscopy Hx of bilateral cataract extraction History of lung surgery (~2007) History of Problems with Anesthesia: No Social History Social History Are you a primary respiratory care technician to a significant other at home: No Do you presently have visiting nurse or other home services: No Patient Tobacco Use Status: Former Tobacco user Use of substances other than those prescribed or required for medical reasons: No Have you been hit, kicked, punched, or otherwise hurt by someone within the past year? If so, by whom?: No Are you DNR?: Yes Advance Directives: No Advance Directives Information Provided: Yes Advance Directives on File: No Patient : No : No Current occupational status: unemployed Current occupation: ambidextrous Meds Allergies Allergy/AdvReac Type Severity Reaction Status Date / Time aspirin Allergy palpations Verified 06/29/25 09:17 codeine Allergy Palpitation Verified 06/29/25 09:17 s fluoxetine Allergy Unknown Verified 07/25/25 11:41 ibuprofen Allergy jitters Verified 06/29/25 09:17 morphine Allergy Stomach Verified 06/29/25 09:17 Upset cold medications Allergy Palpitation Uncoded 05/06/23 12:11 s Home Medications ?Medication ?Instructions ?Recorded ?Confirmed ?Last Taken ?Type gabapentin 300 mg capsule 300 mg PO DAILY 11/06/22 07/25/25 08/08/25 History budesonide-formoterol HFA 160 2 puff inhalation DAILY PRN 07/25/25 07/26/25 08/08/25 History mcg-4.5 mcg/actuation aerosol Shortness Of Breath Or Wheezing inhaler (Breyna) clonazepam 0.5 mg tablet 0.5 mg PO DAILY 07/25/25 07/25/25 08/08/25 History duloxetine 30 mg capsule,delayed 30 mg PO DAILY 07/25/25 07/25/25 08/08/25 History release duloxetine 60 mg capsule,delayed 60 mg PO DAILY 07/25/25 07/25/25 08/08/25 History release pravastatin 40 mg tablet 40 mg PO BEDTIME 07/25/25 07/26/25 08/08/25 History lecanemab-irmb 100 mg/mL mg IV Q2W 07/26/25 07/25/25 History intravenous solution Held on 08/06/25. Instructions: Resume on 08/23/25. You may resume this after your follow-up and we are sure that your wound is healing up without any signs of infection loperamide 2 mg capsule 2 mg PO QID PRN Diarrhea 07/26/25 07/26/25 08/08/25 History Exam Height,Weight and Vital Signs: Height 5 ft Weight 59.421 kg Last Vital Signs Pulse 78 07/26/25 12:28 Resp 18 07/26/25 12:28 BP 137/70 07/26/25 12:28 Pulse Ox 98 07/26/25 12:28 O2 Del Method Room Air 07/26/25 12:28 Pertinent Lab Results Pertinent Lab Results: Lab Results 07/26/25 Range/Units 13:18 WBC 4.9 (4.8-10.8) X10*3/uL RBC 4.14 L (4.20-5.50) X10*6/uL Hgb 13.0 (12.0-16.0) g/dl Hct 40.1 (37.0-47.0) % MCV 96.9 (80.0-98.0) fL MCH 31.4 (27.0-33.0) pg MCHC 32.4 (31.0-35.0) g/dl RDW 13.2 (11.0-16.0) % Plt Count 172 (160-400) X10*3/uL MPV 10.1 (9.4-12.3) fL Absolute Nucleated RBC 0.000 (0.0-0.012) X10*3/uL Nucleated RBC % (auto) 0.0 (0.0-0.2) /100WBC Sodium 139 (135-145) mmol/L Potassium 4.1 (3.3-5.1) mmol/L Chloride 106 (96-108) mmol/L Carbon Dioxide 26 (22-29) mmol/L Anion Gap 11 L (12-20) BUN 17 H (9-16) mg/dL Creatinine 0.79 (0.5-1.4) mg/dL Estim Creat Clear Calc 45.0 Estimated GFR > 60 Random Glucose 75 (60-115) mg/dL Calcium 8.9 D (8.4-10.2) mg/dL Narrative Narrative: EKG 07/2025 Vent. Rate : 68 BPM Atrial Rate : 68 BPM P-R Int : 184 ms QRS Dur : 78 ms QT Int : 380 ms P-R-T Axes : 75 33 53 degrees QTcB Int : 404 ms Normal sinus rhythm Low voltage QRS Borderline ECG When compared with ECG of 12-Aug-2022 05:22, No significant change was found Airway Mallampati Class: III TM Dist: >3cm Neck ROM: Limited Partial: Upper and Lower Heart: RRR Lungs: CTAB Assessment and Plan Assessment Anesthesia Assessment: Anesthesia Plan Discussed and PAT Visit Final Anesthetic Review Family History of Problems with Anesthesia: No History of Problems with Anesthesia: No Documented by User: Aileen Holguin NP 08/07/25 09:54 HPI - Anesthesia Eval Consult details Narrative: 80yo F for L4-5 Decompression, 08/09/25 No recent illness No CP. GONZALEZ with stairs senior living and at baseline, no SOB at rest or walking flat Lung CA s/p wedge resection 2012. Follows only with PCP now. COPD: stable. prn inhaler < 1 x weekly currently (more often in heat of summer) GERD: Denies symptoms, no rx Early stage Alzheimer's: monoclonal antibiodies (Leqembi) IV q 2 weeks. Due 08/08/25. Discussed risk of increased post op delerium / exacerbation of symptoms Bilat hearing aids PMFSH Past Medical History Medical History Wears hearing aid in both ears Back pain Arthritis Wheezing SOB (shortness of breath) Bilateral sacroiliitis Alzheimer disease GERD (gastroesophageal reflux disease) Lung cancer Mixed hyperlipidemia COPD (chronic obstructive pulmonary disease) Anxiety Depression Diverticulosis Colitis Surgical History Surgical History H/O colonoscopy Hx of bilateral cataract extraction History of lung surgery (~2007) Social History Social History Are you a primary respiratory care technician to a significant other at home: No Do you presently have visiting nurse or other home services: No Patient Tobacco Use Status: Former Tobacco user Use of substances other than those prescribed or required for medical reasons: No Have you been hit, kicked, punched, or otherwise hurt by someone within the past year? If so, by whom?: No Are you DNR?: Yes Advance Directives: No Advance Directives Information Provided: Yes Advance Directives on File: No Patient : No : No Current occupational status: unemployed Current occupation: ambidextrous Meds Allergies Allergy/AdvReac Type Severity Reaction Status Date / Time aspirin Allergy palpations Verified 06/29/25 09:17 codeine Allergy Palpitation Verified 06/29/25 09:17 s fluoxetine Allergy Unknown Verified 07/25/25 11:41 ibuprofen Allergy jitters Verified 06/29/25 09:17 morphine Allergy Stomach Verified 06/29/25 09:17 Upset cold medications Allergy Palpitation Uncoded 05/06/23 12:11 s Home Medications ?Medication ?Instructions ?Recorded ?Confirmed ?Last Taken ?Type gabapentin 300 mg capsule 300 mg PO DAILY 11/06/22 07/25/25 08/08/25 History budesonide-formoterol HFA 160 2 puff inhalation DAILY PRN 07/25/25 07/26/25 08/08/25 History mcg-4.5 mcg/actuation aerosol Shortness Of Breath Or Wheezing inhaler (Breyna) clonazepam 0.5 mg tablet 0.5 mg PO DAILY 07/25/25 07/25/25 08/08/25 History duloxetine 30 mg capsule,delayed 30 mg PO DAILY 07/25/25 07/25/25 08/08/25 History release duloxetine 60 mg capsule,delayed 60 mg PO DAILY 07/25/25 07/25/25 08/08/25 History release pravastatin 40 mg tablet 40 mg PO BEDTIME 07/25/25 07/26/25 08/08/25 History lecanemab-irmb 100 mg/mL mg IV Q2W 07/26/25 07/25/25 History intravenous solution Held on 08/06/25. Instructions: Resume on 08/23/25. You may resume this after your follow-up and we are sure that your wound is healing up without any signs of infection loperamide 2 mg capsule 2 mg PO QID PRN Diarrhea 07/26/25 07/26/25 08/08/25 History Documented by User: Ramy Leon MD 08/09/25 12:01 [facility] Past Medical History Medical History Wears hearing aid in both ears Back pain Arthritis Wheezing SOB (shortness of breath) Bilateral sacroiliitis Alzheimer disease GERD (gastroesophageal reflux disease) Lung cancer Mixed hyperlipidemia COPD (chronic obstructive pulmonary disease) Anxiety Depression Diverticulosis Colitis Surgical History Surgical History H/O colonoscopy Hx of bilateral cataract extraction History of lung surgery (~2007) Social History Social History Are you a primary respiratory care technician to a significant other at home: No Do you presently have visiting nurse or other home services: No Patient Tobacco Use Status: Former Tobacco user Use of substances other than those prescribed or required for medical reasons: No Have you been hit, kicked, punched, or otherwise hurt by someone within the past year? If so, by whom?: No Are you DNR?: Yes Advance Directives: No Advance Directives Information Provided: Yes Advance Directives on File: No Patient : No : No Current occupational status: unemployed Current occupation: ambidextrous Meds Allergies Allergy/AdvReac Type Severity Reaction Status Date / Time aspirin Allergy palpations Verified 06/29/25 09:17 codeine Allergy Palpitation Verified 06/29/25 09:17 s fluoxetine Allergy Unknown Verified 07/25/25 11:41 ibuprofen Allergy jitters Verified 06/29/25 09:17 morphine Allergy Stomach Verified 06/29/25 09:17 Upset cold medications Allergy Palpitation Uncoded 05/06/23 12:11 s Home Medications ?Medication ?Instructions ?Recorded ?Confirmed ?Last Taken ?Type gabapentin 300 mg capsule 300 mg PO DAILY 11/06/22 07/25/25 08/08/25 History budesonide-formoterol HFA 160 2 puff inhalation DAILY PRN 07/25/25 07/26/25 08/08/25 History mcg-4.5 mcg/actuation aerosol Shortness Of Breath Or Wheezing inhaler (Breyna) clonazepam 0.5 mg tablet 0.5 mg PO DAILY 07/25/25 07/25/25 08/08/25 History duloxetine 30 mg capsule,delayed 30 mg PO DAILY 07/25/25 07/25/25 08/08/25 History release duloxetine 60 mg capsule,delayed 60 mg PO DAILY 07/25/25 07/25/25 08/08/25 History release pravastatin 40 mg tablet 40 mg PO BEDTIME 1007/26/25 08/08/25 History lecanemab-irmb 100 mg/mL mg IV Q2W 07/26/25 07/25/25 History intravenous solution Held on 08/06/25. Instructions: Resume on 08/23/25. You may resume this after your follow-up and we are sure that your wound is healing up without any signs of infection loperamide 2 mg capsule 2 mg PO QID PRN Diarrhea 07/26/25 07/26/25 08/08/25 History Exam Exam Date and Time: 08/09/25 Assessment and Plan Final Anesthetic Review NPO: Yes ASA Class: II Final Preanesthetic Review: No Changes in Pt Med Stat, Meds/Allgs Chart Reviewed, Consent Obtained/Reviewed and Anes Risks/Benef Reviewed Patient Risk: Low Procedure Risk: Low Anesthetic Plan Anesthetic Plan: GA Disposition: Standard PACU
[2025-07-26 13:30] LABS: Hematocrit 40.1 % (37.0-47.0); Hemoglobin 13.0 g/dl (12.0-16.0); Mean Corpuscular HGB Conc 32.4 g/dl (31.0-35.0); Mean Corpuscular Hemoglobin 31.4 pg (27.0-33.0); Mean Corpuscular Volume 96.9 fL (80.0-98.0); NRBC Abs Auto 0.000 X10*3/uL (0.0-0.012); NRBC Pct Auto 0.0 /100WBC (0.0-0.2); Platelet Count 172 X10*3/uL (160-400); Red Blood Count 4.14 X10*6/uL (4.20-5.50); White Blood Count 4.9 X10*3/uL (4.8-10.8)
[2025-07-26 14:10] LABS: Anion Gap 11 (12-20); Blood Urea Nitrogen 17 mg/dL (9-16); Calcium 8.9 mg/dL (8.4-10.2); Carbon Dioxide 26 mmol/L (22-29); Chloride 106 mmol/L (96-108); Creatinine Clr Calc Pharmacy 45.0; Estimated Glomerular Filt Rate > 60; Potassium 4.1 mmol/L (3.3-5.1); Sodium 139 mmol/L (135-145)
--- NOTE | 2025-08-06 15:38 | P.DS_ITS ---
DS: Providers Provider Date of Service: 08/09/25 Date of discharge: 08/09/25 Primary care physician: Jag Rosas MD Admitting clinician: Aldo Powell DS: Diagnosis Discharge Diagnosis (1) Lumbar stenosis with neurogenic claudication: Status: Acute Physical Exam Vital Signs: Vital Signs: Last Vital Signs Pulse 78 07/26/25 12:28 Resp 18 07/26/25 12:28 BP 137/70 07/26/25 12:28 Pulse Ox 98 07/26/25 12:28 O2 Del Method Room Air 07/26/25 12:28 BMI result Body Mass Index 25.6 Discharge Plan Discharge Patient Disposition: Home, Self-Care Referrals: Jag Rosas MD [Primary Care Provider, Internal Medicine] - 1 Week Discharge Medications: Continued clonazepam 0.5 mg tablet 0.5 mg PO DAILY duloxetine 30 mg capsule,delayed release(DR/EC) 30 mg PO DAILY duloxetine 60 mg capsule,delayed release(DR/EC) 60 mg PO DAILY budesonide-formoterol [Breyna] 160-4.5 mcg/actuation HFA aerosol inhaler 2 puff INHALATION DAILY PRN (Reason: Shortness Of Breath Or Wheezing) pravastatin 40 mg tablet 40 mg PO BEDTIME loperamide 2 mg Capsule 2 mg PO QID PRN (Reason: Diarrhea) gabapentin 300 mg capsule 300 mg PO DAILY Held lecanemab-irmb 100 mg/mL Solution IV Q2W Hold Instructions: Resume on 08/23/25. You may resume this after your follow- up and we are sure that your wound is healing up without any signs of infection Diet: Advance to usual diet Activity on Discharge: As tolerated Activity Restrictions/Additional Instructions: After your spinal surgery we ask you to observe the following restrictions/guidelines: Activity: It is normal to feel some discomfort as you increase your activity, but that will improve with time. We ask you avoid heavy lifting or acitivities that cause pain. As a general rule, 8lbs is a safe limit for lifting right after surgery. Walk as much as you feel comfortable but not to exhaustion. You will feel extra tired the first few days after surgery. Stay well hydrated. It is OK to walk up and down stairs You may return to driving when you are off narcotics (such as vicodin, oxycodone, dilaudid, etc), and you are back to normal functional capacity. If you have any concerns please check with office before driving. Return to work is specific to each patient and each surgery, so please speak with your doctor/PA at first follow up. Please bring paperwork such as FMLA at that time if you need it filled out. Medications: You can resume your Alzheimer's infusion after we see you in follow-up and be sure that your wound is healing okay For optimum pain control, it is best to start with a combination of 500 mg of Tylenol every 4 hours with 600 mg of Motrin every 8 hours, and use narcotics as needed in between for breakthrough pain. We will give you a short supply of narcotics after surgery (usually one weeks worth). If you need more please call the office but do not use more than prescribed. You will need to give our office 48 hours notice if you need anila cotics refilled and we do not fill narcotics on weekends or evenings. If you are on a narcotic, it is a good idea to take a stool softener such as colace or senna to avoid constipation If you take blood thinner such as aspirin, Plavix, Coumadin, Effient, Eliquis etc for conditions such as Afib, DVT, Pulmonary embolus, coronary disease, stents etc please speak with your surgeon about specific details as to when you can resume these medications. Follow up: Please call the office, , after surgery to arrange a 3 week follow up for wound check. Wound Care: You may remove your dressing on the first day after surgery. ?You may ?leave open to air. Please do not remove the steri strips underneath. they will fall off on their own in one week. IT IS NORMAL FOR THE WOUND TO OOZE OR BE BLOODY FOR A FEW DAYS AFTER SURGERY. ?IF THIS HAPPENS JUST PLACE NEW DRESSING OVER IT TO AVOID STAINING CLOTHES. You may shower on post op day # 1 We ask that you do not let the water soak the wound. If it does get wet, just towel dry lightly. Please do not scrub your incision or place any type of chemical/ointment on the wound. No tub baths, pools or jacuzzis for one month. If you have any leaking or redness from your wound, or fevers, please call office Print Language: German
[2025-08-09] VITALS (7 sets, daily range): BP systolic 119–139; BP diastolic 55–65; PULSE 68–81; RESP 10–20; TEMP 36.1–36.4; O2SAT 96–100; BMI 25.5
--- NOTE | ~2025-08-09 | FL_ITS ---
EXAMINATION: FLUOROSCOPY ONLY CLINICAL INFORMATION: L4-5 decompression COMPARISON: X-ray lumbar spine 06/29/2025 TECHNIQUE: Fluoroscopy time: 3 minutes Dose: 1.7 mgy Images: 1 FINDINGS: Image demonstrates surgical instrument projected at the inferior lumbar spine. Supporting surgical wires/tubes projected over the image. FL/FL guidance in OR IMPRESSION: Fluoroscopy provided in the operating room. See surgical report for details. Electronically signed by: Gustavo Coughlin MD 08/10/2025 09:17 AM EST
[2025-08-09] MEDS: Lactated Ringers 1,000 ML 100 ML IVCONT (09:27)
--- NOTE | 2025-08-09 10:33 | MHC.SHP ---
Pre-Procedural Eval Section A - 24 Hr Update-Section A only Date of Service: 08/09/25 The patient is an INPATIENT: No Section B - Complete if H&P > 30 days Chief Complaint: Spinal stenosis, lumbar region with neurogenic Allergies: Allergies Allergy/AdvReac Type Severity Reaction Status Date / Time aspirin Allergy palpations Verified 06/29/25 09:17 codeine Allergy Palpitation Verified 06/29/25 09:17 s fluoxetine Allergy Unknown Verified 07/25/25 11:41 ibuprofen Allergy jitters Verified 06/29/25 09:17 morphine Allergy Stomach Verified 06/29/25 09:17 Upset cold medications Allergy Palpitation Uncoded 05/06/23 12:11 s Review of Systems Sugical H&P ROS: Negative: Constitution, Cardiovascular, Respiratory, Neurological, Psychiatric, Hem-Onc, Allergic/Immunologic, Gastrointestinal, Genitourinary, Musculoskeletal, Integumentary, Endocrine and Eyes/Ears/Nose/Throat Exam Surgical H&P Exam: Normal: HEENT, Normal: Heart, Normal: Lungs, Normal: Extremities, Normal: Abdomen, Normal: Skin and Normal: Neurological (Wake, alert) Plan Diagnosis/Plan: Unchanged I have reviewed the history and physical and performed a pertinent physical examination on my patient. No changes have occurred unless specified. L4-5 decompression Time Spent With Patient Time: Total time managing care of this patient today _5___ minutes.
--- NOTE | 2025-08-09 14:44 | W.PM.OPN ---
Operative Note Operative Note Date of Service: 08/09/25 Narrative: Preoperative Diagnosis: L4-5 spinal stenosis/lateral recess stenosis Operation: L4-5 Laminotomy, Partial facetectomy and foraminotomy with use of microscope Consent Informed Consent was obtained for this operation. I have explained the nature, purpose and benefits of the operation. I have discussed the risks and benefit of the operation including possible complications or adverse events with patient/family. Alternative(s) were discussed with the patient with their relative benefits and risks as well as the consequences of not accepting the operation were included in obtaining consent. Surgeon: WILLIAM MABRY MD, PHD Procedure Assisted By: Hakeem Thurston Description of Procedure This 80-year-old female suffering from neurogenic claudication due to severe L4-5 spinal stenosis. The patient was offered a decompression. The procedure complications were explained. The patient was consented. The patient was brought to the operating room and endotracheally intubated. The patient was turned in prone position on the Gabriel frame. Prep and drape was done followed by timeout. The Physician administrative assistant office manager provided access. A mid lumbar incision was made followed by release of the paravertebral muscle on the right side to expose the right L4-5 lamina and facet joints. An intraoperative x-ray was obtained to confirm the correct level. The microscope was brought in. I took over the procedure. The high-speed drill was used to do a right L4-5 laminotomy until flavum ligament was reached. A #2 Kerrison was used to expand the laminotomy near flush to the pedicles and to include a partial facetectomy. The extremely hypertrophied flavum ligament was opened and resected with a #3 Kerrison to decompress the underlying thecal sac. The flavum ligament was removed to decompress the lateral recess and the exiting L5 nerve root. The patient was turned contralaterally. The spinous process was undercut and this way I was able to retrieve more severe hypertrophied ligament from the contralateral side and lateral recess. A long nerve hook could be easily passed along the medial side of the pedicles as a sign of adequate decompression. The microscope was removed. Hemostasis was done. The physician administrative assistant office manager close the Incision in 2 layers. Steri-Strips were used to approximate incision. An OpSite with Tegaderm was used to cover the incision. All sponge needle counts were correct. Patient was extubated and transported in stable is to recovery room. Anesthesia: General Estimated Blood Loss (ml): 20 Complications: None Duration of Surgery: Under 60 Minutes Postoperative Plan: Discharge to home
--- NOTE | 2025-08-09 14:55 | P.DS_ITS ---
DS: Providers Provider Date of Service: 08/09/25 Date of discharge: 08/09/25 Primary care physician: Jag Rosas MD DS: Diagnosis Discharge Diagnosis (1) Lumbar stenosis with neurogenic claudication: Status: Acute DS: Summary Time Attestation Discharge Coordination Time (in mins): 12 Quality: Safe Use of Opioids Does Pt have an Active Cancer Diagnosis on the Problem List?: No Quality: Stroke Does the patient have a stroke diagnosis?: No Physical Exam Vital Signs: Vital Signs: Last Vital Signs Temp 96.9 F 08/09/25 09:34 Pulse 81 08/09/25 09:34 Resp 20 08/09/25 09:34 BP 138/63 08/09/25 09:34 Pulse Ox 97 08/09/25 09:34 O2 Del Method Room Air 08/09/25 09:34 BMI result Body Mass Index 25.5 Discharge Plan Discharge Patient Disposition: Home, Self-Care Referrals: Jag Rosas MD [Primary Care Provider, Internal Medicine] - 1 Week Discharge Medications: New tramadol 50 mg tablet 50 mg PO Q6H PRN (Reason: pain) Qty: 20 0RF Continued clonazepam 0.5 mg tablet 0.5 mg PO DAILY duloxetine 30 mg capsule,delayed release(DR/EC) 30 mg PO DAILY duloxetine 60 mg capsule,delayed release(DR/EC) 60 mg PO DAILY budesonide-formoterol [Breyna] 160-4.5 mcg/actuation HFA aerosol inhaler 2 puff INHALATION DAILY PRN (Reason: Shortness Of Breath Or Wheezing) pravastatin 40 mg tablet 40 mg PO BEDTIME loperamide 2 mg Capsule 2 mg PO QID PRN (Reason: Diarrhea) gabapentin 300 mg capsule 300 mg PO DAILY Held lecanemab-irmb 100 mg/mL Solution IV Q2W Hold Instructions: Resume on 08/23/25. You may resume this after your follow- up and we are sure that your wound is healing up without any signs of infection Discharge Orders: Discharge Order (Routine); Ordered 08/09/25 Ordered By: Jitendra Giordano Diet: Advance to usual diet Activity on Discharge: As tolerated Activity Restrictions/Additional Instructions: After your spinal surgery we ask you to observe the following restric tions/guidelines: Activity: It is normal to feel some discomfort as you increase your activity, but that will improve with time. We ask you avoid heavy lifting or acitivities that cause pain. As a general rule, 8lbs is a safe limit for lifting right after surgery. Walk as much as you feel comfortable but not to exhaustion. You will feel extra tired the first few days after surgery. Stay well hydrated. It is OK to walk up and down stairs You may return to driving when you are off narcotics (such as vicodin, oxycodone, dilaudid, etc), and you are back to normal functional capacity. If you have any concerns please check with office before driving. Return to work is specific to each patient and each surgery, so please speak with your doctor/PA at first follow up. Please bring paperwork such as FMLA at that time if you need it filled out. Medications: You can resume your Alzheimer's infusion after we see you in follow-up and be sure that your wound is healing okay For optimum pain control, it is best to start with a combination of 500 mg of Tylenol every 4 hours with 600 mg of Motrin every 8 hours, and use narcotics as needed in between for breakthrough pain. We will give you a short supply of narcotics after surgery (usually one weeks worth). If you need more please call the office but do not use more than prescribed. You will need to give our office 48 hours notice if you need narcotics refilled and we do not fill narcotics on weekends or evenings. If you are on a narcotic, it is a good idea to take a stool softener such as colace or senna to avoid constipation If you take blood thinner such as aspirin, Plavix, Coumadin, Effient, Eliquis etc for conditions such as Afib, DVT, Pulmonary embolus, coronary disease, stents etc please speak with your surgeon about specific details as to when you can resume these medications. Follow up: Please call the office, , after surgery to arrange a 3 week follow up for wound check. Wound Care: You may remove your dressing on the first day after surgery. ?You may ?leave open to air. Please do not remove the steri strips underneath. they will fall off on their own in one week. IT IS NORMAL FOR THE WOUND TO OOZE OR BE BLOODY FOR A FEW DAYS AFTER SURGERY. ?IF THIS HAPPENS JUST PLACE NEW DRESSING OVER IT TO AVOID STAINING CLOTHES. You may shower on post op day # 1 We ask that you do not let the water soak the wound. If it does get wet, just towel dry lightly. Please do not scrub your incision or place any type of chemical/ointment on the wound. No tub baths, pools or jacuzzis for one month. If you have any leaking or redness from your wound, or fevers, please call office Print Language: Guamanian
== END 2025-08-09 16:20 | disposition home or self-care (01) ==
LOC: HO.SSS 09:05
PROVIDERS: Nurse Practitioner; PCP Internal Medicine; Visit Provider Neurological Surgery
PROC: (CPT 63047; principal; 2025-08-09 12:10)
DX: M48.062 Spinal stenosis, lumbar region with neurogenic claudication (principal); M54.50 Low back pain, unspecified; J44.9 Chronic obstructive pulmonary disease, unspecified; Z90.2 Acquired absence of lung [part of]; Z85.118 Personal history of other malignant neoplasm of bronchus and lung; Z87.891 Personal history of nicotine dependence; K52.9 Noninfective gastroenteritis and colitis, unspecified; E78.00 Pure hypercholesterolemia, unspecified; G30.0 Alzheimer's disease with early onset; F02.80 Dementia in other diseases classified elsewhere, unspecified severity, without behavioral disturbance, psychotic disturbance, mood disturbance, and anxiety; Z79.899 Other long term (current) drug therapy; F41.9 Anxiety disorder, unspecified; Z88.5 Allergy status to narcotic agent; Z88.6 Allergy status to analgesic agent
CPT/HCPCS: 63047; 36415; 80048; 85027; 93005; J0131; J0690; J1100; J2003; J2371; J2405; J2704; J3010

== ENCOUNTER → 2025-08-09 09:04 | Outpatient (BNV) | payer OTHER, SELFPAY | PROVIDERS: PCP Internal Medicine; Visit Provider Neurological Surgery | DX: M48.062 Spinal stenosis, lumbar region with neurogenic claudication (principal) | CPT/HCPCS: 63047; 99499 ==

== ENCOUNTER 2025-09-03 09:40 | Outpatient (AMB) | payer OTHER, SELFPAY ==
--- NOTE | 2025-09-03 09:47 | A.SPINEOV_ITS ---
Intake Visit Reasons: 1st post op Intake Note: Ms. Ruiz is here today for her 1st post op. Grinder Set Up Operator Universal Required: No Allergies aspirin Allergy (Verified 06/29/25 09:17) palpations codeine Allergy (Verified 06/29/25 09:17) Palpitations fluoxetine Allergy (Verified 07/25/25 11:41) Unknown ibuprofen Allergy (Verified 06/29/25 09:17) jitters morphine Allergy (Verified 06/29/25 09:17) Stomach Upset cold medications Allergy (Uncoded 05/06/23 12:11) Palpitations Assessment & Plan Assessment & Plan (1) Lumbar stenosis with neurogenic claudication: Code(s): M48.062 - Spinal stenosis, lumbar region with neurogenic claudication Category: Medical Plan Operation: L4-5 Laminotomy, Partial facetectomy and foraminotomy Roxane comes in today for her 1st postoperative visit after having a L4-5 lumbar decompression completed by Dr. Powell a few weeks ago. She reports that overall she has been doing wonderful since her surgery. She only took 1 of her pain medications after surgery, and then took a few days of Tylenol, and was able to essentially get off of pain medications completely. She states that she is walking without pain, and feels like she is finally back to her normal self. She feels like she did prior to ever having an issue with her low back. She is very satisfied with the procedure that she had. I answered any questions she had related to the postoperative healing course. No new neurological deficits. The patient ambulates well and rises from a seated position without difficulty. Her incision site is closed and well healing with no signs of edema or drainage. There is no need for continued routine follow up with Roxane, she may follow up on an as-needed basis in the future. Jitendra Powell MD,PhD [facility] Coding Level of Care Code Global (16680) Diagnoses Lumbar stenosis with neurogenic claudication M48.062
--- OUTSIDE RECORDS SUMMARY | 2025-09-03 11:39 | XMS_ITS | Continuity of Care Document ---
Author Organization [facility] Address [address] [place] [address] Care Team Providers Care Coffee Break Attendant Name Role Phone Unavailable Primary Care Provider Unavailabl e Encounters Date Type Department Care Team Description 09/12/2020 Travel 09/12/2020 3:45 PM EST Consult (Initial) [facility] Ophthalmology [address] [place] [phone] Dominga Deal MD Acquired involutional ptosis of eyelid, bilateral; Peripheral visual field defect of both eyes; Pseudophakia of both eyes 09/02/2020 Office Visit OPTOMETRY UNSPECIFIED Provider, Unknown 08/21/2020 Telephone CALL CENTER [facility] [address] [place] [phone] Dominga Deal MD Medications No known medications Active Problems No known active problems Social History Smoking Status as of 09/03/2025 Tobacco Use Types Packs/Day Years Used Date [...]
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
--- OUTSIDE RECORDS SUMMARY | 2025-09-03 11:40 | XMS_ITS | Clinical Summary ---
Author Organization [facility] Address [address] [place] [address] Care Team Providers Care Manager Inventory Management Name Role Phone Jag Rosas Primary Care Provider [phone] Allergies Active Allergy Reactions Criticality Noted Date [...] Date Last Done Comments COVID-19 Vaccine (#1) 1945 Pneumococcal Vaccine: 50+ Ye ars (1 of 2 - PCV) 1963 Zoster Vaccines (1 of 2) 1963 DTaP,Tdap,and Td Vaccines (1 - Tdap) 1966 Osteoporosis Screening 1994 RSV Vaccine (60+ years old a nd patients) (1 - 1-dose 75+ series) 2019 Alcohol/Substance Use Screening 10/04/2024 Depression Screening and Follow-Up 10/04/2024 Fall Risk Screening 10/04/2024 Health Care Proxy Review 10/04/2024 Social Drivers of Health Ketty ual Screening 10/04/2024 Influenza Vaccine (#1) 2025 Hepatitis B Vaccines Aged Out No long er eligible based on patient's age to complete this topic Insurance [facility] Advance Directives Documents on File Type Date Recorded Patient Environmental Inspector Expl anation Advance Directive 12/24/2014 12:00 AM miles wetzle Dec Making (Adv.Dir) Advance Directive 12/21/2014 12:00 AM Adva nce Care Directives Care Teams Manager Inventory Management Relationship Specialty Start Date End Date Jag Rosas PCP - General Internal Medicine 04/04/24
--- OUTSIDE RECORDS SUMMARY | 2025-09-03 11:40 | XMS_ITS | Encounter Summary ---
Author Organization [facility] Address [address] [place] [address] Care Team Providers Care Sales Representative Education Courses Name Role Phone Unavailable Primary Care Provider Unavailabl e Encounter Details Date Type Department Care Team ([facility] st Contact Info) Description 08/21/2020 Telephone CALL CENTER [facility] [address] [place] [phone] Dominga Deal MD Social History Tobacco Use [...]
== END 2025-09-03 10:35 | disposition home or self-care (01) ==
LOC: HO.HNS 09:41
PROVIDERS: PCP Internal Medicine; Visit Provider Physician Assistant
DX: M48.062 Spinal stenosis, lumbar region with neurogenic claudication (principal)
CPT/HCPCS: 99024

== ENCOUNTER → 2025-09-03 09:40 | Outpatient (BNVA) | payer OTHER, SELFPAY | PROVIDERS: PCP Internal Medicine; Visit Provider Physician Assistant | DX: Z47.89 Encounter for other orthopedic aftercare (principal); M48.062 Spinal stenosis, lumbar region with neurogenic claudication | CPT/HCPCS: 99212 ==